=== PATIENT | male | born 1955 | race Caucasian/White ===

== ENCOUNTER 2017-10-13 21:08 | Inpatient (IN) ==
[2017-10-13] MEDS ORDERED: Naloxone 0.4 MG/ML INJ IVP PRN (22:40)
[2017-10-13] MEDS ORDERED: Acetaminophen 325 MG TABLET PO PRN (23:02)
[2017-10-13] MEDS ORDERED: Potassium Chloride Elixir 20 MEQ/15 ML UDC PO ONE (23:04)
--- NOTE | 2017-10-13 23:10 | Internal Med History&Physical ---
Date of Encounter: 10/13/17 Time of Encounter: 22:00 Internal Medicine - H&P: HPI Chief complaint: R toe pain History of present illness: Mr. Krueger is a 62 year old male with history of peripheral arterial disease status post left BKA in 2016 presented to the outside hospital ED with 3 day history of right toe duskiness. He states that he banged his toes against the door prior to that and continued to have increasing pain and redness on the dorsum of the foot. Associated with R 3rd and 5th toe duskiness and worsening pain. No fever/chills or discharges from the toes. Denies any claudication. No chest pain, shortness of breath, cough, sputum production, abdominal pain, dysuria, or nausea/vomiting. He was concerned about his toes turning black and wanted to be evaluated. Of note, he has not been compliant to his medications for at least 1 year. In the ED, he was afebrile and hemodynamically stable. Initial workup showed leukocytosis of 18.3, and potassium of 3.3. X-ray of the foot just showed mild circumferential soft tissue swelling without any soft tissue gas or radiographic evidence of osteomyelitis. He was given a dose of clindamycin and transferred to [facility] for further management. Past Med Surg Social Fam HX - Past Medical History Medical history: arthritis, COPD, GERD, hyperlipidemia, peripheral artery disease, other Additional medical history: patient is poor historian Psychiatric history: no psych history - Past Surgical History Surgical History: other Additional surgical history: left BKA - Social History Smoking Status: Current every day smoker Smokeless Tobacco Status: No Alcohol use: rarely Drug use: none - Family History Mother Adopted: No Family Member Ethnicity: Non- Living Status: Father Adopted: No Family Member Ethnicity: Non- Living Status: Hx Family Cardiac Disorders: Yes Hx Family Respiratory Disorders: Yes Hx Family Cancer: Yes Hx Family GI Disorders: No Hx Family Endocrine Disorder: No Hx Family Neuromuscular Disorders: No Hx Family Neurologic Disorders: No Hx Family HEENT Disorders: No Hx Family Autoimmune Disorders: No Internal Medicine - H&P: Meds Aspirin 81 mg PO DAILY tab.chew 12/10/15 [Rx] Clopidogrel Bisulfate [Plavix] 75 mg PO DAILY #30 tablet 12/10/15 [Rx] Amino Acids/Protein Hydrolys [Pro-Stat Awc Liquid] 887 ml PO BID 02/07/16 [ History] Oxycodone HCl 5 mg PO Q4H PRN #40 capsule 02/07/16 [Rx] Zinc Sulfate 220 mg PO BID 02/07/16 [History] Sulfamethoxazole/Trimeth DS [Bactrim DS] 1 each PO BID #20 tablet 03/03/16 [Rx] 3 Allergy/AdvReac Type Severity Reaction Status Date / Time No Known Allergies Allergy Verified 10/13/17 18:32 All Systems PM: A 10-system review of systems was performed and is negative for pertinent findings except as documented above in the HPI. - Other Additional findings: General: Alert and oriented HEENT:EOM, pupils equal, round, and reactive. Cardiovascular:Normal S1 & S2, no murmurs or gallops. No JVD. Pulse regular. Lungs:Normal breath sounds, no wheezes or crackles. Abdomen:Soft, non-tender, no rigidity. Extremities: R 3rd and 5th toe duskiness noted, extremely tender to touch. Overlying erythema of the dorsum of R foot also seen. No fluctuance or underlying mass felt. PT, DP poorly felt. Neurological:Normal cognition and motor skills. Skin:Normal color, no rash, no lesions. Pulses:Carotid and radial pulses normal +2. Rest of the physical exam is non-contributory - Assessment and plan (1) Gangrene of foot Current Visit: No Status: Acute Assessment and plan: History of peripheral arterial disease completed by noncompliance to medication Concerning findings for right toe gangrene. Previous DIONTE was normal on the right side in December 2015 We will repeat the arterial Doppler study. Given clindamycin in the outside hospital ED, will switch to IV Vanc once weight is entered into the system Vascular surgery consult (2) Cellulitis Current Visit: No Status: Acute Assessment and plan: IV vancomycin above check A1c tomorrow Qualifiers: Site of cellulitis: extremity Site of cellulitis of extremity: lower extremity Laterality: right Qualified Code(s): L03.115 - Cellulitis of right lower limb (3) Hypokalemia Current Visit: Yes Status: Acute Assessment and plan: repleted. (4) DVT prophylaxis Current Visit: No Status: Acute Assessment and plan: SQ heparin - Time Spent With Patient Total time spent is greater than 50% in coordination of care (as documented) at patient's floor/unit and/or counseling patient:
[2017-10-13] MEDS ORDERED: 0.9 % Sodium Chloride w KCl 40 MEQ/1,000 ML MLS IVC SCH (23:15)
[2017-10-14] MEDS: *HR* OxyCODONE Immed Rel 5 MG TABLET PO PRN (00:43)
[2017-10-14 04:02] LABS: Basophils # 0.1 K/mcL (0.0-0.2); Basophils % 0.4 %; Eosinophils # 0.2 K/mcL (0.0-0.6); Eosinophils % 1.4 %; Hematocrit 45.2 % (37.5-50.1); Hemoglobin 15.5 g/dL (12.9-16.9); Immature Granulocytes % 0.4 % (0-4); Lymphocytes # 3.8 K/mcL (0.6-4.6); Lymphocytes % 27.8 %; Mean Corpuscular HGB Conc 34.3 g/dL (31.6-35.5); Mean Corpuscular Hemoglobin 30.8 pg (28.0-33.3); Mean Corpuscular Volume 89.9 fL (83.0-100.0); Mean Platelet Volume 8.8 fL (9.4-12.4); Monocytes # 1.4 K/mcL (0.0-1.3); Monocytes % 10.3 %; Neutrophils # 8.1 K/mcL (1.6-8.9); Platelet Count 462 K/mcL (140-400); Red Blood Count 5.03 M/mcL (4.19-5.50); Red Cell Distribution Width 13.6 % (11.5-14.5); Segmented Neutrophils % 59.7 %
[2017-10-14 04:05] LABS: INR 1.1; Prothrombin Time 12.6 Seconds (9.4-12.1)
[2017-10-14 04:22] LABS: Alanine Aminotransferase 15 Units/L (7-52); Albumin 3.7 g/dL (3.5-5.7); Albumin/Globulin Ratio 1.3 (1.1-2.2); Alkaline Phosphatase 69 Units/L (34-104); Aspartate Amino Transferase 24 Units/L (13-39); BUN/Creatinine Ratio 18 (6-26); Bilirubin,Total 0.4 mg/dL (0.3-1.0); Blood Urea Nitrogen 10 mg/dL (8-23); Calcium 8.7 mg/dL (8.6-10.3); Carbon Dioxide 21 mEq/L (23-29); Chloride 109 mEq/L (98-107); Globulin 2.9 g/dL (2.4-3.5); Glucose 82 mg/dL (70-105); Osmolality,Calculated 276 (280-300); Potassium 5.1 mEq/L (3.5-5.1); Sodium 134 mEq/L (136-145); Total Protein 6.6 g/dL (6.4-8.9); eGFR For Non-African Americans > 60 (> 60)
[2017-10-14 06:45] LABS: Estimated Average Glucose 126 mg/dl
[2017-10-14] MEDS: *HR* Heparin 5,000 UNIT/ML VIAL SQ SCH ×2 (06:53→16:58)
[2017-10-14] MEDS: *HR* HYDROcodone/Acet 5/325 mg TABLET PO PRN ×2 (08:07→20:39)
[2017-10-14] MEDS: Aspirin Enteric Coated 81 MG Tablet PO SCH (08:07)
--- NOTE | 2017-10-14 13:36 | Internal Med Progress Note ---
Hospitalist Progress Note - Encounter Date of Encounter: 10/14/17 Time of Encounter: 09:50 - Subjective Interval History: Patient continues to have decreased sensation along with discoloration of his toes involving the right foot. No fever reported overnight. No nausea or vomiting. Awaiting vascular surgery evaluation. - Exam Vitals: Temp Pulse Resp BP Pulse Ox 98.1 F 73 16 143/84 94 10/14/17 11:45 10/14/17 11:45 10/14/17 11:45 10/14/17 11:45 10/14/17 11:45 Exam: General: Patient is alert, no acute distress, oriented x 3 Head: atraumatic, normocephalic, Eye: normal appearance, PERRL, no scleral icterus, no conjunctival injection ENT: mucous membranes moist, normal external ear exam Neck: normal inspection, trachea midline, full ROM, no carotid bruits Chest: normal inspection, symmetric chest rise Respiratory: Good respiratory effort. Normal breath sounds. No wheezing or crackles.. Cardiovascular: Regular rate and rhythm. s1 and s2 No clicks, rubs, gallops, or murmurs. No pedal edema Abdomen: Abdomen is soft, nontender. Bowel sounds are present Musculoskeletal: Status post left BKA. 4 pedal pulses in the right foot. Discolored toes - first, third and fifth. Erythema involving the dorsal half of the foot Skin: warm, dry- changes as described above Neuro: Alert oriented x 3 normal cranial nerves, no focal deficits - Assessment and Plan (1) Gangrene of foot Current Visit: Yes Status: Acute Assessment and Plan: Arterial imaging shows occlusion at mid thigh level with arterial flow in the distal of the right lower extremity. Consulted vascular surgery. They will evaluate patient today. Continue to keep nothing by mouth. No indication for heparin as this could be chronic occlusion. Continue IV antibiotics. Follow vascular surgery recommendations (2) Cellulitis Current Visit: Yes Status: Acute Assessment and Plan: IV antibiotics. Due to decreased blood flow and gangrene involving the toes of the right foot. (3) Hypokalemia Current Visit: Yes Status: Resolved (4) DVT prophylaxis Current Visit: No Status: Acute DVT Prophylaxis: On subcutaneous heparin - Time Spent with Patient Total time spent is greater than 50% in coordination of care (as documented) at patient's floor/unit and/or counseling patient: Plan of Care Discussed with: patient Internal Medicine: Result - Labs CBC & Chem 7: 10/14/17 03:41 10/14/17 03:41 Labs: Short CBC 10/14/17 Range/Units 03:41 WBC 13.6 H (4.3-11.1) K/mcL Hgb 15.5 (12.9-16.9) g/dL Hct 45.2 (37.5-50.1) % Plt Count 462 H (140-400) K/mcL Neutrophils # 8.1 (1.6-8.9) K/mcL BMP 10/14/17 03:41 Sodium 134 L Potassium 5.1 D Chloride 109 H Carbon Dioxide 21 L BUN 10 Creatinine 0.56 L Glucose 82 Calcium 8.7 Liver Function 10/14/17 Range/Units 03:41 Total Bilirubin 0.4 (0.3-1.0) mg/dL AST 24 (13-39) Units/L ALT 15 (7-52) Units/L Alkaline Phosphatase 69 (34-104) Units/L Albumin 3.7 (3.5-5.7) g/dL - ABG Interpretation ABG results: PT/INR, D-dimer PT 12.6 Seconds (9.4-12.1) H 10/14/17 03:41 Consult Discharge Plan - Plan Referrals: NONE,PCP [Primary Care Provider] - (2) Cellulitis Qualifiers: Site of cellulitis: extremity Site of cellulitis of extremity: lower extremity Laterality: right Qualified Code(s): L03.115 - Cellulitis of right lower limb
[2017-10-14] MEDS: Piperacillin/Tazobactam 3.375 GM in 0.9 % Sodium Chloride Mini Bag 100 ML IVPB SCH ×2 (13:42→22:35)
[2017-10-14] MEDS ORDERED: Isovue-370 500 ML INFUS..BTL IV ONE (14:51)
--- NOTE | 2017-10-14 16:31 | Vascular/Endovasc Consult Note ---
Date of Encounter: 10/14/17 Time of Encounter: 15:00 Assessment and Plan (1) Ischemic pain of right foot Current Visit: Yes Status: Acute Patient has at least a one-month history of right lower extremity ischemia. Patient has advanced ischemic changes involving the right toes and right forefoot. Vascular exam indicates the patient has proximal occlusive disease involving the iliofemoral segment. The patient may also have distal disease. Because of the severity of the ischemia I would recommend a CT aortogram with runoff today to better understand his vascular anatomy. This would help determine whether this right lower extremity is salvageable. If the anatomy is salvageable I would then recommend urgent surgery tomorrow for either a femoral- femoral bypass graft or right femoral-popliteal bypass graft. This was explained to the patient. He agrees to proceed. In the meantime the antibiotics which have been prescribed for the patient may continue though I believe the fundamental issue here is subacute to chronic ischemia of the right lower extremity and not infection. (2) COPD (chronic obstructive pulmonary disease) Current Visit: Yes Status: Chronic Patient has chronic COPD. Qualifiers: COPD type: unspecified COPD Qualified Code(s): J44.9 - Chronic obstructive pulmonary disease, unspecified (3) PAD (peripheral artery disease) Current Visit: Yes Status: Chronic Patient has known peripheral vascular occlusive disease. He has not been in the vascular surgery clinic for nearly 2 years. (4) Tobacco abuse Current Visit: Yes Status: Chronic Patient has chronic tobacco abuse and is the fundamental cause for his vascular disease. - History of Present Illness Consult date: 10/14/17 Consult reason: Right toe gangrene Chief complaint: Right leg pain History of present illness: Mr. Krueger is a 62 year old male Who was admitted last night apparently on transfer from [facility] for evaluation of right lower extremity ischemia. This gentleman states that for at least the past month he has been having pain involving the right calf particularly on the posterior aspect. He has had great difficulties walking. This pain has been progressive over time to the point that he now has pain 24 hours a day. It interferes with his lifestyle. He is unable to ambulate or bear weight on his right foot. He also was noted color changes involving his right toes over the past few days. It is unclear why the patient waited until now to seek medical attention. Noninvasive testing was performed of the right lower extremity early this morning which reveals an DIONTE of 0 at the right foot. Duplex scanning shows marked diminution of the ileal femoral waveforms and velocities suggesting proximal occlusion. Because of all of these issues vascular surgery was consulted today. The past medical history is significant. He had presented in December 2015 with severe left lower extremity ischemia. He went on to have a CT angiogram and then a left femoral to popliteal artery bypass graft by Dr. Haney. Subsequent to this the ischemia progressed and the patient required a left [id number] amputation. Following that he developed a wound infection and was seen and treated at [facility] where he underwent a left [id number] amputation. He has not been back in the vascular surgery clinic at [place] since January 2016. The patient is an active tobacco abuser and has known COPD. In addition he has elevated cholesterol. He is also suffering from degenerative joint disease as well as gastroesophageal reflux. Past Med Surg Social Fam HX - Past Medical History Medical history: arthritis, COPD, GERD, hyperlipidemia, peripheral artery disease, other Additional medical history: patient is poor historian Psychiatric history: no psych history - Past Surgical History Surgical History: vascular surgery (Left femoral-popliteal bypass graft), other Additional surgical history: left BKA. Left above-knee amputation at [place] - Social History Smoking Status: Current every day smoker Smokeless Tobacco Status: No Alcohol use: rarely Drug use: none - Family History Mother History Unknown: Yes Adopted: No Family Member Ethnicity: Non- Living Status: Father History Unknown: Yes Adopted: No Family Member Ethnicity: Non- Living Status: Hx Family Cardiac Disorders: Yes Hx Family Respiratory Disorders: Yes Hx Family Cancer: Yes Hx Family GI Disorders: No Hx Family Endocrine Disorder: No Hx Family Neuromuscular Disorders: No Hx Family Neurologic Disorders: No Hx Family HEENT Disorders: No Hx Family Autoimmune Disorders: No Medications and Allergies Albuterol Sulfate [Proair Hfa] 1 - 2 puff IH Q6H PRN 10/14/17 [History] Gabapentin [Neurontin] 100 mg PO TID 10/14/17 [History] Lovastatin [Mevacor] 20 mg PO QPM 10/14/17 [History] hydrOXYzine HCl [Hydroxyzine HCl] 50 mg PO HS 10/14/17 [History] 3 Allergy/AdvReac Type Severity Reaction Status Date / Time No Known Allergies Allergy Verified 10/13/17 18:32 All Systems Review: The remainder of the systems were reviewed and are negative Exam Vital Signs, Last 4 Hours Temp Pulse Resp BP Pulse Ox 10/14/17 15:20 98.6 F 81 18 128/78 93 General: Present: Conversant, No Apparent Distress, Other (The patient is a thin and cachectic appearing white male who looks older than his chronologic years.) HEENT: Present: Atraumatic, Trachea midline, Other (Muscle wasting of face and neck) Neck: Absent: JVD, Left Carotid bruit, Right Carotid bruit, Midline deformity, Tracheal deviation Cardiac: Present: Reg Rate and Rhythm, No Murmur Lungs: Present: Decreased breath sounds Neuro: Present: Alert and responsive, No focal deficits noted, Cranial nerves grossly intact Abdomen: Present: Soft, Non-tender. Absent: Masses Vascular: Present: Pulse, absent (Patient has no palpable right lower extremity pulses.), Pulse, normal (Patient has a palpable left femoral pulse), Edema, Color/Temperature (The right foot is cool to cold to touch. It is tender to manipulation. The patient has ruborous changes on the dorsal lateral aspect of the foot. There are cyanotic to gangrenous changes involving 4 of the 5 toes of the right foot. There are no ulcerations of the heel or calf. There is no signs of venous insufficiency.), Amputation(s) (Status post left above-knee amputation ) Consult Discharge Plan - Plan Referrals: NONE,PCP [Primary Care Provider] -
--- NOTE | 2017-10-14 22:26 | Anesthesia Evaluation PreOp ---
Date of Encounter: 10/14/17 Time of Encounter: 22:21 - Past History Planned Operation: R fem-pop bypass graft Cardiac History: Hyperlipidemia, Other (PAD) Pulmonary History: Smoker, COPD GRADER MARKER History: Denies Any Significant HX Other Medical History: GERD Anesthesia History: No Prior Anesthetic Complications, Past Anesthesia (L BKA) Alcohol Use: rarely Drug use: none Medications and Allergies Albuterol Sulfate [Proair Hfa] 1 - 2 puff IH Q6H PRN 10/14/17 [History] Gabapentin [Neurontin] 100 mg PO TID 10/14/17 [History] Lovastatin [Mevacor] 20 mg PO QPM 10/14/17 [History] hydrOXYzine HCl [Hydroxyzine HCl] 50 mg PO HS 10/14/17 [History] 3 Allergy/AdvReac Type Severity Reaction Status Date / Time No Known Allergies Allergy Verified 10/13/17 18:32 - Meds/Allergy Pre-op Review Medications Reviewed: Yes Allergies Reviewed: Yes Beta Blockers on Current Med List: No Anesthesia Results - Labs 10/14/17 03:41 10/14/17 03:41 Anesthesia Exam Vital Signs/O2 Sat, Most Current Temp Pulse Resp BP Pulse Ox 98.7 F 92 16 124/69 94 10/14/17 18:55 10/14/17 18:55 10/14/17 18:55 10/14/17 18:55 10/14/17 18:55 Weight: 46kg NPO (# of Hours): MN - HEENT Pupil (Motor): Pupils equal, EOMI Mallampati: III Teeth: Edentulous Oral Opening: Greater than 3 - GRADER MARKER LOC: Oriented GRADER MARKER Motor: Normal RUE, Normal LUE, Normal RLE, Normal Face, Deficit LLE (L BKA) GRADER MARKER Sensory: Normal: RUE, LUE, RLE, Face, Deficit: LLE (L BKA) - Cardiac Rhythm: Regular - Pulmonary Breath Sounds: bilateral Clear Respiratory Effort: Symmetrical Anesthesia Assess/Plan ASA Score: 3 Modified [place] Scale for Level of Consciousness: Cooperative, oriented, and tranquil Anesthetic Plan: General Monitoring Plan: Standard Monitors, A-Line Recovery Plan: PACU
[2017-10-15] MEDS: Piperacillin/Tazobactam 3.375 GM in 0.9 % Sodium Chloride Mini Bag 100 ML IVPB SCH ×2 (04:30→11:29)
[2017-10-15] MEDS: *HR* Heparin 5,000 UNIT/ML VIAL SQ SCH (05:08)
[2017-10-15] MEDS ORDERED: *HR* Dextrose 50 % in Water (Syg) 50 ML SYRINGE IVP PRN ×2 (06:00→22:50)
[2017-10-15] MEDS ORDERED: D5% in Water 1,000 ML IVC PRN ×2 (06:00→22:50)
[2017-10-15] MEDS ORDERED: Dextrose Gel 15 GM/37.5 ML TUBE PO PRN ×4 (06:00→22:50)
[2017-10-15] MEDS ORDERED: ceFAZolin 2,000 MG in 0.9 % Sodium Chloride 100 ML IVPB ONE (08:00)
[2017-10-15] MEDS ORDERED: CeFAZolin Syr 2,000MG/20 ML 2,000 MG/20 ML SYRINGE IVPB ONE (08:00)
[2017-10-15] MEDS: Aspirin Enteric Coated 81 MG Tablet PO SCH (08:07)
[2017-10-15] MEDS: *HR* OxyCODONE Immed Rel 5 MG TABLET PO PRN (09:21)
--- NOTE | 2017-10-15 10:17 | Internal Med Progress Note ---
Hospitalist Progress Note - Encounter Date of Encounter: 10/15/17 Time of Encounter: 09:00 - Subjective Interval History: Continues to have pain in right foot and leg. Awaiting surgery scheduled for later today. No fever or chills reported overnight. No other new complaints at this time. - Exam Vitals: Temp Pulse Resp BP Pulse Ox 98.8 F 77 15 127/82 98 10/15/17 06:33 10/15/17 06:33 10/15/17 06:33 10/15/17 06:33 10/15/17 06:33 Exam: General: Patient is alert, no acute distress, oriented x 3 Head: atraumatic, normocephalic, Eye: normal appearance, PERRL, no scleral icterus, no conjunctival injection Neck: normal inspection, trachea midline, full ROM, no carotid bruits Chest: normal inspection, symmetric chest rise Respiratory: Good respiratory effort. Normal breath sounds. No wheezing or crackles.. Cardiovascular: Regular rate and rhythm. s1 and s2 No clicks, rubs, gallops, or murmurs. No pedal edema Abdomen: Abdomen is soft, nontender. Bowel sounds are present Musculoskeletal: Status post left BKA. Erythema involving the right foot with discolored first third and fifth toes. Poor pedal pulses Psych: Patient's affect is normal - Assessment and Plan (1) Gangrene of foot Current Visit: Yes Status: Acute Assessment and Plan: Vascular surgery consult appreciated. Continue IV antibiotics. Plan for surgery with possible right femorofemoral/ fem- pop bypass today. (2) Cellulitis Current Visit: Yes Status: Acute Assessment and Plan: On IV antibiotics. (3) Hypokalemia Current Visit: Yes Status: Resolved (4) DVT prophylaxis Current Visit: No Status: Acute (5) Ischemic pain of right foot Current Visit: Yes Status: Acute Assessment and Plan: Due to ischemia. Plan for Right fem-fem/ fem-pop bypass today. DVT Prophylaxis: On SQ heparin - Time Spent with Patient Total time spent is greater than 50% in coordination of care (as documented) at patient's floor/unit and/or counseling patient: Plan of Care Discussed with: patient Internal Medicine: Result - Labs CBC & Chem 7: 10/14/17 03:41 10/14/17 03:41 - ABG Interpretation ABG results: PT/INR, D-dimer PT 12.6 Seconds (9.4-12.1) H 10/14/17 03:41 - Impressions Impressions Aorta w/Runoff CTA 10/14/17 14:51 IMPRESSION: 1. Moderate aortoiliac atherosclerotic disease. Occlusion of the right external iliac artery with collateral reconstitution at the right common femoral artery. Left external iliac artery disease with stenoses approaching 50%. 2. Long segment occlusion of the distal third of the right SFA extending over 9-10 cm. Two-vessel runoff with occlusion of the posterior tibial artery proximally. 3. Status post left AKA. Occlusion of the [place] left SFA and femoral graft proximally. 4. No acute findings within the abdomen or pelvis. 5. Hepatic steatosis. 6. Changes of chronic pancreatitis. D/ / 10/14/2017 16:59:20 Laurent Limon MD / margarito Interpreting Provider: Laurent Limon MD Consult Discharge Plan - Plan Referrals: NONE,PCP [Primary Care Provider] - Alexis Aguilar MD [Partnered Physician] - (2) Cellulitis Qualifiers: Site of cellulitis: extremity Site of cellulitis of extremity: lower extremity Laterality: right Qualified Code(s): L03.115 - Cellulitis of right lower limb
[2017-10-15] MEDS ORDERED: *HR* FentaNYL (PF) 100 MCG/2 ML VIAL ONE (14:58)
[2017-10-15] MEDS ORDERED: *HR* Propofol 200 MG/20 ML VIAL IVP ONE (14:58)
[2017-10-15] MEDS ORDERED: Lidocaine -MPF 2% 2 ML VIAL ONE ×2 (14:58→15:29)
[2017-10-15] MEDS ORDERED: Lidocaine -MPF 4% 5 ML AMPUL ONE (14:59)
[2017-10-15] MEDS ORDERED: Heparin 1,000 UNITS/500 mL 500 ML ONE ×3 (14:59→20:58)
[2017-10-15] MEDS ORDERED: Gabapentin 100 MG CAPSULE PO SCH (15:00)
[2017-10-15] MEDS ORDERED: Heparin 1,000 UNITS/500 mL 1,000 ML ONE ×2 (15:06→18:56)
[2017-10-15] MEDS ORDERED: *HR* Phenylephrine 10 MG/ML VIAL ONE (15:09)
[2017-10-15] MEDS ORDERED: *HR* Midazolam HCl 2 MG/2 ML VIAL ONE (15:12)
[2017-10-15] MEDS ORDERED: *HR* Labetalol 100 MG/20 ML MDV ONE (15:27)
[2017-10-15] MEDS ORDERED: NiCARdipine 2.5 MG/10 ML Syringe IVPB ONE (15:27)
[2017-10-15] MEDS ORDERED: Dexamethasone 4 MG/ML VIAL ONE (15:41)
[2017-10-15] MEDS ORDERED: Ondansetron 4 MG/2 ML VIAL ONE (15:41)
[2017-10-15] MEDS ORDERED: Isovue-300 150 ML INFUS..BTL IV ONE (16:05)
[2017-10-15] MEDS ORDERED: *HR* Remifentanil 1 MG VIAL IVP ONE ×2 (16:38→18:56)
[2017-10-15] MEDS ORDERED: EPHEDrine 50 MG/ML VIAL ONE (17:05)
[2017-10-15] MEDS ORDERED: *HR* Heparin 5,000 UNIT/ML VIAL ONE ×2 (17:11→18:02)
[2017-10-15] MEDS ORDERED: ceFAZolin 1,000 MG, Sodium Chloride IRRigation 1,000 ML IR ONE ×2 (17:30→22:50)
[2017-10-15] MEDS ORDERED: *HR* Promethazine 25 MG/ML VIAL IVP PRN ×2 (17:49→22:50)
[2017-10-15] MEDS ORDERED: *HR* OxyCODONE Immed Rel 5 MG TABLET PO PRN ×2 (17:49→22:50)
[2017-10-15] MEDS ORDERED: *HR* HYDROmorphone (PF) 1 MG/ML SYRINGE IVP PRN ×2 (17:49→22:50)
[2017-10-15] MEDS ORDERED: Ondansetron 4 MG/2 ML VIAL IVP ONE ×2 (17:49→22:50)
[2017-10-15] MEDS ORDERED: Neostigmine Methylsulfate 3 MG/3 ML SYRINGE ONE (20:57)
[2017-10-15] MEDS ORDERED: hydrOXYzine pamoate 25 MG CAPSULE PO SCH (21:00)
--- NOTE | 2017-10-15 22:01 | Operative Note ---
Date of procedure: 10/15/17 Pre-op diagnosis: limb threatening ischemia of right lower extremity Post-op diagnosis: same Procedure: right iliofemoral endarterectomy right iliofemoral bovine pericardial patch angioplasty aortogram left femoral endarterectomy left to right femoral-femoral bypass graft with 6 mm PTFE right leg angiogram balloon angioplasty of right SFA and Popliteal using 4 x 200 mm balloon Complications: none Anesthesia: GETA Surgeon: Alexis Aguilar Was there an assistant manager of operations present: No Estimated blood loss (cc): 250 Specimen: 0 Condition: stable Disposition: PACU Procedure in Detail: History Kyler Krueger is a 62-year-old white male who was admitted to the hospital a day before yesterday because of right foot pain in color changes to the toes. The patient states this is been ongoing for at least a month. He has gone on to develop ischemic rest pain and nocturnal rest pain. Faster surgery was asked to see the patient. His ankle-brachial index was 0. 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 This became infected and then he had an oosjj-zkr-ljok amputation. Due to the limb threatening nature of his ischemia he is recommended to undergo urgent bypass grafting in an attempt to try to save the right lower extremity. Procedure After informed consent was obtained the patient was taken to the operating room. General endotracheal anesthesia was established. The abdomen groin and right lower extremity were sterilely prepped and draped. A timeout protocol was observed. An incision was made in the right groin in a vertical orientation in order to provide for a long endarterectomy. Control was obtained of the femoral vessels as well as the distal aspect of the external iliac artery. The patient had marked lymphadenopathy in the right groin region. Heparin was administered after control was obtained of the femoral vessels. A longitudinal arteriotomy was then made. An extensive endarterectomy was then performed of the entire length of the common femoral artery as well as the proximal profunda and proximal superficial femoral artery. The endarterectomy was also carried proximally into the external iliac artery. 3 and 4 Kosovan Any catheters were passed proximally in an attempt to try to relieve the clot and to create an opening. A large amount of subacute to chronic thrombus was removed. There is only small amount of bleeding achieved. A bovine pericardial patch change plasty was then performed. This was sewn into position using 6-0 Prolene suture. Next an angiogram was obtained. An 18-gauge needle was used to puncture the right bovine pericardial patch on the femoral artery. This was then followed by a wire and then a 6 Kosovan sheath. Retrograde angiograms were then performed of the right iliac system and distal aorta. There appeared to be diffuse plaque formation in the proximal right external iliac artery. Attempts at passing the wire were unsuccessful and it appeared that there was a subintimal dissection plane. Then a needle was inserted in the left groin in a retrograde orientation. A 6 Kosovan sheath was then placed. Attempts at passing the guidewire retrograde into the aorta were also met with unsuccessful attempts. This appeared to be a subintimal dissection as well. The patient has known severe disease is of therefore it was opted not to proceed with further attempts at endovascular intervention for the iliac system but rather perform a femoral-femoral graft. Because of this it was opted that the plan to perform a stent angioplasty of the right iliac system to provide adequate inflow into the right lower extremity was not feasible. The left femoral artery was then dissected and controlled. The dissection was proximal to the previously placed anastomosis for the old femoral-popliteal bypass graft. A deep subcutaneous tunnel was then created. The patient was then re-heparinized. The sheath was removed and arteriotomy performed of the common femoral artery. This was a very diseased vessel and again there appeared to be a subintimal dissection. Therefore an endarterectomy is necessary. Then a formal endarterectomy was performed of the left common femoral artery. This was a very thickened dense plaque. This was removed. Excellent pulsatile flow was restored toward from the proximal iliac system. There is retrograde bleeding from the femoral system. The proximal anastomosis of the femoral-femoral bypass graft was then created to the left common femoral artery that was endarterectomized. This was sewn into position in an end-to-side fashion using 6 -0 Prolene suture. After appropriate backbleeding and flushing the graft itself was clamped and the [place] vessel clamps were removed. Attention was then directed to the right side again. The previously placed 6 Kosovan sheath was removed and then reoriented so that it would be placed an antegrade position. An angiogram was then obtained of the right lower extremity. There is showed occlusion of the superficial femoral artery with diffuse disease of the [id number]-jln-qtje popliteal section. Then using a Glidewire under fluoroscopic control the occlusion was able to be passed with the wire. Further heparin was given at that time. A 4 mm x 200 mm standard balloon was selected. This was then placed under fluoroscopic control. An angioplasty was performed of the mid to distal portion of the superficial femoral artery as well as the proximal and midportion of the popliteal artery. After these angioplasties were performed a completion angiogram demonstrated successful results with zoroastrian of a patent lumen and pulsatile flow. A wire was inserted and a Omni Flush catheter was placed into the distal grpwg-[id number]-[id number] popliteal artery. Angiogram was then obtained of the right tibial system. This demonstrated occlusion of the right posterior tibial artery with dominant runoff through the anterior tibial artery. The peroneal artery was a small vessel. Contrast injection did not reveal dye in the dorsalis pedis or any of the direct pedal or forefoot vessels. The catheter was then removed over a wire. Sheath was removed. The recipient anastomosis and for the femoral-femoral bypass graft was created. This was created onto the previously placed bovine pericardial patch angioplasty. This was sewn in end to side fashion with 6-0 Prolene. After appropriate backbleeding and flushing the graft was opened. Pulsatile flow was established into the right lower extremity. Doppler signals were identified over the distal anterior tibial artery and over the distal peroneal artery at the right ankle. No signals were identified in the operating room over the posterior tibial artery. The groin incisions were then irrigated and hemostasis achieved. The incisions were closed using absorbable suture. Half percent Marcaine was infiltrated into the wounds. Dry sterile dressings were applied. The patient was then reversed from anesthesia and extubated in the operating room. He was hemodynamically stable. He was then taken from the operating room to the recovery room in stable condition.
[2017-10-15] MEDS ORDERED: Ondansetron 4 MG/2 ML VIAL IVP PRN (22:50)
[2017-10-15] MEDS ORDERED: Acetaminophen 325 MG TABLET PO PRN (22:50)
[2017-10-15] MEDS ORDERED: *HR* Labetalol 20 MG/4 ML SYRINGE IVP PRN (22:50)
[2017-10-15] MEDS ORDERED: Naloxone 0.4 MG/ML INJ IVP PRN ×2 (22:50)
--- NOTE | 2017-10-15 23:11 | Anesthesia Evaluation Post Op ---
Date of Encounter: 10/15/17 Time of Encounter: 23:10 - Vital Signs Vital Signs: Vital Signs/O2 Sat, Most Current Temp Pulse Resp BP Pulse Ox 99.0 F 91 19 114/71 94 10/15/17 23:00 10/15/17 23:00 10/15/17 23:00 10/15/17 23:00 10/15/17 23:00 - Lungs Lungs: Clear Ascult./Percussion - Airway Airway: Non-obstructed - Cardiovascular Regular Rate - Mental Status Mental Status: Baseline Status - Pain Pain Scale: 0 Pain Scale used: Numeric (1 - 10) - Nausea Vomiting Nausea Vomiting: Not Present - Hydration Hydration: NPO, Min catheter - Discharge PostOp Status: Transfer Patient to floor Attestation: I have assessed this patient and find they meet discharge criteria.
[2017-10-16] MEDS: Piperacillin/Tazobactam 3.375 GM in 0.9 % Sodium Chloride Mini Bag 100 ML IVPB SCH ×3 (04:17→20:55)
[2017-10-16] MEDS: *HR* Heparin 5,000 UNIT/ML VIAL SQ SCH ×2 (06:19→16:49)
[2017-10-16] MEDS: *HR* HYDROcodone/Acet 5/325 mg TABLET PO PRN ×2 (06:31→14:05)
[2017-10-16] MEDS: Gabapentin 100 MG CAPSULE PO SCH ×3 (08:36→20:54)
[2017-10-16] MEDS: Aspirin Enteric Coated 81 MG Tablet PO SCH (08:36)
[2017-10-16] MEDS: *HR* OxyCODONE Immed Rel 5 MG TABLET PO PRN ×2 (09:40→20:54)
--- NOTE | 2017-10-16 12:24 | Vascular/Endovas Progress Note ---
Date of Encounter: 10/16/17 Time of Encounter: 11:30 - Assessment and plan (1) Ischemic pain of right foot Current Visit: Yes Status: Acute Ischemia is improved to the right foot following extensive and exhaustive revascularization performed last night. The patient was found on angiography in the OR last night to have minimal flow to the foot. However, Clinically the perfusion is improved today on postoperative day #1. Unfortunately, The patient does not have any further options for distal revascularization. I would recommend podiatry consult to evaluate right foot and gangrenous toes. (2) COPD (chronic obstructive pulmonary disease) Current Visit: Yes Status: Chronic Patient has chronic COPD. Qualifiers: COPD type: unspecified COPD Qualified Code(s): J44.9 - Chronic obstructive pulmonary disease, unspecified (3) PAD (peripheral artery disease) Current Visit: Yes Status: Chronic Patient has known peripheral vascular occlusive disease. He has not been in the vascular surgery clinic for nearly 2 years. (4) Tobacco abuse Current Visit: Yes Status: Chronic Patient has chronic tobacco abuse and is the fundamental cause for his vascular disease. - Subjective Interval history: Patient states the pain to the right foot is dramatically improved. Vital Signs, Last 4 Hours Temp Pulse Resp BP Pulse Ox 10/16/17 12:12 99.3 F 82 18 104/70 93 10/16/17 08:45 75 - Physical Examination General: Present: Conversant, No Apparent Distress Vascular: Present: Surgical incisions (Dry dressings are intact over the femoral incisions bilaterally. There is no hematoma.), Other (Patient has Doppler signals over the distal anterior tibial and peroneal artery. No Doppler signal over the posterior tibial artery at the ankle. Patient has gangrenous changes to the third and fifth toe of the right foot. The patient has persistent ruborous changes on the dorsal aspect of the forefoot particularly on the lateral aspect. The temperature of the right foot is significantly improved following surgery.) Abdomen: Present: Soft Results 10/14/17 03:41 10/14/17 03:41 Consult Discharge Plan - Plan Referrals: Trista Norris CNP [Advanced Practice Nurse] - 10/23/17 2:45 pm Alexis Aguilar MD [Partnered Physician] - 11/11/17 9:30 am ()
--- NOTE | 2017-10-16 13:00 | Internal Med Progress Note ---
Hospitalist Progress Note - Encounter Date of Encounter: 10/16/17 Time of Encounter: 11:30 - Subjective Interval History: Patient underwent surgery yesterday. Doing better postoperatively. His pain in his right foot appears to be somewhat better. No fever or chills. He - Exam Vitals: Temp Pulse Resp BP Pulse Ox 99.3 F 82 18 104/70 93 10/16/17 12:12 10/16/17 12:12 10/16/17 12:12 10/16/17 12:12 10/16/17 12:12 Exam: General: Patient is alert, no acute distress, oriented x 3 Head: atraumatic, normocephalic, Eye: normal appearance, PERRL, no scleral icterus, no conjunctival injection Neck: normal inspection, trachea midline, full ROM, no carotid bruits Chest: normal inspection, symmetric chest rise Respiratory: Good respiratory effort. Prolonged expiratory phase. No wheezing or crackles.. Cardiovascular: Regular rate and rhythm. s1 and s2 No clicks, rubs, gallops, or murmurs. No pedal edema Abdomen: Abdomen is soft, nontender. Bowel sounds are present Musculoskeletal: Status post left BKA. Right foot erythema on the dorsal of the foot with discolored third and fifth toes and partial dorsal great toe. Skin: warm, dry, intact. Neuro: Alert oriented x 3 normal cranial nerves, no focal deficits Psych: Patient's affect is normal - Assessment and Plan (1) Ischemic pain of right foot Current Visit: Yes Status: Acute Assessment and Plan: Status post extensive vascular surgery yesterday with left to right femorofemoral bypass graft, balloon angioplasty of right SFA and popliteal arteries. Postop day 1. Pain is improving. Continue supportive care. Continue aspirin and Plavix. Patient did have good Doppler flow post surgery in his pedal vessels. (2) Gangrene of foot Current Visit: Yes Status: Acute Assessment and Plan: Due to right lower extremity ischemia. Status post [id number] femorofemoral bypass graft and balloon angioplasty of right SFA and popliteal arteries. Patient is on aspirin and Plavix. Consulted podiatry for recommendations. Continue current IV antibiotics. (3) Cellulitis Current Visit: Yes Status: Acute Assessment and Plan: Being treated with IV antibiotics (4) Hypokalemia Current Visit: Yes Status: Resolved (5) DVT prophylaxis Current Visit: No Status: Acute Assessment and Plan: On subcutaneous heparin - Time Spent with Patient Total time spent is greater than 50% in coordination of care (as documented) at patient's floor/unit and/or counseling patient: Plan of Care Discussed with: patient Internal Medicine: Result - Labs CBC & Chem 7: 10/14/17 03:41 10/14/17 03:41 - ABG Interpretation ABG results: PT/INR, D-dimer PT 12.6 Seconds (9.4-12.1) H 10/14/17 03:41 - Impressions Impressions Femur X-Ray 10/15/17 18:10 IMPRESSION: Intraprocedural fluoroscopic images as above. See separate procedure report for more information. D/ / Jasen Low MD / Jasen Low MD Interpreting Provider: Jasen Low MD Fluoroscopy 10/15/17 18:10 IMPRESSION: Intraprocedural fluoroscopic images as above. See separate procedure report for more information. D/ / Jasen Low MD / Jasen Low MD Interpreting Provider: Jasen Low MD Pelvis X-Ray 10/15/17 18:10 IMPRESSION: Intraprocedural fluoroscopic images as above. See separate procedure report for more information. D/ / Jasen Low MD / Jasen Low MD Interpreting Provider: Jasen Low MD Tibia/Fibula X-Ray 10/15/17 18:10 IMPRESSION: Intraprocedural fluoroscopic images as above. See separate procedure report for more information. D/ / Jasen Low MD / Jasen Low MD Interpreting Provider: Jasen Low MD Consult Discharge Plan - Plan Referrals: Trista Norris CNP [Advanced Practice Nurse] - 10/23/17 2:45 pm Alexis Aguilar MD [Partnered Physician] - 11/11/17 9:30 am () (3) Cellulitis Qualifiers: Site of cellulitis: extremity Site of cellulitis of extremity: lower extremity Laterality: right Qualified Code(s): L03.115 - Cellulitis of right lower limb
--- NOTE | 2017-10-16 20:51 | Podiatry Consult Note ---
Date of Encounter: 10/18/17 Time of Encounter: 19:00 Assessment and Plan (1) Gangrene of foot Current visit: Yes Status: Acute reviewed with patient my findings and recommendations for treatment. we discussed his vascular disease. we discussed amputation for treatment of his gangrene. will monitor over the weekend, patient to likely require TMA which would be performed next week. History of Present Illness HPI: Mr. Krueger is a 62 year old male who is a smoker and has a history of peripheral arterial disease is s/p right LE revascularization with Dr. Aguilar. He has a leg amputation on the left. He says this all started about a month or more ago when his toes started to turn dark on the right side. [place] to doctors so he waited. he says it got worse so he came to the hospital. Past Med Surg Social Fam HX - Past Medical History Medical history: arthritis, COPD, GERD, hyperlipidemia, peripheral artery disease, other Additional medical history: patient is poor historian Psychiatric history: no psych history - Past Surgical History Surgical History: vascular surgery (Left femoral-popliteal bypass graft), other Additional surgical history: left BKA. Left above-knee amputation at [place] - Social History Smoking Status: Current every day smoker Smokeless Tobacco Status: No Alcohol use: rarely Drug use: none - Family History Mother History Unknown: Yes Adopted: No Family Member Ethnicity: Non- Living Status: Father History Unknown: Yes Adopted: No Family Member Ethnicity: Non- Living Status: Hx Family Cardiac Disorders: Yes Hx Family Respiratory Disorders: Yes Hx Family Cancer: Yes Hx Family GI Disorders: No Hx Family Endocrine Disorder: No Hx Family Neuromuscular Disorders: No Hx Family Neurologic Disorders: No Hx Family HEENT Disorders: No Hx Family Autoimmune Disorders: No Medications and Allergies Albuterol Sulfate [Proair Hfa] 1 - 2 puff IH Q6H PRN 10/14/17 [History] Gabapentin [Neurontin] 100 mg PO TID 10/14/17 [History] Lovastatin [Mevacor] 20 mg PO QPM 10/14/17 [History] hydrOXYzine HCl [Hydroxyzine HCl] 50 mg PO HS 10/14/17 [History] 3 Allergy/AdvReac Type Severity Reaction Status Date / Time No Known Allergies Allergy Verified 10/13/17 18:32 All Systems Reviewed: The remainder of the systems were reviewed and are negative - Constitutional Constitutional: no fever(s) - Cardiovascular Cardiovascular: no chest pain - Respiratory Respiratory: no dyspnea - Musculoskeletal Musculoskeletal: limited range of motion, numbness, other (left BKA) Physical Exam - Constitutional Vitals: Temp Pulse Resp BP Pulse Ox 99.1 F 89 18 103/51 96 10/16/17 19:38 10/16/17 19:38 10/16/17 19:38 10/16/17 19:38 10/16/17 19:38 General appearance: no acute distress Exam: well developed male in no acute distress Vasc: right foot is cool to touch. 3rd and 5th digits are necrotic. 1st digit is cool to touch with some palor, CFT of the hallux is sluggish and greater than 5 sec. Derm: left leg amputation. necrosis of 3rd and 5th digits of the right foot. no fluctuance. No purulence expressed. erythema dorsal foot not past line drawn. Musc:there is pain with palpation of necrotic digits Neuro: diminished protective sensation ABD: NT/ND Respirations: non-labored Results - Labs Result Diagrams: 10/18/17 01:01 10/18/17 01:01 Labs: Abnormal lab results WBC 13.6 K/mcL (4.3-11.1) H 10/14/17 03:41 Plt Count 462 K/mcL (140-400) H 10/14/17 03:41 MPV 8.8 fL (9.4-12.4) L 10/14/17 03:41 Monocytes # 1.4 K/mcL (0.0-1.3) H 10/14/17 03:41 PT 12.6 Seconds (9.4-12.1) H 10/14/17 03:41 Sodium 134 mEq/L (136-145) L 10/14/17 03:41 Chloride 109 mEq/L (98-107) H 10/14/17 03:41 Carbon Dioxide 21 mEq/L (23-29) L 10/14/17 03:41 Creatinine 0.56 mg/dL (0.70-1.30) L 10/14/17 03:41 Hemoglobin A1c 6.0 % (-5.6) H 10/14/17 03:41 Calculated Osmolality 276 (280-300) L 10/14/17 03:41 All other labs normal. Consult Discharge Plan - Plan Referrals: Trista Norris CNP [Advanced Practice Nurse] - 10/23/17 2:45 pm (Please take with you to your appointment the new patient that will arrive in the mail, if you don't receive it please show up 30 minutes early to fill out paperwork. Take with you your picture ID, Ins card, list of all medication including over the counter. This office does not prescribe narcotics. If you need to cancel please call 24 hours in advance to [phone].) Alexis Aguilar MD [Partnered Physician] - 11/11/17 9:30 am ()
[2017-10-16] MEDS: hydrOXYzine pamoate 25 MG CAPSULE PO SCH (20:54)
[2017-10-17] MEDS: *HR* OxyCODONE Immed Rel 5 MG TABLET PO PRN ×3 (03:01→15:17)
[2017-10-17 04:11] LABS: Basophils # 0.1 K/mcL (0.0-0.2); Basophils % 0.4 %; Eosinophils # 0.1 K/mcL (0.0-0.6); Eosinophils % 0.7 %; Immature Granulocytes % 0.5 % (0-4); Lymphocytes # 2.9 K/mcL (0.6-4.6); Mean Corpuscular HGB Conc 33.1 g/dL (31.6-35.5); Mean Corpuscular Hemoglobin 30.1 pg (28.0-33.3); Mean Corpuscular Volume 90.9 fL (83.0-100.0); Mean Platelet Volume 9.1 fL (9.4-12.4); Monocytes # 1.6 K/mcL (0.0-1.3); Monocytes % 8.6 %; Neutrophils # 13.6 K/mcL (1.6-8.9); Platelet Count 376 K/mcL (140-400); Red Blood Count 3.52 M/mcL (4.19-5.50); Red Cell Distribution Width 13.6 % (11.5-14.5); Segmented Neutrophils % 73.8 %
[2017-10-17 04:27] LABS: BUN/Creatinine Ratio 13 (6-26); Blood Urea Nitrogen 8 mg/dL (8-23); Calcium 7.9 mg/dL (8.6-10.3); Carbon Dioxide 25 mEq/L (23-29); Chloride 107 mEq/L (98-107); Glucose 113 mg/dL (70-105); Osmolality,Calculated 271 (280-300); Potassium 3.5 mEq/L (3.5-5.1); Sodium 131 mEq/L (136-145); eGFR For Non-African Americans > 60 (> 60)
[2017-10-17 04:30] LABS: Hemoglobin 10.6 g/dL (12.9-16.9)
[2017-10-17] MEDS: Piperacillin/Tazobactam 3.375 GM in 0.9 % Sodium Chloride Mini Bag 100 ML IVPB SCH ×3 (04:34→20:34)
[2017-10-17] MEDS: *HR* Heparin 5,000 UNIT/ML VIAL SQ SCH ×2 (06:02→17:33)
[2017-10-17] MEDS: Gabapentin 100 MG CAPSULE PO SCH ×3 (08:28→20:34)
[2017-10-17] MEDS: Aspirin Enteric Coated 81 MG Tablet PO SCH (08:28)
--- NOTE | 2017-10-17 12:52 | Internal Med Progress Note ---
Hospitalist Progress Note - Encounter Date of Encounter: 10/17/17 Time of Encounter: 12:00 - Subjective Interval History: Patient is sitting up in chair. He reports that he did some exercises this morning and has been having pain in his right foot. He has also noticed increased warmth in his foot. Denies any fever or chills. No shortness of breath. No chest pain or palpitations. - Exam Vitals: Temp Pulse Resp BP Pulse Ox 99.2 F 89 17 101/67 94 10/17/17 10:55 10/17/17 10:55 10/17/17 10:55 10/17/17 10:55 10/17/17 10:55 Exam: General: Patient is alert, no acute distress, oriented x 3 Neck: normal inspection, trachea midline, full ROM, no carotid bruits Chest: normal inspection, symmetric chest rise Respiratory: Good respiratory effort. Normal breath sounds. No wheezing or crackles. Cardiovascular: Regular rate and rhythm. s1 and s2 No clicks, rubs, gallops, or murmurs. No pedal edema Abdomen: Abdomen is soft, nontender. Bowel sounds are present Musculoskeletal: Status post left BKA. Right foot and lower leg bandaged at this time. Normal range of motion. Neuro: Alert oriented x 3 normal cranial nerves, no focal deficits Psych: Patient's affect is normal - Assessment and Plan (1) Ischemic pain of right foot Current Visit: Yes Status: Acute Assessment and Plan: Due to limb ischemia. Status post femorofemoral bypass. Patient reports improving feeling in his toes. Will continue current antibiotics. WBC count is elevated at 18.4. Could be reactionary. Patient is on vancomycin and Zosyn. We will follow WBC count. Moderate risk for complications. (2) Gangrene of foot Current Visit: Yes Status: Acute Assessment and Plan: Gangrene of right foot toes. Podiatry consultation. We will follow recommendations. They recommend waiting to see how his recirculation establishes prior to performing a transmetatarsal amputation. (3) Cellulitis Current Visit: Yes Status: Acute Assessment and Plan: On vancomycin and Zosyn. (4) Hypokalemia Current Visit: Yes Status: Resolved (5) DVT prophylaxis Current Visit: No Status: Acute Assessment and Plan: Subcutaneous heparin (6) Anemia Current Visit: Yes Status: Acute Assessment and Plan: Patient has anemia with hemoglobin of 10.6. Decreased from 15.5. Likely due to hemodilution and recent surgery. Will monitor her blood counts closely. Check folic acid and B12 and ferritin - Time Spent with Patient Total time spent is greater than 50% in coordination of care (as documented) at patient's floor/unit and/or counseling patient: Plan of Care Discussed with: patient Internal Medicine: Result - Labs CBC & Chem 7: 10/17/17 03:23 10/17/17 03:23 Labs: Short CBC 10/17/17 Range/Units 03:23 WBC 18.4 H (4.3-11.1) K/mcL Hgb 10.6 L D (12.9-16.9) g/dL Hct 32.0 L (37.5-50.1) % Plt Count 376 (140-400) K/mcL Neutrophils # 13.6 H (1.6-8.9) K/mcL BMP 10/17/17 03:23 Sodium 131 L Potassium 3.5 Chloride 107 Carbon Dioxide 25 BUN 8 Creatinine 0.62 L Glucose 113 H Calcium 7.9 L - ABG Interpretation ABG results: PT/INR, D-dimer PT 12.6 Seconds (9.4-12.1) H 10/14/17 03:41 Consult Discharge Plan - Plan Referrals: Trista Norris FINANCIAL SALES CONSULTANT [Advanced Practice Nurse] - 10/23/17 2:45 pm (Please take with you to your appointment the new patient that will arrive in the mail, if you don't receive it please show up 30 minutes early to fill out paperwork. Take with you your picture ID, Ins card, list of all medication including over the counter. This office does not prescribe narcotics. If you need to cancel please call 24 hours in advance to [phone].) Alexis Aguilar MD [Partnered Physician] - 11/11/17 9:30 am () (3) Cellulitis Qualifiers: Site of cellulitis: extremity Site of cellulitis of extremity: lower extremity Laterality: right Qualified Code(s): L03.115 - Cellulitis of right lower limb (6) Anemia Qualifiers: Anemia type: other cause Other causes of anemia: acute posthemorrhagic Qualified Code(s): D62 - Acute posthemorrhagic anemia
--- NOTE | 2017-10-17 16:09 | Vascular/[facility] Progress Note ---
Date of Encounter: 10/17/17 Time of Encounter: 14:40 - Assessment and plan (1) PAD (peripheral artery disease) Current Visit: Yes Status: Chronic The patient is undergone femoral endarterectomy as well as a femoral to femoral bypass and right lower extremity angioplasty. The patient reports significant improvement in his right lower surgery symptoms. His is gangrenous changes in the right toes. He has pedal signals present below the ankle in the right lower extremity. His right lower extremity is viable and he is healing well. The patient is doing well from a vascular surgery standpoint. Await podiatry input regarding further management of his gangrenous toes. - Subjective Interval history: The patient reports his right foot continues to feel better each day. He denies any acute changes overnight. He denies chest pain or shortness of breath. - Physical Examination General: Present: Conversant Cardiac: Present: Reg Rate and Rhythm Lungs: Present: Normal Breath Sounds Neuro: Present: Alert and responsive, No focal deficits noted Vascular: Present: Surgical incisions (No hematomas), Other (Pedal signals are present in the right lower extremity at the level of the ankle.) Abdomen: Present: Soft Skin: Present: Wound/ulcer(s) (Gangrene noted on the right toes, cyanosis present in the distal right lateral forefoot, right foot is warm) Results 10/17/17 03:23 10/17/17 03:23 Lab Results, Last 24 hours 10/17/17 10/17/17 03:23 03:23 WBC 18.4 H Hgb 10.6 L D Hct 32.0 L Plt Count 376 Sodium 131 L Potassium 3.5 Chloride 107 Carbon Dioxide 25 BUN 8 Creatinine 0.62 L Glucose 113 H Calcium 7.9 L Consult Discharge Plan - Plan Referrals: Trista Norris CNP [Advanced Practice Nurse] - 10/23/17 2:45 pm (Please take with you to your appointment the new patient that will arrive in the mail, if you don't receive it please show up 30 minutes early to fill out paperwork. Take with you your picture ID, Ins card, list of all medication including over the counter. This office does not prescribe narcotics. If you need to cancel please call 24 hours in advance to [phone].) Alexis Aguilar MD [Partnered Physician] - 11/11/17 9:30 am ()
[2017-10-17] MEDS: hydrOXYzine pamoate 25 MG CAPSULE PO SCH (20:34)
[2017-10-17] MEDS: *HR* HYDROcodone/Acet 5/325 mg TABLET PO PRN (23:45)
[2017-10-18 01:44] LABS: % Iron Saturation 19 % (20-55); BUN/Creatinine Ratio 52 (6-26); Blood Urea Nitrogen 28 mg/dL (8-23); Calcium 7.7 mg/dL (8.6-10.3); Carbon Dioxide 24 mEq/L (23-29); Chloride 103 mEq/L (98-107); Glucose 152 mg/dL (70-105); Iron 40 mcg/dL (65-175); Osmolality,Calculated 286 (280-300); Sodium 134 mEq/L (136-145); Transferrin 149 mg/dL (203-362); eGFR For Non-African Americans > 60 (> 60)
[2017-10-18 02:02] LABS: Ferritin 80 ng/mL (20-250)
[2017-10-18 02:08] LABS: Folate 10.2 ng/mL (3.0-16.0)
[2017-10-18 02:31] LABS: Basophils # 0.1 K/mcL (0.0-0.2); Basophils % 0.3 %; Eosinophils # 0.2 K/mcL (0.0-0.6); Eosinophils % 0.8 %; Hematocrit 28.5 % (37.5-50.1); Hemoglobin 9.3 g/dL (12.9-16.9); Immature Granulocytes % 0.4 % (0-4); Lymphocytes # 2.7 K/mcL (0.6-4.6); Lymphocytes % 14.8 %; Mean Corpuscular HGB Conc 32.6 g/dL (31.6-35.5); Mean Corpuscular Volume 91.9 fL (83.0-100.0); Mean Platelet Volume 9.2 fL (9.4-12.4); Monocytes # 1.7 K/mcL (0.0-1.3); Monocytes % 9.2 %; Neutrophils # 13.5 K/mcL (1.6-8.9); Platelet Count 344 K/mcL (140-400); Red Cell Distribution Width 13.7 % (11.5-14.5); Segmented Neutrophils % 74.5 %
[2017-10-18] MEDS: Piperacillin/Tazobactam 3.375 GM in 0.9 % Sodium Chloride Mini Bag 100 ML IVPB SCH ×3 (04:11→20:25)
[2017-10-18] MEDS: *HR* Heparin 5,000 UNIT/ML VIAL SQ SCH (05:51)
[2017-10-18] MEDS: *HR* OxyCODONE Immed Rel 5 MG TABLET PO PRN (05:55)
[2017-10-18] MEDS: Gabapentin 100 MG CAPSULE PO SCH ×3 (08:59→20:25)
[2017-10-18] MEDS: Lactobacillus 1 EACH CAP.SPRINK PO SCH ×2 (08:59→20:25)
[2017-10-18] MEDS: Aspirin Enteric Coated 81 MG Tablet PO SCH (08:59)
[2017-10-18] MEDS ORDERED: Ringers Solution, Lactated 1,000 ML IVC ONE (11:35)
[2017-10-18] MEDS ORDERED: Ringers Solution, Lactated 1,000 ML ONE (11:45)
[2017-10-18] MEDS: Pantoprazole 40 MG VIAL IVP SCH ×2 (11:56→17:35)
--- NOTE | 2017-10-18 13:39 | Internal Med Progress Note ---
Hospitalist Progress Note - Encounter Date of Encounter: 10/18/17 Time of Encounter: 11:00 - Subjective Interval History: Patient is awake and alert. Lying down in bed. Comfortable. He reports that he was feeling dizzy earlier this morning. Patient has also been having tarry stools. - Exam Vitals: Temp Pulse Resp BP Pulse Ox 99.3 F 98 19 101/62 96 10/18/17 11:17 10/18/17 13:07 10/18/17 11:17 10/18/17 13:07 10/18/17 11:17 Exam: General: Patient is alert, no acute distress, oriented x 3 Head: atraumatic, normocephalic, Eye: normal appearance, PERRL, no scleral icterus, no conjunctival injection Neck: normal inspection, trachea midline, full ROM, no carotid bruits Chest: normal inspection, symmetric chest rise Respiratory: Good respiratory effort. Normal breath sounds. No wheezing or crackles. Cardiovascular: Regular rate and rhythm. s1 and s2 No clicks, rubs, gallops, or murmurs. No pedal edema Abdomen: Abdomen is soft, nontender. Bowel sounds are present Musculoskeletal: Status post left BKA. Right lower extremity shows improving erythema over the dorsum of the foot. Continue gangrene of third and fifth toes Skin: Changes as described above Neuro: Alert oriented x 3 normal cranial nerves, no focal deficits Psych: Patient's affect is normal - Assessment and Plan (1) GI bleed Current Visit: Yes Status: Acute Assessment and Plan: Patient having melena. Hemoglobin also decreasing. Will start patient on IV PPI. GI consult tomorrow. On aspirin and Plavix. We will continue these medications as patient just had femorofemoral bypass surgery. Stop subcutaneous heparin. Monitor blood counts. High risk for complications. (2) Ischemic pain of right foot Current Visit: Yes Status: Acute Assessment and Plan: Status post angioplasty and femorofemoral bypass. Continue aspirin and Plavix. Vascular surgery following. (3) Anemia Current Visit: Yes Status: Acute Assessment and Plan: Hemoglobin 9.3 today. We will monitor closely. Especially as patient is having tarry stools. Unfortunately cannot stop aspirin and Plavix at this time due to recent bypass surgery. We will monitor blood counts and transfuse as needed. Consider GI consult tomorrow. (4) Gangrene of foot Current Visit: Yes Status: Acute Assessment and Plan: Podiatric consultation. Patient will most likely need amputation of his toes or TMA. (5) Cellulitis Current Visit: Yes Status: Acute Assessment and Plan: Improving. Continue IV antibiotics. (6) Hypokalemia Current Visit: Yes Status: Resolved (7) DVT prophylaxis Current Visit: No Status: Acute - Time Spent with Patient Total time spent is greater than 50% in coordination of care (as documented) at patient's floor/unit and/or counseling patient: Internal Medicine: Result - Labs CBC & Chem 7: 10/18/17 01:01 10/18/17 01:01 Labs: Short CBC 10/18/17 Range/Units 01:01 WBC 18.2 H (4.3-11.1) K/mcL Hgb 9.3 L (12.9-16.9) g/dL Hct 28.5 L (37.5-50.1) % Plt Count 344 (140-400) K/mcL Neutrophils # 13.5 H (1.6-8.9) K/mcL BMP 10/18/17 01:01 Sodium 134 L Potassium 4.0 Chloride 103 Carbon Dioxide 24 BUN 28 H Creatinine 0.54 L Glucose 152 H Calcium 7.7 L - ABG Interpretation ABG results: PT/INR, D-dimer PT 12.6 Seconds (9.4-12.1) H 10/14/17 03:41 Consult Discharge Plan - Plan Referrals: Trista Norris SECURITY MONITOR [Advanced Practice Nurse] - 10/23/17 2:45 pm (Please take with you to your appointment the new patient that will arrive in the mail, if you don't receive it please show up 30 minutes early to fill out paperwork. Take with you your picture ID, Ins card, list of all medication including over the counter. This office does not prescribe narcotics. If you need to cancel please call 24 hours in advance to [phone].) Alexis Aguilar MD [Partnered Physician] - 11/11/17 9:30 am () (1) GI bleed Qualifiers: GI bleed type/associated pathology: melena Qualified Code(s): K92.1 - Melena (3) Anemia Qualifiers: Anemia type: other cause Other causes of anemia: acute posthemorrhagic Qualified Code(s): D62 - Acute posthemorrhagic anemia (5) Cellulitis Qualifiers: Site of cellulitis: extremity Site of cellulitis of extremity: lower extremity Laterality: right Qualified Code(s): L03.115 - Cellulitis of right lower limb
[2017-10-18] MEDS: Cyanocobalamin (B-12) 1,000 MCG/ML VIAL SQ SCH (13:56)
[2017-10-18] MEDS: Ringers Solution, Lactated 1,000 ML IVC SCH (13:56)
--- NOTE | 2017-10-18 14:09 | Vascular/[facility] Progress Note ---
Date of Encounter: 10/18/17 Time of Encounter: 13:40 - Assessment and plan (1) PAD (peripheral artery disease) Current Visit: Yes Status: Chronic The patient is postoperative day #3 after femoral endarterectomy, a femoral to femoral bypass and a right lower extremity angioplasty. He has polyphasic signals in his right lower extremity. His toes. He has demarcated. Podiatry plans to take him for a transmetatarsal amputation tomorrow. - Subjective Interval history: The patient is resting comfortably. He reports his pain is well-controlled. He denies any pain in his foot. He denies chest pain or shortness of breath. Vital Signs, Last 4 Hours Temp Pulse Resp BP Pulse Ox 10/18/17 13:07 98 101/62 10/18/17 11:17 99.3 F 107 19 83/53 96 Results 10/18/17 01:01 10/18/17 01:01 Lab Results, Last 24 hours 10/18/17 10/18/17 01:01 01:01 WBC 18.2 H Hgb 9.3 L Hct 28.5 L Plt Count 344 Sodium 134 L Potassium 4.0 Chloride 103 Carbon Dioxide 24 BUN 28 H Creatinine 0.54 L Glucose 152 H Calcium 7.7 L Consult Discharge Plan - Plan Referrals: Trista Norris DATA ACQUISITION TECHNICIAN [Advanced Practice Nurse] - 10/23/17 2:45 pm (Please take with you to your appointment the new patient that will arrive in the mail, if you don't receive it please show up 30 minutes early to fill out paperwork. Take with you your picture ID, Ins card, list of all medication including over the counter. This office does not prescribe narcotics. If you need to cancel please call 24 hours in advance to [phone].) Alexis Aguilar MD [Partnered Physician] - 11/11/17 9:30 am ()
[2017-10-18 14:19] LABS: Hematocrit 22.2 % (37.5-50.1)
[2017-10-18 14:32] LABS: Hemoglobin 7.2 g/dL (12.9-16.9)
--- NOTE | 2017-10-18 14:38 | Podiatry Progress Note ---
Date of Encounter: 10/18/17 Time of Encounter: 13:15 - Assessment and Plan (1) Gangrene of foot Current Visit: Yes Status: Acute I had a thorough review with the patient regarding his condition, my findings, and treatment options for his gangrene/necrotic tissue of his right foot . Will plan for right partial foot/transmetatarsal amputation on thursday. Nature of the procedure, risks vs benefits potential complications and consequences of his condition and surgery discussed at length. No guarantees were made that his limb could be salvaged and it was explained that he could require multiple trips to the operating room and this could be a staged procedure. Discussed with patient that surgical site may be left open to drain if purulence/infected tissue is encountered at the resection margin. It was explained to them that although the blood flow has been improved, he is still at risk for limb loss and that he will still have to heal the surgical wound. All of his questions were answered and the informed consent was signed. Says he understands what is going on and that his toes will be taken off as well as some of the right foot. Encouraged smoking cessation and discussed the detrimental effects of smoking on wound healing and increase chances he has of losing his leg on the right side as he has on the left. NPO after 7.30am. Subjective Interval history: walked in patients room and nurse said he was refusing to wear a bandage and had just been cleaned up from pooping down his leg and it also went onto his foot. patient has no explanation when I asked him why he is refusing a bandage on the right foot other than he did not want it on there. Objective - Vital Signs Vital Signs: Vital Signs Temp Pulse Resp BP Pulse Ox 10/18/17 13:07 98 101/62 10/18/17 11:17 99.3 F 107 19 83/53 96 10/18/17 08:16 99 18 93/62 100 10/18/17 03:49 99.3 F 100 18 99/70 95 10/18/17 00:00 100.1 F H 105 16 101/65 92 10/17/17 21:34 93 10/17/17 20:20 99 10/17/17 20:02 100.5 F H 99 18 100/49 93 10/17/17 16:08 100.0 F H 86 16 107/66 91 Intake and Output 10/17/17 10/18/17 10/18/17 23:59 07:59 15:59 Intake Total 490 / 490 350 / 350 100 / 100 Output Total 1000 / 1000 1501 / 1501 Balance -510 / -510 -1151 / -1151 100 / 100 Intake: IV Fluids 250 / 250 350 / 350 100 / 100 Zosyn 3.375 GM In 0.9 % Sodium 100 / 100 100 / 100 Chloride (Mini-Bag +) 100 ML @ 25 mls/hr IVPB Q8H NIKKIE Rx#: [id number] Vancocin 1,250 MG In 0.9 % 250 / 250 250 / 250 Sodium Chloride 250 ML @ 166.67 mls/hr IVPB Q12H NIKKIE Rx#: [id number] Oral 240 / 240 0 / 0 Output: Stool 1 / 1 Urine/Stool Mix 1000 / 1000 1500 / 1500 Other: Meal Dinner Breakfast Percent of Meal Consumed 75% 0% Stool Size Copious Small Stool Consistency liquid loose liquid liquid Stool Color Brown Brown Black Black # Bowel Movements 1 Weight 52.6 kg Patient Weight 10/18/17 23:59 Weight 52.6 kg - Exam Exam: well developed and nourished male in no acute distress well developed male in no acute distress Vasc: right foot is cool to touch. 3rd and 5th digits are necrotic. 1st digit is cool to touch with some palor, CFT of the hallux is sluggish and approx 6 seconds. Derm: left leg amputation. necrosis of 3rd and 5th digits of the right foot. no fluctuance. No purulence expressed. erythema dorsal foot not past line drawn. Musc:there is pain with palpation of necrotic digits Neuro: diminished protective sensation ABD: NT/ND Respirations: non-labored - Lab Result Diagrams: 10/18/17 14:00 10/18/17 01:01 Labs: Abnormal lab results WBC 18.2 K/mcL (4.3-11.1) H 10/18/17 01:01 RBC 3.10 M/mcL (4.19-5.50) L 10/18/17 01:01 Hgb 7.2 g/dL (12.9-16.9) L D 10/18/17 14:00 Hct 22.2 % (37.5-50.1) L 10/18/17 14:00 MPV 9.2 fL (9.4-12.4) L 10/18/17 01:01 Neutrophils # 13.5 K/mcL (1.6-8.9) H 10/18/17 01:01 Monocytes # 1.7 K/mcL (0.0-1.3) H 10/18/17 01:01 PT 12.6 Seconds (9.4-12.1) H 10/14/17 03:41 Sodium 134 mEq/L (136-145) L 10/18/17 01:01 BUN 28 mg/dL (8-23) H 10/18/17 01:01 Creatinine 0.54 mg/dL (0.70-1.30) L 10/18/17 01:01 BUN/Creatinine Ratio 52 (6-26) H 10/18/17 01:01 Glucose 152 mg/dL (70-105) H 10/18/17 01:01 Hemoglobin A1c 6.0 % (-5.6) H 10/14/17 03:41 Calcium 7.7 mg/dL (8.6-10.3) L 10/18/17 01:01 Iron 40 mcg/dL (65-175) L 10/18/17 01:01 % Saturation 19 % (20-55) L 10/18/17 01:01 Transferrin 149 mg/dL (203-362) L 10/18/17 01:01 Vitamin B12 188 pg/mL (250-1100) L 10/18/17 01:01 Stool Occult Blood Positive (Negative) A 10/18/17 08:24 Consult Discharge Plan - Plan Referrals: Trista Norris BAR TURNER [Advanced Practice Nurse] - 10/23/17 2:45 pm (Please take with you to your appointment the new patient that will arrive in the mail, if you don't receive it please show up 30 minutes early to fill out paperwork. Take with you your picture ID, Ins card, list of all medication including over the counter. This office does not prescribe narcotics. If you need to cancel please call 24 hours in advance to [phone].) Alexis Aguilar MD [Partnered Physician] - 11/11/17 9:30 am ()
[2017-10-18] MEDS: Sucralfate 1 GM TABLET PO SCH ×2 (15:44→20:24)
[2017-10-18] MEDS ORDERED: 0.9 % Sodium Chloride 250 ML ONE ×2 (16:20→18:54)
--- NOTE | 2017-10-18 17:01 | General Surgery Consult Note ---
Date of Encounter: 10/18/17 Time of Encounter: 16:57 Assessment and Plan (1) Melena Current Visit: Yes Status: Acute Patient is having melena Hemoglobin on last admission on October 14 was 15.5, on October 17 it was 10.6, and today it is 7.2. Is on Protonix 40 mg every 12 hours Currently he is on aspirin and Plavix due to just having a femorofemoral bypass surgery, risk of continuation or stopping of these medications recommend discussion between hospitalist and vascular. Continue to monitor H&H Was told by his nurse, he was to receive 2 units of packed red blood cells today. Continue supportive care Infused as per primary When talking with the patient about the possibility of colonoscopy and EGD he became argumentative, stated he thought it was just from the coffee or water he drank, and that he had never had a scope and never wants one. Question patients willingness to proceed with an treatment at this time. History of Present Illness Reason for consult: other (melena) Requesting physician: Razia Edouard History of present illness: Patient states that he started having diarrhea that was dark black with no visible red blood this morning. He denies any cramping, abdominal pain, has not had a colonoscopy or EGD in the past. States he "does not want any either" . He believes this is all due to the coughing he has been drinking, or the water the ascending drinking. He denies any abdominal surgeries. States he still has his appendix and gallbladder. He does have a positive fecal occult blood test today. He has been seen by podiatry gangrenous toes on the right foot/transmetatarsal amputation on Thursday. He had a femoral endarterectomy, femoral-femoral bypass, and lower extremity angioplasty 3 days ago. He received a unit of packed red blood cells yesterday and one previously during this stay. All medicine as ordered another 2 units. Yesterday his hemoglobin was 10.6 today it is only 7.2. Past Med Surg Social Fam HX - Past Medical History Medical history: arthritis, COPD, GERD, hyperlipidemia, peripheral artery disease, other Additional medical history: patient is poor historian Psychiatric history: no psych history - Past Surgical History Surgical History: vascular surgery (Left femoral-popliteal bypass graft), other Additional surgical history: left BKA. Left above-knee amputation at [place] - Social History Smoking Status: Current every day smoker Smokeless Tobacco Status: No Alcohol use: rarely Drug use: none - Family History Mother History Unknown: Yes Adopted: No Family Member Ethnicity: Non- Living Status: Father History Unknown: Yes Adopted: No Family Member Ethnicity: Non- Living Status: Hx Family Cardiac Disorders: Yes Hx Family Respiratory Disorders: Yes Hx Family Cancer: Yes Hx Family GI Disorders: No Hx Family Endocrine Disorder: No Hx Family Neuromuscular Disorders: No Hx Family Neurologic Disorders: No Hx Family HEENT Disorders: No Hx Family Autoimmune Disorders: No Medications and Allergies Albuterol Sulfate [Proair Hfa] 1 - 2 puff IH Q6H PRN 10/14/17 [History] Gabapentin [Neurontin] 100 mg PO TID 10/14/17 [History] Lovastatin [Mevacor] 20 mg PO QPM 10/14/17 [History] hydrOXYzine HCl [Hydroxyzine HCl] 50 mg PO HS 10/14/17 [History] 3 Allergy/AdvReac Type Severity Reaction Status Date / Time No Known Allergies Allergy Verified 10/13/17 18:32 Review of Systems All systems PM: The remainder of the systems were reviewed and are negative - Constitutional fever(s) (States he had a fever overnight), no chills - Cardiovascular no chest pain, no diaphoresis, no irregular heart rhythm - Respiratory no cough, no dyspnea - Gastrointestinal nausea General Surgery Exam Initial Vital Signs Temp Pulse Resp BP Pulse Ox 98.4 F 91 16 113/64 90 10/13/17 23:03 10/13/17 23:03 10/13/17 23:03 10/13/17 23:03 10/13/17 23:03 - General physical appearance well developed, moderate distress, chronically ill - Respiratory normal expansion, normal respiratory effort, clear to auscultation - Cardiovascular Cardiovascular exam: Present: RRR, no murmurs/rubs/gallops - Abdomen Abdomen general surgery: Present: bowel sounds present, soft, non tender - Integumentary Integumentary general surgery: Present: other (Gangrenous toes 3rd and 5th on the right) - Musculoskeletal Present: other - Psychiatric Psychiatric general surgery: Present: oriented to person, oriented to place, oriented to time Exam Initial Vital Signs Temp Pulse Resp BP Pulse Ox 98.4 F 91 16 113/64 90 10/13/17 23:03 10/13/17 23:03 10/13/17 23:03 10/13/17 23:03 10/13/17 23:03 Results - Labs 10/18/17 14:00 10/18/17 01:01 Abnormal lab results WBC 18.2 K/mcL (4.3-11.1) H 10/18/17 01:01 RBC 3.10 M/mcL (4.19-5.50) L 10/18/17 01:01 Hgb 7.2 g/dL (12.9-16.9) L D 10/18/17 14:00 Hct 22.2 % (37.5-50.1) L 10/18/17 14:00 MPV 9.2 fL (9.4-12.4) L 10/18/17 01:01 Neutrophils # 13.5 K/mcL (1.6-8.9) H 10/18/17 01:01 Monocytes # 1.7 K/mcL (0.0-1.3) H 10/18/17 01:01 PT 12.6 Seconds (9.4-12.1) H 10/14/17 03:41 Sodium 134 mEq/L (136-145) L 10/18/17 01:01 BUN 28 mg/dL (8-23) H 10/18/17 01:01 Creatinine 0.54 mg/dL (0.70-1.30) L 10/18/17 01:01 BUN/Creatinine Ratio 52 (6-26) H 10/18/17 01:01 Glucose 152 mg/dL (70-105) H 10/18/17 01:01 Hemoglobin A1c 6.0 % (-5.6) H 10/14/17 03:41 Lactic Acid 3.2 mmol/L (0.5-2.2) H 10/18/17 15:39 Calcium 7.7 mg/dL (8.6-10.3) L 10/18/17 01:01 Iron 40 mcg/dL (65-175) L 10/18/17 01:01 % Saturation 19 % (20-55) L 10/18/17 01:01 Transferrin 149 mg/dL (203-362) L 10/18/17 01:01 Vitamin B12 188 pg/mL (250-1100) L 10/18/17 01:01 Stool Occult Blood Positive (Negative) A 10/18/17 08:24 Diabetes panel 10/18/17 Range/Units 01:01 Sodium 134 L (136-145) mEq/L Potassium 4.0 (3.5-5.1) mEq/L Chloride 103 (98-107) mEq/L Carbon Dioxide 24 (23-29) mEq/L BUN 28 H (8-23) mg/dL Creatinine 0.54 L (0.70-1.30) mg/dL Glucose 152 H (70-105) mg/dL Calcium 7.7 L (8.6-10.3) mg/dL Calcium panel 10/18/17 Range/Units 01:01 Calcium 7.7 L (8.6-10.3) mg/dL Pituitary panel 10/18/17 Range/Units 01:01 Sodium 134 L (136-145) mEq/L Potassium 4.0 (3.5-5.1) mEq/L Chloride 103 (98-107) mEq/L Carbon Dioxide 24 (23-29) mEq/L BUN 28 H (8-23) mg/dL Creatinine 0.54 L (0.70-1.30) mg/dL Glucose 152 H (70-105) mg/dL Calcium 7.7 L (8.6-10.3) mg/dL Adrenal panel 10/18/17 Range/Units 01:01 Sodium 134 L (136-145) mEq/L Potassium 4.0 (3.5-5.1) mEq/L Chloride 103 (98-107) mEq/L Carbon Dioxide 24 (23-29) mEq/L BUN 28 H (8-23) mg/dL Creatinine 0.54 L (0.70-1.30) mg/dL Glucose 152 H (70-105) mg/dL Calcium 7.7 L (8.6-10.3) mg/dL All other labs normal. Consult Discharge Plan - Plan Referrals: Trista Norris, SILVANA [Advanced Practice Nurse] - 10/23/17 2:45 pm (Please take with you to your appointment the new patient that will arrive in the mail, if you don't receive it please show up 30 minutes early to fill out paperwork. Take with you your picture ID, Ins card, list of all medication including over the counter. This office does not prescribe narcotics. If you need to cancel please call 24 hours in advance to [phone].) Alexis Aguilar MD [Partnered Physician] - 11/11/17 9:30 am ()
[2017-10-18] MEDS: hydrOXYzine pamoate 25 MG CAPSULE PO SCH (20:25)
[2017-10-19 00:36] LABS: Basophils # 0.1 K/mcL (0.0-0.2); Basophils % 0.3 %; Eosinophils % 0.1 %; Hematocrit 23.1 % (37.5-50.1); Hemoglobin 7.8 g/dL (12.9-16.9); Immature Granulocytes % 0.7 % (0-4); Lymphocytes # 3.2 K/mcL (0.6-4.6); Lymphocytes % 17.4 %; Mean Corpuscular HGB Conc 33.8 g/dL (31.6-35.5); Mean Corpuscular Hemoglobin 29.4 pg (28.0-33.3); Mean Corpuscular Volume 87.2 fL (83.0-100.0); Mean Platelet Volume 9.5 fL (9.4-12.4); Monocytes # 1.5 K/mcL (0.0-1.3); Monocytes % 8.5 %; Neutrophils # 13.3 K/mcL (1.6-8.9); Platelet Count 287 K/mcL (140-400); Red Blood Count 2.65 M/mcL (4.19-5.50); Red Cell Distribution Width 14.9 % (11.5-14.5)
[2017-10-19 00:57] LABS: BUN/Creatinine Ratio 53 (6-26); Blood Urea Nitrogen 25 mg/dL (8-23); Calcium 7.7 mg/dL (8.6-10.3); Carbon Dioxide 23 mEq/L (23-29); Chloride 112 mEq/L (98-107); Glucose 114 mg/dL (70-105); Osmolality,Calculated 297 (280-300); Potassium 3.4 mEq/L (3.5-5.1); Sodium 141 mEq/L (136-145); eGFR For Non-African Americans > 60 (> 60)
[2017-10-19] MEDS: Ringers Solution, Lactated 1,000 ML IVC SCH ×2 (04:00→22:49)
[2017-10-19] MEDS: Piperacillin/Tazobactam 3.375 GM in 0.9 % Sodium Chloride Mini Bag 100 ML IVPB SCH ×3 (04:13→22:44)
[2017-10-19] MEDS: *HR* HYDROcodone/Acet 5/325 mg TABLET PO PRN ×2 (04:18→11:20)
[2017-10-19] MEDS: Pantoprazole 40 MG VIAL IVP SCH (06:39)
[2017-10-19] MEDS: Sucralfate 1 GM TABLET PO SCH ×4 (07:36→22:44)
[2017-10-19] MEDS: Gabapentin 100 MG CAPSULE PO SCH ×3 (07:47→22:44)
[2017-10-19] MEDS: Lactobacillus 1 EACH CAP.SPRINK PO SCH ×2 (07:48→22:44)
[2017-10-19] MEDS: *HR* OxyCODONE Immed Rel 5 MG TABLET PO PRN ×2 (07:48→22:49)
[2017-10-19] MEDS: Cyanocobalamin (B-12) 1,000 MCG/ML VIAL SQ SCH (07:48)
--- NOTE | 2017-10-19 08:34 | Internal Med Progress Note ---
Hospitalist Progress Note - Encounter Date of Encounter: 10/19/17 Time of Encounter: 11:00 - Subjective Interval History: Patient hospitalized with acute limb ischemia involving the right lower extremity gangrene of the third and fifth toes and cellulitis of the foot. Vascular surgery was consulted. Patient was given IV antibiotics. Vascular surgery evaluated the patient and recommended angiogram with angioplasty and possible bypass. Patient underwent right iliofemoral endarterectomy, right iliofemoral bovine pericardial patch angioplasty, aortogram, left femoral endarterectomy, left to right femoral-femoral bypass graft with 6 mm PTFE, right leg angiogram, balloon angioplasty of right SFA and Popliteal using 4 x 200 mm balloon on 10/15. Since then patient has been recovering well. Podiatry was consulted to evaluate for the gangrenous toes. Plan was to take patient for DME sometime this week. However yesterday patient began to have melanotic stools. His hemoglobin dropped from 10 to 7.2 yesterday and so he was given 2 units PRBC and surgery consulted. His aspirin and Plavix have been held and he is being kept nothing by mouth. Patient complains of severe pain in his right foot. He has not had any further episodes of melanotic stools. Denies any dizziness or lightheadedness. No nausea or vomiting. He remains nothing by mouth - Exam Vitals: Temp Pulse Resp BP Pulse Ox 98.6 F 80 18 109/70 93 10/19/17 07:33 10/19/17 07:33 10/19/17 07:33 10/19/17 07:33 10/19/17 07:33 Exam: General: Patient is alert, no acute distress, oriented x 3 Head: atraumatic, normocephalic, Eye: normal appearance, PERRL, no scleral icterus, no conjunctival injection Neck: normal inspection, trachea midline, full ROM, no carotid bruits Chest: normal inspection, symmetric chest rise Respiratory: Good respiratory effort. Normal breath sounds. No wheezing or crackles. Cardiovascular: Regular rate and rhythm. s1 and s2 No clicks, rubs, gallops, or murmurs. No pedal edema Abdomen: Abdomen is soft, nontender. Bowel sounds are present Musculoskeletal: erythema involving right foot along with gangrenous third and fifth toes. Skin: Gangrene involving right third and fifth toes. Pallor Neuro: Alert oriented x 3 normal cranial nerves, no focal deficits Psych: Patient's affect is normal - Assessment and Plan (1) GI bleed Current Visit: Yes Status: Acute Assessment and Plan: Hemoglobin is stable since this morning. 7.7 today. Patient received 2 units of PRBC yesterday. He has not had further episodes of GI bleeding. Gastroenterology consulted. Plan to take patient for upper GI endoscopy today. Continue to hold aspirin and Plavix. (2) Ischemic pain of right foot Current Visit: Yes Status: Acute Assessment and Plan: Status post femorofemoral bypass. Vascular surgery following. Patient does have gangrenous third and fifth toes. Plan for TMA later today. (3) Anemia Current Visit: Yes Status: Acute Assessment and Plan: Acute blood loss anemia due to GI bleed. Hemoglobin 7.7 this morning. We will continue to monitor. Continue PPI. GI consult for upper GI endoscopy (4) Gangrene of foot Current Visit: Yes Status: Acute Assessment and Plan: Podiatry consulted. Continue IV antibiotics. Plan for TMA later today. (5) Cellulitis Current Visit: Yes Status: Acute Assessment and Plan: Continue IV antibiotics (6) Hypokalemia Current Visit: Yes Status: Resolved (7) DVT prophylaxis Current Visit: No Status: Acute Assessment and Plan: SCDs as tolerated - Time Spent with Patient Total time spent is greater than 50% in coordination of care (as documented) at patient's floor/unit and/or counseling patient: Plan of Care Discussed with: patient Internal Medicine: Result - Labs CBC & Chem 7: 10/19/17 09:46 10/19/17 00:05 Labs: Short CBC 10/18/17 10/19/17 Range/Units 14:00 00:05 WBC 18.2 H (4.3-11.1) K/mcL Hgb 7.2 L D 7.8 L (12.9-16.9) g/dL Hct 22.2 L 23.1 L (37.5-50.1) % Plt Count 287 (140-400) K/mcL Neutrophils # 13.3 H (1.6-8.9) K/mcL BMP 10/19/17 00:05 Sodium 141 Potassium 3.4 L Chloride 112 H Carbon Dioxide 23 BUN 25 H Creatinine 0.47 L Glucose 114 H Calcium 7.7 L - ABG Interpretation ABG results: PT/INR, D-dimer PT 12.6 Seconds (9.4-12.1) H 10/14/17 03:41 Consult Discharge Plan - Plan Referrals: Trista Norris, SILVANA [Advanced Practice Nurse] - 10/23/17 2:45 pm (Please take with you to your appointment the new patient that will arrive in the mail, if you don't receive it please show up 30 minutes early to fill out paperwork. Take with you your picture ID, Ins card, list of all medication including over the counter. This office does not prescribe narcotics. If you need to cancel please call 24 hours in advance to [phone].) Alexis Aguilar MD [Partnered Physician] - 11/11/17 9:30 am () Orlin Diaz MD [Partnered Physician] - (WEB REQUEST SENT ON 10-19-17 @ [phone]) (1) GI bleed Qualifiers: Qualified Code(s): K92.1 - Melena (3) Anemia Qualifiers: Qualified Code(s): D62 - Acute posthemorrhagic anemia (5) Cellulitis Qualifiers: Qualified Code(s): L03.115 - Cellulitis of right lower limb
[2017-10-19 10:10] LABS: Hematocrit 22.9 % (37.5-50.1); Hemoglobin 7.7 g/dL (12.9-16.9)
--- NOTE | 2017-10-19 10:18 | General Surgery Progress Note ---
Date of Encounter: 10/19/17 Time of Encounter: 10:16 - Assessment and Plan (1) Melena Current Visit: Yes Status: Acute Disclosed a large alcohol history today. He stated that for a long time, would not specify years, he drank up to 30 beers a day and some whiskey. Is now willing to proceed with any testing, including EGD and Colonoscopy, if needed. States he rather find out what is wrong. Hemoglobin on last admission on October 14 was 15.5, October 17 it was 10.6, yesterday 7.2, received 2 units of blood yesterday. His hemoglobin is now 7.8. He needs to have melena. Aspirin and Plavix were held as per primary. Continue to monitor H&H The supportive care GI consult for possible varices Surgery will continue to follow Subjective Patient reports: feels better, flatus, diarrhea, other (States his diarrhea has slowed down today, still believes it was the coffee he had the day before but willing to talk. Denies abdominal pain, n/v.) Objective Vital Signs - Last 8 Hours Temp Pulse Resp BP Pulse Ox 10/19/17 07:50 54 10/19/17 07:33 98.6 F 80 18 109/70 93 10/19/17 04:35 83 16 105/44 95 10/19/17 04:31 99.5 F 84 16 105/44 95 Intake and Output 10/18/17 10/19/17 10/19/17 23:59 07:59 15:59 Intake Total 800 / 800 1350 / 1350 0 / 0 Output Total 1050 / 1050 Balance 800 / 800 300 / 300 0 / 0 Intake: IV Fluids 100 / 100 1350 / 1350 Lactated Ringers 1,000 ML @ 75 1000 / 1000 mls/hr IVC .[id number] NIKKIE Rx#: [id number] Zosyn 3.375 GM In 0.9 % Sodium 100 / 100 100 / 100 Chloride (Mini-Bag +) 100 ML @ 25 mls/hr IVPB Q8H NIKKIE Rx#: [id number] Vancocin 1,250 MG In 0.9 % 250 / 250 Sodium Chloride 250 ML @ 166.67 mls/hr IVPB Q12H NIKKIE Rx#: [id number] Oral 0 / 0 Blood Product 700 / 700 Rbcs Leuko Poor As-1 Unit 350 / 350 [id number] Rbcs Leuko Poor As-3 2nd Unit 350 / 350 [id number] Output: Urine/Stool Mix 1050 / 1050 Other: Meal Breakfast Percent of Meal Consumed 0% Stool Consistency liquid Stool Color Black Weight 51.8 kg Patient Weight 10/19/17 23:59 Weight 51.8 kg - General physical appearance well developed, well nourished, moderate distress - Respiratory normal expansion, normal respiratory effort, clear to auscultation - Cardiovascular Cardiovascular exam: Present: RRR, no murmurs/rubs/gallops - Abdomen Abdomen: Present: bowel sounds present, soft, non tender - Incision Incision: Present: clean and dry, intact (fron nfemerofemoral bypass) - Integumentary other (Gangrenous third and fifth toes on the right foot.) - Musculoskeletal normal posture - Psychiatric oriented to time, oriented to person, oriented to place - Labs 10/19/17 09:46 10/19/17 00:05 Diabetes panel 10/19/17 Range/Units 00:05 Sodium 141 (136-145) mEq/L Potassium 3.4 L (3.5-5.1) mEq/L Chloride 112 H (98-107) mEq/L Carbon Dioxide 23 (23-29) mEq/L BUN 25 H (8-23) mg/dL Creatinine 0.47 L (0.70-1.30) mg/dL Glucose 114 H (70-105) mg/dL Calcium 7.7 L (8.6-10.3) mg/dL Calcium panel 10/19/17 Range/Units 00:05 Calcium 7.7 L (8.6-10.3) mg/dL Pituitary panel 10/19/17 Range/Units 00:05 Sodium 141 (136-145) mEq/L Potassium 3.4 L (3.5-5.1) mEq/L Chloride 112 H (98-107) mEq/L Carbon Dioxide 23 (23-29) mEq/L BUN 25 H (8-23) mg/dL Creatinine 0.47 L (0.70-1.30) mg/dL Glucose 114 H (70-105) mg/dL Calcium 7.7 L (8.6-10.3) mg/dL Adrenal panel 10/19/17 Range/Units 00:05 Sodium 141 (136-145) mEq/L Potassium 3.4 L (3.5-5.1) mEq/L Chloride 112 H (98-107) mEq/L Carbon Dioxide 23 (23-29) mEq/L BUN 25 H (8-23) mg/dL Creatinine 0.47 L (0.70-1.30) mg/dL Glucose 114 H (70-105) mg/dL Calcium 7.7 L (8.6-10.3) mg/dL Consult Discharge Plan - Plan Referrals: Trista Norris CNP [Advanced Practice Nurse] - 10/23/17 2:45 pm (Please take with you to your appointment the new patient that will arrive in the mail, if you don't receive it please show up 30 minutes early to fill out paperwork. Take with you your picture ID, Ins card, list of all medication including over the counter. This office does not prescribe narcotics. If you need to cancel please call 24 hours in advance to [phone].) Alexis Aguilar MD [Partnered Physician] - 11/11/17 9:30 am ()
[2017-10-19] MEDS ORDERED: Aminoglycoside Consult 1 EACH MC ONE (10:28)
--- NOTE | 2017-10-19 14:11 | Gastroenterology Consult Note ---
<Gigi Jones - Last Filed: 10/19/17 14:08> Date of Encounter: 10/19/17 Time of Encounter: 11:00 - Assessment and plan (1) Anemia Current Visit: Yes Status: Acute Assessment and plan: Hgb on admission was 15.5 and today Hgb 7.7 with MCV 87.2. Continue to monitor CBC and transfuse PRBC as needed. Plan for EGD today, keep patient NPO. Qualifiers: Anemia type: other cause Other causes of anemia: acute posthemorrhagic Qualified Code(s): D62 - Acute posthemorrhagic anemia (2) Melena Current Visit: Yes Status: Acute Assessment and plan: Pt with several episodes of melena. Plan for EGD today to r/o esophagitis, gastritis, duodenitis, PUD, MW tear, or AVM. (3) History of alcohol abuse Current Visit: Yes Status: Acute Assessment and plan: Pt reports drinking 12 beers daily and states he stopped 2 years ago. Hepatic panel within normal limits on admission. - Time Spent With Patient Total time spent is greater than 50% in coordination of care (as documented) at patient's floor/unit and/or counseling patient: GI History of Present Illness - Data of Consult Patient: new to practice Consult date: 10/19/17 Requesting Physician: Razia Edouard MD - Consult Narrative Reason for consult: Possible varices History of present illness: Mr. Krueger is a 62 year old male with PMHx of arthritis, COPD, GERD, peripheral artery disease s/p left AKA presented to the outside hospital ED with 3 day history of right toe duskiness of the 3rd and 5th toes. Vascular surgery and Podiatry are following. He began to have melena yesterday and fecal occult blood test was positive. We have been consulted to evaluate his melena and anemia. Hgb on admission was 15.5 and today Hgb 7.7 with MCV 87.2. Patient reports he was a heavy drinker and consumed 12 beers daily and stopped 2 years ago. Hepatic panel was WNL on admission. He has never had EGD or colonoscopy. Procedures: None NSAIDs: None Anticoagulation: None Past Med Surg Social Fam HX - Past Medical History Medical history: arthritis, COPD, GERD, hyperlipidemia, peripheral artery disease, other Additional medical history: patient is poor historian Psychiatric history: no psych history - Past Surgical History Surgical History: vascular surgery (Left femoral-popliteal bypass graft), other Additional surgical history: left BKA. Left above-knee amputation at [facility] - Social History Smoking Status: Current every day smoker Smokeless Tobacco Status: No Alcohol use: rarely Drug use: none - Family History Mother History Unknown: Yes Adopted: No Family Member Ethnicity: Non- Living Status: Father History Unknown: Yes Adopted: No Family Member Ethnicity: Non- Living Status: Hx Family Cardiac Disorders: Yes Hx Family Respiratory Disorders: Yes Hx Family Cancer: Yes Hx Family GI Disorders: No Hx Family Endocrine Disorder: No Hx Family Neuromuscular Disorders: No Hx Family Neurologic Disorders: No Hx Family HEENT Disorders: No Hx Family Autoimmune Disorders: No - Gastrointestinal Gastrointestinal: Present: as per HPI - Constitutional Constitutional: as per HPI - EENT Eyes: as per HPI Ears: Present: as per HPI Nose, mouth and throat: Present: as per HPI - Cardiovascular Cardiovascular ROS: Present: as per HPI - Respiratory Respiratory IM: Present: as per HPI - Genitourinary Genitourinary: Absent: change in color, Urinary frequency - Neurological ROS Neurological GI: Present: as per HPI - Hematologic/Lymphatic Hematologic/Lymphatic pediatric: Present: as per HPI - Musculoskeletal Musculoskeletal ROS GI: Present: as per HPI - Integumentary Integumentary GI: Present: as per HPI - Psychiatric ROS Psychiatric GI: Present: as per HPI - Endocrine Endocrine IM: Present: as per HPI - Constitutional Vitals: Temp Pulse Resp BP Pulse Ox 98.2 F 74 18 98/59 100 10/19/17 11:53 10/19/17 11:53 10/19/17 11:53 10/19/17 11:53 10/19/17 11:53 General appearance: Present: cooperative, A&O X 3, no acute distress, answers questions appropriately - Head Head exam: Present: atraumatic, normocephalic - Eye Eye exam: Present: normal appearance, sclera anicteric - ENT ENT exam: Present: mucous membranes dry - Neck Neck exam general surgery: Present: normal inspection, trachea midline - Respiratory Respiratory exam: Present: decreased breath sounds, CTAB. Absent: rales, rhonchi - Cardiovascular Cardiovascular exam: Present: RRR, +S1, +S2 - GI/Abdominal GI/Abdominal exam: Present: soft, no peritoneal signs. Absent: distended, firm , guarding, tenderness - Rectal Rectal exam: Present: deferred - Extremities Exam Additional comments: Left AKA. Gangrenous third and fifth toes on the right foot. - Neurological Exam Neurological exam: Present: no focal deficits - Psychiatric Psychiatric exam: Present: normal affect, normal mood - Skin Skin exam: Present: dry, intact, normal color, warm Results - Labs CBC & Chem 7: 10/19/17 09:46 10/19/17 00:05 Labs: Last Result Calcium 7.7 mg/dL (8.6-10.3) L 10/19/17 00:05 Iron 40 mcg/dL (65-175) L 10/18/17 01:01 % Saturation 19 % (20-55) L 10/18/17 01:01 Transferrin 149 mg/dL (203-362) L 10/18/17 01:01 Ferritin 80 ng/mL (20-250) 10/18/17 01:01 Vitamin B12 188 pg/mL (250-1100) L 10/18/17 01:01 Folate 10.2 ng/mL (3.0-16.0) 10/18/17 01:01 Stool Occult Blood Positive (Negative) A 10/18/17 08:24 Entire Visit Hgb 7.7 g/dL (12.9-16.9) L 10/19/17 09:46 Hct 22.9 % (37.5-50.1) L 10/19/17 09:46 PT 12.6 Seconds (9.4-12.1) H 10/14/17 03:41 Ferritin 80 ng/mL (20-250) 10/18/17 01:01 Total Bilirubin 0.4 mg/dL (0.3-1.0) 10/14/17 03:41 AST 24 Units/L (13-39) 10/14/17 03:41 ALT 15 Units/L (7-52) 10/14/17 03:41 Folate 10.2 ng/mL (3.0-16.0) 10/18/17 01:01 - ABG ABG results: PT/INR, D-dimer PT 12.6 Seconds (9.4-12.1) H 10/14/17 03:41 Consult Discharge Plan - Plan Referrals: Trista Norris, THERAPEUTIC ASSISTANT [Advanced Practice Nurse] - 10/23/17 2:45 pm (Please take with you to your appointment the new patient that will arrive in the mail, if you don't receive it please show up 30 minutes early to fill out paperwork. Take with you your picture ID, Ins card, list of all medication including over the counter. This office does not prescribe narcotics. If you need to cancel please call 24 hours in advance to [phone].) Alexis Aguilar MD [Partnered Physician] - 11/11/17 9:30 am () Orlin Diaz MD [Partnered Physician] - (WEB REQUEST SENT ON 10-19-17 @ [phone]) <Orlin Diaz - Last Filed: 10/19/17 17:36> Date of Encounter: 10/19/17 Time of Encounter: 14:00 - Time Spent With Patient Total time spent is greater than 50% in coordination of care (as documented) at patient's floor/unit and/or counseling patient: GI History of Present Illness - Data of Consult Requesting Physician: Razia Edouard MD - Consult Narrative History of present illness: Mr. Krueger is a 62 year old male - Constitutional Vitals: Temp Pulse Resp BP Pulse Ox 98.3 F 74 20 98/58 100 10/19/17 15:05 10/19/17 16:05 10/19/17 16:05 10/19/17 16:05 10/19/17 16:05 Results - Labs CBC & Chem 7: 10/19/17 15:32 10/19/17 00:05 Labs: Last Result Calcium 7.7 mg/dL (8.6-10.3) L 10/19/17 00:05 Iron 40 mcg/dL (65-175) L 10/18/17 01:01 % Saturation 19 % (20-55) L 10/18/17 01:01 Transferrin 149 mg/dL (203-362) L 10/18/17 01:01 Ferritin 80 ng/mL (20-250) 10/18/17 01:01 Vitamin B12 188 pg/mL (250-1100) L 10/18/17 01:01 Folate 10.2 ng/mL (3.0-16.0) 10/18/17 01:01 Stool Occult Blood Positive (Negative) A 10/18/17 08:24 Entire Visit Hgb 7.8 g/dL (12.9-16.9) L 10/19/17 15:32 Hct 23.1 % (37.5-50.1) L 10/19/17 15:32 PT 12.6 Seconds (9.4-12.1) H 10/14/17 03:41 Ferritin 80 ng/mL (20-250) 10/18/17 01:01 Total Bilirubin 0.4 mg/dL (0.3-1.0) 10/14/17 03:41 AST 24 Units/L (13-39) 10/14/17 03:41 ALT 15 Units/L (7-52) 10/14/17 03:41 Folate 10.2 ng/mL (3.0-16.0) 10/18/17 01:01 - ABG ABG results: PT/INR, D-dimer PT 12.6 Seconds (9.4-12.1) H 10/14/17 03:41 - Attending Attestation I have personally performed a face to face evaluation on this patient. I have reviewed and agree with the care plan. History and Exam by me shows: Patient seen patient 62-year-old male, was admitted with acute limb ischemia involving the right lower extremity gangrene of the third and fifth toes and cellulitis of the foot. Vascular surgery evaluated the patient and recommended angiogram with angioplasty and possible bypass. Patient underwent right iliofemoral endarterectomy, right iliofemoral bovine pericardial patch angioplasty, aortogram, left femoral endarterectomy, left to right femoral- femoral bypass graft with 6 mm PTFE, right leg angiogram, balloon angioplasty of right SFA and Popliteal using 4 x 200 mm balloon on 10/15. Podiatry to take patient for DME today. patient began to have melanotic stools. His hemoglobin dropped to 7.2 yesterday and so he was given 2 units PRBC. Patien last black stool was yesterday, denies any abdominal pain. On examination his abdomen is benign. Assessment: Patient melena with drop in hemoglobin rule out peptic ulcer disease Recommendation: EGD in the morning. Follow H&H. Continue PPI
[2017-10-19 15:49] LABS: Hematocrit 23.1 % (37.5-50.1); Hemoglobin 7.8 g/dL (12.9-16.9)
--- NOTE | 2017-10-19 16:03 | Anesthesia Evaluation PreOp ---
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 No evident psych history per H&P) Other Medical History: Denies Any Significant HX Anesthesia History: No Prior Anesthetic Complications, Past Anesthesia (L-BKA 2015, R-FemPop Bypass 10/14/2017) Alcohol Use: rarely Drug use: none Medications and Allergies Albuterol Sulfate [Proair Hfa] 1 - 2 puff IH Q6H PRN 10/14/17 [History] Gabapentin [Neurontin] 100 mg PO TID 10/14/17 [History] Lovastatin [Mevacor] 20 mg PO QPM 10/14/17 [History] hydrOXYzine HCl [Hydroxyzine HCl] 50 mg PO HS 10/14/17 [History] 3 Allergy/AdvReac Type Severity Reaction Status Date / Time No Known Allergies Allergy Verified 10/13/17 18:32 - Meds/Allergy Pre-op Review Medications Reviewed: Yes Allergies Reviewed: Yes Beta Blockers on Current Med List: No Anesthesia Results - Labs 10/19/17 15:32 10/19/17 00:05 Laboratory Results Impressions Aorta w/Runoff CTA 10/14/17 14:51 IMPRESSION: 1. Moderate aortoiliac atherosclerotic disease. Occlusion of the right external iliac artery with collateral reconstitution at the right common femoral artery. Left external iliac artery disease with stenoses approaching 50%. 2. Long segment occlusion of the distal third of the right SFA extending over 9-10 cm. Two-vessel runoff with occlusion of the posterior tibial artery proximally. 3. Status post left AKA. Occlusion of the belkofski left SFA and femoral graft proximally. 4. No acute findings within the abdomen or pelvis. 5. Hepatic steatosis. 6. Changes of chronic pancreatitis. D/ /14/2017 16:59:20 Laurent Limon MD / earmoy Interpreting Provider: Laurent Limon MD Laboratory Tests 10/14/17 10/14/17 10/18/17 03:41 03:41 08:24 WBC Hgb Hct Plt Count PT 12.6 H INR 1.1 Sodium Potassium Chloride BUN Creatinine Est GFR (Non-Af Amer) Glucose Est Mean Plasma Glucose 126 Hemoglobin A1c 6.0 H Lactic Acid Calcium Stool Occult Blood Positive A 10/18/17 10/19/17 10/19/17 15:39 00:05 00:05 WBC 18.2 H Hgb Hct Plt Count 287 PT INR Sodium 141 Potassium 3.4 L Chloride 112 H BUN 25 H Creatinine 0.47 L Est GFR (Non-Af Amer) > 60 Glucose 114 H Est Mean Plasma Glucose Hemoglobin A1c Lactic Acid 3.2 H Calcium 7.7 L Stool Occult Blood 10/19/17 15:32 WBC Hgb 7.8 L Hct 23.1 L Plt Count PT INR Sodium Potassium Chloride BUN Creatinine Est GFR (Non-Af Amer) Glucose Est Mean Plasma Glucose Hemoglobin A1c Lactic Acid Calcium Stool Occult Blood - Imaging EKG: image reviewed Anesthesia Exam Vital Signs Temp Pulse Resp BP Pulse Ox 10/19/17 15:05 98.3 F 75 17 100/60 100 10/19/17 11:53 98.2 F 74 18 98/59 100 10/19/17 11:25 76 10/19/17 07:50 54 10/19/17 07:33 98.6 F 80 18 109/70 93 10/19/17 04:35 83 16 105/44 95 10/19/17 04:31 99.5 F 84 16 105/44 95 10/19/17 00:30 99.2 F 83 16 106/76 100 10/18/17 22:54 99 16 106/76 100 10/18/17 22:40 99.2 F 92 18 101/74 100 10/18/17 19:18 98.4 F 99 16 106/76 10/18/17 19:03 99.3 F 98 16 86/54 10/18/17 18:35 99.1 F 96 15 95/56 10/18/17 16:43 98.8 F 104 15 92/66 100 10/18/17 16:28 97.8 F 102 15 94/62 100 10/18/17 16:24 97.8 F 102 15 94/62 100 Intake and Output 10/19/17 10/19/17 10/19/17 07:59 15:59 23:59 Intake Total 1350 / 1350 100 / 100 Output Total 1050 / 1050 Balance 300 / 300 100 / 100 Intake: IV Fluids 1350 / 1350 100 / 100 Lactated Ringers 1,000 ML @ 75 1000 / 1000 mls/hr IVC .[id number] NIKKIE Rx#: [id number] Zosyn 3.375 GM In 0.9 % Sodium 100 / 100 100 / 100 Chloride (Mini-Bag +) 100 ML @ 25 mls/hr IVPB Q8H NIKKIE Rx#: [id number] Vancocin 1,250 MG In 0.9 % 250 / 250 Sodium Chloride 250 ML @ 166.67 mls/hr IVPB Q12H NIKKIE Rx#: [id number] Oral 0 / 0 Output: Urine/Stool Mix 1050 / 1050 Other: Meal Breakfast Percent of Meal Consumed 0% Stool Consistency liquid Stool Color Black Weight 51.8 kg Blood Glucose* 91 Patient Weight 10/19/17 23:59 Weight 51.8 kg Height: 5'4" Weight: 114# BMI = 20 NPO (# of Hours): MNoc - HEENT Pupil (Motor): Pupils equal Mallampati: III Teeth: Edentulous Oral Opening: Greater than 3 - FINISHED YARN EXAMINER LOC: Oriented FINISHED YARN EXAMINER Motor: Normal RUE, Normal LUE, Normal RLE, Normal LLE, Normal Face FINISHED YARN EXAMINER Sensory: Normal: RUE, LUE, RLE, LLE, Face - Cardiac Rhythm: Regular Murmur: None - Pulmonary Breath Sounds: bilateral Clear (distant breath sounds) Respiratory Effort: Symmetrical Anesthesia Assess/Plan ASA Score: 3, 4 (PVDz, Chol, Smoker, COPD) Modified Kevin Scale for Level of Consciousness: Cooperative, oriented, and tranquil Anesthetic Plan: General Monitoring Plan: Standard Monitors Recovery Plan: PACU Anes Supervising Prov Stmt: Pt seen/evaluated, r&B Discussed, questions answered and consent obtained. Sakshi Fofana MD
[2017-10-19] MEDS ORDERED: *HR* FentaNYL (PF) 100 MCG/2 ML VIAL ONE ×2 (16:15→17:37)
[2017-10-19] MEDS ORDERED: *HR* Midazolam HCl 2 MG/2 ML VIAL ONE (16:15)
[2017-10-19] MEDS ORDERED: *HR* Propofol 200 MG/20 ML VIAL IVP ONE (16:16)
[2017-10-19] MEDS ORDERED: Lidocaine -MPF 2% 2 ML VIAL ONE ×2 (16:17→16:49)
[2017-10-19] MEDS ORDERED: Ondansetron 4 MG/2 ML VIAL ONE ×2 (16:18→16:19)
[2017-10-19] MEDS ORDERED: *HR* Succinylcholine 200 MG/10 ML VIAL IVP ONE (16:18)
[2017-10-19] MEDS ORDERED: Dexamethasone 4 MG/ML VIAL ONE (16:18)
[2017-10-19] MEDS ORDERED: Lidocaine -MPF 4% 5 ML AMPUL ONE (16:23)
--- NOTE | 2017-10-19 16:34 | Vascular/Endovas Progress Note ---
Date of Encounter: 10/19/17 Time of Encounter: 07:55 - Assessment and plan (1) PAD (peripheral artery disease) Current Visit: Yes Status: Chronic The patient is postoperative day #4 after femoral endarterectomy, a femoral to femoral bypass and a right lower extremity angioplasty. He is doing well from a vascular surgery standpoint. He is scheduled for transmetatarsal amputation today. Vascular surgery was sign off. He may follow-up with Dr. Aguilar after discharge. - Subjective Interval history: The patient is comfortable. He reports pain in his forefoot and toes. He reports his pain is well-controlled. He denies chest pain or shortness of breath Vital Signs, Last 4 Hours Temp Pulse Resp BP Pulse Ox 10/19/17 16:05 74 20 98/58 100 10/19/17 15:05 98.3 F 75 17 100/60 100 - Physical Examination General: Present: Conversant Cardiac: Present: Reg Rate and Rhythm Lungs: Present: Normal Breath Sounds Neuro: Present: Alert and responsive Vascular: Present: Pulse, normal (Pedal signals are polyphasic at the level of the ankle), Surgical incisions (Clean dry and intact without erythema or drainage). Absent: Cyanosis (At forefoot and toes.) Abdomen: Present: Soft Results 10/19/17 15:32 10/19/17 00:05 Lab Results, Last 24 hours 10/19/17 10/19/17 10/19/17 00:05 00:05 09:46 WBC 18.2 H Hgb 7.8 L 7.7 L Hct 23.1 L 22.9 L Plt Count 287 Sodium 141 Potassium 3.4 L Chloride 112 H Carbon Dioxide 23 BUN 25 H Creatinine 0.47 L Glucose 114 H Calcium 7.7 L 10/19/17 15:32 WBC Hgb 7.8 L Hct 23.1 L Plt Count Sodium Potassium Chloride Carbon Dioxide BUN Creatinine Glucose Calcium Consult Discharge Plan - Plan Referrals: Trista Norris, CABLE HOOKER [Advanced Practice Nurse] - 10/23/17 2:45 pm (Please take with you to your appointment the new patient that will arrive in the mail, if you don't receive it please show up 30 minutes early to fill out paperwork. Take with you your picture ID, Ins card, list of all medication including over the counter. This office does not prescribe narcotics. If you need to cancel please call 24 hours in advance to [phone].) Alexis Aguilar MD [Partnered Physician] - 11/11/17 9:30 am () Orlin Diaz MD [Partnered Physician] - (WEB REQUEST SENT ON 10-19-17 @ [id number])
[2017-10-19] MEDS ORDERED: *HR* PHENYLEPHRINE 1,000 MCG/10 ML SYRINGE IVP ONE (16:48)
[2017-10-19] MEDS ORDERED: Lidocaine 1% 20 ML MDV ONE ×2 (17:02→18:06)
[2017-10-19] MEDS ORDERED: Bupivacaine/EPI 1:200k 0.25%PF 10 ML VIAL INFILT ONE (17:02)
[2017-10-19] MEDS ORDERED: Ondansetron 4 MG/2 ML VIAL IVP ONE (18:09)
[2017-10-19] MEDS ORDERED: *HR* Promethazine 25 MG/ML VIAL IVP PRN ×3 (18:09→19:43)
[2017-10-19] MEDS ORDERED: *HR* OxyCODONE Immed Rel 5 MG TABLET PO PRN ×2 (18:09→19:43)
--- NOTE | 2017-10-19 18:21 | Operative Note ---
Date of procedure: 10/19/17 Pre-op diagnosis: right forefoot gangrene Post-op diagnosis: same Procedure: right transmetatarsal amputation application of PRP Implants: none Complications: none Anesthesia: GETA Local Anesthetics: 1% Lidocaine HCL SubQ (cc) Surgeon: Kobi Mosley Was there an assistant to the director present: No Estimated blood loss (cc): 5 Specimen: pathology-right forefoot, microbiology-right foot soft tissue Condition: stable Disposition: PACU Procedure in Detail: Indications: 62 year old male who is status post right lower extremity bypass surgery this past is undergoing right transmetatarsal amputation of the right forefoot for gangrene. The right foot was warm to touch at the time of the surgery. Patient was transfused a unit of blood prior to the surgical procedure. No guarantees were made as to the outcome and it was explained to the patient that he is high risk for limb loss. Encouraged smoking cessation and discussed it is imperative that he quit smoking. Patient was brought to the operating room placed on the operating room table in the supine position the left lower extremity was scrubbed prepped and draped in the usual sterile fashion using Betadine. No tourniquet was used during the entire procedure. 1 % lidocaine plain was injected into the patient's left foot. Blood had also been obtained from the patient preoperatively and was spun into PRP which was utilized at the surgical site during the procedure. Following timeout the following procedure began. Transmetatarsal amputation right foot. Attention was directed to the patient's right forefoot where gangrenous changes were present in the 3rd and 5th digits. The skin incision was made proximal to the gangrenous site full-thickness across the dorsum of the foot down to the level of the bone circumferentially around the foot in a fishmouth-type incision. The soft tissue attachments were freed from the metatarsal bones and the sagittal saw was used to transect metatarsals 1 through 5. Prominent bony edges were rasped smooth. The right forefoot after transecting the metatarsals was then freed from remaining soft tissue attachments and was sent to pathology. A portion of the dorsal aspect just proximal to the 3rd digit necrosis was cut and sent to microbiology. The tendons were tracked as far proximal in the incision as possible and cut. There was minimal bleeding present in the tissue and the surgical margin was made more proximal however there was still minimal bleeding. There was no purulent drainage or devitalized tissue remaining at the amputation site. The pulse lavage with vancomycin was used to irriagate the site on a low setting. Upon inspection there was no devitalized tissue present however there was also no bleeding tissue medially and a small amount of bleeding lateral which was under control. The site was deemed adequate for closure and a combination of 0- Prolene and 2-0 Prolene was used to reapproximate the skin. PRP was injected at the surgical site. Patient tolerated the anesthesia and the procedure well. The surgical site was closed and postoperative bandaging included Adaptic, 4 x 4 gauze, ABD pad and a loosely applied Kerlix. Patient to remain non-wb to the right LE. Patient to return to the floor.
[2017-10-19] MEDS: *HR* HYDROmorphone (PF) 1 MG/ML SYRINGE IVP PRN ×2 (18:35→18:48)
--- NOTE | 2017-10-19 19:10 | Anesthesia Evaluation Post Op ---
Date of Encounter: 10/19/17 Time of Encounter: 19:08 - Vital Signs Vital Signs: Vital Signs/O2 Sat, Most Current Temp Pulse Resp BP Pulse Ox 98.5 F 75 16 101/72 98 10/19/17 18:50 10/19/17 19:00 10/19/17 19:00 10/19/17 19:00 10/19/17 18:50 - Lungs Lungs: Clear Ascult./Percussion - Airway Airway: Non-obstructed - Cardiovascular Regular Rate - Mental Status Mental Status: Alert & Oriented, Answers Appropriately - Pain Pain Scale: 0 Pain Scale used: Numeric (1 - 10) - Nausea Vomiting Nausea Vomiting: Not Present - Hydration Hydration: NPO, Has not voided - Discharge PostOp Status: Transfer Patient to floor
[2017-10-19] MEDS ORDERED: Dextrose Gel 15 GM/37.5 ML TUBE PO PRN ×2 (19:43)
[2017-10-19] MEDS ORDERED: Ondansetron 4 MG/2 ML VIAL IVP PRN (19:43)
[2017-10-19] MEDS ORDERED: *HR* Dextrose 50 % in Water (Syg) 50 ML SYRINGE IVP PRN (19:43)
[2017-10-19] MEDS ORDERED: Naloxone 0.4 MG/ML INJ IVP PRN (19:43)
[2017-10-19] MEDS ORDERED: Acetaminophen 325 MG TABLET PO PRN (19:43)
[2017-10-19] MEDS ORDERED: D5% in Water 1,000 ML IVC PRN (19:43)
[2017-10-19] MEDS ORDERED: *HR* Labetalol 20 MG/4 ML SYRINGE IVP PRN (19:43)
[2017-10-19 22:01] LABS: Hematocrit 24.6 % (37.5-50.1); Hemoglobin 8.2 g/dL (12.9-16.9)
[2017-10-19] MEDS: hydrOXYzine pamoate 25 MG CAPSULE PO SCH (22:44)
[2017-10-20] MEDS: *HR* HYDROcodone/Acet 5/325 mg TABLET PO PRN ×3 (02:06→19:54)
[2017-10-20] MEDS: *HR* OxyCODONE Immed Rel 5 MG TABLET PO PRN ×3 (03:54→16:24)
[2017-10-20] MEDS: Piperacillin/Tazobactam 3.375 GM in 0.9 % Sodium Chloride Mini Bag 100 ML IVPB SCH ×3 (03:55→19:55)
[2017-10-20 04:13] LABS: Basophils % 0.1 %; Hematocrit 24.5 % (37.5-50.1); Hemoglobin 8.4 g/dL (12.9-16.9); Lymphocytes # 1.5 K/mcL (0.6-4.6); Lymphocytes % 8.5 %; Mean Corpuscular HGB Conc 34.3 g/dL (31.6-35.5); Mean Corpuscular Hemoglobin 30.3 pg (28.0-33.3); Mean Corpuscular Volume 88.4 fL (83.0-100.0); Mean Platelet Volume 9.4 fL (9.4-12.4); Monocytes # 1.3 K/mcL (0.0-1.3); Monocytes % 7.6 %; Neutrophils # 14.6 K/mcL (1.6-8.9); Platelet Count 337 K/mcL (140-400); Red Blood Count 2.77 M/mcL (4.19-5.50); Red Cell Distribution Width 15.6 % (11.5-14.5); Segmented Neutrophils % 82.8 %
[2017-10-20 04:31] LABS: BUN/Creatinine Ratio 22 (6-26); Blood Urea Nitrogen 12 mg/dL (8-23); Calcium 7.8 mg/dL (8.6-10.3); Carbon Dioxide 21 mEq/L (23-29); Chloride 111 mEq/L (98-107); Glucose 213 mg/dL (70-105); Osmolality,Calculated 292 (280-300); Sodium 138 mEq/L (136-145); eGFR For Non-African Americans > 60 (> 60)
[2017-10-20] MEDS: Cyanocobalamin (B-12) 1,000 MCG/ML VIAL SQ SCH (07:53)
[2017-10-20] MEDS: Pantoprazole 40 MG VIAL IVP SCH ×2 (07:53→16:26)
[2017-10-20] MEDS: Gabapentin 100 MG CAPSULE PO SCH ×3 (07:53→19:55)
[2017-10-20] MEDS: Sucralfate 1 GM TABLET PO SCH ×4 (07:53→19:54)
[2017-10-20] MEDS: Aspirin Enteric Coated 81 MG Tablet PO SCH (07:54)
[2017-10-20] MEDS: Lactobacillus 1 EACH CAP.SPRINK PO SCH ×2 (08:00→19:54)
[2017-10-20 09:29] LABS: Hematocrit 26.3 % (37.5-50.1); Hemoglobin 8.8 g/dL (12.9-16.9)
--- NOTE | 2017-10-20 11:36 | Anesthesia Evaluation PreOp ---
Date of Encounter: 10/20/17 Time of Encounter: 13:21 - Past History Planned Operation: EGD Cardiac History: Hyperlipidemia, Other (PVD) Pulmonary History: Smoker (40 years), COPD TENDER LABOR History: Denies Any Significant HX Other Medical History: Denies Any Significant HX Anesthesia History: Past Anesthesia (denies prior surgery) Alcohol Use: rarely Drug use: none Medications and Allergies Albuterol Sulfate [Proair Hfa] 1 - 2 puff IH Q6H PRN 10/14/17 [History] Gabapentin [Neurontin] 100 mg PO TID 10/14/17 [History] Lovastatin [Mevacor] 20 mg PO QPM 10/14/17 [History] hydrOXYzine HCl [Hydroxyzine HCl] 50 mg PO HS 10/14/17 [History] 3 Allergy/AdvReac Type Severity Reaction Status Date / Time No Known Allergies Allergy Verified 10/13/17 18:32 - Meds/Allergy Pre-op Review Medications Reviewed: Yes Allergies Reviewed: Yes Beta Blockers on Current Med List: No Anesthesia Results - Labs 10/20/17 09:14 10/20/17 03:36 - Imaging EKG: report reviewed (03/14/2014 sinus rhythm) Anesthesia Exam Vital Signs/O2 Sat/Glucose, Most Recent Temp Pulse Resp BP Pulse Ox 97.9 F 71 18 106/60 100 10/20/17 07:33 10/20/17 07:33 10/20/17 07:33 10/20/17 07:33 10/20/17 07:33 Blood Glucose* 91 Height: 5'4''/1.63m Weight: 114 lbs/51.8 kg NPO (# of Hours): 8 Pain Scale: 8 (right foot) Pain Scale Used: Numeric (1 - 10) - HEENT Pupil (Motor): EOMI Mallampati: III Teeth: Edentulous Oral Opening: Greater than 3 - TENDER LABOR LOC: Oriented TENDER LABOR Motor: Normal RUE, Normal LUE, Normal RLE, Normal LLE, Normal Face TENDER LABOR Sensory: Normal: RUE, LUE, RLE, LLE, Face - Cardiac Rhythm: Regular Murmur: None - Pulmonary Breath Sounds: bilateral Clear Respiratory Effort: Symmetrical Anesthesia Assess/Plan ASA Score: 3 Modified Kevin Scale for Level of Consciousness: Cooperative, oriented, and tranquil Anesthetic Plan: MAC Monitoring Plan: Standard Monitors
[2017-10-20] MEDS: Ringers Solution, Lactated 1,000 ML IVC SCH ×2 (12:18→23:20)
[2017-10-20] MEDS ORDERED: *HR* Propofol 200 MG/20 ML VIAL IVP ONE (12:50)
--- NOTE | 2017-10-20 14:55 | Podiatry Progress Note ---
Date of Encounter: 10/20/17 Time of Encounter: 12:00 - Assessment and Plan (1) Gangrene of foot Current Visit: Yes Status: Acute POD #1 TMA of right foot Dressing changed at bedside Appears to be healing without complication Wound margins well approximated and healthy Scant bleeding noted along surgical line Cleansed with saline, pat dry Applied adaptic 4x4 and kerlix Will change daily while inpatient Patient will be protective weight bearing to heel only for pivoting- minimal ambulation Patient will need protective post operative shoe to bedside States he will return to [place]- once discharged will leave dressing intact Will need scheduled to see next week in clinic Continue current treatment- will follow closely Subjective Interval history: Patient is POD #1 right transmetatarsal amputation application of PRP per Patient resting up to wheelchair on arrival, awaiting to be taken to EGD for decreased Hgb. Patient reports pain to surgical site 10/16. States he took his meds this morning which helped and he "has to go home with those" Patient dressing intact. Bloody strikethrough drainage noted to dressing. Patient sitting with foot down. Nurse states he has wanted to stay up to wheelchair most of the day. Denies any fevers, chills, n/v or flu like symptoms. Patient denies any calf pain or SOB. Objective - Vital Signs Vital Signs: Vital Signs Temp Pulse Resp BP Pulse Ox 10/20/17 13:14 97.7 F 74 20 106/63 100 10/20/17 12:07 98.0 F 74 18 118/74 100 10/20/17 07:33 97.9 F 71 18 106/60 100 10/20/17 04:45 97.9 F 77 19 112/73 96 10/20/17 00:14 98.9 F 80 18 83/54 96 10/19/17 19:46 98.4 F 96 19 101/64 97 10/19/17 19:45 98 F 84 18 96/61 97 10/19/17 19:35 98 F 77 18 101/64 98 10/19/17 19:30 77 16 94/68 99 10/19/17 19:20 98.3 F 76 16 90/60 99 10/19/17 19:10 73 16 100/68 97 10/19/17 19:00 75 16 101/72 97 10/19/17 18:50 98.5 F 73 16 100/58 98 10/19/17 18:40 78 16 104/64 97 10/19/17 18:30 82 14 104/61 99 10/19/17 18:20 98.4 F 80 12 116/65 99 10/19/17 16:05 74 20 98/58 100 10/19/17 15:05 98.3 F 75 17 100/60 100 Intake and Output 10/19/17 10/20/17 10/20/17 23:59 07:59 15:59 Intake Total 350 / 350 Output Total 400 / 400 700 / 700 Balance -400 / -400 -350 / -350 Intake: IV Fluids 350 / 350 Zosyn 3.375 GM In 0.9 % Sodium 100 / 100 Chloride (Mini-Bag +) 100 ML @ 25 mls/hr IVPB Q8H [facility] Rx#: [id number] Vancocin 1,250 MG In 0.9 % 250 / 250 Sodium Chloride 250 ML @ 166.67 mls/hr IVPB Q12H [facility] Rx#: [id number] Oral 0 / 0 Output: Urine 400 / 400 700 / 700 Other: Meal npo Percent of Meal Consumed 0% Stool Size Large Stool Consistency loose Stool Color Brown # Bowel Movements 1 - Exam Exam: Podiatry General Exam: General appearance: alert awake oriented X 3. Calm and pleasant, no acute distress.. Vascular: Pedal pulses signal DP/PT , No evidence of cyanosis, pallor or rubor , Edema graded at 1+/4, Skin Temperature warm, No calf pain with manual compression. Neurologic: Sensation intact with moderate touch Postop Exam: s/p right TMA Strikethrough bleeding noted to lateral aspect of incision line Scant ecchymosis noted along incision line Otherwise unremarkable Appears to be healing without complication No signs of dehiscence No clinical signs of infection Flap in good condition Foot warm with immediate cap refill. Pulses DP/PT to signal - Lab Result Diagrams: 10/21/17 09:33 10/21/17 09:33 Labs: Abnormal lab results WBC 17.6 K/mcL (4.3-11.1) H 10/20/17 03:36 RBC 2.77 M/mcL (4.19-5.50) L 10/20/17 03:36 Hgb 8.8 g/dL (12.9-16.9) L 10/20/17 09:14 Hct 26.3 % (37.5-50.1) L 10/20/17 09:14 RDW 15.6 % (11.5-14.5) H 10/20/17 03:36 Neutrophils # 14.6 K/mcL (1.6-8.9) H 10/20/17 03:36 PT 12.6 Seconds (9.4-12.1) H 10/14/17 03:41 Chloride 111 mEq/L (98-107) H 10/20/17 03:36 Carbon Dioxide 21 mEq/L (23-29) L 10/20/17 03:36 Creatinine 0.55 mg/dL (0.70-1.30) L 10/20/17 03:36 Glucose 213 mg/dL (70-105) H 10/20/17 03:36 Hemoglobin A1c 6.0 % (-5.6) H 10/14/17 03:41 Lactic Acid 3.2 mmol/L (0.5-2.2) H 10/18/17 15:39 Calcium 7.8 mg/dL (8.6-10.3) L 10/20/17 03:36 Iron 40 mcg/dL (65-175) L 10/18/17 01:01 % Saturation 19 % (20-55) L 10/18/17 01:01 Transferrin 149 mg/dL (203-362) L 10/18/17 01:01 Vitamin B12 188 pg/mL (250-1100) L 10/18/17 01:01 Stool Occult Blood Positive (Negative) A 10/18/17 08:24 Vancomycin Trough 13 mcg/mL (5-10) H 10/20/17 13:06 Microbiology, Last 48 Hours 10/19/17 18:25 Surgical Biopsy Culture - Preliminary Right Foot - VTE Documentation of Mechanical Device: Intermittent pneumatic compression device Consult Discharge Plan - Plan Referrals: Trista Norris REAMING MACHINE OPERATOR [Advanced Practice Nurse] - 10/23/17 2:45 pm (Please take with you to your appointment the new patient that will arrive in the mail, if you don't receive it please show up 30 minutes early to fill out paperwork. Take with you your picture ID, Ins card, list of all medication including over the counter. This office does not prescribe narcotics. If you need to cancel please call 24 hours in advance to [phone].) Alexis Aguilar MD [Partnered Physician] - 11/11/17 9:30 am () Orlin Diaz MD [Partnered Physician] - (WEB REQUEST SENT ON 10-19-17 @ [phone])
--- NOTE | 2017-10-20 17:57 | Internal Med Progress Note ---
Hospitalist Progress Note - Encounter Date of Encounter: 10/20/17 Time of Encounter: 11:00 - Subjective Interval History: Patient reports no further bloody bowel movements this morning Patient scheduled for EGD today - Exam Vitals: Temp Pulse Resp BP Pulse Ox 98.0 F 69 18 105/55 99 10/20/17 16:34 10/20/17 16:42 10/20/17 16:34 10/20/17 16:34 10/20/17 16:34 Exam: Gen.: Nonacute distress, alert and oriented 3 ENT: Mucosal membranes moist Respiratory: Lungs are clear to auscultation bilaterally without any wheezing rhonchi or rales Cardiovascular: Normal S1 and S2 regular rate rhythm no murmurs rubs or gallops Abdomen: Soft, nontender and nondistended with positive bowel sounds Extremities: No lower extremity edema Skin: Normal color - Assessment and Plan (1) GI bleed Current Visit: Yes Status: Acute Assessment and Plan: Hemoglobin is stable since this morning at 8.4 status post 3 units of PRBC yesterday. He has not had further episodes of GI bleeding. GI consult with recommendations for EGD which was done today which showed no acute bleeding. Will monitor overnight Continue to hold aspirin and Plavix. (2) Anemia Current Visit: Yes Status: Acute Assessment and Plan: Hemoglobin is stable since this morning at 8.4 status post 3 units of PRBC yesterday. (3) Ischemic pain of right foot Current Visit: Yes Status: Acute Assessment and Plan: POD#5 femorofemoral bypass. (4) Gangrene of foot Current Visit: Yes Status: Acute Assessment and Plan: Podiatry following status post TMA POD#1 Appreciate any further recommendations (5) Hypokalemia Current Visit: Yes Status: Resolved Assessment and Plan: Resolved; continue to monitor (6) DVT prophylaxis Current Visit: No Status: Acute Assessment and Plan: SCDs as tolerated - Time Spent with Patient Total time spent is greater than 50% in coordination of care (as documented) at patient's floor/unit and/or counseling patient: Internal Medicine: Result - Labs CBC & Chem 7: 10/20/17 09:14 10/20/17 03:36 Labs: Short CBC 10/19/17 10/20/17 10/20/17 Range/Units 21:17 03:36 09:14 WBC 17.6 H (4.3-11.1) K/mcL Hgb 8.2 L 8.4 L 8.8 L (12.9-16.9) g/dL Hct 24.6 L 24.5 L 26.3 L (37.5-50.1) % Plt Count 337 (140-400) K/mcL Neutrophils # 14.6 H (1.6-8.9) K/mcL BMP 10/20/17 03:36 Sodium 138 Potassium 4.0 Chloride 111 H Carbon Dioxide 21 L BUN 12 Creatinine 0.55 L Glucose 213 H Calcium 7.8 L - ABG Interpretation ABG results: PT/INR, D-dimer PT 12.6 Seconds (9.4-12.1) H 10/14/17 03:41 - Impressions Impressions Fluoroscopy 10/19/17 17:59 IMPRESSION: Intraprocedural fluoroscopic spot images as above. See separate procedure report for more information. D/ / Neri Mcghee MD / Neri Mcghee MD Interpreting Provider: Neri Mcghee MD Foot X-Ray 10/19/17 17:59 IMPRESSION: Intraprocedural fluoroscopic spot images as above. See separate procedure report for more information. D/ / Neri Mcghee MD / Neri cMghee MD Interpreting Provider: Neri Mcghee MD - VTE Documentation of Mechanical Device: Intermittent pneumatic compression device Consult Discharge Plan - Plan Referrals: Trista Norris CNP [Advanced Practice Nurse] - 10/23/17 2:45 pm (Please take with you to your appointment the new patient that will arrive in the mail, if you don't receive it please show up 30 minutes early to fill out paperwork. Take with you your picture ID, Ins card, list of all medication including over the counter. This office does not prescribe narcotics. If you need to cancel please call 24 hours in advance to [phone].) Alexis Aguilar MD [Partnered Physician] - 11/11/17 9:30 am () Orlin Diaz MD [Partnered Physician] - (WEB REQUEST SENT ON 10-19-17 @ 1711) (1) GI bleed Qualifiers: GI bleed type/associated pathology: melena Qualified Code(s): K92.1 - Melena (2) Anemia Qualifiers: Anemia type: other cause Other causes of anemia: acute posthemorrhagic Qualified Code(s): D62 - Acute posthemorrhagic anemia
[2017-10-20] MEDS: hydrOXYzine pamoate 25 MG CAPSULE PO SCH (19:54)
[2017-10-20 22:40] LABS: Hematocrit 24.3 % (37.5-50.1); Hemoglobin 8.1 g/dL (12.9-16.9)
--- NOTE | 2017-10-20 23:25 | Anesthesia Evaluation PreOp ---
Date of Encounter: 10/21/17 - Past History Planned Operation: Right Transmeatarsal Amp. 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 Any Significant HX Other Medical History: Denies Any Significant HX Anesthesia History: No Prior Anesthetic Complications, Past Anesthesia (EGD 10/20) Alcohol Use: rarely Drug use: none Medications and Allergies Albuterol Sulfate [Proair Hfa] 1 - 2 puff IH Q6H PRN 10/14/17 [History] Gabapentin [Neurontin] 100 mg PO TID 10/14/17 [History] Lovastatin [Mevacor] 20 mg PO QPM 10/14/17 [History] hydrOXYzine HCl [Hydroxyzine HCl] 50 mg PO HS 10/14/17 [History] 3 Allergy/AdvReac Type Severity Reaction Status Date / Time No Known Allergies Allergy Verified 10/13/17 18:32 - Meds/Allergy Pre-op Review Medications Reviewed: Yes Allergies Reviewed: Yes Beta Blockers on Current Med List: No Anesthesia Results - Labs 10/21/17 09:33 10/21/17 09:33 Anesthesia Exam Vital Signs/O2 Sat, Most Current Temp Pulse Resp BP Pulse Ox 100.1 F H 84 18 105/66 100 10/20/17 20:26 10/20/17 20:26 10/20/17 20:26 10/20/17 20:26 10/20/17 20:26 - HEENT Pupil (Motor): Pupils equal, EOMI Mallampati: III Teeth: Edentulous Oral Opening: Greater than 3 - BROKERAGE OFFICE MANAGER LOC: Oriented BROKERAGE OFFICE MANAGER Motor: Normal RUE, Normal LUE, Normal RLE, Normal LLE, Normal Face BROKERAGE OFFICE MANAGER Sensory: Normal: RUE, LUE, RLE, LLE, Face - Cardiac Rhythm: Regular Murmur: None JVD: No Carotid Bruit: No - Pulmonary Breath Sounds: bilateral Clear Respiratory Effort: Symmetrical Anesthesia Assess/Plan ASA Score: 3 Modified Kevin Scale for Level of Consciousness: Cooperative, oriented, and tranquil Anesthetic Plan: General Autologous Blood: Yes Monitoring Plan: Standard Monitors Recovery Plan: PACU
[2017-10-21] MEDS: *HR* OxyCODONE Immed Rel 5 MG TABLET PO PRN ×2 (00:17→09:11)
[2017-10-21] MEDS: Piperacillin/Tazobactam 3.375 GM in 0.9 % Sodium Chloride Mini Bag 100 ML IVPB SCH ×3 (02:54→20:05)
[2017-10-21] MEDS: *HR* HYDROcodone/Acet 5/325 mg TABLET PO PRN ×2 (05:49→17:09)
[2017-10-21] MEDS: Pantoprazole 40 MG VIAL IVP SCH ×2 (05:49→17:06)
[2017-10-21] MEDS: Cyanocobalamin (B-12) 1,000 MCG/ML VIAL SQ SCH (09:11)
[2017-10-21] MEDS: Lactobacillus 1 EACH CAP.SPRINK PO SCH ×2 (09:11→20:05)
[2017-10-21] MEDS: Aspirin Enteric Coated 81 MG Tablet PO SCH (09:11)
[2017-10-21] MEDS: Gabapentin 100 MG CAPSULE PO SCH ×3 (09:11→20:04)
[2017-10-21] MEDS: Sucralfate 1 GM TABLET PO SCH ×4 (09:11→20:04)
[2017-10-21 10:02] LABS: Basophils # 0.1 K/mcL (0.0-0.2); Basophils % 0.3 %; Eosinophils # 0.3 K/mcL (0.0-0.6); Eosinophils % 1.7 %; Hematocrit 25.1 % (37.5-50.1); Hemoglobin 8.5 g/dL (12.9-16.9); Immature Granulocytes % 0.8 % (0-4); Lymphocytes # 2.6 K/mcL (0.6-4.6); Lymphocytes % 16.9 %; Mean Corpuscular HGB Conc 33.9 g/dL (31.6-35.5); Mean Corpuscular Hemoglobin 30.7 pg (28.0-33.3); Mean Corpuscular Volume 90.6 fL (83.0-100.0); Mean Platelet Volume 9.2 fL (9.4-12.4); Monocytes # 1.6 K/mcL (0.0-1.3); Monocytes % 10.3 %; Neutrophils # 10.6 K/mcL (1.6-8.9); Platelet Count 420 K/mcL (140-400); Red Blood Count 2.77 M/mcL (4.19-5.50); Red Cell Distribution Width 15.6 % (11.5-14.5)
[2017-10-21 10:13] LABS: BUN/Creatinine Ratio 10 (6-26); Blood Urea Nitrogen 6 mg/dL (8-23); Calcium 8.1 mg/dL (8.6-10.3); Carbon Dioxide 23 mEq/L (23-29); Chloride 107 mEq/L (98-107); Glucose 204 mg/dL (70-105); Osmolality,Calculated 289 (280-300); Potassium 3.5 mEq/L (3.5-5.1); Sodium 138 mEq/L (136-145); eGFR For Non-African Americans > 60 (> 60)
[2017-10-21] MEDS ORDERED: *HR* Propofol 200 MG/20 ML VIAL IVP ONE (13:16)
[2017-10-21] MEDS ORDERED: *HR* FentaNYL (PF) 100 MCG/2 ML VIAL ONE (13:16)
[2017-10-21] MEDS ORDERED: *HR* Midazolam HCl 2 MG/2 ML VIAL ONE (13:16)
--- NOTE | 2017-10-21 18:21 | Internal Med Progress Note ---
Hospitalist Progress Note - Encounter Date of Encounter: 10/21/17 Time of Encounter: 11:00 - Subjective Interval History: Patient reports no further bloody bowel movements and hemoglobin stable [facility]waiting placement [facility] for [facility] - Exam Vitals: Temp Pulse Resp BP Pulse Ox 99.1 F 81 18 111/69 91 10/21/17 16:45 10/21/17 16:45 10/21/17 16:45 10/21/17 16:45 10/21/17 16:45 Exam: Gen.: Nonacute distress, alert and oriented 3 ENT: Mucosal membranes moist Respiratory: Lungs are clear to auscultation bilaterally without any wheezing rhonchi or rales Cardiovascular: Normal S1 and S2 regular rate rhythm no murmurs rubs or gallops Abdomen: Soft, nontender and nondistended with positive bowel sounds Extremities: No lower extremity edema Skin: Normal color - Assessment and Plan (1) GI bleed Current Visit: Yes Status: Acute Assessment and Plan: Hemoglobin is stable since this morning at 8.4 status post 3 units of PRBC yesterday. He has not had further episodes of GI bleeding. GI consult with recommendations for EGD which was done today which showed no acute bleeding. Will continue to monitor overnight as well as continue holding aspirin and Plavix. (2) Anemia Current Visit: Yes Status: Acute Assessment and Plan: Hemoglobin is stable since this morning at 8.5 status post 3 units of PRBC. Continue to monitor while holding aspirin/Plavix. (3) Ischemic pain of right foot Current Visit: Yes Status: Acute Assessment and Plan: POD#6 femorofemoral bypass. (4) Gangrene of foot Current Visit: Yes Status: Acute Assessment and Plan: Podiatry following status post TMA POD#2 Appreciate any further recommendations (5) Hypokalemia Current Visit: Yes Status: Resolved Assessment and Plan: Resolved; continue to monitor (6) DVT prophylaxis Current Visit: No Status: Acute Assessment and Plan: SCDs as tolerated (7) GERD (gastroesophageal reflux disease) Current Visit: Yes Status: Acute Assessment and Plan: Patient with EGD on 10/20/17 which showed LA grade B reflux esophagitis Recommendations for Protonix 40 mg twice daily in addition to Carafate 1 g 4 times daily for 2 months. - Time Spent with Patient Total time spent is greater than 50% in coordination of care (as documented) at patient's floor/unit and/or counseling patient: Internal Medicine: Result - Labs CBC & Chem 7: 10/21/17 09:33 10/21/17 09:33 Labs: Short CBC 10/20/17 10/21/17 Range/Units 21:52 09:33 WBC 15.2 H (4.3-11.1) K/mcL Hgb 8.1 L 8.5 L (12.9-16.9) g/dL Hct 24.3 L 25.1 L (37.5-50.1) % Plt Count 420 H (140-400) K/mcL Neutrophils # 10.6 H (1.6-8.9) K/mcL BMP 10/21/17 09:33 Sodium 138 Potassium 3.5 Chloride 107 Carbon Dioxide 23 BUN 6 L Creatinine 0.58 L Glucose 204 H Calcium 8.1 L - ABG Interpretation ABG results: PT/INR, D-dimer PT 12.6 Seconds (9.4-12.1) H 10/14/17 03:41 - VTE Documentation of Mechanical Device: Intermittent pneumatic compression device Consult Discharge Plan - Plan Referrals: Trista Norris AIRCRAFT POWERTRAIN REPAIRER [Advanced Practice Nurse] - 10/23/17 2:45 pm (Please take with you to your appointment the new patient that will arrive in the mail, if you don't receive it please show up 30 minutes early to fill out paperwork. Take with you your picture ID, Ins card, list of all medication including over the counter. This office does not prescribe narcotics. If you need to cancel please call 24 hours in advance to [phone].) Alexis Aguilar MD [Partnered Physician] - 11/11/17 9:30 am () Orlin Diaz MD [Partnered Physician] - (WEB REQUEST SENT ON 10-19-17 @ [phone]) (1) GI bleed Qualifiers: GI bleed type/associated pathology: melena Qualified Code(s): K92.1 - Melena (2) Anemia Qualifiers: Anemia type: other cause Other causes of anemia: acute posthemorrhagic Qualified Code(s): D62 - Acute posthemorrhagic anemia
[2017-10-21] MEDS: hydrOXYzine pamoate 25 MG CAPSULE PO SCH (20:04)
[2017-10-22] MEDS: Piperacillin/Tazobactam 3.375 GM in 0.9 % Sodium Chloride Mini Bag 100 ML IVPB SCH ×2 (04:33→11:15)
[2017-10-22] MEDS: *HR* OxyCODONE Immed Rel 5 MG TABLET PO PRN (04:33)
[2017-10-22] MEDS: Sucralfate 1 GM TABLET PO SCH ×2 (06:25→11:15)
[2017-10-22] MEDS: Pantoprazole 40 MG VIAL IVP SCH (06:25)
[2017-10-22] MEDS: Gabapentin 100 MG CAPSULE PO SCH (07:43)
[2017-10-22] MEDS: Aspirin Enteric Coated 81 MG Tablet PO SCH (07:43)
[2017-10-22] MEDS: Lactobacillus 1 EACH CAP.SPRINK PO SCH (07:43)
[2017-10-22] MEDS: *HR* HYDROcodone/Acet 5/325 mg TABLET PO PRN (07:43)
[2017-10-22] MEDS: Cyanocobalamin (B-12) 1,000 MCG/ML VIAL SQ SCH (07:44)
[2017-10-22 09:10] LABS: Basophils # 0.1 K/mcL (0.0-0.2); Basophils % 0.5 %; Eosinophils # 0.4 K/mcL (0.0-0.6); Eosinophils % 2.5 %; Hematocrit 27.5 % (37.5-50.1); Hemoglobin 9.2 g/dL (12.9-16.9); Immature Granulocytes % 0.7 % (0-4); Lymphocytes # 2.9 K/mcL (0.6-4.6); Lymphocytes % 17.7 %; Mean Corpuscular HGB Conc 33.5 g/dL (31.6-35.5); Mean Corpuscular Hemoglobin 30.5 pg (28.0-33.3); Mean Corpuscular Volume 91.1 fL (83.0-100.0); Mean Platelet Volume 9.1 fL (9.4-12.4); Monocytes # 1.7 K/mcL (0.0-1.3); Monocytes % 10.2 %; Neutrophils # 11.2 K/mcL (1.6-8.9); Platelet Count 563 K/mcL (140-400); Red Blood Count 3.02 M/mcL (4.19-5.50); Red Cell Distribution Width 15.9 % (11.5-14.5); Segmented Neutrophils % 68.4 %
[2017-10-22 09:28] LABS: BUN/Creatinine Ratio 12 (6-26); Blood Urea Nitrogen 7 mg/dL (8-23); Calcium 8.2 mg/dL (8.6-10.3); Carbon Dioxide 22 mEq/L (23-29); Chloride 104 mEq/L (98-107); Glucose 188 mg/dL (70-105); Osmolality,Calculated 279 (280-300); Potassium 3.6 mEq/L (3.5-5.1); Sodium 133 mEq/L (136-145); eGFR For Non-African Americans > 60 (> 60)
[2017-10-22 11:23] VITALS: BP 123/81
--- NOTE | 2017-10-22 13:42 | Discharge Summary ---
- NOTES TO OUTPATIENT PROVIDER Notes to Outpatient Provider: none Orders not resulted at time of discharge: Pending orders 10/19/17 18:25 Culture,Anaerobic [RM] Routine Culture,Tissue (Biopsy) [RM] Routine 10/23/17 13:00 Vancomycin,Trough Timed Date of Encounter: 10/22/17 Time of Encounter: 11:00 - Discharge Diagnosis (1) GI bleed Priority: Secondary Status: Acute Qualifiers: GI bleed type/associated pathology: melena Qualified Code(s): K92.1 - Melena (2) Anemia Priority: Secondary Status: Acute Qualifiers: Anemia type: other cause Other causes of anemia: acute posthemorrhagic Qualified Code(s): D62 - Acute posthemorrhagic anemia (3) Ischemic pain of right foot Priority: Primary Status: Acute (4) Gangrene of foot Priority: Primary Status: Acute (5) Hypokalemia Priority: Secondary Status: Resolved (6) GERD (gastroesophageal reflux disease) Priority: Secondary Status: Acute Qualifiers: Esophagitis presence: esophagitis presence not specified Qualified Code(s) : K21.9 - Gastro-esophageal reflux disease without esophagitis Hospital course: Patient is a 62-year-old male with past medical history significant for peripheral artery disease, hyperlipidemia, GERD and COPD who presents the ER on 10/16/17 due to right toe pain. Patient reports of a 3 day history of right toe duskiness of increasing pain and redness on the dorsal aspect of his foot. Patient also reported of associated right third and fifth toe duskiness with worsening pain as well. Patient was concerned and decided come to the ER for evaluation. During patients hospital stay vascular surgery was consulted and patient underwent vascular bypass surgery. In addition, podiatry was also consulted for TMA. Physical therapy was consulted with recommendations for senior care facility which patient refused so will be discharged home to follow-up with podiatry and vascular surgery. - Time Spent with Patient Total time spent providing and/or coordinating discharge services: Less than 30 minutes - Discharge Medications Prescriptions: HYDROcodone/Acet 5/325 mg [[place] 5-325 mg] 1 tab PO Q12HR PRN 5 Days #10 tablet PRN Reason: Moderate Pain Aspirin Enteric Coated [Aspirin EC] 81 mg PO DAILY #30 tablet. Clopidogrel [Plavix] 75 mg PO DAILY #30 tablet Ferrous Sulfate 325 mg PO BIDWM #60 tablet Sucralfate [Carafate] 1 gm PO QIDAC #120 tablet Home Medications: Albuterol Sulfate [Proair Hfa] 1 - 2 puff IH Q6H PRN 10/14/17 [History] Gabapentin [Neurontin] 100 mg PO TID 10/14/17 [History] Lovastatin [Mevacor] 20 mg PO QPM 10/14/17 [History] hydrOXYzine HCl [Hydroxyzine HCl] 50 mg PO HS 10/14/17 [History] Aspirin Enteric Coated [Aspirin EC] 81 mg PO DAILY #30 tablet. 10/22/17 [Rx] Clopidogrel [Plavix] 75 mg PO DAILY #30 tablet 10/22/17 [Rx] Ferrous Sulfate 325 mg PO BIDWM #60 tablet 10/22/17 [Rx] HYDROcodone/Acet 5/325 mg [[place] 5-325 mg] 1 tab PO Q12HR PRN 5 Days #10 tablet 10/22/17 [Rx] Sucralfate [Carafate] 1 gm PO QIDAC #120 tablet 10/22/17 [Rx] Allergies/Adverse Reactions: 3 Allergy/AdvReac Type Severity Reaction Status Date / Time No Known Allergies Allergy Verified 10/13/17 18:32 Date of admission: 10/16/17 07:38 Primary care physician: PCP NONE Consults: 10/16/17 09:06 Consult to Physical Therapy [CONS] Routine Comment: Evaluate, develop and implement POC Reason for Consult: discharge planning Does patient have active BEDREST order?: Yes Is patient medically & hemodynamically stable?: Yes Patient assessed for mobility or mobilized this visit?: Yes 10/16/17 09:07 Consult to Occupational Therapy [CONS] Routine Comment: Evaluate, develop and implement POC Reason for Consult: discharge planning Does patient have active BEDREST order?: Yes Is patient medically & hemodynamically stable?: Yes Patient assessed for mobility or mobilized this visit?: Yes 10/16/17 13:00 Consult to Podiatry [CONS] Routine Consulting Provider: [facility] Reason for Consult: RIght 3rd, 5th toes gangrene Time Notified: 13:01 Call Completed: Yes 10/18/17 14:36 Consult to Surgery [CONS] Routine Consulting Provider: [facility] Reason for Consult: Melena Time Notified: 14:36 Call Completed: Yes 10/19/17 10:26 Consult to Gastroenterology [CONS] Routine Consulting Provider: Gastroenterology [facility] Reason for Consult: risk for varicies Time Notified: 10:25 Call Completed: Yes 10/20/17 12:10 Consult to Debt And Budget Counselor [CONS] Routine Reason for SW Consult: d/c planning - Constitutional Vitals: Temp Pulse Resp BP Pulse Ox 99.2 F 79 18 123/81 95 10/22/17 11:22 10/22/17 11:22 10/22/17 11:22 10/22/17 11:22 10/22/17 11:22 General appearance: Present: A&O X 3 - Cardiovascular Cardiovascular exam: Present: RRR, +S1, +S2. Absent: diastolic murmur, gallop, rubs, systolic murmur - Patient Status Disposition: Home, Self-Care Condition: Fair - Discharge Instructions Instructions: Iron Supplements (By mouth), Sucralfate (By mouth), Hydrocodone/ Acetaminophen (By mouth), Aspirin (By mouth), Clopidogrel (By mouth) Follow Up With: Trista Norris FINISHING TUNNEL OPERATOR [Advanced Practice Nurse] - 10/30/17 9:45 am (Please take with you to your appointment the new patient that will arrive in the mail, if you don't receive it please show up 30 minutes early to fill out paperwork. Take with you your picture ID, Ins card, list of all medication including over the counter. This office does not prescribe narcotics. If you need to cancel please call 24 hours in advance to [phone].) Alexis Aguilar MD [Partnered Physician] - 11/11/17 9:30 am () Orlin Diaz MD [Partnered Physician] - (WEB REQUEST SENT ON 10-19-17 @ [id number]) - VTE Documentation of Mechanical Device: Intermittent pneumatic compression device
--- NOTE | 2017-10-22 14:25 | Physician Discharge Referral ---
Home Health/Hosp Referral Info Transfer to: Home Health - Diagnosis (1) GI bleed Status: Acute (2) Anemia Status: Acute (3) Ischemic pain of right foot Status: Acute (4) Gangrene of foot Status: Acute (5) Hypokalemia Status: Resolved (6) DVT prophylaxis Status: Acute (7) GERD (gastroesophageal reflux disease) Status: Acute - Respiratory Orders Smoking Cessation: Smoking cessation has been advised. For more information, call the [place] Tobacco Quit Line at 7-824-ULIX-NOW. - Services Needed Following services are medically necessary services: Physical Therapy, Occupational Therapy - Transfer Medications Prescriptions: HYDROcodone/Acet 5/325 mg [[place] 5-325 mg] 1 tab PO Q12HR PRN 5 Days #10 tablet PRN Reason: Moderate Pain Aspirin Enteric Coated [Aspirin EC] 81 mg PO DAILY #30 tablet. Clopidogrel [Plavix] 75 mg PO DAILY #30 tablet Ferrous Sulfate 325 mg PO BIDWM #60 tablet Sucralfate [Carafate] 1 gm PO QIDAC #120 tablet Home Medications: Albuterol Sulfate [Proair Hfa] 1 - 2 puff IH Q6H PRN 10/14/17 [History] Gabapentin [Neurontin] 100 mg PO TID 10/14/17 [History] Lovastatin [Mevacor] 20 mg PO QPM 10/14/17 [History] hydrOXYzine HCl [Hydroxyzine HCl] 50 mg PO HS 10/14/17 [History] Aspirin Enteric Coated [Aspirin EC] 81 mg PO DAILY #30 tablet. 10/22/17 [Rx] Clopidogrel [Plavix] 75 mg PO DAILY #30 tablet 10/22/17 [Rx] Ferrous Sulfate 325 mg PO BIDWM #60 tablet 10/22/17 [Rx] HYDROcodone/Acet 5/325 mg [[place] 5-325 mg] 1 tab PO Q12HR PRN 5 Days #10 tablet 10/22/17 [Rx] Sucralfate [Carafate] 1 gm PO QIDAC #120 tablet 10/22/17 [Rx] Allergies/Adverse Reactions: 3 Allergy/AdvReac Type Severity Reaction Status Date / Time No Known Allergies Allergy Verified 10/13/17 18:32 Certification: Further, I certify that my clinical findings support that this patient is homebound (i.e. absences from home require considerable and taxing effort and are for medical reasons or buddhist services or infrequently or short duration when for other reasons) because: Homebound Reason: Patient requires assistance of a person or device to safely leave home Attestation: My signature below is to certify that this patient is under my care and that I, or nurse practitioner, or a physician's chef assistant working with me, has a face-to -face encounter with this patient.
[2017-10-22] MEDS ORDERED: Aminoglycoside Consult 1 EACH MC ONE (18:37)
== END 2017-10-22 18:38 | disposition home or self-care (01) | DRG 169 ==
LOC: 3ANU → SUATTDRO 22:12 → 2NNU 10-15 17:42 → SUATTDRO 10-16 07:38
PROVIDERS: ADMIT Internal Medicine; ATTEND Hospitalist

== ENCOUNTER 2017-10-25 17:23 | Observation (INO) ==
[2017-10-25] MEDS ORDERED: Acetaminophen 325 MG TABLET PO PRN (20:11)
[2017-10-25] MEDS ORDERED: Potassium Chloride Elixir 20 MEQ/15 ML UDC PO ONE (20:17)
[2017-10-25] MEDS ORDERED: *HR* LORazepam 2 MG/ML VIAL IVP PRN (20:29)
--- NOTE | 2017-10-25 20:37 | Internal Med History&Physical ---
Date of Encounter: 10/25/17 Time of Encounter: 20:31 Internal Medicine - H&P: HPI Chief complaint: stump pain Admitted From: Home Plans for Post Hospital Care: Home History of present illness: Patient is a 62-year-old male with past medical history significant for peripheral artery disease s/p left AKA, hyperlipidemia, GERD and COPD who was discharged from here only 2 days ago after presenting with right toe pain and subsequently found to have ischemic gangrene. He underwent vascular bypass surgery and subsequently a TMA. Physical therapy was consulted with recommendations for nursing home facility which the patient refused so he was discharged home. He now presents on transfer from [place] complaining of increasing redness and pain around the stump. On my assessment he is not in acute distress and denies fever and chills. He also denies putting pressure on the limb. On lab work he was found to have leukocytosis however it appears to be a chronic trend. He has also been drinking alcohol daily, last used this afternoon. Past Med Surg Social Fam HX - Past Medical History Medical history: arthritis, COPD, GERD, hyperlipidemia, peripheral artery disease, other Additional medical history: patient is poor historian, PVD, CHRONIC NERVE ISSUES , USUALLY HAS BASE LINE BP 90/50'S Psychiatric history: no psych history - Past Surgical History Surgical History: vascular surgery, other Additional surgical history: LBKA - Social History Smoking Status: Current every day smoker Packs per day: 2 Smokeless Tobacco Status: No Alcohol use: occasionally Drug use: none - Family History Mother Adopted: No Family Member Ethnicity: Non- Living Status: Father Adopted: No Family Member Ethnicity: Non- Living Status: Hx Family Cardiac Disorders: Yes Hx Family Respiratory Disorders: Yes Hx Family Cancer: Yes Hx Family GI Disorders: No Hx Family Endocrine Disorder: No Hx Family Neuromuscular Disorders: No Hx Family Neurologic Disorders: No Hx Family HEENT Disorders: No Hx Family Autoimmune Disorders: No Internal Medicine - H&P: Meds Albuterol Sulfate [Proair Hfa] 1 - 2 puff IH Q6H PRN 10/14/17 [History] Gabapentin [Neurontin] 100 mg PO TID 10/14/17 [History] Lovastatin [Mevacor] 20 mg PO QPM 10/14/17 [History] hydrOXYzine HCl [Hydroxyzine HCl] 50 mg PO HS 10/14/17 [History] Aspirin Enteric Coated [Aspirin EC] 81 mg PO DAILY #30 tablet. 10/22/17 [Rx] Clopidogrel [Plavix] 75 mg PO DAILY #30 tablet 10/22/17 [Rx] Ferrous Sulfate 325 mg PO BIDWM #60 tablet 10/22/17 [Rx] HYDROcodone/Acet 5/325 mg [[place] 5-325 mg] 1 tab PO Q12HR PRN 5 Days #10 tablet 10/22/17 [Rx] Sucralfate [Carafate] 1 gm PO QIDAC #120 tablet 10/22/17 [Rx] 3 Allergy/AdvReac Type Severity Reaction Status Date / Time No Known Allergies Allergy Verified 10/25/17 15:46 All Systems PM: A 10-system review of systems was performed and is negative for pertinent findings except as documented above in the HPI. - Constitutional Vitals: Temp Pulse Resp BP Pulse Ox 98.3 F 84 16 97/60 98 10/25/17 18:49 10/25/17 18:49 10/25/17 18:49 10/25/17 18:49 10/25/17 18:49 Exam: Vitals: Reviewed General: Unkempt appearing, NAD Skin: Dirty. HEENT: Moist mucous membranes. Neck: No lymphadenopathy. No JVD. Chest: Normal thoracic expansion. Normal breath sounds. Clear to auscultation. Heart: Normal S1 & S2; rhythmic. Abdomen: Non-distended, soft and non-tender to palpation. Extremities: Right TMA stump with sutures intact and no suppuration but there is circumferential pinkness and bogginess that is moderately tender to palpation. Foot remains warm and perfused in spite of diminished pulses. Neurological: Awake, alert and oriented to person, place and time. No focal deficits. Psych: Affect appropriate. - Assessment and plan (1) Cellulitis of foot Current Visit: Yes Status: Acute Assessment and plan: He has mild inflammatory signs of the foot stump whih likely has to do with poor care for these 2 days while he was at home. The cultures from prior admission were reviewed; notably polymicrobial. He may benefit from a course of antimicrobials but the most important aspect of his care is adequate wound care and pressure off-loading which he does not seem to be doing. He also continues his alcohol habit and smoking which will not help his wound healing. Will obtain a set of blood cultures first. 1 dose of vancomycin 750mg then continue with pip-tazo 3.375grs q8hrs to cover the jose david identified on cultures. Podiatry consult requested for re-eval. fruit ii farmworker intervention needed to determine disposition. Limb elevation. (2) Leukocytosis Current Visit: Yes Status: Acute Assessment and plan: Appears to be a chronic issue and therefore difficult to delineate when an infectious process is contributing. Will assess if there is any change with fluids and antibiotics. Qualifiers: Leukocytosis type: unspecified Qualified Code(s): D72.829 - Elevated white blood cell count, unspecified (3) COPD (chronic obstructive pulmonary disease) Current Visit: Yes Status: Chronic Assessment and plan: Secondary to tobacco dependence. No signs of acute exacerbation. Will place on albuterol prn. Qualifiers: COPD type: emphysema Emphysema type: panlobular Qualified Code(s): J43.1 - Panlobular emphysema (4) PAD (peripheral artery disease) Current Visit: Yes Status: Chronic Assessment and plan: Continue ASA and statin. (5) Tobacco abuse Current Visit: Yes Status: Chronic Assessment and plan: Given extensive counseling and resources made available. (6) Hypokalemia Current Visit: Yes Status: Acute Assessment and plan: Likely related to alcohol use. Will supplement and recheck again. Check Mg also. (7) DVT prophylaxis Current Visit: Yes Status: Acute Assessment and plan: Subq heparin. - Time Spent With Patient Total time spent is greater than 50% in coordination of care (as documented) at patient's floor/unit and/or counseling patient: Greater than 35 minutes
[2017-10-25] MEDS: Ringers Solution, Lactated 1,000 ML IVC SCH (21:19)
[2017-10-25] MEDS: Gabapentin 100 MG CAPSULE PO SCH (21:20)
[2017-10-25] MEDS: *HR* Heparin 5,000 UNIT/ML VIAL SQ SCH (21:20)
[2017-10-25] MEDS: hydrOXYzine pamoate 25 MG CAPSULE PO SCH (21:20)
[2017-10-25] MEDS: Sucralfate 1 GM TABLET PO SCH (21:20)
[2017-10-25] MEDS: Piperacillin/Tazobactam 3.375 GM in 0.9 % Sodium Chloride Mini Bag 100 ML IVPB SCH (23:53)
[2017-10-26] MEDS: *HR* OxyCODONE Immed Rel 5 MG TABLET PO PRN ×4 (02:09→23:30)
[2017-10-26] MEDS: traMADol 50 MG TABLET PO PRN ×3 (03:46→20:46)
[2017-10-26 04:46] LABS: Basophils # 0.1 K/mcL (0.0-0.2); Basophils % 0.6 %; Eosinophils # 0.2 K/mcL (0.0-0.6); Eosinophils % 1.2 %; Hematocrit 31.7 % (37.5-50.1); Hemoglobin 10.4 g/dL (12.9-16.9); Immature Granulocytes % 1.1 % (0-4); Lymphocytes # 2.9 K/mcL (0.6-4.6); Mean Corpuscular HGB Conc 32.8 g/dL (31.6-35.5); Mean Corpuscular Hemoglobin 29.9 pg (28.0-33.3); Mean Corpuscular Volume 91.1 fL (83.0-100.0); Mean Platelet Volume 8.7 fL (9.4-12.4); Monocytes # 1.7 K/mcL (0.0-1.3); Monocytes % 10.1 %; Platelet Count 1297 K/mcL (140-400); Red Blood Count 3.48 M/mcL (4.19-5.50); Red Cell Distribution Width 15.5 % (11.5-14.5)
[2017-10-26 05:06] LABS: BUN/Creatinine Ratio 16 (6-26); Blood Urea Nitrogen 12 mg/dL (8-23); Calcium 8.8 mg/dL (8.6-10.3); Carbon Dioxide 20 mEq/L (23-29); Chloride 106 mEq/L (98-107); Glucose 84 mg/dL (70-105); Magnesium 2.1 mg/dL (1.6-2.6); Osmolality,Calculated 279 (280-300); Potassium 4.6 mEq/L (3.5-5.1); Sodium 135 mEq/L (136-145); eGFR For Non-African Americans > 60 (> 60)
[2017-10-26] MEDS: *HR* Heparin 5,000 UNIT/ML VIAL SQ SCH ×3 (06:33→21:26)
[2017-10-26] MEDS: Sucralfate 1 GM TABLET PO SCH ×4 (06:33→21:26)
[2017-10-26] MEDS: Folic Acid 1 MG TABLET PO SCH (08:23)
[2017-10-26] MEDS: Nicotine 21 MG PATCH.TD24 TD SCH (08:23)
[2017-10-26] MEDS: Piperacillin/Tazobactam 3.375 GM in 0.9 % Sodium Chloride Mini Bag 100 ML IVPB SCH ×3 (08:24→23:28)
[2017-10-26] MEDS: Vitamin B Complex/Vit C/Vit E 1 EACH TABLET PO SCH (08:24)
[2017-10-26] MEDS: Aspirin Enteric Coated 81 MG Tablet PO SCH (08:24)
[2017-10-26] MEDS: Thiamine (B-1) 100 MG TABLET PO SCH (08:24)
[2017-10-26] MEDS: Gabapentin 100 MG CAPSULE PO SCH ×3 (08:24→20:42)
--- NOTE | 2017-10-26 16:35 | Podiatry Consult Note ---
Date of Encounter: 10/27/17 Time of Encounter: 12:30 Assessment and Plan (1) PAD (peripheral artery disease) Current visit: Yes Status: Chronic (2) Tobacco abuse Current visit: Yes Status: Chronic (3) Arteriosclerotic gangrene Current visit: No Status: Acute S/p right tramsmetatarsal amputation, application of PRP by Dr. Mosley on for right forefoot gangrene. Incision line is well approximated, there are two small areas of duskiness to the center and lateral incision line. WBC: 17.1 Intraop cultures from 10/19/17 isolated Enterobacter cloacae complex, morganella simon, ssp morganii, and aeromonas hydrophila caviae S/p right iliofemoral endarterectomy right iliofemoral bovine pericardial patch angioplasty aortogram left femoral endarterectomy left to right femoral-femoral bypass graft with 6 mm PTFE right leg angiogram balloon angioplasty of right SFA and Popliteal using 4 x 200 mm balloon on . Plan: Wound care to include cleanse incision line daily with saline, pat dry, apply adaptic, 4x4 dry sterile gauze and kerlilx. Will continue to change daily while IP, once discharged dressing should be left dry and intact. Continue post op shoe gear. Weight to heel for touch down. Received one dose of Vancomycin and currently on IV Zosyn. insulation worker interior surface for discharge planning. PT/OT was consulted. Will continue to follow patient closely. Consulted with Dr. Mosley and agreeable to plan of care. History of Present Illness HPI: Mr. Krueger is a 62 year old male admitted to [facility] for concerns of redness to the incision line of his right foot. Patient is s/p right tramsmetatarsal amputation, application of PRP by Dr. Mosley on 10/19/17 for right forefoot gangrene. Patient has a medical history significant for PAD, arthritis, COPD, GERD, hyperlipidemia,and a LLE amputation. Patient was admitted to [facility] on 10/16 for gangrene of right foot. Patient underwent revascularization by Dr. Aguilar. Patient states a few days ago he noticed his foot was red and was concerned it was infected. Patient states he came to the ER to get evaluated. Patient states he has been applying weight to his foot but only on the heel. Patient states he continues to smoke 2 packs of cigarettes per day. Patient rates right foot pain at a 7 out 10. No c/o fever, chills or calf pain. Past Med Surg Social Fam HX - Past Medical History Medical history: arthritis, COPD, GERD, hyperlipidemia, peripheral artery disease, other Additional medical history: patient is poor historian, PVD, CHRONIC NERVE ISSUES , USUALLY HAS BASE LINE BP 90/50'S Psychiatric history: no psych history - Past Surgical History Surgical History: vascular surgery, other Additional surgical history: LBKA - Social History Smoking Status: Current every day smoker Packs per day: 2 Smokeless Tobacco Status: No Alcohol use: occasionally Drug use: none - Family History Mother Adopted: No Family Member Ethnicity: Non- Living Status: Father Adopted: No Family Member Ethnicity: Non- Living Status: Hx Family Cardiac Disorders: Yes Hx Family Respiratory Disorders: Yes Hx Family Cancer: Yes Hx Family GI Disorders: No Hx Family Endocrine Disorder: No Hx Family Neuromuscular Disorders: No Hx Family Neurologic Disorders: No Hx Family HEENT Disorders: No Hx Family Autoimmune Disorders: No Medications and Allergies Albuterol Sulfate [Proair Hfa] 1 - 2 puff IH Q6H PRN 10/14/17 [History] Lovastatin [Mevacor] 20 mg PO QPM 10/14/17 [History] Aspirin Enteric Coated [Aspirin EC] 81 mg PO DAILY #30 tablet. 10/22/17 [Rx] Clopidogrel [Plavix] 75 mg PO DAILY #30 tablet 10/22/17 [Rx] Ferrous Sulfate 325 mg PO BIDWM #60 tablet 10/22/17 [Rx] Sucralfate [Carafate] 1 gm PO QIDAC #120 tablet 10/22/17 [Rx] 3 Allergy/AdvReac Type Severity Reaction Status Date / Time No Known Allergies Allergy Verified 10/26/17 10:23 All Systems Reviewed: Fever: denies, chills: denies, Joint pain: admits. Physical Exam - Constitutional Vitals: Temp Pulse Resp BP Pulse Ox 98.5 F 88 16 104/70 95 10/26/17 15:31 10/26/17 15:31 10/26/17 15:31 10/26/17 15:31 10/26/17 15:31 Exam: General appearance: alert awake oriented X 3. Calm and pleasant, no acute distress.. Vascular: Right: No evidence of cyanosis, pallor or rubor, Edema graded at 1+/4 , Skin Temperature warm, No calf pain with manual compression. Neurologic: Sensation intact with moderate touch Postop Exam: s/p right TMA Incision line well approximated, small area of duskiness to the lateral aspect of the incision line and center of incision line proximal flap. No signs of dehiscence Light periwound erythema to the dorsal aspect, no streaking, no cellulitis. Foot warm with immediate cap refill. Results - Labs Result Diagrams: 10/27/17 06:01 10/27/17 06:01 Labs: Abnormal lab results WBC 17.1 K/mcL (4.3-11.1) H 10/26/17 04:02 RBC 3.48 M/mcL (4.19-5.50) L 10/26/17 04:02 Hgb 10.4 g/dL (12.9-16.9) L 10/26/17 04:02 Hct 31.7 % (37.5-50.1) L 10/26/17 04:02 RDW 15.5 % (11.5-14.5) H 10/26/17 04:02 Plt Count 1297 K/mcL (140-400) H 10/26/17 04:02 MPV 8.7 fL (9.4-12.4) L 10/26/17 04:02 Neutrophils # 12.0 K/mcL (1.6-8.9) H 10/26/17 04:02 Monocytes # 1.7 K/mcL (0.0-1.3) H 10/26/17 04:02 Sodium 135 mEq/L (136-145) L 10/26/17 04:02 Carbon Dioxide 20 mEq/L (23-29) L 10/26/17 04:02 Calculated Osmolality 279 (280-300) L 10/26/17 04:02 H & H 10/26/17 Range/Units 04:02 Hgb 10.4 L (12.9-16.9) g/dL Hct 31.7 L (37.5-50.1) % All other labs normal. Consult Discharge Plan - Plan Referrals: NONE,PCP [Primary Care Provider] -
--- NOTE | 2017-10-26 20:20 | Internal Med Progress Note ---
Hospitalist Progress Note - Encounter Date of Encounter: 10/26/17 Time of Encounter: 11:00 - Subjective Interval History: Patient was seen earlier today. He was lying across his bed with his foot hanging down. Advised patient to maintain foot elevated to help with swelling. We discussed how he was doing when he was home after discharge he felt he was doing fairly well and that he was surprised that his foot foot was red and swollen . We discussed possible discharge to [facility] for further treatment- he voiced concerns about his belongings and the may be robbed if he is gone for any extended amount of time - Exam Vitals: Temp Pulse Resp BP Pulse Ox 99.4 F 101 16 95/63 93 10/26/17 19:23 10/26/17 19:23 10/26/17 19:23 10/26/17 19:23 10/26/17 19:23 Exam: Vitals: Reviewed General: Unkempt appearing, NAD Skin: Dirty. HEENT: Moist mucous membranes. Neck: No lymphadenopathy. No JVD. Chest: Normal thoracic expansion. Normal breath sounds. Clear to auscultation. Heart: Normal S1 & S2; rhythmic. Abdomen: Non-distended, soft and non-tender to palpation. Extremities: Right TMA stump with sutures intact and no suppuration but there is circumferential pinkness and bogginess that is moderately tender to palpation. Foot remains warm and perfused in spite of diminished pulses. There is some seroussanguinous drainage Neurological: Awake, alert and oriented to person, place and time. No focal deficits. Psych: Affect appropriate. - Assessment and Plan (1) Cellulitis of foot Current Visit: Yes Status: Inactive Assessment and Plan: He has mild inflammation to the foot stump which likely has to do with poor care for the past 2 days while he was at home. The cultures from prior admission ; notably polymicrobial.: Enterobacter cloacae Morganella Aeromonas Continue with ATB - Zosyn - wound care per podiatry PT/OT cont post op shoe social welfare research worker for discharge planining elevate foot (2) Tobacco abuse Current Visit: Yes Status: Chronic Assessment and Plan: Given extensive counseling offered cessation aides options which he declined (3) COPD (chronic obstructive pulmonary disease) Current Visit: Yes Status: Chronic Assessment and Plan: Secondary to tobacco dependence. No signs of acute exacerbation. we will monitor Will place on albuterol prn. (4) Leukocytosis Current Visit: Yes Status: Acute Assessment and Plan: Appears to be a chronic issue and therefore difficult to delineate when an infectious process is contributing. Will assess if there is any change with fluids and antibiotics. will cont to monitor (5) PAD (peripheral artery disease) Current Visit: Yes Status: Chronic Assessment and Plan: Continue ASA and statin. (6) DVT prophylaxis Current Visit: Yes Status: Acute Assessment and Plan: Subq heparin. (7) Hypokalemia Current Visit: Yes Status: Acute Assessment and Plan: Likely related to alcohol use. Will supplement and monitor (8) EtOH dependence Current Visit: No Status: Chronic Assessment and Plan: 1 He has hx of ETOH use drinking approx a 6 pack daily for many years- he states his last drink was approx 2 days ago- he has been nauseated and unable to drink - denies any hx of seizure will monitor for withdrawal cont with CIWA - Time Spent with Patient Total time spent is greater than 50% in coordination of care (as documented) at patient's floor/unit and/or counseling patient: Internal Medicine: Result - Labs CBC & Chem 7: 10/26/17 04:02 10/26/17 04:02 Labs: Short CBC 10/26/17 Range/Units 04:02 WBC 17.1 H (4.3-11.1) K/mcL Hgb 10.4 L (12.9-16.9) g/dL Hct 31.7 L (37.5-50.1) % Plt Count 1297 H (140-400) K/mcL Neutrophils # 12.0 H (1.6-8.9) K/mcL BMP 10/26/17 04:02 Sodium 135 L Potassium 4.6 D Chloride 106 Carbon Dioxide 20 L BUN 12 Creatinine 0.74 Glucose 84 Calcium 8.8 Consult Discharge Plan - Plan Referrals: NONE,PCP [Primary Care Provider] - (3) COPD (chronic obstructive pulmonary disease) Qualifiers: COPD type: emphysema Emphysema type: panlobular Qualified Code(s): J43.1 - Panlobular emphysema (4) Leukocytosis Qualifiers: Leukocytosis type: unspecified Qualified Code(s): D72.829 - Elevated white blood cell count, unspecified (8) EtOH dependence Qualifiers: Substance use status: unspecified alcohol-induced disorder Qualified Code(s) : F10.29 - Alcohol dependence with unspecified alcohol-induced disorder
[2017-10-26] MEDS: hydrOXYzine pamoate 25 MG CAPSULE PO SCH (20:42)
[2017-10-27] MEDS ORDERED: Ringers Solution, Lactated 1,000 ML ONE (05:59)
[2017-10-27] MEDS: Sucralfate 1 GM TABLET PO SCH ×4 (06:02→21:25)
[2017-10-27] MEDS: *HR* Heparin 5,000 UNIT/ML VIAL SQ SCH ×3 (06:02→21:25)
[2017-10-27] MEDS: Ringers Solution, Lactated 1,000 ML IVC SCH (06:02)
[2017-10-27] MEDS: *HR* OxyCODONE Immed Rel 5 MG TABLET PO PRN ×2 (06:11→14:18)
[2017-10-27 06:15] LABS: Basophils # 0.1 K/mcL (0.0-0.2); Basophils % 0.6 %; Eosinophils # 0.6 K/mcL (0.0-0.6); Eosinophils % 3.9 %; Hematocrit 28.8 % (37.5-50.1); Hemoglobin 9.4 g/dL (12.9-16.9); Immature Granulocytes % 0.9 % (0-4); Lymphocytes # 2.3 K/mcL (0.6-4.6); Lymphocytes % 15.8 %; Mean Corpuscular HGB Conc 32.6 g/dL (31.6-35.5); Mean Corpuscular Hemoglobin 29.9 pg (28.0-33.3); Mean Corpuscular Volume 91.7 fL (83.0-100.0); Mean Platelet Volume 8.4 fL (9.4-12.4); Monocytes # 1.1 K/mcL (0.0-1.3); Monocytes % 7.5 %; Neutrophils # 10.6 K/mcL (1.6-8.9); Platelet Count 1132 K/mcL (140-400); Red Blood Count 3.14 M/mcL (4.19-5.50); Red Cell Distribution Width 15.4 % (11.5-14.5); Segmented Neutrophils % 71.3 %
[2017-10-27 06:35] LABS: BUN/Creatinine Ratio 13 (6-26); Blood Urea Nitrogen 10 mg/dL (8-23); Calcium 8.4 mg/dL (8.6-10.3); Carbon Dioxide 23 mEq/L (23-29); Chloride 105 mEq/L (98-107); Glucose 101 mg/dL (70-105); Osmolality,Calculated 277 (280-300); Sodium 134 mEq/L (136-145); eGFR For Non-African Americans > 60 (> 60)
[2017-10-27 06:36] LABS: Platelet Estimate Marked Increase (Normal)
[2017-10-27 06:37] LABS: Polychromasia 1+ (Not Present)
[2017-10-27] MEDS: Gabapentin 100 MG CAPSULE PO SCH ×3 (09:03→20:25)
[2017-10-27] MEDS: Piperacillin/Tazobactam 3.375 GM in 0.9 % Sodium Chloride Mini Bag 100 ML IVPB SCH ×3 (09:03→23:44)
[2017-10-27] MEDS: Thiamine (B-1) 100 MG TABLET PO SCH (09:03)
[2017-10-27] MEDS: Folic Acid 1 MG TABLET PO SCH (09:03)
[2017-10-27] MEDS: Aspirin Enteric Coated 81 MG Tablet PO SCH (09:03)
[2017-10-27] MEDS: Vitamin B Complex/Vit C/Vit E 1 EACH TABLET PO SCH (09:03)
[2017-10-27] MEDS: Nicotine 21 MG PATCH.TD24 TD SCH (09:04)
[2017-10-27] MEDS: traMADol 50 MG TABLET PO PRN ×2 (09:09→20:09)
--- NOTE | 2017-10-27 11:04 | Internal Med Progress Note ---
Hospitalist Progress Note - Encounter Date of Encounter: 10/27/17 Time of Encounter: 11:01 - Subjective Interval History: Patient with history of PAD with left AKA in the right toes amputation, GERD, COPD, alcohol abuse. Patient was discharged 2 days prior to coming back to the emergency room patient had right toe ischemic gangrene vascular surgery saw patient underwent amputation patient was discharged and he came back with increased redness of the stump of cellulitis patient was given 1 dose of vancomycin started on IV Zosyn is now receiving wound care also seen by podiatric please see consultation for detail patient today dressing is intact refuses to go to penitentiary home as recommended - Exam Vitals: Temp Pulse Resp BP Pulse Ox 98.2 F 77 15 110/69 97 10/27/17 10:35 10/27/17 10:35 10/27/17 10:35 10/27/17 10:35 10/27/17 10:35 Exam: Vitals: Reviewed General: Unkempt appearing, NAD Skin: Dirty. HEENT: Moist mucous membranes. Neck: No lymphadenopathy. No JVD. Chest: Normal thoracic expansion. Normal breath sounds. Clear to auscultation. Heart: Normal S1 & S2; rhythmic. Abdomen: Non-distended, soft and non-tender to palpation. Extremities: Right TMA stump with sutures intact and no suppuration but there is circumferential pinkness and bogginess that is moderately tender to palpation. Foot remains warm and perfused in spite of diminished pulses. There is some seroussanguinous drainage Neurological: Awake, alert and oriented to person, place and time. No focal deficits. Psych: Affect appropriate. - Assessment and Plan (1) Cellulitis of left foot Current Visit: No Status: Resolved Assessment and Plan: cellulitis of foot stump will continue antibiotics and wound care (2) Tobacco abuse Current Visit: Yes Status: Chronic (3) COPD (chronic obstructive pulmonary disease) Current Visit: Yes Status: Chronic Assessment and Plan: no active wheezing (4) Leukocytosis Current Visit: Yes Status: Acute Assessment and Plan: coming down (5) COPD (chronic obstructive pulmonary disease) Current Visit: No Status: Chronic Assessment and Plan: no active wheezing (6) PAD (peripheral artery disease) Current Visit: Yes Status: Chronic (7) EtOH dependence Current Visit: No Status: Chronic Assessment and Plan: on ciwa protocol - Time Spent with Patient Total time spent is greater than 50% in coordination of care (as documented) at patient's floor/unit and/or counseling patient: Internal Medicine: Result - Labs CBC & Chem 7: 10/27/17 06:01 10/27/17 06:01 Labs: Short CBC 10/27/17 Range/Units 06:01 WBC 14.8 H (4.3-11.1) K/mcL Hgb 9.4 L (12.9-16.9) g/dL Hct 28.8 L (37.5-50.1) % Plt Count 1132 H (140-400) K/mcL Neutrophils # 10.6 H (1.6-8.9) K/mcL BMP 10/27/17 06:01 Sodium 134 L Potassium 4.0 Chloride 105 Carbon Dioxide 23 BUN 10 Creatinine 0.76 Glucose 101 Calcium 8.4 L Consult Discharge Plan - Plan Referrals: Trista Norris [employer] [Advanced Practice Nurse] - 10/30/17 9:45 am (3) COPD (chronic obstructive pulmonary disease) Qualifiers: COPD type: emphysema Emphysema type: panlobular Qualified Code(s): J43.1 - Panlobular emphysema (4) Leukocytosis Qualifiers: Leukocytosis type: unspecified Qualified Code(s): D72.829 - Elevated white blood cell count, unspecified (5) COPD (chronic obstructive pulmonary disease) Qualifiers: COPD type: unspecified COPD Qualified Code(s): J44.9 - Chronic obstructive pulmonary disease, unspecified (7) EtOH dependence Qualifiers: Substance use status: unspecified alcohol-induced disorder Qualified Code(s) : F10.29 - Alcohol dependence with unspecified alcohol-induced disorder
[2017-10-27] MEDS: hydrOXYzine pamoate 25 MG CAPSULE PO SCH (20:25)
[2017-10-28] MEDS: *HR* OxyCODONE Immed Rel 5 MG TABLET PO PRN ×3 (03:20→22:34)
[2017-10-28 04:59] LABS: Hematocrit 30.5 % (37.5-50.1); Hemoglobin 9.8 g/dL (12.9-16.9); Mean Corpuscular HGB Conc 32.1 g/dL (31.6-35.5); Mean Corpuscular Hemoglobin 29.6 pg (28.0-33.3); Mean Corpuscular Volume 92.1 fL (83.0-100.0); Mean Platelet Volume 8.6 fL (9.4-12.4); Platelet Count 1273 K/mcL (140-400); Red Blood Count 3.31 M/mcL (4.19-5.50); Red Cell Distribution Width 15.3 % (11.5-14.5)
[2017-10-28] MEDS: *HR* Heparin 5,000 UNIT/ML VIAL SQ SCH ×3 (05:03→21:52)
[2017-10-28] MEDS: Piperacillin/Tazobactam 3.375 GM in 0.9 % Sodium Chloride Mini Bag 100 ML IVPB SCH ×2 (08:00→15:34)
[2017-10-28] MEDS: Nicotine 21 MG PATCH.TD24 TD SCH (08:01)
[2017-10-28] MEDS: Thiamine (B-1) 100 MG TABLET PO SCH (08:01)
[2017-10-28] MEDS: Vitamin B Complex/Vit C/Vit E 1 EACH TABLET PO SCH (08:01)
[2017-10-28] MEDS: Aspirin Enteric Coated 81 MG Tablet PO SCH (08:01)
[2017-10-28] MEDS: Folic Acid 1 MG TABLET PO SCH (08:01)
[2017-10-28] MEDS: Gabapentin 100 MG CAPSULE PO SCH ×3 (08:01→21:52)
[2017-10-28] MEDS: Sucralfate 1 GM TABLET PO SCH ×4 (08:01→21:52)
[2017-10-28] MEDS: traMADol 50 MG TABLET PO PRN ×2 (08:05→17:10)
--- NOTE | 2017-10-28 15:00 | Podiatry Progress Note ---
Date of Encounter: 10/28/17 Time of Encounter: 12:35 - Assessment and Plan (1) PAD (peripheral artery disease) Current Visit: Yes Status: Chronic (2) Tobacco abuse Current Visit: Yes Status: Chronic (3) Arteriosclerotic gangrene Current Visit: No Status: Acute S/p right tramsmetatarsal amputation, application of PRP by Dr. Mosley on for right forefoot gangrene. Incision line is well approximated, there are two small areas of duskiness to the center and lateral incision line. WBC: 13.5 Intraop cultures from 10/19/17 isolated Enterobacter cloacae complex, morganella simon, ssp morganii, and aeromonas hydrophila caviae S/p right iliofemoral endarterectomy right iliofemoral bovine pericardial patch angioplasty aortogram left femoral endarterectomy left to right femoral-femoral bypass graft with 6 mm PTFE right leg angiogram balloon angioplasty of right SFA and Popliteal using 4 x 200 mm balloon on . Plan: Wound care to include cleanse incision line daily with saline, pat dry, apply adaptic, 4x4 dry sterile gauze and kerlilx. Will continue to change daily while Inpatient, once discharged dressing should be left dry and intact. Continue post op shoe gear. Weight to heel for touch down. 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 Recommend oral Levaquin daily x 14 days post discharge. Consulted with Dr. Mosley and agreeable to plan of care. Subjective Interval history: Patient is sitting up in bed eating lunch. Patient states his right foot is painful. There is a dressing dry and intact. Patient denies fever, chills, cp, sob, or calf pain. Objective - Vital Signs Vital Signs: Vital Signs Temp Pulse Resp BP Pulse Ox 10/28/17 10:42 98.2 F 76 15 102/61 98 10/28/17 06:23 98.6 F 74 14 118/71 98 10/28/17 04:36 98.4 F 81 15 108/65 96 10/27/17 23:57 98.8 F 80 17 119/76 96 10/27/17 19:16 98.5 F 92 16 133/66 95 10/27/17 15:16 98.6 F 79 15 108/66 95 Intake and Output 10/27/17 10/28/17 10/28/17 23:59 07:59 15:59 Intake Total 100 / 100 580 / 580 600 / 600 Output Total 600 / 600 Balance 100 / 100 -20 / -20 600 / 600 Intake: IV Fluids 100 / 100 100 / 100 Zosyn 3.375 GM In 0.9 % Sodium 100 / 100 100 / 100 Chloride (Mini-Bag +) 100 ML @ 25 mls/hr IVPB Q8HR [facility] Rx#: [id number] Oral 480 / 480 600 / 600 Output: Urine 600 / 600 Other: Meal Lunch Percent of Meal Consumed 100% Stool Size Moderate Large Stool Consistency soft liquid Stool Color Brown Brown Black # Voids 8 # Bowel Movements 2 Weight 47.6 kg Patient Weight 10/28/17 23:59 Weight 47.6 kg - Exam Exam: General appearance: alert awake oriented X 3. Calm and pleasant, no acute distress.. Vascular: Right: No evidence of cyanosis, pallor or rubor, Edema graded at 1+/4 , Skin Temperature warm, No calf pain with manual compression. Neurologic: Sensation intact with moderate touch Postop Exam: s/p right TMA Incision line well approximated, small area of duskiness to the lateral aspect of the incision line and center of incision line proximal flap. No signs of dehiscence Light periwound erythema to the dorsal aspect, no streaking, no cellulitis. Foot warm with immediate cap refill. - Lab Result Diagrams: 10/28/17 04:22 10/27/17 06:01 Labs: Abnormal lab results WBC 13.5 K/mcL (4.3-11.1) H 10/28/17 04:22 RBC 3.31 M/mcL (4.19-5.50) L 10/28/17 04:22 Hgb 9.8 g/dL (12.9-16.9) L 10/28/17 04:22 Hct 30.5 % (37.5-50.1) L 10/28/17 04:22 RDW 15.3 % (11.5-14.5) H 10/28/17 04:22 Plt Count 1273 K/mcL (140-400) H 10/28/17 04:22 MPV 8.6 fL (9.4-12.4) L 10/28/17 04:22 Neutrophils # 10.6 K/mcL (1.6-8.9) H 10/27/17 06:01 Platelet Estimate Marked Increase (Normal) H 10/27/17 06:01 Polychromasia 1+ (Not Present) A 10/27/17 06:01 Sodium 134 mEq/L (136-145) L 10/27/17 06:01 Calculated Osmolality 277 (280-300) L 10/27/17 06:01 Calcium 8.4 mg/dL (8.6-10.3) L 10/27/17 06:01 Consult Discharge Plan - Plan Referrals: Trista Norris, [employer]GER [Advanced Practice Nurse] - 10/30/17 9:45 am
--- NOTE | 2017-10-28 16:28 | Internal Med Progress Note ---
Hospitalist Progress Note - Encounter Date of Encounter: 10/28/17 Time of Encounter: 16:24 - Subjective Interval History: Seen and examined at bedside. Patient is new to me, information obtained from chart review and patient report. Sitting up on edge of bed; says he feels okay. Has some pain to right foot pain - Exam Vitals: Temp Pulse Resp BP Pulse Ox 98.2 F 76 15 102/61 98 10/28/17 10:42 10/28/17 10:42 10/28/17 10:42 10/28/17 10:42 10/28/17 10:42 Exam: General appearance: Present: A&O X 3, pleasant, no acute distress - Head Head exam: Present: atraumatic, normocephalic - Eye Eye exam: Present: PERRL, conjuntiva pink, sclera anicteric Pupils: Present: PERRL - Neck Neck exam general surgery: Present: supple, trachea midline. Absent: lymphadenopathy - Respiratory Respiratory exam: Present: chest wall tenderness, CTAB. Absent: accessory muscle use, rales, rhonchi, wheezes - Cardiovascular Cardiovascular exam: Present: RRR, +S1, +S2. Absent: diastolic murmur, gallop, rubs, systolic murmur - GI/Abdominal GI/Abdominal exam: Present: normal bowel sounds, soft, no peritoneal signs. Absent: distended, tenderness - Extremities Exam Extremities exam: Left AKA. Right foot with partial amputation; sutures intact with surrounding erythema and tenderness. - Neurological Exam Neurological exam: Present: CN II-XII intact, oriented X3, no focal deficits. Absent: pronater drift, facial droop, speech deficit - Skin Skin exam: Right TMA stump with sutures intact and no suppuration but there is circumferential pinkness and bogginess that is moderately tender to palpation. Foot remains warm and perfused in spite of diminished pulses. There is some seroussanguinous drainage. Left AKA - Assessment and Plan (1) Cellulitis of foot Current Visit: Yes Status: Inactive Assessment and Plan: presented with right foot pain, erythema and elevated WBC. Recent right foot partial amputation on 10/19/[address] Mcintyre. Culture showed enterobacter cloacae complex, morganella simon, ssp morganii, and aeromonas hydrophila caviae. Reevaluated by podiatry on 10/28/17 who recommended Levaquin daily for 14 days. Evaluated by PT/OT who is recommending home health care however unable to find accepting home health care company at this time. 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 (2) PAD (peripheral artery disease) Current Visit: Yes Status: Chronic Assessment and Plan: S/p balloon angioplasty of right SFA and Popliteal using 4 x 200 mm balloon on . Continue ASA and statin. (3) COPD (chronic obstructive pulmonary disease) Current Visit: Yes Status: Chronic Assessment and Plan: Secondary to tobacco dependence. No signs of acute exacerbation. we will monitor. PRN nebs. (4) Leukocytosis Current Visit: Yes Status: Acute Assessment and Plan: WBC 17K on arrival. No hypotension or tachycardia. Suspect secondary to cellulitis however appears to have somewhat chronically elevated to WBC. The WBC trending down. Continue ATB (5) Hypokalemia Current Visit: Yes Status: Acute Assessment and Plan: monitor and replace PRN (6) EtOH dependence Current Visit: No Status: Chronic Assessment and Plan: daily drinker; night history of seizure or alcoholic withdrawal. Monitor with CIWA (7) Tobacco abuse Current Visit: Yes Status: Chronic Assessment and Plan: current smoker; cessation advised DVT Prophylaxis: heparin - Time Spent with Patient Total time spent is greater than 50% in coordination of care (as documented) at patient's floor/unit and/or counseling patient: Internal Medicine: Result - Labs CBC & Chem 7: 10/28/17 04:22 10/27/17 06:01 Labs: Short CBC 10/28/17 Range/Units 04:22 WBC 13.5 H (4.3-11.1) K/mcL Hgb 9.8 L (12.9-16.9) g/dL Hct 30.5 L (37.5-50.1) % Plt Count 1273 H (140-400) K/mcL - Impressions Impressions Foot X-Ray 10/28/17 11:46 IMPRESSION: 1. Postsurgical changes are noted from amputation of the 1st through 5th metatarsals. 2. Fractured 5th metatarsal stump. 3. There is reported history of cellulitis of the foot. No evidence of osteomyelitis. D/ / Jaime Kaufman MD / Jaime Kaufman MD Interpreting Provider: Jaime Kaufman MD Consult Discharge Plan - Plan Referrals: Trista Norris CNP [Advanced Practice Nurse] - 10/30/17 9:45 am (3) COPD (chronic obstructive pulmonary disease) Qualifiers: COPD type: emphysema Emphysema type: panlobular Qualified Code(s): J43.1 - Panlobular emphysema (4) Leukocytosis Qualifiers: Leukocytosis type: unspecified Qualified Code(s): D72.829 - Elevated white blood cell count, unspecified (6) EtOH dependence Qualifiers: Substance use status: unspecified alcohol-induced disorder Qualified Code(s) : F10.29 - Alcohol dependence with unspecified alcohol-induced disorder
[2017-10-28] MEDS: hydrOXYzine pamoate 25 MG CAPSULE PO SCH (21:52)
[2017-10-29] MEDS: traMADol 50 MG TABLET PO PRN (02:53)
[2017-10-29 04:20] LABS: Hemoglobin 10.1 g/dL (12.9-16.9); Mean Corpuscular HGB Conc 31.6 g/dL (31.6-35.5); Mean Corpuscular Hemoglobin 28.7 pg (28.0-33.3); Mean Corpuscular Volume 90.9 fL (83.0-100.0); Mean Platelet Volume 8.6 fL (9.4-12.4); Platelet Count 1320 K/mcL (140-400); Red Blood Count 3.52 M/mcL (4.19-5.50); Red Cell Distribution Width 15.1 % (11.5-14.5)
[2017-10-29 04:40] LABS: BUN/Creatinine Ratio 15 (6-26); Blood Urea Nitrogen 12 mg/dL (8-23); Calcium 9.2 mg/dL (8.6-10.3); Carbon Dioxide 23 mEq/L (23-29); Chloride 101 mEq/L (98-107); Glucose 94 mg/dL (70-105); Osmolality,Calculated 278 (280-300); Potassium 3.7 mEq/L (3.5-5.1); Sodium 134 mEq/L (136-145); eGFR For Non-African Americans > 60 (> 60)
[2017-10-29] MEDS: *HR* Heparin 5,000 UNIT/ML VIAL SQ SCH ×2 (06:25→14:03)
[2017-10-29 07:26] VITALS: BP 117/72
[2017-10-29] MEDS: Folic Acid 1 MG TABLET PO SCH (08:10)
[2017-10-29] MEDS: Sucralfate 1 GM TABLET PO SCH ×2 (08:10→10:18)
[2017-10-29] MEDS: Aspirin Enteric Coated 81 MG Tablet PO SCH (08:10)
[2017-10-29] MEDS: Thiamine (B-1) 100 MG TABLET PO SCH (08:10)
[2017-10-29] MEDS: Vitamin B Complex/Vit C/Vit E 1 EACH TABLET PO SCH (08:11)
[2017-10-29] MEDS: Gabapentin 100 MG CAPSULE PO SCH ×2 (08:11→14:03)
[2017-10-29] MEDS: Nicotine 21 MG PATCH.TD24 TD SCH (08:18)
[2017-10-29] MEDS ORDERED: Levofloxacin 750 MG/150 ML 750 MG/150 ML BAG IVPB SCH (09:00)
[2017-10-29] MEDS: *HR* OxyCODONE Immed Rel 5 MG TABLET PO PRN (10:18)
--- NOTE | 2017-10-29 11:54 | Discharge Summary ---
- NOTES TO OUTPATIENT PROVIDER Notes to Outpatient Provider: Recommend routine hospital follow-up Orders not resulted at time of discharge: Pending orders Date of Encounter: 10/29/17 Time of Encounter: 11:54 - Discharge Diagnosis (1) Cellulitis of foot Priority: Primary Status: Inactive (2) PAD (peripheral artery disease) Priority: Secondary Status: Chronic (3) COPD (chronic obstructive pulmonary disease) Priority: Secondary Status: Chronic Qualifiers: COPD type: emphysema Emphysema type: panlobular Qualified Code(s): J43.1 - Panlobular emphysema (4) Leukocytosis Priority: Secondary Status: Chronic Qualifiers: Leukocytosis type: unspecified Qualified Code(s): D72.829 - Elevated white blood cell count, unspecified (5) Hypokalemia Priority: Primary Status: Acute (6) EtOH dependence Priority: Secondary Status: Chronic Qualifiers: Substance use status: unspecified alcohol-induced disorder Qualified Code(s ): F10.29 - Alcohol dependence with unspecified alcohol-induced disorder (7) Tobacco abuse Priority: Secondary Status: Chronic Hospital course: Mr. Krueger is a 62 year old male with PMH PAD with left AKA and recent partial amputation of right foot, GERD, COPD, alcohol abuse resented to [facility] on 10/27/2017 is concerned for infection/cellulitis of recent right foot amputation. He was placed in observation status for further workup and treatment. Chart review indicated the patient underwent a right TMA per Dr. Mcintyre on 10/19/17 for right foot gangrene and also had recent revascularization of right lower extremity per Dr. Aguilar. His hospitalization patient had a right foot x-ray that did not show any concern for osteomyelitis. He was reevaluated by podiatry who recommended Levaquin for a total of 14 days , postop shoe, weightbearing with heel touch only and to leave dressing in place until he was evaluated by podiatry follow-up. PT/OT was consult who recommended discharging home with home health care however home health care was unable to be set up due to patient's insurance and multiple agencies were contacted on previous admissions with no ability to leak services with him due to remote location of home and no therapist available in the area. Also per chart review the patient was unable to obtain passport services due to an incident involving the neighbor's dog when assessment was attempted. Patient is aware of recommendation for home health care however he reported his niece will be able to do his dressing changes if needed. Smoking and alcohol cessation was again advised. He was discharged home in stable condition with outpatient follow-up. Discharge discussed with: patient - Time Spent with Patient Total time spent providing and/or coordinating discharge services: - Discharge Medications Prescriptions: Levofloxacin [Levaquin] 500 mg PO DAILY #13 tablet Home Medications: Albuterol Sulfate [Proair Hfa] 1 - 2 puff IH Q6H PRN 10/14/17 [History] Lovastatin [Mevacor] 20 mg PO QPM 10/14/17 [History] Aspirin Enteric Coated [Aspirin EC] 81 mg PO DAILY #30 tablet. 10/22/17 [Rx] Clopidogrel [Plavix] 75 mg PO DAILY #30 tablet 10/22/17 [Rx] Ferrous Sulfate 325 mg PO BIDWM #60 tablet 10/22/17 [Rx] Sucralfate [Carafate] 1 gm PO QIDAC #120 tablet 10/22/17 [Rx] Levofloxacin [Levaquin] 500 mg PO DAILY #13 tablet 10/29/17 [Rx] Allergies/Adverse Reactions: 3 Allergy/AdvReac Type Severity Reaction Status Date / Time No Known Allergies Allergy Verified 10/26/17 10:23 Date of admission: 10/25/17 18:26 Primary care physician: PCP NONE Consults: 10/25/17 20:16 Consult to Podiatry [CONS] Routine Consulting Provider: [facility] Reason for Consult: patient s/p TMA presenting with increasing redness and pain around the stump. Call Completed: No 10/25/17 20:29 Consult to Rate Examiner [CONS] Routine Reason for SW Consult: patient discharged only 2 days ago now readmitted with concern for cellulitis of amputation stump and may require placement 10/26/17 09:18 Consult to Physical Therapy [CONS] Routine Comment: Evaluate, develop and implement POC Reason for Consult: recent amputation. Possible placement at D/C. Does patient have active BEDREST order?: No Is patient medically & hemodynamically stable?: Yes 10/28/17 11:39 Consult to Podiatry [CONS] Routine Consulting Provider: [facility] Reason for Consult: right foot cellulitis Call Completed: Yes Discharging clinician: Becky Jacob Anticipated date of discharge: 10/29/17 - Constitutional Vitals: Temp Pulse Resp BP Pulse Ox 98.2 F 74 17 117/72 97 10/29/17 07:17 10/29/17 07:17 10/29/17 07:17 10/29/17 07:17 10/29/17 07:17 Exam: General appearance: Present: A&O X 3, pleasant, no acute distress - Head Head exam: Present: atraumatic, normocephalic - Eye Eye exam: Present: PERRL, conjuntiva pink, sclera anicteric Pupils: Present: PERRL - Neck Neck exam general surgery: Present: supple, trachea midline. Absent: lymphadenopathy - Respiratory Respiratory exam: Present: chest wall tenderness, CTAB. Absent: accessory muscle use, rales, rhonchi, wheezes - Cardiovascular Cardiovascular exam: Present: RRR, +S1, +S2. Absent: diastolic murmur, gallop, rubs, systolic murmur - GI/Abdominal GI/Abdominal exam: Present: normal bowel sounds, soft, no peritoneal signs. Absent: distended, tenderness - Extremities Exam Extremities exam: Left AKA. Right foot with partial amputation; sutures intact with surrounding erythema and tenderness. - Neurological Exam Neurological exam: Present: CN II-XII intact, oriented X3, no focal deficits. Absent: pronater drift, facial droop, speech deficit - Skin Skin exam: Right TMA stump with dressing C/D/I. Left AKA - Head Head exam: Present: atraumatic, normocephalic - Eye Eye exam: Present: PERRL, conjuntiva pink, sclera anicteric Pupils: Present: PERRL - Neck Neck exam general surgery: Present: supple, trachea midline. Absent: lymphadenopathy - Respiratory Respiratory exam: Present: CTAB. Absent: accessory muscle use, rales, rhonchi, wheezes - Cardiovascular Cardiovascular exam: Present: RRR, +S1, +S2. Absent: diastolic murmur, gallop, rubs, systolic murmur - GI/Abdominal GI/Abdominal exam: Present: normal bowel sounds, soft, no peritoneal signs. Absent: distended, tenderness - Extremities Exam Extremities exam: Present: warm, radial pulses palpable and symmetrical. Absent : calf tenderness, cyanotic, pedal edema - Neurological Exam Neurological exam: Present: CN II-XII intact, oriented X3, no focal deficits. Absent: pronater drift, facial droop, speech deficit - Skin Skin exam: Present: dry, intact - Patient Status Disposition: Home, Self-Care Condition: Fair Functional capacity at discharge: wheelchair bound Overall status at discharge: patient is progressing back to baseline - Discharge Instructions Instructions: Levofloxacin (By mouth), Cellulitis (DC), Transmetatarsal Amputation (DC), How to Stop Smoking (DC) Follow Up With: Trista Norris CNP [Advanced Practice Nurse] - 10/30/17 9:45 am Kobi Mosley DPM [Partnered Physician] - 11/03/17 9:00 am Additional Instructions: Leave dressing in place until follow-up appointment with Dr. Mosley Wear postop shoe at all times Weightbearing on right heel only - Diet and Activity Activity: increase activity as tolerated Diet: advance to your usual diet
== END 2017-10-29 14:29 | disposition home or self-care (01) ==
LOC: INTOOBSV 18:26 → 3BNU 18:26
PROVIDERS: ADMIT Internal Medicine; ATTEND Internal Medicine

== ENCOUNTER 2017-11-01 17:41 | Observation (INO) ==
[2017-11-01] MEDS ORDERED: Naloxone 0.4 MG/ML INJ IVP PRN (20:32)
[2017-11-01] MEDS ORDERED: Acetaminophen 325 MG TABLET PO PRN (20:32)
[2017-11-01] MEDS ORDERED: Ipratropium/Albuterol Neb 3 ML IH PRN (20:37)
--- NOTE | 2017-11-01 20:45 | Internal Med History&Physical ---
Date of Encounter: 11/01/17 Time of Encounter: 20:00 Internal Medicine - H&P: HPI Chief complaint: pain, swelling, redness in foot Admitted From: Emergency Dept Plans for Post Hospital Care: Home History of present illness: Mr. Krueger is a 62 year old male who presents in transfer from [facility] for concerns of postop infection of his right transmetatarsal amputation. He recently underwent surgery about 2 weeks ago and has been following with Dr. Mosley. He had been on antibiotics, but he states the pain and swelling and redness have intensified. He presented to [facility] today and was transferred here for ongoing care and possible surgical intervention. Upon arrival to our unit, I saw patient shortly after arriving. He complains of intense pain, worsening swelling, and redness, all of which started in the last 24 hours. He has had some questionable subjective fevers and chills but no night sweats. He denies any vomiting or diarrhea. He denies any trauma or injury to his foot. He still has sutures in place and he states the sutures have been getting more tense with the increased swelling. He denies any numbness. He states he has been taking antibiotics as prescribed by Dr. Mosley. Past Med Surg Social Fam HX - Past Medical History Attestation: Yes The following information was validated with the patient. Source: patient, old records reviewed, other ([facility] records) Medical history: arthritis, COPD, GERD, hyperlipidemia, peripheral artery disease, other Additional medical history: patient is poor historian, PVD, CHRONIC NERVE ISSUES , USUALLY HAS BASE LINE BP 90/50'S Psychiatric history: no psych history - Past Surgical History Surgical History: vascular surgery Additional surgical history: Transmetstrsal amputation right foot 10/24 - Social History Smoking Status: Current every day smoker Packs per day: 1 Smokeless Tobacco Status: No Alcohol use: occasionally Drug use: none Current living situation: Home - Independent Activity Level: Independent ambulation Recent Out of Country Travel Within the Last 8 Weeks: No - Family History Mother Adopted: No Family Member Ethnicity: Non- Living Status: Father Adopted: No Family Member Ethnicity: Non- Living Status: Hx Family Cardiac Disorders: Yes Hx Family Respiratory Disorders: Yes Hx Family Cancer: Yes Hx Family GI Disorders: No Hx Family Endocrine Disorder: No Hx Family Neuromuscular Disorders: No Hx Family Neurologic Disorders: No Hx Family HEENT Disorders: No Hx Family Autoimmune Disorders: No Internal Medicine - H&P: Meds Albuterol Sulfate [Proair Hfa] 1 - 2 puff IH Q6H PRN 10/14/17 [History] Lovastatin [Mevacor] 20 mg PO QPM 10/14/17 [History] Aspirin Enteric Coated [Aspirin EC] 81 mg PO DAILY #30 tablet.dr 10/22/17 [Rx] Clopidogrel [Plavix] 75 mg PO DAILY #30 tablet 10/22/17 [Rx] Ferrous Sulfate 325 mg PO BIDWM #60 tablet 10/22/17 [Rx] Sucralfate [Carafate] 1 gm PO QIDAC #120 tablet 10/22/17 [Rx] Levofloxacin [Levaquin] 500 mg PO DAILY #13 tablet 10/29/17 [Rx] 3 Allergy/AdvReac Type Severity Reaction Status Date / Time No Known Allergies Allergy Verified 10/26/17 10:23 - Constitutional Constitutional: chills, fever(s), no night sweats - EENT Eyes: no change in vision, no decreased night vision Ears: no ear pain, no tinnitus Nose, mouth and throat: no nasal congestion, no sinus pressure, no sore throat - Cardiovascular Cardiovascular ROS IM: no chest pain, no dyspnea, no lightheadedness - Respiratory Respiratory: no cough, no hemoptysis, no chest congestion, no excessive phlegm production - Gastrointestinal Gastrointestinal: nausea, no abdominal pain, no diarrhea, no vomiting - Genitourinary Genitourinary ROS male: no dysuria, no hematuria - Musculoskeletal Musculoskeletal ROS IM: arthralgias, no back pain - Integumentary Integumentary IM: no rash, no jaundice - Neurological Neurological ROS: no dizziness, no focal weakness, no frequent falls, no headache(s) - Psychiatric Psychiatric: no anxiety, no depression - Endocrine Endocrine IM: no polydipsia, no polyuria - Allergic/Immunologic Allergic/Immunologic: wheezing, no GI upset with certain foods - Constitutional General appearance: Present: cooperative, mild distress, A&O X 3, pleasant, answers questions appropriately Exam: see below - Head Head exam: Present: normal inspection - Eye Eye exam: Present: EOMI, PERRL. Absent: scleral icterus - ENT ENT exam: Present: mucous membranes dry, normal exam, normal oropharynx - Neck Neck exam general surgery: Present: full ROM, supple. Absent: tenderness, nuchal rigidity, thyromegaly - Respiratory Respiratory exam: Present: CTAB. Absent: chest wall tenderness, rales, respiratory distress, rhonchi, wheezes - Cardiovascular Cardiovascular exam: Present: RRR, +S1, +S2. Absent: diastolic murmur, systolic murmur - GI/Abdominal GI/Abdominal exam: Present: normal bowel sounds, soft. Absent: hepatomegaly, mass, splenomegaly, tenderness - Extremities Exam Extremities exam: Present: full ROM, tenderness (right TMA stump red, swollen, tender, no drainage appreciated, no fluctuance appreciated). Absent: calf tenderness, joint swelling, mottling, pedal edema - Back Exam Back exam: Absent: CVA tenderness (L), CVA tenderness (R) - Neurological Exam Neurological exam: Present: alert, CN II-XII intact, oriented X3, no focal deficits - Psychiatric Psychiatric exam: Present: normal affect, normal mood - Skin Skin exam: Present: dry, intact, warm Internal Med - H&P Results - Labs Labs: I reviewed the labs from [facility] and include the following: WBC 16.6 Hemoglobin 11.2 Hematocrit 34.7 Platelets 1247 Sodium 136 Potassium 3.7 Chloride 102 Carbon dioxide 21 BUN 17 Creatinine 0.73 Blood cultures were already obtained at [facility] 2 - Assessment and plan (1) Cellulitis of right foot without toes Current Visit: Yes Status: Acute Assessment and plan: 1. Blood cultures drawn at [facility]. 2. No drainable fluid of wound for culture. 3. Will order MRI foot as discussed with Dr. Mosley. 4. Will place on IV Vancomycin and Zosyn. 5. Pain and fever control as necessary. 6. Consult Podiatry -- Dr. Mosley notified. (2) PAD (peripheral artery disease) Current Visit: Yes Status: Chronic Assessment and plan: 1. Continue home meds as appropriate. 2. Consult vascular surgery if necessary. 3. Smoking cessation well advised. (3) Tobacco abuse Current Visit: Yes Status: Chronic Assessment and plan: 1. Will order Nicotine patch. (4) DVT prophylaxis Current Visit: Yes Status: Acute Assessment and plan: 1. Heparin SQ.
[2017-11-01] MEDS: 0.9 % Sodium Chloride w KCl 20 MEQ/1,000 ML MLS IVC SCH (21:14)
[2017-11-01] MEDS: *HR* Heparin 5,000 UNIT/ML VIAL SQ SCH (21:14)
[2017-11-01] MEDS: traMADol 50 MG TABLET PO PRN (22:24)
[2017-11-02] MEDS: Piperacillin/Tazobactam 3.375 GM in 0.9 % Sodium Chloride Mini Bag 100 ML IVPB SCH ×3 (00:18→15:54)
[2017-11-02] MEDS: *HR* OxyCODONE Immed Rel 5 MG TABLET PO PRN ×3 (00:45→18:21)
[2017-11-02] MEDS: traMADol 50 MG TABLET PO PRN ×3 (04:40→23:26)
[2017-11-02] MEDS: 0.9 % Sodium Chloride w KCl 20 MEQ/1,000 ML MLS IVC SCH (04:50)
[2017-11-02 04:56] LABS: Basophils # 0.1 K/mcL (0.0-0.2); Basophils % 0.7 %; Eosinophils # 0.2 K/mcL (0.0-0.6); Eosinophils % 1.8 %; Hematocrit 32.1 % (37.5-50.1); Hemoglobin 10.2 g/dL (12.9-16.9); Immature Granulocytes % 0.5 % (0-4); Lymphocytes # 3.2 K/mcL (0.6-4.6); Lymphocytes % 24.6 %; Mean Corpuscular HGB Conc 31.8 g/dL (31.6-35.5); Mean Corpuscular Hemoglobin 29.1 pg (28.0-33.3); Mean Corpuscular Volume 91.5 fL (83.0-100.0); Mean Platelet Volume 8.5 fL (9.4-12.4); Monocytes # 1.1 K/mcL (0.0-1.3); Monocytes % 8.3 %; Neutrophils # 8.4 K/mcL (1.6-8.9); Platelet Count 1042 K/mcL (140-400); Red Blood Count 3.51 M/mcL (4.19-5.50); Segmented Neutrophils % 64.1 %
[2017-11-02 05:04] LABS: Activated Partial Thrombo Time 28.3 Seconds (26.0-36.0)
[2017-11-02 05:18] LABS: Alanine Aminotransferase 9 Units/L (7-52); Albumin 3.2 g/dL (3.5-5.7); Albumin/Globulin Ratio 0.9 (1.1-2.2); Alkaline Phosphatase 57 Units/L (34-104); Aspartate Amino Transferase 13 Units/L (13-39); BUN/Creatinine Ratio 29 (6-26); Bilirubin,Total 0.3 mg/dL (0.3-1.0); Blood Urea Nitrogen 23 mg/dL (8-23); Calcium 8.4 mg/dL (8.6-10.3); Carbon Dioxide 22 mEq/L (23-29); Chloride 106 mEq/L (98-107); Globulin 3.4 g/dL (2.4-3.5); Glucose 97 mg/dL (70-105); Magnesium 1.9 mg/dL (1.6-2.6); Osmolality,Calculated 284 (280-300); Potassium 4.2 mEq/L (3.5-5.1); Sodium 135 mEq/L (136-145); Total Protein 6.6 g/dL (6.4-8.9); eGFR For Non-African Americans > 60 (> 60)
[2017-11-02] MEDS: *HR* Heparin 5,000 UNIT/ML VIAL SQ SCH ×2 (06:11→15:54)
[2017-11-02] MEDS: Aspirin Enteric Coated 81 MG Tablet PO SCH (09:17)
[2017-11-02] MEDS: Sucralfate 1 GM TABLET PO SCH ×2 (15:54→23:26)
--- NOTE | 2017-11-02 17:06 | Internal Med Progress Note ---
Hospitalist Progress Note - Encounter Date of Encounter: 11/02/17 Time of Encounter: 17:01 - Subjective Interval History: Patient evaluated at bedside, reports pain in right foot, denies nausea, vomiting, fever or chills. Denies drainage from the foot. - Exam Vitals: Temp Pulse Resp BP Pulse Ox 98.4 F 75 16 106/74 98 11/02/17 15:43 11/02/17 15:43 11/02/17 15:43 11/02/17 15:43 11/02/17 15:43 Exam: General: Patient is alert, oriented, no acute distress Head: atraumatic, normocephalic, Respiratory: Good respiratory effort. Clear breath sounds Bilateral, no wheezing, rales or crackles Cardiovascular: Normal s1 and s2 No clicks, rubs, gallops, or murmors. Abdomen: Bowel sounds present normoactive x-4 quadrants. Abdomen is soft, nondistended. No guarding or rebound. Musculoskeletal: Left [id number] amputation, transmetatarsal amputation of the right foot. No erythema, edema, or warmth Neuro: Alert and oriented x4. Cranial nerves 2-12 is intact. Psych: Patient's affect is normal - Assessment and Plan (1) Cellulitis of right foot without toes Current Visit: Yes Status: Acute Assessment and Plan: Status post a transmetatarsal amputation. Admitted for infection at the amputation site Plan: - Wound care consult - Continue antibiotic coverage - MRI of the right foot to rule out osteo - Oxycodone 10 mg by mouth every 6 hours when necessary Pain control and tramadol for breakthrough pain - Dr. Kobi Mosley has been consulted. (2) PAD (peripheral artery disease) Current Visit: Yes Status: Chronic Assessment and Plan: Plan: - Continue dual antiplatelet therapy (3) DVT prophylaxis Current Visit: Yes Status: Acute Assessment and Plan: Plan: - Chemical DVT prophylaxis with heparin 5000 units subcutaneous every 12hours (4) Gastritis Current Visit: Yes Status: Acute Assessment and Plan: Patient had an EGD done on 10/20/2017. Plan: - Recommended to be on Carafate 1 g by mouth daily for 2 months plus Protonix 40 mg twice a day for the same period of time and repeat EGD in 3 months - We will continue those medications (5) Thrombocytosis Current Visit: Yes Status: Acute Assessment and Plan: Plan platelet counts a million possible infection vs essential thrombocytosis - On aspirin - We will consider Hem&Onc consult - Time Spent with Patient Total time spent is greater than 50% in coordination of care (as documented) at patient's floor/unit and/or counseling patient: Greater than 35 minutes Plan of Care Discussed with: patient Internal Medicine: Result - Labs CBC & Chem 7: 11/02/17 04:12 11/02/17 04:12 Labs: Short CBC 11/02/17 Range/Units 04:12 WBC 13.1 H (4.3-11.1) K/mcL Hgb 10.2 L (12.9-16.9) g/dL Hct 32.1 L (37.5-50.1) % Plt Count 1042 H (140-400) K/mcL Neutrophils # 8.4 (1.6-8.9) K/mcL BMP 11/02/17 04:12 Sodium 135 L Potassium 4.2 Chloride 106 Carbon Dioxide 22 L BUN 23 Creatinine 0.79 Glucose 97 Calcium 8.4 L Liver Function 11/02/17 Range/Units 04:12 Total Bilirubin 0.3 (0.3-1.0) mg/dL AST 13 (13-39) Units/L ALT 9 (7-52) Units/L Alkaline Phosphatase 57 (34-104) Units/L Albumin 3.2 L (3.5-5.7) g/dL - ABG Interpretation ABG results: PT/INR, D-dimer PT 11.0 Seconds (9.4-12.1) 11/02/17 04:12 Consult Discharge Plan - Plan Referrals: NONE,PCP [Primary Care Provider] - (4) Gastritis Qualifiers: Gastritis type: unspecified gastritis Chronicity: unspecified Gastritis bleeding: without bleeding Qualified Code(s): K29.70 - Gastritis, unspecified, without bleeding
[2017-11-02] MEDS: Nicotine 21 MG PATCH.TD24 TD SCH (22:35)
[2017-11-03] MEDS: *HR* Heparin 5,000 UNIT/ML VIAL SQ SCH ×4 (01:08→21:30)
[2017-11-03] MEDS: Piperacillin/Tazobactam 3.375 GM in 0.9 % Sodium Chloride Mini Bag 100 ML IVPB SCH ×2 (01:39→08:15)
[2017-11-03] MEDS: *HR* OxyCODONE Immed Rel 5 MG TABLET PO PRN ×3 (03:50→18:06)
--- NOTE | 2017-11-03 07:03 | Podiatry Consult Note ---
Date of Encounter: 11/03/17 Time of Encounter: 06:10 Assessment and Plan (1) Chronic ulcer of right foot with fat layer exposed Current visit: Yes Status: Acute patient is s/p TMA. resection margins viable on previous pathology. MRI negative for abscess/osteo. aury is rather unimpresive for cellulitis at this time. lateral aspect of TMA has open ulceration into the subcutaneous tissue, no purulence expressed. some serous drainage. no necrosis at this time. patient says it likely happened at home on his wheelchair ramp when he banged his foot that the site on the outside of the foot opened up. Recommend ID for antibiotic recommendations (patient has had recurrent admissions for cellulitis of the foot) Recommend care home placement for recovery wound care daily with calcium alginate on the wound, 4x4 guaze and adaptic on remainder of the incision line no surgical intervention is needed non-wb on the right foot pain likely due to ischemia and some possibly from the foot wound f/u in wound care in AM the week following discharge History of Present Illness HPI: Mr. Krueger is a 62 year old male Past Med Surg Social Fam HX - Past Medical History Medical history: arthritis, COPD, GERD, hyperlipidemia, peripheral artery disease, other Additional medical history: patient is poor historian, PVD, CHRONIC NERVE ISSUES , USUALLY HAS BASE LINE BP 90/50'S Psychiatric history: no psych history - Past Surgical History Surgical History: vascular surgery Additional surgical history: Transmetstrsal amputation right foot 10/24 - Social History Smoking Status: Current every day smoker Packs per day: 1 Smokeless Tobacco Status: No Alcohol use: occasionally Drug use: none - Family History Mother Adopted: No Family Member Ethnicity: Non- Living Status: Father Adopted: No Family Member Ethnicity: Non- Living Status: Hx Family Cardiac Disorders: Yes Hx Family Respiratory Disorders: Yes Hx Family Cancer: Yes Hx Family GI Disorders: No Hx Family Endocrine Disorder: No Hx Family Neuromuscular Disorders: No Hx Family Neurologic Disorders: No Hx Family HEENT Disorders: No Hx Family Autoimmune Disorders: No Medications and Allergies Albuterol Sulfate [Proair Hfa] 1 - 2 puff IH Q6H PRN 10/14/17 [History] Lovastatin [Mevacor] 20 mg PO QPM 10/14/17 [History] Aspirin Enteric Coated [Aspirin EC] 81 mg PO DAILY #30 tablet. 10/22/17 [Rx] Clopidogrel [Plavix] 75 mg PO DAILY #30 tablet 10/22/17 [Rx] Ferrous Sulfate 325 mg PO BIDWM #60 tablet 10/22/17 [Rx] Sucralfate [Carafate] 1 gm PO QIDAC #120 tablet 10/22/17 [Rx] Pantoprazole Sodium [Protonix] 40 mg PO BID 11/02/17 [History] 3 Allergy/AdvReac Type Severity Reaction Status Date / Time No Known Allergies Allergy Verified 10/26/17 10:23 All Systems Reviewed: The remainder of the systems were reviewed and are negative Physical Exam - Constitutional Vitals: Temp Pulse Resp BP Pulse Ox 97.7 F 68 14 117/71 99 11/03/17 06:49 11/03/17 06:49 11/03/17 06:49 11/03/17 06:49 11/03/17 06:49 Results - Labs Result Diagrams: 11/02/17 04:12 11/02/17 04:12 Labs: Abnormal lab results WBC 13.1 K/mcL (4.3-11.1) H 11/02/17 04:12 RBC 3.51 M/mcL (4.19-5.50) L 11/02/17 04:12 Hgb 10.2 g/dL (12.9-16.9) L 11/02/17 04:12 Hct 32.1 % (37.5-50.1) L 11/02/17 04:12 RDW 15.0 % (11.5-14.5) H 11/02/17 04:12 Plt Count 1042 K/mcL (140-400) H 11/02/17 04:12 MPV 8.5 fL (9.4-12.4) L 11/02/17 04:12 Sodium 135 mEq/L (136-145) L 11/02/17 04:12 Carbon Dioxide 22 mEq/L (23-29) L 11/02/17 04:12 BUN/Creatinine Ratio 29 (6-26) H 11/02/17 04:12 Calcium 8.4 mg/dL (8.6-10.3) L 11/02/17 04:12 Albumin 3.2 g/dL (3.5-5.7) L 11/02/17 04:12 Albumin/Globulin Ratio 0.9 (1.1-2.2) L 11/02/17 04:12 All other labs normal. Consult Discharge Plan - Plan Referrals: NONE,PCP [Primary Care Provider] -
[2017-11-03 07:32] LABS: Basophils # 0.1 K/mcL (0.0-0.2); Basophils % 1.2 %; Eosinophils # 0.6 K/mcL (0.0-0.6); Eosinophils % 5.8 %; Hematocrit 31.2 % (37.5-50.1); Hemoglobin 9.7 g/dL (12.9-16.9); Immature Granulocytes % 0.6 % (0-4); Lymphocytes # 1.8 K/mcL (0.6-4.6); Lymphocytes % 16.8 %; Mean Corpuscular HGB Conc 31.1 g/dL (31.6-35.5); Mean Corpuscular Volume 93.4 fL (83.0-100.0); Mean Platelet Volume 8.6 fL (9.4-12.4); Monocytes # 0.8 K/mcL (0.0-1.3); Monocytes % 7.7 %; Neutrophils # 7.4 K/mcL (1.6-8.9); Platelet Count 949 K/mcL (140-400); Red Blood Count 3.34 M/mcL (4.19-5.50); Red Cell Distribution Width 15.3 % (11.5-14.5); Segmented Neutrophils % 67.9 %
[2017-11-03 07:51] LABS: BUN/Creatinine Ratio 12 (6-26); Blood Urea Nitrogen 9 mg/dL (8-23); Calcium 8.6 mg/dL (8.6-10.3); Carbon Dioxide 24 mEq/L (23-29); Chloride 107 mEq/L (98-107); Glucose 83 mg/dL (70-105); Magnesium 1.9 mg/dL (1.6-2.6); Osmolality,Calculated 282 (280-300); Potassium 3.9 mEq/L (3.5-5.1); Sodium 137 mEq/L (136-145); eGFR For Non-African Americans > 60 (> 60)
[2017-11-03] MEDS: Sucralfate 1 GM TABLET PO SCH ×4 (08:15→21:30)
[2017-11-03] MEDS: Aspirin Enteric Coated 81 MG Tablet PO SCH (08:16)
[2017-11-03] MEDS: traMADol 50 MG TABLET PO PRN ×3 (08:16→21:29)
--- NOTE | 2017-11-03 14:14 | Infectious Disease Consult ---
Date of Encounter: 11/03/17 Time of Encounter: 11:15 Assessment and Plan (1) Sepsis Status: Acute Assessment and plan: The patient had two SIRS criteria on admission and had a low-grade fever after admission. Likely secondary to right foot cellulitis. Improved. WBC has normalized. Tachycardia has improved. He has been afebrile. Blood cultures drawn 11/01/17 are NGTD x 2 sets. Qualifiers: Sepsis type: sepsis due to unspecified organism Qualified Code(s): A41.9 - Sepsis, unspecified organism (2) Cellulitis Status: Acute Assessment and plan: Location: Right foot. Causative organism: unclear. Previous wound cultures grew Aeromonas, Enterobacter, and Morganella. Previously took a course of PO Levaquin, but had recurrence of symptoms. Clinically, the foot is not impressive at this point, but he has been on antibiotics for 48 hours. MRI of the right foot limited due to patient moving and early termination of the exam, but no osteomyelitis noted. Podiatry consulted and following. Wound care and activity per Podiatry. Check ESR and CRP. Get MRSA nasal screen. Continue Vancomycin IV for now. Pharmacy to dose. Goal trough ~15. If MRSA screen is negative, can discontinue. Discontinue Zosyn. Start Cefepime 2 grams IV Q12H. Duration of treatment depends on the clinical picture. Monitor renal function and for drug toxicity and dose-adjust antibiotics. Qualifiers: Site of cellulitis: extremity Site of cellulitis of extremity: lower extremity Laterality: right Qualified Code(s): L03.115 - Cellulitis of right lower limb (3) Thrombocytosis Status: Acute Assessment and plan: Etiology unclear: sepsis vs. other. Improved. Continue trend. Consider Hem/Onc consult if does not continue to trend down. (4) PAD (peripheral artery disease) Status: Chronic Assessment and plan: Status post right iliofemoral endarterectomy, right iliofemoral bovine pericardial patch angioplasty, aortogram, left femoral endarterectomy, left to right femorofemoral bypass graft, right leg angiogram with balloon angioplasty of the right SFA and popliteal arteries 10/15/[address] Le. 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 Status post left BKA revision with left AKA in 2016. (5) COPD (chronic obstructive pulmonary disease) Status: Chronic Qualifiers: COPD type: emphysema Emphysema type: panlobular Qualified Code(s): J43.1 - Panlobular emphysema (6) GERD (gastroesophageal reflux disease) Status: Acute Qualifiers: Esophagitis presence: esophagitis presence not specified Qualified Code(s) : K21.9 - Gastro-esophageal reflux disease without esophagitis Infectious Disease HPI - Data of Consult Patient: new to practice Consult date: 11/03/17 Requesting Physician: Daniela Gomez MD Primary Care Provider: PCP NONE - Consult Narrative Reason for consult: Right foot cellulitis History of present illness: Mr. Krueger is a 62 year old male with a past medical history of arthritis, COPD, GERD, hyperlipidemia, peripheral arterial disease, status post right lower extremity vascular surgery in October 2017 and left AKA about a year and a half ago. The patient was admitted to the hospital November 01 for right foot cellulitis. We are consulted November 03 for further recommendations for right foot cellulitis. Briefly, the patient is a 62-year-old male with past medical history as stated above. The patient presented to the emergency department on the day of admission with complaints of increased pain at the site of his previous surgery. Upon arrival, he was afebrile, but was mildly tachycardic. He was otherwise hemodynamically stable. He did have a white blood cell count 16,000 with neutrophilic predominance. LFTs and renal function were normal. He was given a dose of IV antibiotics and blood cultures were obtained 2 sets. He was transferred here for further evaluation. Since admission, the patient has had a low-grade fever with a MAXIMUM TEMPERATURE of 100. His white blood cell count has normalized. The primary team ordered an MRI of the right foot. The first time they attempted the MRI, the patient was unable to tolerate and had to have the test stopped. They have re-medicated the patient and again attempted MRI, but was stopped prematurely again due to patient's pain. The study is limited due to motion artifact, but there is no osteomyelitis noted. Podiatry's been consulted and they are following. Currently, patient is on IV Vanco and Zosyn. We have been asked to evaluate and make further recommendations. During my exam today, the patient endorses a history as stated above. Review of the medical record reveals the patient was admitted to the hospital back on October 13 for necrosis of the toes on his right foot. He was evaluated by vascular surgery and underwent a right iliofemoral endarterectomy, right iliofemoral bovine pericardial patch angioplasty, aortogram, left femoral endarterectomy, left femoral to right femorofemoral bypass graft, right leg angiogram, and balloon angioplasty of the right SFA and popliteal by Dr. Le. He was then taken back to the operating room on October [address] Mcintyre and underwent a right foot TMA. Pathology showed gangrenous third and fifth toes with soft tissue necrosis, acute/chronic inflammation, and vascular congestion with viable margins and no evidence of osteomyelitis. Intraoperative cultures were positive for Enterobacter cloacae, M. morgannii, and Aeromonas. According to the discharge summary, he was not discharged on any antibiotics. He was readmitted to the hospital on October 25 for cellulitis of the right foot. He received IV antibiotics while admitted, and was discharged home to complete an additional 13 days of oral Levaquin. He was evaluated by podiatry at that time. His discharge on October 29 at states he did complete course of antibiotics as prescribed. He reported to the emergency department on October 30 with complaints of increased pain. He was advised to continue taking oral antibiotics and follow-up with his bond underwriter. He tells me that on the day of admission, he began to experience severe pain at the surgical site. He states the foot become red and swollen if he did not keep it elevated, but the symptoms would resolve if he elevated his foot. He also tells me that he bumped his foot on his wheelchair ramp a couple of days ago which resulted in opening of the wound. He denies any fevers or chills or rigors. He denies any headache or neck pain. He denies any chest pain, shortness of breath, or cough. He denies any nausea, vomiting, diarrhea, or constipation. He denies abdominal pain, urinary complaints, or appetite changes. He does complain of pain at the surgical site, but otherwise denies pain. He reports minimal drainage from the surgical site. He denies any oral thrush or other skin lesions. The patient was at home alone. He smokes about half pack cigarettes per day. He reports he drinks 4 beers on the weekends typically, but reports heavy alcohol use prior. He denies any illicit drug use. He denies any recent travel. He denies any chronic infectious diseases such as HIV, tuberculosis, or hepatitis. CC: Daniela Gomez MD Past Med Surg Social Fam HX - Past Medical History Attestation: Yes The following information was validated with the patient. Source: patient, old records reviewed, nursing notes reviewed Medical history: arthritis, COPD, GERD, hyperlipidemia, peripheral artery disease, other Additional medical history: patient is poor historian, PVD, CHRONIC NERVE ISSUES , USUALLY HAS BASE LINE BP 90/50'S Psychiatric history: no psych history - Past Surgical History Surgical History: vascular surgery Additional surgical history: Transmetstrsal amputation right foot 10/24 - Social History Smoking Status: Current every day smoker Packs per day: 1 Smokeless Tobacco Status: No Alcohol use: occasionally Drug use: none Occupational status: disabled Current living situation: Home, With Family Activity Level: Uses cane/walker Recent Out of Country Travel Within the Last 8 Weeks: No Exposure or Possible Exposure to Illness During Travel: No - Family History Mother Adopted: No Family Member Ethnicity: Non- Living Status: Father Adopted: No Family Member Ethnicity: Non- Living Status: Hx Family Cardiac Disorders: Yes Hx Family Respiratory Disorders: Yes Hx Family Cancer: Yes Hx Family GI Disorders: No Hx Family Endocrine Disorder: No Hx Family Neuromuscular Disorders: No Hx Family Neurologic Disorders: No Hx Family HEENT Disorders: No Hx Family Autoimmune Disorders: No Infectious Disease-CN:Meds Albuterol Sulfate [Proair Hfa] 1 - 2 puff IH Q6H PRN 10/14/17 [History] Lovastatin [Mevacor] 20 mg PO QPM 10/14/17 [History] Aspirin Enteric Coated [Aspirin EC] 81 mg PO DAILY #30 tablet. 10/22/17 [Rx] Clopidogrel [Plavix] 75 mg PO DAILY #30 tablet 10/22/17 [Rx] Ferrous Sulfate 325 mg PO BIDWM #60 tablet 10/22/17 [Rx] Sucralfate [Carafate] 1 gm PO QIDAC #120 tablet 10/22/17 [Rx] Pantoprazole Sodium [Protonix] 40 mg PO BID 11/02/17 [History] 3 Allergy/AdvReac Type Severity Reaction Status Date / Time No Known Allergies Allergy Verified 10/26/17 10:23 All systems: reviewed and no additional remarkable complaints except as stated Exam - Constitutional Vitals: Temp Pulse Resp BP Pulse Ox 97.7 F 76 14 98/63 98 11/03/17 10:49 11/03/17 10:49 11/03/17 10:49 11/03/17 10:49 11/03/17 10:49 General appearance: average body habitus, cooperative, no acute distress - Head Head exam: Present: atraumatic, normal inspection, normocephalic - Eye Eye exam: Present: EOMI, normal appearance, PERRL Pupils: Present: normal accommodation - ENT ENT exam: Present: mucous membranes moist - Neck Neck exam: Present: normal inspection - Respiratory Respiratory exam: Present: CTAB. Absent: rales, respiratory distress, rhonchi, wheezes - Cardiovascular Cardiovascular exam: Present: RRR, +S1, +S2 - GI/Abdominal GI/Abdominal exam: Present: normal bowel sounds, soft. Absent: distended, tenderness - Extremities Exam Extremities exam: Present: pedal edema (1+ RLE), tenderness (right foot). Absent: joint swelling Additional comments: Right foot surgical site with wound edges well-approximated with small area of wound dehiscence noted to the lateral aspect. Otherwise, sutures are intact. Small amount of serous drainage noted. No surrounding erythema or fluctuance noted. - Neurological Exam Neurological exam: Present: alert, oriented X3, no focal deficits - Psychiatric Psychiatric exam: Present: normal affect, normal mood - Skin Skin exam: Present: dry, intact, normal color, warm Infectious Disease CN: Results - Labs CBC & Chem 7: 11/04/17 05:05 11/04/17 05:05 Consult Discharge Plan - Plan Referrals: NONE,PCP [Primary Care Provider] - - Attending Attestation I examined this patient and my medical decision-making was reviewed with the Resident Physician. I agree with the documented findings, disposition and treatment plan as described except to the extent set forth below. This is an addendum to original report dictated by Kera Gibbons CNP. Please refer to Kera's note for full details. Patient is a 21-year-old gentleman with extensive past medical history mentioned below who presents to the emergency department for right foot cellulitis and foot stump. We are consulted to make antibiotics recommendations. Patient has had vascular issues and he is a vasculopath and had a previous left BKA with stump infection and requiring a AKA. Patient also had an infection of the right foot with multidrug resistant organisms including Enterobacter species, Morganella and Aeromonas hydrophilia. Patient had Metatarsal amputation and was discharged home with no antibiotics because they thought they get clean borders. Patient apparently was having symptoms and pain as an outpatient and was given levofloxacin. When we saw the patient on this admission the stump does not really look bad there is no erythema there is no bogginess it is no fluctuance is felt wound dehiscence with some serous drainage. Patient although came in with sepsis like picture lack had 3 SIRS criteria. Assessment and plan: Sepsis Cellulitis PAD COPD His GERD Recommendations Location: Right foot. Causative organism: unclear. Previous wound cultures grew Aeromonas, Enterobacter, and Morganella. Previously took a course of PO Levaquin, but had recurrence of symptoms. Clinically, the foot is not impressive at this point, but he has been on antibiotics for 48 hours. MRI of the right foot limited due to patient moving and early termination of the exam, but no osteomyelitis noted. Podiatry consulted and following. Wound care and activity per Podiatry. Check ESR and CRP. Get MRSA nasal screen. Continue Vancomycin IV for now. Pharmacy to dose. Goal trough ~15. If MRSA screen is negative, can discontinue. Discontinue Zosyn. Start Cefepime 2 grams IV Q12H. Duration of treatment depends on the clinical picture. Monitor renal function and for drug toxicity and dose-adjust antibiotics.
--- NOTE | 2017-11-03 15:10 | Internal Med Progress Note ---
Hospitalist Progress Note - Encounter Date of Encounter: 11/03/17 Time of Encounter: 09:45 - Subjective Interval History: no events overnight, pain is controlled with medications denies fever, chills, chest pain, SOb, N/v/D tolerating PO diet - Exam Vitals: Temp Pulse Resp BP Pulse Ox 98.3 F 80 14 112/57 97 11/03/17 14:46 11/03/17 14:46 11/03/17 14:46 11/03/17 14:46 11/03/17 14:46 Exam: General: Patient is alert, oriented, no acute distress, Head: atraumatic, normocephalic, Eye: normal appearance, PERRL, no scleral icterus, no conjunctival injection ENT: mucous membranes moist, normal external ear exam Neck: normal inspection, trachea midline, full ROM, no carotid bruits Chest: normal inspection, symmetric chest rise Respiratory: Good respiratory effort. Bilateral breath sounds are clear without wheezing, crackles, or rhonchi. Cardiovascular: Regular rate and rhythm. s1 and s2 No clicks, rubs, gallops, or murmors. Abdomen: Bowel sounds present normoactive x-4 quadrants. Abdomen is soft, nondistended. no Epigastric tenderness. No guarding or rebound. No organomegaly noted, obese musculoskeletal: left AKA and right TMA Skin: warm, dry, intact. Right foot surgical site with wound edges well-approximated with small area of wound dehiscence noted to the lateral aspect. Otherwise, sutures are intact. Small amount of serous drainage noted. No surrounding erythema or fluctuance noted. Neuro: Alert and oriented x4. Sensation light touch intact. Cranial nerves 2- 12 is intact. Not aphasic, gait is steady, rapid hand movements intact, finger- to-nose intact, Psych: Patient's affect is normal - Assessment and Plan (1) Cellulitis of right foot without toes Current Visit: Yes Status: Acute Assessment and Plan: S/p TMA MRI of the right foot limited due to patient moving and early termination of the exam, but no osteomyelitis noted. Podiatry consulted and following. Wound care and activity per Podiatry. ID consulted will follow ESR and CRP follow MRSA nasal screen. Continue Vancomycin IV for now. Pharmacy to dose. Goal trough ~15. If MRSA screen is negative, can discontinue. Started Cefepime 2 grams IV Q12H. will follow bcx (2) Sepsis Current Visit: No Status: Acute Assessment and Plan: secondary to above plan as above (3) PAD (peripheral artery disease) Current Visit: Yes Status: Chronic Assessment and Plan: Status post right iliofemoral endarterectomy, right iliofemoral bovine pericardial patch angioplasty, aortogram, left femoral endarterectomy, left to right femorofemoral bypass graft, right leg angiogram with balloon angioplasty of the right SFA and popliteal arteries 10/15/[address] Le. 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 Status post left BKA revision with left AKA in 2016. (4) Gastritis Current Visit: Yes Status: Acute Assessment and Plan: Patient had an EGD done on 10/20/2017. Recommended to be on Carafate 1 g by mouth daily for 2 months plus Protonix 40 mg twice a day for the same period of time and repeat EGD in 3 months We will continue those medications (5) Thrombocytosis Current Visit: Yes Status: Acute Assessment and Plan: Plan platelet counts a million but trended down possible infection vs essential thrombocytosis On aspirin Hem&Onc consult (6) DVT prophylaxis Current Visit: Yes Status: Acute Assessment and Plan: Plan: - Chemical DVT prophylaxis with heparin 5000 units subcutaneous every 12hours - Time Spent with Patient Total time spent is greater than 50% in coordination of care (as documented) at patient's floor/unit and/or counseling patient: Internal Medicine: Result - Labs CBC & Chem 7: 11/03/17 07:04 11/03/17 07:04 Labs: Short CBC 11/03/17 Range/Units 07:04 WBC 10.9 (4.3-11.1) K/mcL Hgb 9.7 L (12.9-16.9) g/dL Hct 31.2 L (37.5-50.1) % Plt Count 949 H (140-400) K/mcL Neutrophils # 7.4 (1.6-8.9) K/mcL BMP 11/03/17 07:04 Sodium 137 Potassium 3.9 Chloride 107 Carbon Dioxide 24 BUN 9 Creatinine 0.78 Glucose 83 Calcium 8.6 - ABG Interpretation ABG results: PT/INR, D-dimer PT 11.0 Seconds (9.4-12.1) 11/02/17 04:12 - Impressions Impressions Foot MRI 11/02/17 20:32 IMPRESSION: 1. Limited exam with axial and sagittal T1 weighted sequences only. No fluid sensitive sequence. The patient terminated the exam early. 2. Status post transmetatarsal amputation. 3. Nonvisualization of the 5th metatarsal base fracture described on the previous radiographs. 4. No convincing evidence of osteomyelitis or other acute osseous abnormality. 5. Suspected mild diffuse subcutaneous edema. D/ / Cresencio Stacy MD / Cresencio Stacy MD Interpreting Provider: Cresencio Stacy MD Consult Discharge Plan - Plan Referrals: NONE,PCP [Primary Care Provider] - (2) Sepsis Qualifiers: Sepsis type: sepsis due to unspecified organism Qualified Code(s): A41.9 - Sepsis, unspecified organism (4) Gastritis Qualifiers: Gastritis type: unspecified gastritis Chronicity: unspecified Gastritis bleeding: without bleeding Qualified Code(s): K29.70 - Gastritis, unspecified, without bleeding
[2017-11-03 15:32] LABS: C-Reactive Protein 18 mg/L (Less than 10)
[2017-11-03] MEDS: Cefepime HCl 2,000 MG in Water for inj. (sterile) 20 ML 20 ML IVP SCH (18:05)
[2017-11-03] MEDS ORDERED: NON-FORMULARY MEDICATION 1 EACH EACH (Pantoprazole Sodium [Protonix] 40 MG) PO SCH (21:00)
[2017-11-03] MEDS: Nicotine 21 MG PATCH.TD24 TD SCH (21:29)
[2017-11-04] MEDS: *HR* OxyCODONE Immed Rel 5 MG TABLET PO PRN ×3 (03:37→21:24)
[2017-11-04] MEDS: Cefepime HCl 2,000 MG in Water for inj. (sterile) 20 ML 20 ML IVP SCH ×2 (05:18→17:09)
[2017-11-04] MEDS: *HR* Heparin 5,000 UNIT/ML VIAL SQ SCH ×3 (05:19→21:26)
[2017-11-04 05:57] LABS: Hematocrit 30.1 % (37.5-50.1); Hemoglobin 9.6 g/dL (12.9-16.9); Mean Corpuscular HGB Conc 31.9 g/dL (31.6-35.5); Mean Corpuscular Hemoglobin 29.4 pg (28.0-33.3); Mean Platelet Volume 8.7 fL (9.4-12.4); Platelet Count 857 K/mcL (140-400); Red Blood Count 3.27 M/mcL (4.19-5.50); Red Cell Distribution Width 15.2 % (11.5-14.5)
[2017-11-04 06:19] LABS: BUN/Creatinine Ratio 12 (6-26); Blood Urea Nitrogen 8 mg/dL (8-23); Calcium 8.7 mg/dL (8.6-10.3); Carbon Dioxide 24 mEq/L (23-29); Chloride 107 mEq/L (98-107); Glucose 88 mg/dL (70-105); Osmolality,Calculated 282 (280-300); Potassium 3.7 mEq/L (3.5-5.1); Sodium 137 mEq/L (136-145); eGFR For Non-African Americans > 60 (> 60)
[2017-11-04] MEDS: Sucralfate 1 GM TABLET PO SCH ×4 (07:52→21:24)
[2017-11-04] MEDS: Aspirin Enteric Coated 81 MG Tablet PO SCH (07:52)
[2017-11-04] MEDS: traMADol 50 MG TABLET PO PRN ×2 (07:52→17:10)
--- NOTE | 2017-11-04 14:17 | Infectious Disease Progress No ---
Date of Encounter: 11/04/17 Time of Encounter: 11:00 - Assessment and Plan (1) Sepsis Current Visit: No Status: Acute The patient had two SIRS criteria on admission and had a low-grade fever after admission. Likely secondary to right foot cellulitis. Improved. WBC has normalized. Tachycardia has improved. He has been afebrile. Blood cultures drawn 11/01/17 are NGTD x 2 sets. Qualifiers: Sepsis type: sepsis due to unspecified organism Qualified Code(s): A41.9 - Sepsis, unspecified organism (2) Cellulitis Current Visit: No Status: Acute Location: Right foot. Causative organism: unclear. Previous wound cultures grew Aeromonas, Enterobacter, and Morganella. Previously took a course of PO Levaquin, but had recurrence of symptoms. MRI of the right foot limited due to patient moving and early termination of the exam, but no osteomyelitis noted. Podiatry consulted and following. Wound care and activity per Podiatry. Check ESR and CRP. --> 57, 18. Get MRSA nasal screen. --> Not collected. Discussed with nursing. Continue Vancomycin IV for now. Pharmacy to dose. Goal trough ~15. If MRSA screen is negative, can discontinue. Continue Cefepime 2 grams IV Q12H. Duration of treatment depends on the clinical picture, but can likely transition to PO antibiotics when ready for discharge. Monitor renal function and for drug toxicity and dose-adjust antibiotics. Qualifiers: Site of cellulitis: extremity Site of cellulitis of extremity: lower extremity Laterality: right Qualified Code(s): L03.115 - Cellulitis of right lower limb (3) Thrombocytosis Current Visit: Yes Status: Acute Etiology unclear: sepsis vs. other. Improved. Continue trend. Consider Hem/Onc consult if does not continue to trend down. (4) PAD (peripheral artery disease) Current Visit: Yes Status: Chronic Status post right iliofemoral endarterectomy, right iliofemoral bovine pericardial patch angioplasty, aortogram, left femoral endarterectomy, left to right femorofemoral bypass graft, right leg angiogram with balloon angioplasty of the right SFA and popliteal arteries 10/15/[address] Le. 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 Status post left BKA revision with left AKA in 2016. (5) COPD (chronic obstructive pulmonary disease) Current Visit: No Status: Chronic Qualifiers: COPD type: emphysema Emphysema type: panlobular Qualified Code(s): J43.1 - Panlobular emphysema (6) GERD (gastroesophageal reflux disease) Current Visit: No Status: Acute Qualifiers: Esophagitis presence: esophagitis presence not specified Qualified Code(s) : K21.9 - Gastro-esophageal reflux disease without esophagitis - Subjective Interval history: Patient seen and examined. No acute events noted overnight. Patient states foot is less painful. Denies fevers, chills, or rigors. Denies chest pain, shortness of breath, or cough. Denies nausea, vomiting, or diarrhea. Denies abdominal pain , urinary complaint, or appetite changes. Reports two soft stools today. Denies oral thrush or skin lesions. Infect Dis PN-Objective Data - Labs CBC & Chem 7: 11/04/17 05:05 11/04/17 05:05 Labs: Laboratory Results - last 24 hr 11/03/17 11/03/17 11/03/17 07:04 07:04 16:02 WBC RBC Hgb Hct MCV MCH MCHC RDW Plt Count MPV ESR 57 H Sodium 137 Potassium 3.9 Chloride 107 Carbon Dioxide 24 BUN 9 Creatinine 0.78 Est GFR ( Amer) > 60 Est GFR (Non-Af Amer) > 60 BUN/Creatinine Ratio 12 Glucose 83 Calculated Osmolality 282 Calcium 8.6 Magnesium 1.9 C-Reactive Protein 18 H Vancomycin Trough 15 H 11/04/17 11/04/17 05:05 05:05 WBC 11.0 RBC 3.27 L Hgb 9.6 L Hct 30.1 L MCV 92.0 MCH 29.4 MCHC 31.9 RDW 15.2 H Plt Count 857 H MPV 8.7 L ESR Sodium 137 Potassium 3.7 Chloride 107 Carbon Dioxide 24 BUN 8 Creatinine 0.67 L Est GFR ( Amer) > 60 Est GFR (Non-Af Amer) > 60 BUN/Creatinine Ratio 12 Glucose 88 Calculated Osmolality 282 Calcium 8.7 Magnesium C-Reactive Protein Vancomycin Trough Exam - Constitutional Vitals: Temp Pulse Resp BP Pulse Ox 98.3 F 70 14 105/67 97 11/04/17 12:21 11/04/17 12:21 11/04/17 12:21 11/04/17 12:11/04/17 12:21 General appearance: average body habitus, cooperative, no acute distress - Head Head exam: Present: atraumatic, normal inspection, normocephalic - Eye Eye exam: Present: EOMI, normal appearance, PERRL Pupils: Present: normal accommodation - ENT ENT exam: Present: mucous membranes moist - Neck Neck exam: Present: normal inspection - Respiratory Respiratory exam: Present: CTAB. Absent: rales, respiratory distress, rhonchi, wheezes - Cardiovascular Cardiovascular exam: Present: RRR, +S1, +S2 - GI/Abdominal GI/Abdominal exam: Present: normal bowel sounds, soft. Absent: distended, tenderness - Extremities Exam Extremities exam: Present: tenderness (Right foot). Absent: joint swelling, pedal edema Additional comments: Right foot surgical site with sutures intact and wound edges well-approximated. Small amount of serosanguinous drainage noted on the old dressing. No erythema, warmth, fluctuance noted. Tenderness noted with palpation. No redness or streaking up the leg. Left AKA stump well-healed without redness, warmth, or tenderness. - Neurological Exam Neurological exam: Present: alert, oriented X3, no focal deficits - Psychiatric Psychiatric exam: Present: normal affect, normal mood - Skin Skin exam: Present: dry, intact, normal color, warm Consult Discharge Plan - Plan Referrals: NONE,PCP [Primary Care Provider] - - Attending Attestation I examined this patient and my medical decision-making was reviewed with the Resident Physician. I agree with the documented findings, disposition and treatment plan as described except to the extent set forth below.
--- NOTE | 2017-11-04 17:00 | Internal Med Progress Note ---
Hospitalist Progress Note - Encounter Date of Encounter: 11/04/17 Time of Encounter: 09:00 - Subjective Interval History: no events overnight, pain is controlled with medications denies fever, chills, chest pain, SOb, N/v/D tolerating PO diet he is open to going to [facility] for physical therapy and IV Abx - Exam Vitals: Temp Pulse Resp BP Pulse Ox 98.2 F 68 14 123/76 98 11/04/17 15:56 11/04/17 15:56 11/04/17 15:56 11/04/17 15:56 11/04/17 15:56 Exam: General: Patient is alert, oriented, no acute distress, underweight Head: atraumatic, normocephalic, Eye: normal appearance, PERRL, no scleral icterus, no conjunctival injection ENT: mucous membranes moist, normal external ear exam Neck: normal inspection, trachea midline, full ROM, no carotid bruits Chest: normal inspection, symmetric chest rise Respiratory: Good respiratory effort. Bilateral breath sounds are clear without wheezing, crackles, or rhonchi. Cardiovascular: Regular rate and rhythm. s1 and s2 No clicks, rubs, gallops, or murmors. Abdomen: Bowel sounds present normoactive x-4 quadrants. Abdomen is soft, nondistended. no Epigastric tenderness. No guarding or rebound. No organomegaly noted, obese musculoskeletal: left AKA and right TMA Skin: warm, dry, intact. right foot is wrapped in clean dressing no signs of bleeding or discharge on dressing Neuro: Alert and oriented x4. Sensation light touch intact. Cranial nerves 2- 12 is intact. Not aphasic, gait is steady, rapid hand movements intact, finger- to-nose intact, Psych: Patient's affect is normal - Assessment and Plan (1) Cellulitis of right foot without toes Current Visit: Yes Status: Acute Assessment and Plan: S/p TMA MRI of the right foot limited due to patient moving and early termination of the exam, but no osteomyelitis noted. Podiatry consulted and following. Wound care and activity per Podiatry. ID consulted ESR and CRP. 57, 18 MRSA nasal screen is pending Continue Vancomycin IV for now. Pharmacy to dose. Goal trough ~15. If MRSA screen is negative, can discontinue. Cefepime 2 grams IV Q12H. Blood cultures drawn 11/01/17 are NGTD x 2 sets. (2) Sepsis Current Visit: No Status: Acute Assessment and Plan: secondary to above plan as above now resolved (3) PAD (peripheral artery disease) Current Visit: Yes Status: Chronic Assessment and Plan: Status post right iliofemoral endarterectomy, right iliofemoral bovine pericardial patch angioplasty, aortogram, left femoral endarterectomy, left to right femorofemoral bypass graft, right leg angiogram with balloon angioplasty of the right SFA and popliteal arteries 10/15/[address] Le. 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 Status post left BKA revision with left AKA in 2016. (4) Gastritis Current Visit: Yes Status: Acute Assessment and Plan: Patient had an EGD done on 10/20/2017. Recommended to be on Carafate 1 g by mouth daily for 2 months plus Protonix 40 mg twice a day for the same period of time and repeat EGD in 3 months We will continue those medications (5) Thrombocytosis Current Visit: Yes Status: Acute Assessment and Plan: Plan platelet counts a million but has trended down possible infection vs essential thrombocytosis On aspirin Hem&Onc consult in the AM as theyre still elevated (6) DVT prophylaxis Current Visit: Yes Status: Acute Assessment and Plan: Plan: Sc heparin - Time Spent with Patient Total time spent is greater than 50% in coordination of care (as documented) at patient's floor/unit and/or counseling patient: Internal Medicine: Result - Labs CBC & Chem 7: 11/04/17 05:05 11/04/17 05:05 Labs: Short CBC 11/04/17 Range/Units 05:05 WBC 11.0 (4.3-11.1) K/mcL Hgb 9.6 L (12.9-16.9) g/dL Hct 30.1 L (37.5-50.1) % Plt Count 857 H (140-400) K/mcL BMP 11/04/17 05:05 Sodium 137 Potassium 3.7 Chloride 107 Carbon Dioxide 24 BUN 8 Creatinine 0.67 L Glucose 88 Calcium 8.7 - ABG Interpretation ABG results: PT/INR, D-dimer PT 11.0 Seconds (9.4-12.1) 11/02/17 04:12 Consult Discharge Plan - Plan Referrals: NONE,PCP [Primary Care Provider] - (2) Sepsis Qualifiers: Sepsis type: sepsis due to unspecified organism Qualified Code(s): A41.9 - Sepsis, unspecified organism (4) Gastritis Qualifiers: Gastritis type: unspecified gastritis Chronicity: unspecified Gastritis bleeding: without bleeding Qualified Code(s): K29.70 - Gastritis, unspecified, without bleeding
[2017-11-04] MEDS: Nicotine 21 MG PATCH.TD24 TD SCH (21:24)
[2017-11-05] MEDS: *HR* OxyCODONE Immed Rel 5 MG TABLET PO PRN ×2 (04:45→11:49)
[2017-11-05 05:02] LABS: Hematocrit 31.5 % (37.5-50.1); Hemoglobin 10.1 g/dL (12.9-16.9); Mean Corpuscular HGB Conc 32.1 g/dL (31.6-35.5); Mean Corpuscular Hemoglobin 29.5 pg (28.0-33.3); Mean Corpuscular Volume 92.1 fL (83.0-100.0); Mean Platelet Volume 8.7 fL (9.4-12.4); Platelet Count 819 K/mcL (140-400); Red Blood Count 3.42 M/mcL (4.19-5.50); Red Cell Distribution Width 15.3 % (11.5-14.5)
[2017-11-05 05:20] LABS: BUN/Creatinine Ratio 12 (6-26); Blood Urea Nitrogen 8 mg/dL (8-23); Calcium 8.8 mg/dL (8.6-10.3); Carbon Dioxide 27 mEq/L (23-29); Chloride 104 mEq/L (98-107); Glucose 85 mg/dL (70-105); Osmolality,Calculated 282 (280-300); Potassium 3.9 mEq/L (3.5-5.1); Sodium 137 mEq/L (136-145); eGFR For Non-African Americans > 60 (> 60)
[2017-11-05] MEDS: *HR* Heparin 5,000 UNIT/ML VIAL SQ SCH ×3 (05:20→20:30)
[2017-11-05] MEDS: Cefepime HCl 2,000 MG in Water for inj. (sterile) 20 ML 20 ML IVP SCH ×2 (05:21→17:28)
[2017-11-05] MEDS: Aspirin Enteric Coated 81 MG Tablet PO SCH (07:36)
[2017-11-05] MEDS: traMADol 50 MG TABLET PO PRN ×2 (07:36→16:41)
[2017-11-05] MEDS: Sucralfate 1 GM TABLET PO SCH ×4 (07:36→20:30)
--- NOTE | 2017-11-05 13:54 | Infectious Disease Progress No ---
Date of Encounter: 11/05/17 Time of Encounter: 09:30 - Assessment and Plan (1) Sepsis Current Visit: No Status: Resolved The patient had two SIRS criteria on admission and had a low-grade fever after admission. Likely secondary to right foot cellulitis. Improved. WBC has normalized. Tachycardia has improved. He has been afebrile. Blood cultures drawn 11/01/17 are NGTD x 2 sets. Qualifiers: Sepsis type: sepsis due to unspecified organism Qualified Code(s): A41.9 - Sepsis, unspecified organism (2) Cellulitis Current Visit: No Status: Acute Location: Right foot. Causative organism: unclear. Previous wound cultures grew Aeromonas, Enterobacter, and Morganella. Previously took a course of PO Levaquin, but had recurrence of symptoms. MRI of the right foot limited due to patient moving and early termination of the exam, but no osteomyelitis noted. Podiatry consulted and following. Wound care and activity per Podiatry. Check ESR and CRP. --> 57, 18. Get MRSA nasal screen. --> Negative. Continue Vancomycin IV for now. Pharmacy to dose. Goal trough ~15. Continue Cefepime 2 grams IV Q12H. Duration of treatment depends on the clinical picture, but can likely transition to PO antibiotics when ready for discharge. Recommend Bactrim DS 1 tab PO BID and Cipro 500mg PO BID. Recommend a total of 14 days of treatment. Treat through 11/15/17. Monitor renal function and for drug toxicity and dose-adjust antibiotics. Qualifiers: Site of cellulitis: extremity Site of cellulitis of extremity: lower extremity Laterality: right Qualified Code(s): L03.115 - Cellulitis of right lower limb (3) Thrombocytosis Current Visit: Yes Status: Acute Etiology unclear: sepsis vs. other. Improved. Continue trend. (4) PAD (peripheral artery disease) Current Visit: Yes Status: Chronic Status post right iliofemoral endarterectomy, right iliofemoral bovine pericardial patch angioplasty, aortogram, left femoral endarterectomy, left to right femorofemoral bypass graft, right leg angiogram with balloon angioplasty of the right SFA and popliteal arteries 10/15/[address] Le. 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 Status post left BKA revision with left AKA in 2016. (5) COPD (chronic obstructive pulmonary disease) Current Visit: No Status: Chronic Qualifiers: COPD type: emphysema Emphysema type: panlobular Qualified Code(s): J43.1 - Panlobular emphysema (6) GERD (gastroesophageal reflux disease) Current Visit: No Status: Acute Qualifiers: Esophagitis presence: esophagitis presence not specified Qualified Code(s) : K21.9 - Gastro-esophageal reflux disease without esophagitis - Subjective Interval history: Patient seen and examined. No acute events noted overnight. Patient states foot is less painful, but still feels irritated by the dressing. Denies fevers, chills, or rigors. Denies chest pain, shortness of breath, or cough. Denies nausea, vomiting, or diarrhea. Denies abdominal pain, urinary complaint, or appetite changes. Reports two soft stools today. Denies oral thrush or skin lesions. Infect Dis PN-Objective Data - Labs CBC & Chem 7: 11/05/17 04:20 11/05/17 04:20 Labs: Laboratory Results - last 24 hr 11/04/17 11/05/17 11/05/17 14:20 04:20 04:20 WBC 10.7 RBC 3.42 L Hgb 10.1 L Hct 31.5 L MCV 92.1 MCH 29.5 MCHC 32.1 RDW 15.3 H Plt Count 819 H MPV 8.7 L Sodium 137 Potassium 3.9 Chloride 104 Carbon Dioxide 27 BUN 8 Creatinine 0.65 L Est GFR ( Amer) > 60 Est GFR (Non-Af Amer) > 60 BUN/Creatinine Ratio 12 Glucose 85 Calculated Osmolality 282 Calcium 8.8 Nasal Screen MRSA (PCR) Negative Cultures: Serology 11/04/17 Range/Units 14:20 Nasal Screen MRSA (PCR) Negative (Negative) Exam - Constitutional Vitals: Temp Pulse Resp BP Pulse Ox 97.4 F L 69 14 125/81 98 11/05/17 10:23 11/05/17 10:23 11/05/17 07:45 11/05/17 10:23 11/05/17 10:23 General appearance: average body habitus, cooperative, no acute distress - Head Head exam: Present: atraumatic, normal inspection, normocephalic - Eye Eye exam: Present: EOMI, normal appearance, PERRL Pupils: Present: normal accommodation - ENT ENT exam: Present: mucous membranes moist - Neck Neck exam: Present: normal inspection - Respiratory Respiratory exam: Present: CTAB. Absent: rales, respiratory distress, rhonchi, wheezes - Cardiovascular Cardiovascular exam: Present: RRR, +S1, +S2 - GI/Abdominal GI/Abdominal exam: Present: normal bowel sounds, soft. Absent: distended, tenderness - Extremities Exam Extremities exam: Present: tenderness (right foot). Absent: joint swelling, pedal edema Additional comments: Right foot dressing C/D/I. - Neurological Exam Neurological exam: Present: alert, oriented X3, no focal deficits - Psychiatric Psychiatric exam: Present: normal affect, normal mood - Skin Skin exam: Present: dry, intact, normal color, warm Consult Discharge Plan - Plan Referrals: NONE,PCP [Primary Care Provider] - - Attending Attestation I examined this patient and my medical decision-making was reviewed with the Resident Physician. I agree with the documented findings, disposition and treatment plan as described except to the extent set forth below.
--- NOTE | 2017-11-05 15:44 | Internal Med Progress Note ---
Hospitalist Progress Note - Encounter Date of Encounter: 11/05/17 Time of Encounter: 08:00 - Subjective Interval History: no events overnight, pain is controlled with medications denies fever, chills, chest pain, SOb, N/v/D tolerating PO diet he is open to going to [facility] for physical therapy although he is worried that his belongings will get stolen. - Exam Vitals: Temp Pulse Resp BP Pulse Ox 97.7 F 69 14 118/71 92 11/05/17 13:53 11/05/17 13:53 11/05/17 13:53 11/05/17 13:53 11/05/17 13:53 Exam: General: Patient is alert, oriented, no acute distress, underweight Head: atraumatic, normocephalic, Eye: normal appearance, PERRL, no scleral icterus, no conjunctival injection ENT: mucous membranes moist, normal external ear exam Neck: normal inspection, trachea midline, full ROM, no carotid bruits Chest: normal inspection, symmetric chest rise Respiratory: Good respiratory effort. Bilateral breath sounds are clear without wheezing, crackles, or rhonchi. Cardiovascular: Regular rate and rhythm. s1 and s2 No clicks, rubs, gallops, or murmors. Abdomen: Bowel sounds present normoactive x-4 quadrants. Abdomen is soft, nondistended. no Epigastric tenderness. No guarding or rebound. No organomegaly noted, obese musculoskeletal: left AKA and right TMA Skin: warm, dry, intact. right foot is wrapped in clean dressing no signs of bleeding or discharge on dressing Neuro: Alert and oriented x4. Sensation light touch intact. Cranial nerves 2- 12 is intact. Not aphasic, gait is steady, rapid hand movements intact, finger- to-nose intact, Psych: Patient's affect is normal - Assessment and Plan (1) Cellulitis of right foot without toes Current Visit: Yes Status: Acute Assessment and Plan: S/p TMA MRI of the right foot limited due to patient moving and early termination of the exam, but no osteomyelitis noted. Podiatry consulted and following. Wound care and activity per Podiatry. ID consulted ESR and CRP. 57, 18 MRSA nasal screen is negative Continue Vancomycin IV for now. Pharmacy to dose. Goal trough ~15. If MRSA screen is negative, can discontinue. Cefepime 2 grams IV Q12H. Blood cultures drawn 11/01/17 are NGTD x 2 sets. will switch to oral Abx as per ID recs once he is accepted to ECF- SW and CM are on board (2) Sepsis Current Visit: Yes Status: Resolved Assessment and Plan: secondary to above The patient had two SIRS criteria on admission and had a low-grade fever after admission. Likely secondary to right foot cellulitis. plan as above now resolved (3) PAD (peripheral artery disease) Current Visit: Yes Status: Chronic Assessment and Plan: Status post right iliofemoral endarterectomy, right iliofemoral bovine pericardial patch angioplasty, aortogram, left femoral endarterectomy, left to right femorofemoral bypass graft, right leg angiogram with balloon angioplasty of the right SFA and popliteal arteries 10/15/[address] Le. 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 Status post left BKA revision with left AKA in 2016. (4) Gastritis Current Visit: Yes Status: Acute Assessment and Plan: Patient had an EGD done on 10/20/2017. Recommended to be on Carafate 1 g by mouth daily for 2 months plus Protonix 40 mg twice a day for the same period of time and repeat EGD in 3 months We will continue those medications (5) Thrombocytosis Current Visit: Yes Status: Acute Assessment and Plan: Plan platelet counts a million but has trended down most likely secondary to infection vs essential thrombocytosis On aspirin will consider Heme onc if still elevated (6) DVT prophylaxis Current Visit: Yes Status: Acute Assessment and Plan: Sc heparin - Time Spent with Patient Total time spent is greater than 50% in coordination of care (as documented) at patient's floor/unit and/or counseling patient: Internal Medicine: Result - Labs CBC & Chem 7: 11/05/17 04:20 11/05/17 04:20 Labs: Short CBC 11/05/17 Range/Units 04:20 WBC 10.7 (4.3-11.1) K/mcL Hgb 10.1 L (12.9-16.9) g/dL Hct 31.5 L (37.5-50.1) % Plt Count 819 H (140-400) K/mcL BMP 11/05/17 04:20 Sodium 137 Potassium 3.9 Chloride 104 Carbon Dioxide 27 BUN 8 Creatinine 0.65 L Glucose 85 Calcium 8.8 - ABG Interpretation ABG results: PT/INR, D-dimer PT 11.0 Seconds (9.4-12.1) 11/02/17 04:12 Consult Discharge Plan - Plan Referrals: NONE,PCP [Primary Care Provider] - (2) Sepsis Qualifiers: Sepsis type: sepsis due to unspecified organism Qualified Code(s): A41.9 - Sepsis, unspecified organism (4) Gastritis Qualifiers: Gastritis type: unspecified gastritis Chronicity: unspecified Gastritis bleeding: without bleeding Qualified Code(s): K29.70 - Gastritis, unspecified, without bleeding
--- NOTE | 2017-11-05 15:48 | Physician Discharge Referral ---
ExtendedCare Referral Info Transfer To: [facility] Institutional Level of Care: Intermediate - Diagnosis (1) Cellulitis of right foot without toes Priority: Primary Status: Acute (2) Sepsis Status: Resolved (3) PAD (peripheral artery disease) Status: Chronic (4) Gastritis Status: Acute (5) Thrombocytosis Status: Acute (6) DVT prophylaxis Status: Acute - Transfer Medications Home Medications: Albuterol Sulfate [Proair Hfa] 1 - 2 puff IH Q6H PRN 10/14/17 [History] Lovastatin [Mevacor] 20 mg PO QPM 10/14/17 [History] Aspirin Enteric Coated [Aspirin EC] 81 mg PO DAILY #30 tablet. 10/22/17 [Rx] Clopidogrel [Plavix] 75 mg PO DAILY #30 tablet 10/22/17 [Rx] Ferrous Sulfate 325 mg PO BIDWM #60 tablet 10/22/17 [Rx] Sucralfate [Carafate] 1 gm PO QIDAC #120 tablet 10/22/17 [Rx] Pantoprazole Sodium [Protonix] 40 mg PO BID 11/02/17 [History] Allergies/Adverse Reactions: 3 Allergy/AdvReac Type Severity Reaction Status Date / Time No Known Allergies Allergy Verified 10/26/17 10:23 - Respiratory Orders Smoking Cessation: Smoking cessation has been advised. For more information, call the [employer] Quit Line at 4-719-XFNONOW. - Lab Orders Lab Orders: CBC - Advance Directives Code Status: Full Code - Mobility Orders Other (non-wb on the right foot) - Rehabiliation Orders Rehab Potential: Fair Other: wound care daily with calcium alginate on the wound, 4x4 guaze and adaptic on remainder of the incision line - Diet Orders Cardiac CERTIFICATION: I certify that the transfer of the above named patient to an Extended Care Facility is necessary for the continuing treatment of the diagnosis listed. The above information is true and accurate reflection of patient's current condition. Confidential - Redisclosure prohibited without a patient's written consent.
[2017-11-05] MEDS: Nicotine 21 MG PATCH.TD24 TD SCH (20:29)
[2017-11-06 05:25] LABS: Hematocrit 34.5 % (37.5-50.1); Hemoglobin 10.9 g/dL (12.9-16.9); Mean Corpuscular HGB Conc 31.6 g/dL (31.6-35.5); Mean Corpuscular Hemoglobin 29.6 pg (28.0-33.3); Mean Corpuscular Volume 93.8 fL (83.0-100.0); Mean Platelet Volume 8.7 fL (9.4-12.4); Platelet Count 762 K/mcL (140-400); Red Blood Count 3.68 M/mcL (4.19-5.50); Red Cell Distribution Width 15.3 % (11.5-14.5)
[2017-11-06] MEDS ORDERED: 0.9 % Sodium Chloride 250 ML ONE (05:45)
[2017-11-06 05:49] LABS: BUN/Creatinine Ratio 15 (6-26); Blood Urea Nitrogen 10 mg/dL (8-23); Calcium 8.9 mg/dL (8.6-10.3); Carbon Dioxide 23 mEq/L (23-29); Chloride 105 mEq/L (98-107); Glucose 109 mg/dL (70-105); Osmolality,Calculated 282 (280-300); Potassium 3.9 mEq/L (3.5-5.1); Sodium 136 mEq/L (136-145); eGFR For Non-African Americans > 60 (> 60)
[2017-11-06] MEDS: *HR* Heparin 5,000 UNIT/ML VIAL SQ SCH (06:08)
[2017-11-06] MEDS: Cefepime HCl 2,000 MG in Water for inj. (sterile) 20 ML 20 ML IVP SCH (08:51)
[2017-11-06] MEDS: Aspirin Enteric Coated 81 MG Tablet PO SCH (08:52)
[2017-11-06] MEDS: Sucralfate 1 GM TABLET PO SCH ×2 (08:52→12:17)
[2017-11-06] MEDS: *HR* OxyCODONE Immed Rel 5 MG TABLET PO PRN (08:56)
--- NOTE | 2017-11-06 09:15 | Discharge Summary ---
- NOTES TO OUTPATIENT PROVIDER Notes to Outpatient Provider: follow with podiatry. f/u in wound care in AM the week following discharge. follow with BMP for medication toxicity. follow cbc and plateletcounts. needs to follow up with hematology - oncology as OP for thrombocytosis Orders not resulted at time of discharge: Pending orders 11/06/17 16:00 Vancomycin,Trough Timed Date of Encounter: 11/06/17 Time of Encounter: 09:07 - Discharge Diagnosis (1) Cellulitis of right foot without toes Priority: Primary Status: Acute (2) Sepsis Priority: Secondary Status: Resolved Qualifiers: Sepsis type: sepsis due to unspecified organism Qualified Code(s): A41.9 - Sepsis, unspecified organism (3) PAD (peripheral artery disease) Priority: Secondary Status: Chronic (4) Gastritis Priority: Secondary Status: Acute Qualifiers: Gastritis type: unspecified gastritis Chronicity: unspecified Gastritis bleeding: without bleeding Qualified Code(s): K29.70 - Gastritis, unspecified , without bleeding (5) Thrombocytosis Priority: Secondary Status: Acute (6) DVT prophylaxis Priority: Secondary Status: Acute Hospital course: Mr. Krueger is a 62 year old male history of arthritis, COPD, GERD, hyperlipidemia, peripheral arterial disease, status post right lower extremity vascular surgery in October 2017 and left AKA about a year and a half ago presented to [facility] with complain of right foot pain. The patient was admitted to the hospital November 01 for right foot cellulitis. The patient had two SIRS criteria on admission and had a low-grade fever after admission he was treated with IV antibiotics with resolution of his fever and tachycardia. He podiatry was consulted and recommendations were followed. ID was consulted and antibiotic recommendations while in the hospital and for discharge were made. MRSA nasal screen was negative. While being admitted he was found to have thrombocytosis which was most likely related to infection and sepsis. He was on home dose aspirin and Plavix and remained asymptomatic. Platelet counts were followed and continued to trend down. He was told to follow-up with hematology and oncology as outpatient. SW and CM were consulted for ECf placement. wound care is needed on discharge wound care daily with calcium alginate on the wound, 4x4 guaze and adaptic on remainder of the incision line he is to remain non-wb on the right foot. he was counseled on smoking cessation extensively Discharge discussed with: patient, social work, case management Time spent discussing smoking cessation with patient: 3 to 10 minutes - Time Spent with Patient Total time spent providing and/or coordinating discharge services: Less than 30 minutes - Discharge Medications Prescriptions: OxyCODONE Immed Rel [Roxicodone 5 MG] 10 mg PO Q6HR PRN 2 Days #8 tablet PRN Reason: Severe Pain Ciprofloxacin [Cipro] 500 mg PO BID 10 Days #20 tablet Sulfamethoxazole/Trimeth DS [Bactrim Ds] 1 each PO BID 10 Days #20 tablet Home Medications: Albuterol Sulfate [Proair Hfa] 1 - 2 puff IH Q6H PRN 10/14/17 [History] Lovastatin [Mevacor] 20 mg PO QPM 10/14/17 [History] Aspirin Enteric Coated [Aspirin EC] 81 mg PO DAILY #30 tablet. 10/22/17 [Rx] Clopidogrel [Plavix] 75 mg PO DAILY #30 tablet 10/22/17 [Rx] Ferrous Sulfate 325 mg PO BIDWM #60 tablet 10/22/17 [Rx] Sucralfate [Carafate] 1 gm PO QIDAC #120 tablet 10/22/17 [Rx] Pantoprazole Sodium [Protonix] 40 mg PO BID 11/02/17 [History] Ciprofloxacin [Cipro] 500 mg PO BID 10 Days #20 tablet 11/06/17 [Rx] OxyCODONE Immed Rel [Roxicodone 5 MG] 10 mg PO Q6HR PRN 2 Days #8 tablet [Rx] Sulfamethoxazole/Trimeth DS [Bactrim Ds] 1 each PO BID 10 Days #20 tablet [Rx] Allergies/Adverse Reactions: 3 Allergy/AdvReac Type Severity Reaction Status Date / Time No Known Allergies Allergy Verified 10/26/17 10:23 Date of admission: 11/01/17 19:00 Primary care physician: PCP NONE Consults: 11/01/17 20:35 Consult to Physician [CONS] Routine Consulting Provider: Kobi Mosley Reason for Consult: post-op cellulitis of TMA Time Notified: 20:35 Call Completed: Yes 11/02/17 17:12 Consult to Podiatry [CONS] Routine Consulting Provider: [facility] Reason for Consult: Transmetatarsal amputation presenting with infection at the amputation site. Call Completed: No 11/02/17 17:17 Consult to Oncology Hematology [CONS] Routine Consulting Provider: George Funes Reason for Consult: Thrombocytosis. Platelets count > a million Call Completed: No 11/03/17 07:49 Consult to Infectious Diseases [CONS] Routine Consulting Provider: Infectious Disease [facility] Reason for Consult: diabetic foot infection multiple admissions and treatment failure podiatry on board Call Completed: No 11/03/17 10:45 Consult to Physical Therapy [CONS] Routine Comment: Evaluate, develop and implement POC Reason for Consult: dispostion Does patient have active BEDREST order?: No Is patient medically & hemodynamically stable?: Yes Patient assessed for mobility or mobilized this visit?: Yes - Constitutional Vitals: Temp Pulse Resp BP Pulse Ox 97.7 F 62 16 124/71 93 11/06/17 07:34 11/06/17 07:34 11/06/17 07:34 11/06/17 07:34 11/06/17 07:34 Exam: General: Patient is alert, oriented, no acute distress, underweight Head: atraumatic, normocephalic, Eye: normal appearance, PERRL, no scleral icterus, no conjunctival injection ENT: mucous membranes moist, normal external ear exam Neck: normal inspection, trachea midline, full ROM, no carotid bruits Chest: normal inspection, symmetric chest rise Respiratory: Good respiratory effort. Bilateral breath sounds are clear without wheezing, crackles, or rhonchi. Cardiovascular: Regular rate and rhythm. s1 and s2 No clicks, rubs, gallops, or murmors. Abdomen: Bowel sounds present normoactive x-4 quadrants. Abdomen is soft, nondistended. no Epigastric tenderness. No guarding or rebound. No organomegaly noted, obese musculoskeletal: left AKA and right TMA Skin: warm, dry, intact. right foot is wrapped in clean dressing no signs of bleeding or discharge on dressing Neuro: Alert and oriented x4. Sensation light touch intact. Cranial nerves 2- 12 is intact. no focal deficit , Psych: Patient's affect is normal - Patient Status Disposition: Transfer SNF Condition: Fair Overall status at discharge: patient is progressing back to baseline - Discharge Instructions Follow Up With: NONE,PCP [Primary Care Provider] - Mildred Bonilla, FINISHING AREA OPERATOR [Advanced Practice Nurse] - Johnny Hernandez MD [Partnered Physician] - - Diet and Activity Activity: as per physical therapy, increase activity as tolerated Diet: low salt diet
--- NOTE | 2017-11-06 10:22 | Infectious Disease Progress No ---
Date of Encounter: 11/06/17 Time of Encounter: 09:20 - Assessment and Plan (1) Sepsis Current Visit: Yes Status: Resolved The patient had two SIRS criteria on admission and had a low-grade fever after admission. Likely secondary to right foot cellulitis. Improved. WBC has normalized. Tachycardia has improved. He has been afebrile. Blood cultures drawn 11/01/17 are NGTD x 2 sets. Qualifiers: Sepsis type: sepsis due to unspecified organism Qualified Code(s): A41.9 - Sepsis, unspecified organism (2) Cellulitis Current Visit: No Status: Acute Location: Right foot. Causative organism: unclear. Previous wound cultures grew Aeromonas, Enterobacter, and Morganella. Previously took a course of PO Levaquin, but had recurrence of symptoms. MRI of the right foot limited due to patient moving and early termination of the exam, but no osteomyelitis noted. Podiatry consulted and following. Wound care and activity per Podiatry. Check ESR and CRP. --> 57, 18. Get MRSA nasal screen. --> Negative. Continue Vancomycin IV for now. Pharmacy to dose. Goal trough ~15. Continue Cefepime 2 grams IV Q12H. Duration of treatment depends on the clinical picture, but can likely transition to PO antibiotics when ready for discharge. Recommend Bactrim DS 1 tab PO BID and Cipro 500mg PO BID. Recommend a total of 14 days of treatment. Treat through 11/15/17. Monitor renal function and for drug toxicity and dose-adjust antibiotics. Qualifiers: Site of cellulitis: extremity Site of cellulitis of extremity: lower extremity Laterality: right Qualified Code(s): L03.115 - Cellulitis of right lower limb (3) Thrombocytosis Current Visit: Yes Status: Acute Etiology unclear: sepsis vs. other. Improved. Continue trend. (4) PAD (peripheral artery disease) Current Visit: Yes Status: Chronic Status post right iliofemoral endarterectomy, right iliofemoral bovine pericardial patch angioplasty, aortogram, left femoral endarterectomy, left to right femorofemoral bypass graft, right leg angiogram with balloon angioplasty of the right SFA and popliteal arteries 10/15/[address] Le. 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 Status post left BKA revision with left AKA in 2016. (5) COPD (chronic obstructive pulmonary disease) Current Visit: No Status: Chronic Qualifiers: COPD type: emphysema Emphysema type: panlobular Qualified Code(s): J43.1 - Panlobular emphysema (6) GERD (gastroesophageal reflux disease) Current Visit: No Status: Acute Qualifiers: Esophagitis presence: esophagitis presence not specified Qualified Code(s) : K21.9 - Gastro-esophageal reflux disease without esophagitis - Subjective Interval history: Patient seen and examined. No acute events noted overnight. Patient states foot is less painful, but still feels irritated by the dressing. His complaints sound more consistent with neuropathy pain. Denies fevers, chills, or rigors. Denies chest pain, shortness of breath, or cough. Denies nausea, vomiting, or diarrhea. Denies abdominal pain, urinary complaint, or appetite changes. Reports two soft stools yesterday. Denies oral thrush or skin lesions. Infect Dis PN-Objective Data - Labs CBC & Chem 7: 11/06/17 04:48 11/06/17 04:48 Labs: Laboratory Results - last 24 hr 11/06/17 11/06/17 04:48 04:48 WBC 11.1 RBC 3.68 L Hgb 10.9 L Hct 34.5 L MCV 93.8 MCH 29.6 MCHC 31.6 RDW 15.3 H Plt Count 762 H MPV 8.7 L Sodium 136 Potassium 3.9 Chloride 105 Carbon Dioxide 23 BUN 10 Creatinine 0.65 L Est GFR ( Amer) > 60 Est GFR (Non-Af Amer) > 60 BUN/Creatinine Ratio 15 Glucose 109 H Calculated Osmolality 282 Calcium 8.9 Cultures: Serology 11/04/17 Range/Units 14:20 Nasal Screen MRSA (PCR) Negative (Negative) Exam - Constitutional Vitals: Temp Pulse Resp BP Pulse Ox 97.9 F 78 14 123/67 100 11/06/17 10:00 11/06/17 10:00 11/06/17 10:00 11/06/17 10:00 11/06/17 10:00 General appearance: average body habitus, cooperative, no acute distress - Head Head exam: Present: atraumatic, normal inspection, normocephalic - Eye Eye exam: Present: EOMI, normal appearance, PERRL Pupils: Present: normal accommodation - ENT ENT exam: Present: mucous membranes moist - Neck Neck exam: Present: normal inspection - Respiratory Respiratory exam: Present: CTAB. Absent: rales, respiratory distress, rhonchi, wheezes - Cardiovascular Cardiovascular exam: Present: RRR, +S1, +S2 - GI/Abdominal GI/Abdominal exam: Present: normal bowel sounds, soft. Absent: distended, tenderness - Extremities Exam Extremities exam: Absent: joint swelling, pedal edema, tenderness Additional comments: Right foot dressing C/D/I. - Neurological Exam Neurological exam: Present: alert, oriented X3, no focal deficits - Psychiatric Psychiatric exam: Present: normal affect, normal mood - Skin Skin exam: Present: dry, intact, normal color, warm Consult Discharge Plan - Plan Referrals: Mildred Bonilla CNP [Advanced Practice Nurse] - Johnny Hernandez MD [Partnered Physician] - NONE,PCP [Primary Care Provider] - Prescriptions: OxyCODONE Immed Rel [Roxicodone 5 MG] 10 mg PO Q6HR PRN 2 Days #8 tablet PRN Reason: Severe Pain Ciprofloxacin [Cipro] 500 mg PO BID 10 Days #20 tablet Sulfamethoxazole/Trimeth DS [Bactrim Ds] 1 each PO BID 10 Days #20 tablet - Attending Attestation I examined this patient and my medical decision-making was reviewed with the Resident Physician. I agree with the documented findings, disposition and treatment plan as described except to the extent set forth below.
[2017-11-06 14:06] VITALS: BP 117/69
[2017-11-06] MEDS ORDERED: Aminoglycoside Consult 1 EACH MC ONE (18:47)
[2017-11-06] MEDS ORDERED: Sulfamethoxazole/Trimeth DS 1 EACH TABLET PO SCH (21:00)
== END 2017-11-06 18:48 ==
LOC: INTOOBSV 19:00 → SUATTDRO 19:00 → 3ANU 19:00
PROVIDERS: ADMIT Internal Medicine; ATTEND Internal Medicine

== ENCOUNTER 2017-11-23 01:45 | Inpatient (IN) ==
--- NOTE | 2017-11-23 05:02 | Internal Med History&Physical ---
Date of Encounter: 11/23/17 Time of Encounter: 04:53 Internal Medicine - H&P: HPI Chief complaint: foot pain Admitted From: Home Plans for Post Hospital Care: Home History of present illness: Mr. Krueger is a 62 year old male history of COPD, hyperlipidemia and peripheral vascular disease s/p left AKA almost 2 years ago and more recently a right foot TMA. He was discharged from here only recently to a retirement on oral antibiotics after being seen by both podiatry and ID for stump cellulitis. He is transferred here from [place] after signing out AMA of his nursing yesterday ; he reports due to poor care. He then went home then from there to [place] ER with the complaint of ongoing pain and redness of the right foot. There he was found afebrile but apparently some redness was seen on the dorsum; this coupled with the poor clinical appearance prompted an initiation of IV vancomycin and ceftriaxone prior to his transfer here. On arrival he is stable and in no acute distress. His chief complaint is pain around the stump. He denies having fever or chills. He does admit to putting pressure on the foot for ambulatory purposes. He continues to smoke. Past Med Surg Social Fam HX - Past Medical History Medical history: arthritis, COPD, GERD, hyperlipidemia, peripheral artery disease, other Additional medical history: patient is poor historian, PVD, CHRONIC NERVE ISSUES , USUALLY HAS BASE LINE BP 90/50'S Psychiatric history: no psych history - Past Surgical History Surgical History: vascular surgery Additional surgical history: Transmetstrsal amputation right foot 10/24, left aka , - Social History Smoking Status: Current every day smoker Smokeless Tobacco Status: No Alcohol use: occasionally Drug use: none - Family History Mother Adopted: No Family Member Ethnicity: Non- Living Status: Father Adopted: No Family Member Ethnicity: Non- Living Status: Hx Family Cardiac Disorders: Yes Hx Family Respiratory Disorders: Yes Hx Family Cancer: Yes Hx Family GI Disorders: No Hx Family Endocrine Disorder: No Hx Family Neuromuscular Disorders: No Hx Family Neurologic Disorders: No Hx Family HEENT Disorders: No Hx Family Autoimmune Disorders: No Internal Medicine - H&P: Meds Albuterol Sulfate [Proair Hfa] 1 - 2 puff IH Q6H PRN 10/14/17 [History] Lovastatin [Mevacor] 20 mg PO QPM 08/08/18 [History] Aspirin Enteric Coated [Aspirin EC] 81 mg PO DAILY #30 tablet. 10/22/17 [Rx] Clopidogrel [Plavix] 75 mg PO DAILY #30 tablet 10/22/17 [Rx] Ferrous Sulfate 325 mg PO BIDWM #60 tablet 10/22/17 [Rx] Sucralfate [Carafate] 1 gm PO QIDAC #120 tablet 10/22/17 [Rx] Pantoprazole Sodium [Protonix] 40 mg PO BID 11/02/17 [History] Ciprofloxacin [Cipro] 500 mg PO BID 10 Days #20 tablet 11/06/17 [Rx] OxyCODONE Immed Rel [Roxicodone 5 MG] 10 mg PO Q6HR PRN 2 Days #8 tablet [Rx] Sulfamethoxazole/Trimeth DS [Bactrim Ds] 1 each PO BID 10 Days #20 tablet [Rx] 3 Allergy/AdvReac Type Severity Reaction Status Date / Time No Known Allergies Allergy Verified 11/22/17 23:25 All Systems PM: A 10-system review of systems was performed and is negative for pertinent findings except as documented above in the HPI. - Constitutional Vitals: Temp Pulse Resp BP Pulse Ox 98.7 F 76 16 120/73 97 11/23/17 04:07 11/23/17 04:07 11/23/17 04:07 11/23/17 04:07 11/23/17 04:07 Exam: Vitals: Reviewed General: Cachectic, unkempt. Skin: Warm and supple. HEENT: Moist mucous membranes. No conjunctivae pallor. Neck: No lymphadenopathy. No JVD. No carotid bruits. No palpable thyroid. Chest: Normal thoracic expansion. Normal breath sounds. Clear to auscultation. Heart: Normal S1 & S2; rhythmic. No rubs or murmurs. Abdomen: Non-distended, soft and non-tender to palpation. No peritoneal reaction. Extremities: Left AKA stump clean and intact. Right foot stump dirty and necrotic appearing with some pinkness over the dorsum of the foot and mild boggy swelling that is tender to palpation. Neurological: Awake, alert and oriented to person, place and time. No focal deficits. Psych: Affect appropriate. - Assessment and plan (1) Cellulitis of right foot without toes Current Visit: Yes Status: Acute Assessment and plan: The patient has very mild signs of cellulitis with no systemic signs of illness. This is likely due to poor wound care and not off-loading pressure. His adherence is highly questionable. He received Iv vancomycin and ceftriaxone. At this time it does not seem that systemic antimicrobials are warranted. Will start oral agents with high bioavailability: doxycycline 100mg BID which provides Staph and Strep coverage + ciprofloxacin 500mg BID for gram negative activity. Will consult podiatry to assess the stump for need of debridement. Needs wound care. Will benefit from social sciences lecturer assistance with placement. (2) History of alcohol abuse Current Visit: Yes Status: Acute Assessment and plan: There is report he left AMA and went home to drink. Will obtain an alcohol level and place on [facility]. (3) COPD (chronic obstructive pulmonary disease) Current Visit: Yes Status: Chronic Assessment and plan: Stable with no signs of acute exacerbation. Will remain on albuterol prn. Qualifiers: COPD type: emphysema Emphysema type: panlobular Qualified Code(s): J43.1 - Panlobular emphysema (4) Malnutrition Current Visit: Yes Status: Acute Assessment and plan: Should have nutritonist consultation and protein supplementation. Qualifiers: Malnutrition type: protein-calorie malnutrition Protein-calorie malnutrition severity: mild Qualified Code(s): E44.1 - Mild protein-calorie malnutrition (5) Chronic disease anemia Current Visit: Yes Status: Chronic Assessment and plan: Stable. Continue FeSO4 supplementation. (6) PAD (peripheral artery disease) Current Visit: Yes Status: Chronic Assessment and plan: Will continue dual antiplatelet therapy and statins. Smoking cessation. (7) Severe tobacco use disorder Current Visit: Yes Status: Chronic Assessment and plan: Counseled extensively on the habit and resources made available. (8) DVT prophylaxis Current Visit: Yes Status: Acute Assessment and plan: SubQ heparin indicated. - Time Spent With Patient Total time spent is greater than 50% in coordination of care (as documented) at patient's floor/unit and/or counseling patient: Greater than 35 minutes
[2017-11-23] MEDS: traMADol 50 MG TABLET PO PRN (05:16)
[2017-11-23] MEDS: *HR* Heparin 5,000 UNIT/ML VIAL SQ SCH ×3 (05:17→21:20)
[2017-11-23 07:22] LABS: Basophils # 0.1 K/mcL (0.0-0.2); Basophils % 0.5 %; Eosinophils # 0.2 K/mcL (0.0-0.6); Hematocrit 38.6 % (37.5-50.1); Hemoglobin 12.5 g/dL (12.9-16.9); Immature Granulocytes % 0.7 % (0-4); Lymphocytes # 2.8 K/mcL (0.6-4.6); Lymphocytes % 17.3 %; Mean Corpuscular HGB Conc 32.4 g/dL (31.6-35.5); Mean Corpuscular Hemoglobin 28.4 pg (28.0-33.3); Mean Platelet Volume 8.2 fL (9.4-12.4); Monocytes % 6.2 %; Neutrophils # 11.8 K/mcL (1.6-8.9); Platelet Count 608 K/mcL (140-400); Red Cell Distribution Width 14.1 % (11.5-14.5); Segmented Neutrophils % 74.3 %
[2017-11-23 07:23] LABS: Mean Corpuscular Volume 87.7 fL (83.0-100.0)
[2017-11-23] MEDS: Sucralfate 1 GM TABLET PO SCH ×4 (07:42→21:20)
[2017-11-23] MEDS: *HR* OxyCODONE Immed Rel 5 MG TABLET PO PRN ×3 (07:42→22:43)
[2017-11-23] MEDS: Aspirin Enteric Coated 81 MG Tablet PO SCH (07:42)
[2017-11-23 07:47] LABS: Alanine Aminotransferase 12 Units/L (7-52); Albumin 3.8 g/dL (3.5-5.7); Albumin/Globulin Ratio 1.1 (1.1-2.2); Alkaline Phosphatase 78 Units/L (34-104); Aspartate Amino Transferase 14 Units/L (13-39); BUN/Creatinine Ratio 26 (6-26); Bilirubin,Total 0.2 mg/dL (0.3-1.0); Blood Urea Nitrogen 20 mg/dL (8-23); Calcium 9.1 mg/dL (8.6-10.3); Carbon Dioxide 24 mEq/L (23-29); Chloride 107 mEq/L (98-107); Ethanol < 10 mg/dL (Less than 10); Globulin 3.5 g/dL (2.4-3.5); Glucose 74 mg/dL (70-105); Osmolality,Calculated 287 (280-300); Potassium 4.2 mEq/L (3.5-5.1); Sodium 138 mEq/L (136-145); Total Protein 7.3 g/dL (6.4-8.9); eGFR For Non-African Americans > 60 (> 60)
[2017-11-23] MEDS: Doxycycline 100 MG CAPSULE PO SCH ×2 (12:12→22:43)
--- NOTE | 2017-11-23 13:11 | Podiatry Consult Note ---
Date of Encounter: 11/23/17 Time of Encounter: 12:00 Assessment and Plan (1) Cellulitis Current visit: No Status: Acute Continue current antibiotic therapy at this time There is odor and scant amount of purulent drainage underlying necrotic surgical line WBC 15.9 xray ordered Will likely order CT scan to rule out abscess formation pending results of DIONTE and xray imaging Cleansed wound with saline Applied adaptic 4x4 and kerlix for protection weight bearing to heel only for transfers. Elevate once DIONTE's and imagining have returned will determine plan Will likely need vascular consult based on DIONTE results BKA vs I&D of right TMA Daily dressing changes Qualifiers: Site of cellulitis: extremity Site of cellulitis of extremity: lower extremity Laterality: right Qualified Code(s): L03.115 - Cellulitis of right lower limb (2) PAD (peripheral artery disease) Current visit: Yes Status: Chronic Known Hx of PAD Due to appearance of necrosis to surgical line and reported pain of the TMA site right foot will order DIONTE Unable to find pulses per signal at bedside (3) Ischemic pain of right foot Current visit: No Status: Acute History of Present Illness HPI: Mr. Krueger is a 62 year old male history of COPD, hyperlipidemia and peripheral vascular disease s/p left AKA almost 2 years ago and more recently a right foot TMA on 10/19/17. Patient reports that he was having severe pain to RLE at the [facility] and no one was paying attention to him so he signed out AMA and went to the ED. Patient was admitted and started on IV antibiotics. he was started on ceftriaxone and vancomycin wbc 15.9. Patient reports severe pain 8 or 9 on scale of 1-10 to RLE. patient denies any injury. States that foot has been darker and darker and he wanted it looked at. Patient denies any known fevers, chills, n/v or fls. Patient denies any calf pain or sob. Past Med Surg Social Fam HX - Past Medical History Medical history: arthritis, COPD, GERD, hyperlipidemia, peripheral artery disease, other Additional medical history: patient is poor historian, PVD, CHRONIC NERVE ISSUES , USUALLY HAS BASE LINE BP 90/50'S Psychiatric history: no psych history - Past Surgical History Surgical History: vascular surgery Additional surgical history: Transmetstrsal amputation right foot 10/24, left aka , - Social History Smoking Status: Current every day smoker Smokeless Tobacco Status: No Alcohol use: occasionally Drug use: none - Family History Mother Adopted: No Family Member Ethnicity: Non- Living Status: Father Adopted: No Family Member Ethnicity: Non- Living Status: Hx Family Cardiac Disorders: Yes Hx Family Respiratory Disorders: Yes Hx Family Cancer: Yes Hx Family GI Disorders: No Hx Family Endocrine Disorder: No Hx Family Neuromuscular Disorders: No Hx Family Neurologic Disorders: No Hx Family HEENT Disorders: No Hx Family Autoimmune Disorders: No Medications and Allergies Albuterol Sulfate [Proair Hfa] 1 - 2 puff IH Q6H PRN 10/14/17 [History] Lovastatin [Mevacor] 20 mg PO QPM 10/14/17 [History] Aspirin Enteric Coated [Aspirin EC] 81 mg PO DAILY #30 tablet. 10/22/17 [Rx] Clopidogrel [Plavix] 75 mg PO DAILY #30 tablet 10/22/17 [Rx] Ferrous Sulfate 325 mg PO BIDWM #60 tablet 10/22/17 [Rx] Sucralfate [Carafate] 1 gm PO QIDAC #120 tablet 10/22/17 [Rx] Pantoprazole Sodium [Protonix] 40 mg PO BID 11/02/17 [History] 3 Allergy/AdvReac Type Severity Reaction Status Date / Time No Known Allergies Allergy Verified 11/22/17 23:25 All Systems Reviewed: as per HPI Physical Exam - Constitutional Vitals: Temp Pulse Resp BP Pulse Ox 98.0 F 73 15 116/77 97 11/23/17 11:20 11/23/17 11:20 11/23/17 11:20 11/23/17 11:20 11/23/17 11:20 Exam: Podiatry General Exam: General appearance: alert awake oriented X 3. Calm and pleasant, no acute distress.. Vascular: Pedal pulses non palpable and unable to obtain signal. , No evidence of cyanosis, pallor or rubor, Edema graded at 0/4, Skin Temperature slightly cool, No calf pain with manual compression. capillary refill time is 4-5 seconds . Neurologic: Sensation intact with light touch to foot. . Postop Exam: S/P TMA right foot Sutures are intact however there is necrosis noted along surgical line, most noted at the lateral border however there is necrosis extending 1cm along entire plantar aspect of surgical incision (flap) There is scant purulent drainage noted below necrotic skin tissue. Malodorous. Mild surrounding periwound edema and erythema. minimal warmth. Results - Labs Result Diagrams: 11/25/17 05:09 11/23/17 07:08 Labs: Abnormal lab results WBC 15.9 K/mcL (4.3-11.1) H 11/23/17 07:08 Hgb 12.5 g/dL (12.9-16.9) L 11/23/17 07:08 Plt Count 608 K/mcL (140-400) H 11/23/17 07:08 MPV 8.2 fL (9.4-12.4) L 11/23/17 07:08 Neutrophils # 11.8 K/mcL (1.6-8.9) H 11/23/17 07:08 Total Bilirubin 0.2 mg/dL (0.3-1.0) L 11/23/17 07:08 H & H 11/23/17 Range/Units 07:08 Hgb 12.5 L (12.9-16.9) g/dL Hct 38.6 (37.5-50.1) % All other labs normal. Consult Discharge Plan - Plan Referrals: NONE,PCP [Primary Care Provider] -
[2017-11-23 14:06] LABS: Amphetamine Screen,Urine Negative ng/mL (Cutoff=1000); Barbiturate Screen,Urine Negative ng/mL (Cutoff=200); Benzodiazepines Screen,Urine Negative ng/mL (Cutoff=200); Cannabinoid Screen,Urine Negative ng/mL (Cutoff = 50); Cocaine Screen,Urine Negative ng/mL (Cutoff= 300); Opiate Screen,Urine Negative ng/mL (Cutoff=300); Phencyclidine Screen,Urine Negative ng/mL (Cutoff=25)
--- NOTE | 2017-11-23 14:51 | Internal Med Progress Note ---
Hospitalist Progress Note - Encounter Date of Encounter: 11/23/17 Time of Encounter: 10:00 - Subjective Interval History: Pt was seen and assessed at bedside at 1000. Pt is alert and awake, good historian. Pt signed out from [facility] in [place] yesterday due to "they didn't keep track of things well." Pt with redness and pitting edema to RLE stump. He denies pain to leg or stump. He denies chest pain, SOB, nausea, vomiting, diarrhea, or abdominal pain. - Exam Vitals: Temp Pulse Resp BP Pulse Ox 98.0 F 73 15 116/77 97 11/23/17 11:20 11/23/17 11:20 11/23/17 11:20 11/23/17 11:20 11/23/17 11:20 Exam: General: Pt resting quietly on bed, no distress. Skin: pwd, no rashes, lesions, redness Neurological: Pt is alert and awake, oriented x 3, Speech is clear, PERRLA, EOMI , no nystagmus, no pronator drift. strength equal x 4 extremities HEENT: mucous mumbranes moist, no conjuctival pallor Neck: supple, no tracheal deviation, no lymphadenopathy, tenderness, no thyromegaly Heart: S1S2 heard without gallops, clicks, murmurs, no bradycardia or tachycardia, pt has no peripheral edema, pedal and radial pulses palpable bilaterally. Lungs: clear throughout without wheezing, rales, or ronchi, respirations are unlabored Abdomen: soft and non tender with bowel sound present, no hepatomegaly. Psych: Normal affect with good eye contact - Assessment and Plan (1) Severe tobacco use disorder Current Visit: Yes Status: Chronic Assessment and Plan: Counseled extensively on the habit and resources made available. 11/23- Pt continues to deny need for nicotine replacement therapy (2) COPD (chronic obstructive pulmonary disease) Current Visit: Yes Status: Chronic Assessment and Plan: No acute exacerbation. Lungs clear and diminished. 02 as needed to maintain sats > 92%. Will remain on albuterol prn. Pulse ox with vitals. (3) Malnutrition Current Visit: Yes Status: Acute Assessment and Plan: Nutrition consultation. Labs WNL. (4) Chronic disease anemia Current Visit: Yes Status: Chronic Assessment and Plan: Stable. Continue FeSO4 supplementation. (5) PAD (peripheral artery disease) Current Visit: Yes Status: Chronic Assessment and Plan: Will continue DAPT and statin Smoking cessation counseling completed. (6) History of alcohol abuse Current Visit: Yes Status: Acute Assessment and Plan: There is report he left AMA from the ECF and went home to drink. Alcohol level < 10. [facility] protocol in place. (7) Cellulitis of right foot without toes Current Visit: Yes Status: Acute Assessment and Plan: Pt with redness and minimal pitting edema to RLE, s/p ampuatation of toes. Mild leukocytosis, afebrile. Podiatry is following, I appreciate their recommendations. Ordered: xray, ABIs, likely will order CT to rule out abscess. Wound cleansed and dressed today Elevate May need vascular consut based on ABIs Continue IV antibiotics. (8) DVT prophylaxis Current Visit: Yes Status: Acute Assessment and Plan: Heparin SQ - Time Spent with Patient Total time spent is greater than 50% in coordination of care (as documented) at patient's floor/unit and/or counseling patient: less than 15 minutes Plan of Care Discussed with: patient Internal Medicine: Result - Labs CBC & Chem 7: 11/23/17 07:08 11/23/17 07:08 Labs: Short CBC 11/23/17 Range/Units 07:08 WBC 15.9 H (4.3-11.1) K/mcL Hgb 12.5 L (12.9-16.9) g/dL Hct 38.6 (37.5-50.1) % Plt Count 608 H (140-400) K/mcL Neutrophils # 11.8 H (1.6-8.9) K/mcL BMP 11/23/17 07:08 Sodium 138 Potassium 4.2 Chloride 107 Carbon Dioxide 24 BUN 20 Creatinine 0.77 Glucose 74 Calcium 9.1 Liver Function 11/23/17 Range/Units 07:08 Total Bilirubin 0.2 L (0.3-1.0) mg/dL AST 14 (13-39) Units/L ALT 12 (7-52) Units/L Alkaline Phosphatase 78 (34-104) Units/L Albumin 3.8 (3.5-5.7) g/dL Consult Discharge Plan - Plan Referrals: NONE,PCP [Primary Care Provider] - (2) COPD (chronic obstructive pulmonary disease) Qualifiers: Qualified Code(s): J43.1 - Panlobular emphysema (3) Malnutrition Qualifiers: Qualified Code(s): E44.1 - Mild protein-calorie malnutrition
[2017-11-23] MEDS ORDERED: *HR* LORazepam 2 MG/ML VIAL IVP PRN ×3 (15:01)
[2017-11-23] MEDS ORDERED: *HR* HYDROcodone/Acet 5/325 mg TABLET PO ONE (20:00)
[2017-11-24] MEDS ORDERED: *HR* HYDROmorphone 2 MG/ML SYRINGE IVP ONE (04:46)
[2017-11-24] MEDS: *HR* Heparin 5,000 UNIT/ML VIAL SQ SCH ×3 (05:00→21:35)
[2017-11-24] MEDS: Sucralfate 1 GM TABLET PO SCH ×4 (06:24→21:33)
[2017-11-24] MEDS: *HR* OxyCODONE Immed Rel 5 MG TABLET PO PRN ×2 (06:56→21:34)
[2017-11-24] MEDS: Folic Acid 1 MG TABLET PO SCH (09:01)
[2017-11-24] MEDS: Ibuprofen 600 MG TABLET PO PRN ×2 (09:01→23:33)
[2017-11-24] MEDS: Thiamine (B-1) 100 MG TABLET PO SCH (09:01)
[2017-11-24] MEDS: Vitamin B Complex/Vit C/Vit E 1 EACH TABLET PO SCH (09:01)
[2017-11-24] MEDS: Aspirin Enteric Coated 81 MG Tablet PO SCH (09:02)
[2017-11-24] MEDS: Doxycycline 100 MG CAPSULE PO SCH ×2 (11:10→22:29)
[2017-11-24] MEDS: traMADol 50 MG TABLET PO PRN (11:10)
--- NOTE | 2017-11-24 16:46 | Internal Med Progress Note ---
Hospitalist Progress Note - Encounter Date of Encounter: 11/24/17 Time of Encounter: 10:20 - Subjective Interval History: unchanged foot pain. cont to deny fevers, chills, nausea, emesis or fatigue. pain not alleviated by iv or po pain medicaitons. pt awaiting podiatry recs regarding intervention - Exam Vitals: Temp Pulse Resp BP Pulse Ox 98.1 F 79 18 123/71 98 11/24/17 15:39 11/24/17 15:39 11/24/17 15:39 11/24/17 15:39 11/24/17 11:27 Exam: General: awake, alert, appears stated age Cardiovascular:regular rate and rhythm, normal S1 & S2, no rubs, murmurs or gallops. no lower extremity edema, right pt pulse not palpable Lungs:Normal breath sounds, no wheezes, or crackles. Normal respiratory effort MSK: right foot with all toes amputated, right ankle rom painless and intact Neurological: AAOx3, sensation to light touch intact and equal in bl le Skin:right foot erythmea and edema, open healing right foot stump wound with dried yellow drainage - Assessment and Plan (1) Cellulitis of right foot without toes Current Visit: Yes Status: Acute Assessment and Plan: Pt with redness and minimal pitting edema to RLE, s/p ampuatation of toes. Mild leukocytosis, afebrile. Podiatry is following, I appreciate their recommendations. Ordered: xray-overall stable, no soft tissue gas, ABIs- right moderately occlusive disease Wound care May need vascular consult based on ABIs--fu podiatry recs podiatry considering CT foot pending re eval and arron review Continue IV antibiotic cipro (2) Severe tobacco use disorder Current Visit: Yes Status: Chronic Assessment and Plan: Counseled extensively on the habit and resources made available. 11/23- Pt continues to deny need for nicotine replacement therapy (3) COPD (chronic obstructive pulmonary disease) Current Visit: Yes Status: Chronic Assessment and Plan: No acute exacerbation. 02 as needed to maintain sats > 92%. Will remain on albuterol prn. Pulse ox with vitals. (4) Malnutrition Current Visit: Yes Status: Acute Assessment and Plan: Nutrition consultation. Labs WNL. (5) Chronic disease anemia Current Visit: Yes Status: Chronic Assessment and Plan: Stable. Continue FeSO4 supplementation. (6) PAD (peripheral artery disease) Current Visit: Yes Status: Chronic Assessment and Plan: Will continue DAPT and statin Smoking cessation counseling completed. (7) History of alcohol abuse Current Visit: Yes Status: Acute Assessment and Plan: There is report he left AMA from the [facility]CF and went home to drink. Alcohol level < 10. CIWA protocol in place. (8) DVT prophylaxis Current Visit: Yes Status: Acute Assessment and Plan: Heparin SQ - Time Spent with Patient Total time spent is greater than 50% in coordination of care (as documented) at patient's floor/unit and/or counseling patient: 25 - 35 minutes Plan of Care Discussed with: patient Internal Medicine: Result - Labs CBC & Chem 7: 11/23/17 07:08 11/23/17 07:08 - Impressions Impressions Foot X-Ray 11/23/17 12:25 IMPRESSION: Overall stable appearance of the right foot status post transmetatarsal amputation. Possible soft tissue defect involving the lateral aspect of the stump, but that could represent a surgical incision site. Small fracture line within the 5th metatarsal is again demonstrated. D/ / Abilio Montes MD / Abilio Montes MD Interpreting Provider: Abilio Montes MD Consult Discharge Plan - Plan Referrals: NONE,PCP [Primary Care Provider] - (3) COPD (chronic obstructive pulmonary disease) Qualifiers: COPD type: emphysema Emphysema type: panlobular Qualified Code(s): J43.1 - Panlobular emphysema (4) Malnutrition Qualifiers: Malnutrition type: protein-calorie malnutrition Protein-calorie malnutrition severity: mild Qualified Code(s): E44.1 - Mild protein-calorie malnutrition
--- NOTE | 2017-11-24 18:44 | Vascular/Endovasc Consult Note ---
Date of Encounter: 11/24/17 Time of Encounter: 18:00 Assessment and Plan (1) Tobacco abuse Current Visit: No Status: Chronic Patient has long history of tobacco abuse (2) PAD (peripheral artery disease) Current Visit: Yes Status: Chronic Patient has long history of bilateral lower extremity peripheral vascular disease. He is status post left gvonh-lrf-[id number] amputation. He is status post right transmetatarsal limitation. He is status post extensive revascularization for the right lower extremity one month ago. The patient has an ankle-brachial index of 0.7. Due to the patient's overall health and the question is whether the patient wishes to proceed with a protracted effort at wound care for the right foot or whether he would prefer to proceed with a right npkaw-[id number]-[id number] amputation. I discussed this in detail with the patient. I explained all potential risks and benefits as well as complications and alternatives. The patient is going to consider his options. He wishes to speak to podiatry tomorrow to obtain their view on the wound care process. (3) Cellulitis of right foot without toes Current Visit: Yes Status: Acute Patient has cellulitis of the right foot which is new from his outpatient visit 1 week ago. - History of Present Illness Consult date: 11/24/17 Chief complaint: Right foot pain and ulcer History of present illness: Mr. Krueger is a 62 year old male Who had checked himself out [facility] the [facility] and presented himself to the emergency room because of persistent right foot pain and partial separation of the TMA site. This patient has a long history of bilateral lower extremity PAD. He is status post a left lower extremity bypass graft and eventual below the knee and then qdrcw-[id number] amputation on the left side by Dr. Haney and 2016. He had a completion [id number] amputation in [place]. He presented in early October with severe right lower extremity ischemia and wounds of his toes. He underwent a major revascularization in a final attempt to try to salvage the right lower extremity. He underwent bilateral femoral endarterectomies, a femoral-femoral bypass graft, and aortogram, a right lower extremity angiogram, a right extremity angioplasty. He then went on to have a transmetatarsal amputation by Dr. Mosley. Subsequently was discharged from the hospital to the [facility]. The patient states that he has 24-hour day pain in the right foot. He has had noninvasive testing here which demonstrates an ankle-brachial index of 0.7 over the dorsalis pedis artery. There is no Doppler signal over the right posterior tibial artery at the ankle. Past Med Surg Social Fam HX - Past Medical History Medical history: arthritis, COPD, GERD, hyperlipidemia, peripheral artery disease, other Additional medical history: patient is poor historian, PVD, CHRONIC NERVE ISSUES , USUALLY HAS BASE LINE BP 90/50'S Psychiatric history: no psych history - Past Surgical History Surgical History: vascular surgery Additional surgical history: Transmetstrsal amputation right foot 10/24, left aka , - Social History Smoking Status: Current every day smoker Smokeless Tobacco Status: No Alcohol use: occasionally Drug use: none - Family History Mother Adopted: No Family Member Ethnicity: Non- Living Status: Father Adopted: No Family Member Ethnicity: Non- Living Status: Hx Family Cardiac Disorders: Yes Hx Family Respiratory Disorders: Yes Hx Family Cancer: Yes Hx Family GI Disorders: No Hx Family Endocrine Disorder: No Hx Family Neuromuscular Disorders: No Hx Family Neurologic Disorders: No Hx Family HEENT Disorders: No Hx Family Autoimmune Disorders: No Medications and Allergies Albuterol Sulfate [Proair Hfa] 1 - 2 puff IH Q6H PRN 10/14/17 [History] Lovastatin [Mevacor] 20 mg PO QPM 10/14/17 [History] Aspirin Enteric Coated [Aspirin EC] 81 mg PO DAILY #30 tablet. 10/22/17 [Rx] Clopidogrel [Plavix] 75 mg PO DAILY #30 tablet 10/22/17 [Rx] Ferrous Sulfate 325 mg PO BIDWM #60 tablet 10/22/17 [Rx] Sucralfate [Carafate] 1 gm PO QIDAC #120 tablet 10/22/17 [Rx] Pantoprazole Sodium [Protonix] 40 mg PO BID 11/02/17 [History] 3 Allergy/AdvReac Type Severity Reaction Status Date / Time No Known Allergies Allergy Verified 11/22/17 23:25 All Systems Review: The remainder of the systems were reviewed and are negative Exam Vital Signs, Last 4 Hours Temp Pulse Resp BP 11/24/17 15:39 98.1 F 79 18 123/71 General: Present: Conversant, Other (Cachectic and disheveled appearing white male who appears older than his stated age) HEENT: Present: Trachea midline, Other (Muscle wasting of the face and neck) Neck: Absent: JVD Vascular: Present: Pulse, absent (No palpable right popliteal or ankle pulses.) , Edema (Patient has edema of the right forefoot.), Surgical incisions (Patient has eschar and necrotic areas along the entire length of the right TMA. The patient also has erythema on the distal half of the right forefoot. This was not present when he was in the office to see me last week.) Skin: Present: No rashes noted on visualized skin Consult Discharge Plan - Plan Referrals: NONE,PCP [Primary Care Provider] -
[2017-11-25] MEDS: traMADol 50 MG TABLET PO PRN ×3 (00:43→20:28)
[2017-11-25] MEDS: *HR* OxyCODONE Immed Rel 5 MG TABLET PO PRN (03:42)
[2017-11-25 05:56] LABS: Basophils # 0.1 K/mcL (0.0-0.2); Basophils % 0.6 %; Eosinophils # 0.3 K/mcL (0.0-0.6); Eosinophils % 2.7 %; Hematocrit 36.7 % (37.5-50.1); Hemoglobin 11.6 g/dL (12.9-16.9); Immature Granulocytes % 0.2 % (0-4); Lymphocytes # 3.4 K/mcL (0.6-4.6); Lymphocytes % 33.7 %; Mean Corpuscular HGB Conc 31.6 g/dL (31.6-35.5); Mean Corpuscular Volume 88.6 fL (83.0-100.0); Mean Platelet Volume 8.6 fL (9.4-12.4); Monocytes # 0.9 K/mcL (0.0-1.3); Neutrophils # 5.5 K/mcL (1.6-8.9); Platelet Count 563 K/mcL (140-400); Red Blood Count 4.14 M/mcL (4.19-5.50); Segmented Neutrophils % 53.8 %
[2017-11-25] MEDS: *HR* Heparin 5,000 UNIT/ML VIAL SQ SCH ×3 (06:19→23:34)
[2017-11-25] MEDS: Sucralfate 1 GM TABLET PO SCH ×4 (06:26→23:34)
[2017-11-25] MEDS: Vitamin B Complex/Vit C/Vit E 1 EACH TABLET PO SCH (07:39)
[2017-11-25] MEDS: Ibuprofen 600 MG TABLET PO PRN ×2 (07:39→17:09)
[2017-11-25] MEDS: Aspirin Enteric Coated 81 MG Tablet PO SCH (07:39)
[2017-11-25] MEDS: Folic Acid 1 MG TABLET PO SCH (07:39)
[2017-11-25] MEDS: Thiamine (B-1) 100 MG TABLET PO SCH (07:44)
[2017-11-25] MEDS: Doxycycline 100 MG CAPSULE PO SCH ×2 (11:20→23:34)
--- NOTE | 2017-11-25 15:25 | Podiatry Consult Note ---
Date of Encounter: 11/25/17 Time of Encounter: 11:30 Assessment and Plan (1) Ischemic ulcer of right foot with fat layer exposed Current visit: Yes Status: Acute I had a thorough review with the patient regarding his condition, my findings, and his treatment options. We discussed the ability for him to heal a surgical wound with his blood flow. Discussed with patient I am not optimistic that he would be able to heal this surgery. Patient stated to me he has thought about it and cannot undergo an amputation of the leg at this time and wants to try to save his foot. I did explain to him and he says he understands that it may not be possible to save his foot. He is high risk for amputation of the limb and discussed with him that is highly probable that he does not up with an amputation of the leg. If the skin necrosis again or has a wound does not heal discussed she is at risk for infection and then subsequent limb loss. Discussed if he is going to undergo a surgical procedure it is imperative that he stop smoking which she has continued to do since his last surgery and also it is imperative that he comes to follow-up appointments with me as well as vascular surgery. Discussed course of recovery. The nature of the revision transmetatarsal amputation, risks versus benefits potential complications consequences of surgery and his condition discussed at length. No guarantees were made as to the outcome and he was made well aware that he is high risk for losing his leg and in my opinion this may very well happen despite trying to save his right foot. All of his questions were answered and informed consent was signed patient be taken to the operating room tomorrow. NPO after breakfast. History of Present Illness HPI: Mr. Krueger is a 62 year old male with known peripheral vascular disease having underwent intervention with Dr. Aguilar. Subsequently had a transmetatarsal amputation performed. Patient has necrosis at the amputation stump. Patient had conversation with Dr. Aguilar about a leg amputation. Patient says he thought about it overnight and he cannot cut off his leg at this time. He says he wants to try to save it but understands that it may not be able to be saved. He says that his foot is painful. Past Med Surg Social Fam HX - Past Medical History Medical history: arthritis, COPD, GERD, hyperlipidemia, peripheral artery disease, other Additional medical history: patient is poor historian, PVD, CHRONIC NERVE ISSUES , USUALLY HAS BASE LINE BP 90/50'S Psychiatric history: no psych history - Past Surgical History Surgical History: vascular surgery Additional surgical history: Transmetstrsal amputation right foot 10/24, left aka , - Social History Smoking Status: Current every day smoker Smokeless Tobacco Status: No Alcohol use: occasionally Drug use: none - Family History Mother Adopted: No Family Member Ethnicity: Non- Living Status: Father Adopted: No Family Member Ethnicity: Non- Living Status: Hx Family Cardiac Disorders: Yes Hx Family Respiratory Disorders: Yes Hx Family Cancer: Yes Hx Family GI Disorders: No Hx Family Endocrine Disorder: No Hx Family Neuromuscular Disorders: No Hx Family Neurologic Disorders: No Hx Family HEENT Disorders: No Hx Family Autoimmune Disorders: No Medications and Allergies Albuterol Sulfate [Proair Hfa] 1 - 2 puff IH Q6H PRN 10/14/17 [History] Lovastatin [Mevacor] 20 mg PO QPM 10/14/17 [History] Aspirin Enteric Coated [Aspirin EC] 81 mg PO DAILY #30 tablet. 10/22/17 [Rx] Clopidogrel [Plavix] 75 mg PO DAILY #30 tablet 10/22/17 [Rx] Ferrous Sulfate 325 mg PO BIDWM #60 tablet 10/22/17 [Rx] Sucralfate [Carafate] 1 gm PO QIDAC #120 tablet 10/22/17 [Rx] Pantoprazole Sodium [Protonix] 40 mg PO BID 11/02/17 [History] 3 Allergy/AdvReac Type Severity Reaction Status Date / Time No Known Allergies Allergy Verified 11/22/17 23:25 All Systems Reviewed: The remainder of the systems were reviewed and are negative - Constitutional Constitutional: no fever(s) - Cardiovascular Cardiovascular: no chest pain, no dyspnea - Respiratory Respiratory: no cough - Musculoskeletal Musculoskeletal: other (Transmetatarsal amputation right foot) Physical Exam - Constitutional Vitals: Temp Pulse Resp BP Pulse Ox 98.3 F 72 15 121/67 98 11/25/17 11:44 11/25/17 11:44 11/25/17 11:44 11/25/17 11:44 11/25/17 11:44 - Ankle & Foot Exam: Well-developed and nourished male in no acute distress Right foot on the bottom is slightly cool to touch dorsal aspect of the foot is warm to touch. DP is dopplerable however the PT is not audible. There is necrosis at the amputation stump. There is mild serous drainage. There is no purulence expressed. There is mild erythema of the distal foot. Diminished protective sensation. There is some pain with palpation at the end of the amputation stump. There is no fluctuance. Results - Labs Result Diagrams: 11/25/17 05:09 11/23/17 07:08 Labs: Abnormal lab results RBC 4.14 M/mcL (4.19-5.50) L 11/25/17 05:09 Hgb 11.6 g/dL (12.9-16.9) L 11/25/17 05:09 Hct 36.7 % (37.5-50.1) L 11/25/17 05:09 Plt Count 563 K/mcL (140-400) H 11/25/17 05:09 MPV 8.6 fL (9.4-12.4) L 11/25/17 05:09 POC Glucose 138 mg/dL (70-99) H 11/24/17 19:56 Total Bilirubin 0.2 mg/dL (0.3-1.0) L 11/23/17 07:08 H & H 11/25/17 Range/Units 05:09 Hgb 11.6 L (12.9-16.9) g/dL Hct 36.7 L (37.5-50.1) % All other labs normal. Consult Discharge Plan - Plan Referrals: NONE,PCP [Primary Care Provider] -
--- NOTE | 2017-11-25 17:09 | Internal Med Progress Note ---
Hospitalist Progress Note - Encounter Date of Encounter: 11/25/17 Time of Encounter: 11:00 - Subjective Interval History: cont pain in foot, no fevers, chills, nausea or emesis. no worsening of eyrythema or edema - Exam Vitals: Temp Pulse Resp BP Pulse Ox 98.3 F 74 15 103/67 97 11/25/17 15:25 11/25/17 15:25 11/25/17 15:25 11/25/17 15:25 11/25/17 15:25 Exam: General: awake, alert, appears stated age Cardiovascular:regular rate and rhythm, normal S1 & S2, no rubs, murmurs or gallops. no lower extremity edema, right pt/d[ pulses cannot be assessed due to dressing intact Lungs:Normal breath sounds, no wheezes, or crackles. Normal respiratory effort on ra MSK: right foot with all toes amputated, right ankle rom painless and intact Neurological: AAOx3, sensation to light touch intact and equal in bl le Skin:right foot dressing clean, dry, intact, wound not visualized - Assessment and Plan (1) Cellulitis of right foot without toes Current Visit: Yes Status: Acute Assessment and Plan: Non healing surgical wound with Cellulitis Pt with redness and minimal pitting edema to RLE, s/p ampuatation of toes. Mild leukocytosis, afebrile. Podiatry is following Ordered: xray-overall stable, no soft tissue gas, ABIs- right moderately occlusive disease Wound care vascular surgery has seen Continue IV antibiotic cipro podiatry to take to OR in AM for suspected debridement, rec was for OR for amputation of the foot which pt refused which is a discussion detailed in Dr Mosley note (2) Severe tobacco use disorder Current Visit: Yes Status: Chronic Assessment and Plan: Counseled extensively on the habit and resources made available. 11/23- Pt continues to deny need for nicotine replacement therapy (3) COPD (chronic obstructive pulmonary disease) Current Visit: Yes Status: Chronic Assessment and Plan: No acute exacerbation. 02 as needed to maintain sats > 92%. Will remain on albuterol prn. Pulse ox with vitals. (4) Malnutrition Current Visit: Yes Status: Acute Assessment and Plan: Nutrition consultation. Labs WNL. (5) Chronic disease anemia Current Visit: Yes Status: Chronic Assessment and Plan: Stable. Continue FeSO4 supplementation. (6) PAD (peripheral artery disease) Current Visit: Yes Status: Chronic Assessment and Plan: Will continue DAPT and statin vasular surgery is following-he is post extensive revascularization one month ago, arron is 0.7, he continues to smoke (7) History of alcohol abuse Current Visit: Yes Status: Acute Assessment and Plan: There is report he left AMA from the ECF and went home to drink. Alcohol level < 10. CIWA protocol in place. No s/s of withdrawal at this time (8) DVT prophylaxis Current Visit: Yes Status: Acute Assessment and Plan: Heparin SQ - Time Spent with Patient Total time spent is greater than 50% in coordination of care (as documented) at patient's floor/unit and/or counseling patient: 25 - 35 minutes Plan of Care Discussed with: patient Internal Medicine: Result - Labs CBC & Chem 7: 11/25/17 05:09 11/23/17 07:08 Labs: Short CBC 11/25/17 Range/Units 05:09 WBC 10.2 (4.3-11.1) K/mcL Hgb 11.6 L (12.9-16.9) g/dL Hct 36.7 L (37.5-50.1) % Plt Count 563 H (140-400) K/mcL Neutrophils # 5.5 (1.6-8.9) K/mcL Consult Discharge Plan - Plan Referrals: NONE,PCP [Primary Care Provider] - (3) COPD (chronic obstructive pulmonary disease) Qualifiers: COPD type: emphysema Emphysema type: panlobular Qualified Code(s): J43.1 - Panlobular emphysema (4) Malnutrition Qualifiers: Malnutrition type: protein-calorie malnutrition Protein-calorie malnutrition severity: mild Qualified Code(s): E44.1 - Mild protein-calorie malnutrition
--- NOTE | 2017-11-25 21:36 | Vascular/Endovas Progress Note ---
Date of Encounter: 11/25/17 Time of Encounter: 17:45 - Assessment and plan (1) Tobacco abuse Current Visit: No Status: Chronic Patient has long history of tobacco abuse (2) PAD (peripheral artery disease) Current Visit: Yes Status: Chronic Patient has significant vascular disease as described elsewhere. He has opted to proceed with a course of action to try to salvage the right lower extremity. This is reasonable in light of the ankle-brachial index. Therefore vascular surgery will sign off the case as there is nothing further for us to do at this time. Obviously should attempts at salvage of the right lower extremity be unsuccessful the patient will then require a right [id number] amputation. (3) Cellulitis of right foot without toes Current Visit: Yes Status: Acute Patient has cellulitis of the right foot which is new from his outpatient visit 1 week ago. - Subjective Interval history: I returned today to discuss again with the patient the future plans for the right lower extremity. The patient has been seen by podiatry Dr. Mosley earlier today. The patient has opted to proceed with attempt at salvage of the right lower extremity. He has no new complaints regarding the right lower extremity and right foot. Vital Signs, Last 4 Hours Temp Pulse Resp BP Pulse Ox 11/25/17 18:56 99.0 F 75 17 120/82 96 - Physical Examination General: Present: Conversant, No Apparent Distress Vascular: Present: Pulse, absent, Color/Temperature (Patient has mild erythema on the distal aspect of the right forefoot), Amputation(s) (Patient is status post right transmetatarsal dictation. He has dry necrotic areas with eschar across the incision.) Results 11/25/17 05:09 11/23/17 07:08 Lab Results, Last 24 hours 11/25/17 05:09 WBC 10.2 Hgb 11.6 L Hct 36.7 L Plt Count 563 H Consult Discharge Plan - Plan Referrals: NONE,PCP [Primary Care Provider] -
[2017-11-26] MEDS: *HR* OxyCODONE Immed Rel 5 MG TABLET PO PRN ×4 (03:58→23:34)
[2017-11-26] MEDS: *HR* Heparin 5,000 UNIT/ML VIAL SQ SCH ×3 (05:28→23:08)
[2017-11-26 07:02] LABS: Prothrombin Time 10.7 Seconds (9.4-12.1)
[2017-11-26 07:19] LABS: BUN/Creatinine Ratio 20 (6-26); Blood Urea Nitrogen 15 mg/dL (8-23); Carbon Dioxide 26 mEq/L (23-29); Chloride 103 mEq/L (98-107); Glucose 151 mg/dL (70-105); Magnesium 2.1 mg/dL (1.6-2.6); Osmolality,Calculated 288 (280-300); Potassium 4.5 mEq/L (3.5-5.1); Sodium 137 mEq/L (136-145); eGFR For Non-African Americans > 60 (> 60)
[2017-11-26 08:22] LABS: Calcium 9.5 mg/dL (8.6-10.3)
[2017-11-26] MEDS: Aspirin Enteric Coated 81 MG Tablet PO SCH (08:24)
[2017-11-26] MEDS: Sucralfate 1 GM TABLET PO SCH ×3 (08:24→23:08)
[2017-11-26] MEDS: Folic Acid 1 MG TABLET PO SCH (08:25)
[2017-11-26] MEDS: Vitamin B Complex/Vit C/Vit E 1 EACH TABLET PO SCH (08:25)
[2017-11-26] MEDS: Thiamine (B-1) 100 MG TABLET PO SCH (08:25)
[2017-11-26 08:26] LABS: Basophils # 0.1 K/mcL (0.0-0.2); Basophils % 0.7 %; Eosinophils # 0.3 K/mcL (0.0-0.6); Eosinophils % 2.6 %; Hematocrit 40.5 % (37.5-50.1); Hemoglobin 12.6 g/dL (12.9-16.9); Immature Granulocytes % 0.4 % (0-4); Lymphocytes # 2.7 K/mcL (0.6-4.6); Lymphocytes % 24.8 %; Mean Corpuscular HGB Conc 31.1 g/dL (31.6-35.5); Mean Corpuscular Hemoglobin 28.1 pg (28.0-33.3); Mean Corpuscular Volume 90.4 fL (83.0-100.0); Mean Platelet Volume 8.8 fL (9.4-12.4); Monocytes # 0.9 K/mcL (0.0-1.3); Monocytes % 7.9 %; Platelet Count 624 K/mcL (140-400); Red Blood Count 4.48 M/mcL (4.19-5.50); Red Cell Distribution Width 14.2 % (11.5-14.5); Segmented Neutrophils % 63.6 %
--- NOTE | 2017-11-26 10:03 | Internal Med Progress Note ---
Hospitalist Progress Note - Encounter Date of Encounter: 11/26/17 Time of Encounter: 09:10 - Subjective Interval History: pt asleep, awakes to name. currently pain is not an issue. npo awaiting or today. Denies fevers, chills, nausea, emesis. No change in foot edema and erythema. - Exam Vitals: Temp Pulse Resp BP Pulse Ox 97.9 F 78 15 128/77 98 11/26/17 06:59 11/26/17 06:59 11/26/17 06:59 11/26/17 06:59 11/26/17 06:59 Exam: General: awake, alert, appears stated age Cardiovascular:regular rate and rhythm, normal S1 & S2, no murmurs. + edema, non pitting right dorsum of foot to near ankle, no LLE edema, Lungs:Normal breath sounds, no wheezes, or crackles. Normal respiratory effort on ra MSK: right foot with all toes amputated, right ankle rom painless and intact Neurological: AAOx3 Skin:right foot dorsum with erythema, edema, no oozing from non healed wound visualized - Assessment and Plan (1) Cellulitis of right foot without toes Current Visit: Yes Status: Acute Assessment and Plan: Non healing Ischemic ulcer of the Right foot with surrounding Cellulitis Right foot Mild leukocytosis resolved, afebrile. xray-overall stable, no soft tissue gas, ABIs- right moderately occlusive disease Wound care podiatry following Dr Hurley vascular surgery following Dr Aguilar DIONTE right leg 0.7 with moderate stenosis rec was for OR for amputation of the foot as per work up and podiatry and vasc surg evals which pt refused which is a discussion detailed in Dr Mosley note Continue IV antibiotic cipro podiatry to take to OR 11/26 (2) Severe tobacco use disorder Current Visit: Yes Status: Chronic Assessment and Plan: Counseled extensively on the habit and resources made available. Pt continues to deny need for nicotine replacement therapy (3) COPD (chronic obstructive pulmonary disease) Current Visit: Yes Status: Chronic Assessment and Plan: No acute exacerbation. 02 as needed to maintain sats > 92%. Will remain on albuterol prn. Pulse ox with vitals. (4) Malnutrition Current Visit: Yes Status: Acute Assessment and Plan: Nutrition consulted (5) Chronic disease anemia Current Visit: Yes Status: Chronic Assessment and Plan: Stable. Continue FeSO4 supplementation. (6) PAD (peripheral artery disease) Current Visit: Yes Status: Chronic Assessment and Plan: Will continue DAPT and statin vasular surgery is following-he is post extensive revascularization one month ago, dionte is 0.7, he continues to smoke (7) History of alcohol abuse Current Visit: Yes Status: Acute Assessment and Plan: There is report he left AMA from the [facility] and went home to drink. Alcohol level < 10. CIWA protocol in place. No s/s of withdrawal at this time (8) DVT prophylaxis Current Visit: Yes Status: Acute Assessment and Plan: Heparin SQ - Time Spent with Patient Total time spent is greater than 50% in coordination of care (as documented) at patient's floor/unit and/or counseling patient: 25 - 35 minutes Plan of Care Discussed with: patient Internal Medicine: Result - Labs CBC & Chem 7: 11/26/17 06:12 11/26/17 06:12 Labs: Short CBC 11/26/17 Range/Units 06:12 WBC 11.0 (4.3-11.1) K/mcL Hgb 12.6 L (12.9-16.9) g/dL Hct 40.5 (37.5-50.1) % Plt Count 624 H (140-400) K/mcL Neutrophils # 7.0 (1.6-8.9) K/mcL BMP 11/26/17 06:12 Sodium 137 Potassium 4.5 Chloride 103 Carbon Dioxide 26 BUN 15 Creatinine 0.76 Glucose 151 H Calcium 9.5 - ABG Interpretation ABG results: PT/INR, D-dimer PT 10.7 Seconds (9.4-12.1) 11/26/17 06:12 Consult Discharge Plan - Plan Referrals: NONE,PCP [Primary Care Provider] - (3) COPD (chronic obstructive pulmonary disease) Qualifiers: COPD type: emphysema Emphysema type: panlobular Qualified Code(s): J43.1 - Panlobular emphysema (4) Malnutrition Qualifiers: Malnutrition type: protein-calorie malnutrition Protein-calorie malnutrition severity: mild Qualified Code(s): E44.1 - Mild protein-calorie malnutrition
[2017-11-26] MEDS: Doxycycline 100 MG CAPSULE PO SCH ×2 (13:33→23:08)
--- NOTE | 2017-11-26 14:28 | Anesthesia Evaluation PreOp ---
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 Pt Known to be non-compliant w/Meds and signed out AMA recent hospitalization) Anesthesia History: No Prior Anesthetic Complications, Past Anesthesia (TMA, AKA ) Alcohol Use: occasionally, heavy (CIWA protocol this hospitalization,) Drug use: none Medications and Allergies Albuterol Sulfate [Proair Hfa] 1 - 2 puff IH Q6H PRN 10/14/17 [History] Lovastatin [Mevacor] 20 mg PO QPM 10/14/17 [History] Aspirin Enteric Coated [Aspirin EC] 81 mg PO DAILY #30 tablet. 10/22/17 [Rx] Clopidogrel [Plavix] 75 mg PO DAILY #30 tablet 10/22/17 [Rx] Ferrous Sulfate 325 mg PO BIDWM #60 tablet 10/22/17 [Rx] Sucralfate [Carafate] 1 gm PO QIDAC #120 tablet 10/22/17 [Rx] Pantoprazole Sodium [Protonix] 40 mg PO BID 11/02/17 [History] 3 Allergy/AdvReac Type Severity Reaction Status Date / Time No Known Allergies Allergy Verified 11/22/17 23:25 - Meds/Allergy Pre-op Review Medications Reviewed: Yes Allergies Reviewed: Yes Beta Blockers on Current Med List: No Anesthesia Results - Labs 11/26/17 06:12 11/26/17 06:12 Laboratory Results Impressions Foot X-Ray 11/23/17 12:25 IMPRESSION: Overall stable appearance of the right foot status post transmetatarsal amputation. Possible soft tissue defect involving the lateral aspect of the stump, but that could represent a surgical incision site. Small fracture line within the 5th metatarsal is again demonstrated. D/ / Abilio Montes MD / Abilio Montes MD Interpreting Provider: Abilio Montes MD Laboratory Tests 10/14/17 11/26/17 03:41 06:12 Est GFR (Non-Af Amer) > 60 Est Mean Plasma Glucose 126 Hemoglobin A1c 6.0 H c - Imaging EKG: image reviewed Anesthesia Exam Vital Signs Temp Pulse Resp BP Pulse Ox 11/26/17 11:16 98.2 F 72 15 118/73 98 11/26/17 06:59 97.9 F 78 15 128/77 98 11/26/17 03:22 98.5 F 65 16 136/69 99 11/26/17 00:28 98.0 F 66 16 142/85 94 11/25/17 18:56 99.0 F 75 17 120/82 96 11/25/17 15:25 98.3 F 74 15 103/67 97 - HEENT Pupil (Motor): Pupils equal Mallampati: III Teeth: Edentulous Oral Opening: Greater than 3 - GUEST SERVICE TEAM LEADER LOC: Oriented GUEST SERVICE TEAM LEADER Motor: Normal RUE, Normal LUE, Normal RLE, Normal LLE, Normal Face GUEST SERVICE TEAM LEADER Sensory: Normal: RUE, LUE, RLE, LLE, Face - Cardiac Rhythm: Regular Murmur: None - Pulmonary Breath Sounds: bilateral Clear Respiratory Effort: Symmetrical Anesthesia Assess/Plan ASA Score: 3, 4 (PVDz, Smoker, COPD, HTN, Chol, Malnutrition, EtOHism) Modified [place] Scale for Level of Consciousness: Cooperative, oriented, and tranquil Anesthetic Plan: General Monitoring Plan: Standard Monitors Recovery Plan: PACU Anes Supervising Prov Stmt: PT seen/evaluated, R&B Discussed, questions answered and consent obtained. - MD Brigido <Jaden Fuentes - Last Filed: 11/26/17 15:45> Date of Encounter: 11/26/17 Anesthesia Results - Labs 11/26/17 06:12 11/26/17 06:12
[2017-11-26] MEDS ORDERED: Ondansetron 4 MG/2 ML VIAL ONE (15:34)
[2017-11-26] MEDS ORDERED: Dexamethasone 4 MG/ML VIAL ONE (15:34)
[2017-11-26] MEDS ORDERED: Lidocaine -MPF 4% 5 ML AMPUL ONE (15:34)
[2017-11-26] MEDS ORDERED: Lidocaine -MPF 2% 2 ML VIAL ONE (15:34)
[2017-11-26] MEDS ORDERED: *HR* Succinylcholine 200 MG/10 ML VIAL IVP ONE (15:34)
[2017-11-26] MEDS ORDERED: *HR* Propofol 200 MG/20 ML VIAL IVP ONE (15:34)
[2017-11-26] MEDS ORDERED: *HR* FentaNYL (PF) 100 MCG/2 ML VIAL ONE (15:35)
[2017-11-26] MEDS ORDERED: *HR* Midazolam HCl 2 MG/2 ML VIAL ONE (15:36)
[2017-11-26] MEDS ORDERED: KETAMINE HCL 50 MG/ML SYRINGE IV ONE (16:01)
[2017-11-26] MEDS ORDERED: Propofol 500 MG/50 ML INFUS..BTL ONE ×2 (16:04→16:46)
--- NOTE | 2017-11-26 17:01 | Operative Note ---
Date of procedure: 11/26/17 Pre-op diagnosis: non-healing TMA with necrosis and ulceration right foot Post-op diagnosis: same Procedure: right foot revision of TMA with debridement of metatarsal bones Implants: none Complications: none Anesthesia: MAC Local Anesthetics: 0.25% Sensorcaine HCL SubQ (cc) Surgeon: Kobi Mosley Was there an assistant front office manager present: No Estimated blood loss (cc): 15 Specimen: right foot bone-path, micro-soft tissue right foot Condition: stable Disposition: PACU Procedure in Detail: Indications: 62-year-old male who is a smoker with PVD who has had revascularization and has been made aware of his poor blood flow to the extremity and has a right nonhealing transmetatarsal amputation with necrosis and ulceration at the amputation stump and an AKA on the opposite side. Leg amputation was discussed with the patient and had been recommended however the patient says he cannot have an amputation at this time and wants to try to save his right foot. No guarantees were made as to the outcome and the patient understood the my point of view that he is high risk for a leg amputation and in my opinion will likely need an amputation of the right leg. Patient agreed to smoking cessation. Nature of the revision of his transmetatarsal amputation was discussed at length. All of his questions were answered and informed consent was signed. Patient was taken from the preoperative holding area and operating room placed on operating room table in the supine position. Preoperatively patient was noted to be more comfortable in the deep tendon position compared to with the leg elevated. The foot was warm to touch. The perfusion team obtained his blood and spun PRP which was later used in the surgical site amputation. After the patient was under anesthesia, the right foot was scrubbed prepped and draped in the usual sterile fashion. No tourniquet was utilized. The following procedure then began. Revision of right transmetatarsal amputation with debridement of metatarsal bones. Attention was directed to the distal aspect of the amputation stump which had necrosis and ulceration. A fishmouth type incision was made proximal on the dorsal and plantar surface of the nonhealing amputation stump was excising the wound and area of necrosis. This tissue was sent to microbiology. The metatarsal bones were identified and freed from their soft tissue attachments 1 through 5 and the sagittal saw was used to resect bone across metatarsals 1-5 in addition to the [place]. The bones were sent to pathology. The amputation was brought back to essentially the level of the lisfranc joints. The flexor and extensor tendons were traced proximally and cut. There was minimal bleeding noted intraoperatively especially plantarly. There was devitalized tissue distally which was excised. Proximally on the amputation stump there was not devitalized tissue. There was no purulence seen her expressed during the entire procedure. PRP was applied to the soft tissues of the amputation site. The plantar flap was secured to the proximal amputation site and 0 Prolene was used to reapproximate the skin. Postoperative bandaging included Adaptic, 4 x 4 gauze and Kerlix. Patient tolerated the anesthesia and the procedure well. Patient to return to the floor.
--- NOTE | 2017-11-26 17:12 | Anesthesia Evaluation Post Op ---
Date of Encounter: 11/26/17 Time of Encounter: 17:15 - Lungs Lungs: Clear Ascult./Percussion - Airway Airway: Non-obstructed - Cardiovascular Regular Rate - Mental Status Mental Status: Alert & Oriented, Answers Appropriately - Pain Pain Scale: 1 - Nausea Vomiting Nausea Vomiting: Not Present - Hydration Hydration: NPO - Discharge PostOp Status: Transfer Patient to floor
[2017-11-26] MEDS ORDERED: traMADol 50 MG TABLET PO PRN (17:41)
[2017-11-26] MEDS ORDERED: *HR* LORazepam 2 MG/ML VIAL IVP PRN ×3 (17:41)
[2017-11-26] MEDS ORDERED: Ibuprofen 600 MG TABLET PO PRN (17:41)
[2017-11-27] MEDS: *HR* Heparin 5,000 UNIT/ML VIAL SQ SCH ×2 (05:09→13:05)
[2017-11-27] MEDS: Sucralfate 1 GM TABLET PO SCH ×4 (07:08→16:29)
--- NOTE | 2017-11-27 07:44 | Internal Med Progress Note ---
Hospitalist Progress Note - Encounter Date of Encounter: 11/27/17 Time of Encounter: 11:00 - Subjective Interval History: right foot pain alleviated with OR intervention yesterday. no fevers, chills, n/ v. foot redness an swelling beginning to improve - Exam Vitals: Temp Pulse Resp BP Pulse Ox 98.7 F 70 15 115/60 97 11/27/17 06:49 11/27/17 06:49 11/27/17 06:49 11/27/17 06:49 11/27/17 06:49 Exam: General: awake, alert, appears stated age Cardiovascular:regular rate and rhythm, normal S1 & S2, no murmurs. + edema, non pitting right dorsum of foot to near ankle improved Lungs:Normal breath sounds, no wheezes, or crackles. Normal respiratory effort on ra MSK: right ankle rom painless and intact Neurological: AAOx3, sensation of BL LE intact and equal to light touch Skin:right foot dorsum with mild erythema, mild non pitting edema, wound dressed and intact with some dried blood on bandage - Assessment and Plan (1) Cellulitis of right foot without toes Current Visit: Yes Status: Acute Assessment and Plan: Non healing Ischemic ulcer of the Right foot with surrounding Cellulitis Right foot Cellulitis improving OR 11/26 right foot revision of TMA with debridement of metatarsal bones after pt agreeable to plan xray-overall stable, no soft tissue gas, ABIs- right moderately occlusive disease DIONTE right leg 0.7 with moderate stenosis Wound care podiatry following-Dr Hurley vascular surgery following- Dr Aguilar rec was for OR for amputation of the foot as per work up and podiatry and vasc surg evals which pt refused which is a discussion detailed in Dr Mosley note Continue IV antibiotic cipro -await OR bone and soft tissue cxs pending -fu podiatry recs (2) Severe tobacco use disorder Current Visit: Yes Status: Chronic Assessment and Plan: Counseled extensively on the habit and resources made available. Pt continues to deny need for nicotine replacement therapy (3) COPD (chronic obstructive pulmonary disease) Current Visit: Yes Status: Chronic Assessment and Plan: No acute exacerbation. 02 as needed to maintain sats > 92%. Will remain on albuterol prn. Pulse ox with vitals. (4) Malnutrition Current Visit: Yes Status: Acute Assessment and Plan: Nutrition consulted (5) Chronic disease anemia Current Visit: Yes Status: Chronic Assessment and Plan: Stable. Continue FeSO4 supplementation. (6) PAD (peripheral artery disease) Current Visit: Yes Status: Chronic Assessment and Plan: Will continue DAPT and statin vasular surgery is following-he is post extensive revascularization one month ago, dionte is 0.7, he continues to smoke (7) History of alcohol abuse Current Visit: Yes Status: Acute Assessment and Plan: There is report he left AMA from the ECF and went home to drink. Alcohol level < 10. CIWA protocol in place. No s/s of withdrawal at this time (8) DVT prophylaxis Current Visit: Yes Status: Acute Assessment and Plan: Heparin SQ - Time Spent with Patient Total time spent is greater than 50% in coordination of care (as documented) at patient's floor/unit and/or counseling patient: 25 - 35 minutes Plan of Care Discussed with: patient Internal Medicine: Result - Labs CBC & Chem 7: 11/26/17 06:12 11/26/17 06:12 Labs: Short CBC 11/26/17 Range/Units 06:12 WBC 11.0 (4.3-11.1) K/mcL Hgb 12.6 L (12.9-16.9) g/dL Hct 40.5 (37.5-50.1) % Plt Count 624 H (140-400) K/mcL Neutrophils # 7.0 (1.6-8.9) K/mcL BMP 11/26/17 06:12 Calcium 9.5 - ABG Interpretation ABG results: PT/INR, D-dimer PT 10.7 Seconds (9.4-12.1) 11/26/17 06:12 - Impressions Impressions Fluoroscopy 11/26/17 00:00 IMPRESSION: Intraprocedural fluoroscopic spot images as above. See separate procedure report for more information. D/ / Brandon Sheridan MD / Brandon Sheridan MD Interpreting Provider: Brandon Sheridan MD Foot X-Ray 11/26/17 00:00 IMPRESSION: Intraprocedural fluoroscopic spot images as above. See separate procedure report for more information. D/ / Brandon Sheridan MD / Brandon Sheridan MD Interpreting Provider: Brandon Sheridan MD Consult Discharge Plan - Plan Additional Instructions: SW working with pt regarding decision for placement at ECF vs return home with HHC Referrals: NONE,PCP [Primary Care Provider] - (3) COPD (chronic obstructive pulmonary disease) Qualifiers: COPD type: emphysema Emphysema type: panlobular Qualified Code(s): J43.1 - Panlobular emphysema (4) Malnutrition Qualifiers: Malnutrition type: protein-calorie malnutrition Protein-calorie malnutrition severity: mild Qualified Code(s): E44.1 - Mild protein-calorie malnutrition
[2017-11-27] MEDS ORDERED: Folic Acid 1 MG TABLET PO SCH (09:00)
[2017-11-27] MEDS ORDERED: Aspirin Enteric Coated 81 MG Tablet PO SCH (09:00)
[2017-11-27] MEDS ORDERED: Thiamine (B-1) 100 MG TABLET PO SCH (09:00)
[2017-11-27] MEDS ORDERED: Vitamin B Complex/Vit C/Vit E 1 EACH TABLET PO SCH (09:00)
[2017-11-27] MEDS: Doxycycline 100 MG CAPSULE PO SCH (11:13)
--- NOTE | 2017-11-27 15:09 | Discharge Summary ---
- NOTES TO OUTPATIENT PROVIDER Notes to Outpatient Provider: wound clinic follow up, twice weekly dressing changes there, 14d course of doxycycline on dc and pending OR cxs to be followed by podiatry Orders not resulted at time of discharge: Pending orders 11/26/17 17:23 Culture,Tissue (Biopsy) [RM] Routine 11/26/17 17:24 Surgical Pathology [PTH] Routine Date of Encounter: 11/27/17 Time of Encounter: 11:00 - Discharge Diagnosis (1) Cellulitis of right foot without toes Priority: Primary Status: Acute Assessment and Plan: Non healing Ischemic ulcer of the Right foot with surrounding Cellulitis Right foot Cellulitis improved OR 11/26 right foot revision of TMA with debridement of metatarsal bones after pt agreeable to plan xray-overall stable, no soft tissue gas, ABIs- right moderately occlusive disease ARRON right leg 0.7 with moderate stenosis Wound care podiatry following-Dr Hurley vascular surgery following- Dr Aguilar rec was for OR for amputation of the foot as per work up and podiatry and vasc surg evals which pt refused which is a discussion detailed in Dr Mosley note IV antibiotic cipro while inpt - OR bone and soft tissue cxs pending -11/27 per Podiatry may dc to home on doxy 100 mg bid 14d course and twice weekly dressing changes at the wound clinic, CM is scheduling appt prior to dc, he is non weight bearing RLE -pt adamantly refused ECF placement and no HHC needed due to dressing changes only being done 2x weekly at clinic (2) Severe tobacco use disorder Priority: Secondary Status: Chronic Assessment and Plan: Counseled extensively on the habit and resources made available. Pt continues to deny need for nicotine replacement therapy (3) COPD (chronic obstructive pulmonary disease) Priority: Secondary Status: Chronic Assessment and Plan: stable this admit Qualifiers: COPD type: emphysema Emphysema type: panlobular Qualified Code(s): J43.1 - Panlobular emphysema (4) Malnutrition Priority: Secondary Status: Acute Assessment and Plan: Nutrition followed Qualifiers: Malnutrition type: protein-calorie malnutrition Protein-calorie malnutrition severity: mild Qualified Code(s): E44.1 - Mild protein-calorie malnutrition (5) Chronic disease anemia Priority: Secondary Status: Chronic Assessment and Plan: Stable. Continue FeSO4 supplementation. (6) PAD (peripheral artery disease) Priority: Secondary Status: Chronic Assessment and Plan: Will continue DAPT and statin vasular surgery followed-he is post extensive revascularization one month ago, arron is 0.7, he continues to smoke f/u with Dr Aguilar as scheduled (7) History of alcohol abuse Priority: Secondary Status: Chronic Assessment and Plan: There is report he left AMA from the ECF and went home to drink. Alcohol level < 10. CIWA protocol in place. No s/s of withdrawal this admission (8) DVT prophylaxis Priority: Secondary Status: Acute Assessment and Plan: Heparin SQ Hospital course: Mr Krueger presented to ED with right foot cellulitis and non healing ischemic ulcer right foot. He was followed by his outpt podiatry and vasc surg physicians this admission. Received abx treatment and went to OR 11/26 for revision of TMA with debridement. Multani resolved withOR procedure and cellulitis improved. Full details of admission as noted above in a/p. He has been cleared for dc with oral doxycycline and podiatry, wound clinic follow up. SW worked extensively with pt regarding safest disposition given his recurrent admissions , non weight bearing status post procedure and he adamantly refused need for ECF at discharge and denied HHC needs given dressing changes will take place at wound clinic. dc to home in stable condition Discharge discussed with: patient - Time Spent with Patient Total time spent providing and/or coordinating discharge services: Less than 30 minutes - Discharge Medications Prescriptions: Doxycycline 100 mg PO BID 14 Days #28 capsule Home Medications: Albuterol Sulfate [Proair Hfa] 1 - 2 puff IH Q6H PRN 10/14/17 [History] Lovastatin [Mevacor] 20 mg PO QPM 10/14/17 [History] Aspirin Enteric Coated [Aspirin EC] 81 mg PO DAILY #30 tablet. 10/22/17 [Rx] Clopidogrel [Plavix] 75 mg PO DAILY #30 tablet 10/22/17 [Rx] Ferrous Sulfate 325 mg PO BIDWM #60 tablet 10/22/17 [Rx] Sucralfate [Carafate] 1 gm PO QIDAC #120 tablet 10/22/17 [Rx] Pantoprazole Sodium [Protonix] 40 mg PO BID 11/02/17 [History] Doxycycline 100 mg PO BID 14 Days #28 capsule 11/27/17 [Rx] Allergies/Adverse Reactions: 3 Allergy/AdvReac Type Severity Reaction Status Date / Time No Known Allergies Allergy Verified 11/22/17 23:25 Date of admission: 11/25/17 23:01 Primary care physician: PCP NONE Consults: 11/23/17 04:30 Consult to Podiatry [CONS] Routine Consulting Provider: [facility] Reason for Consult: Patient known to service s/p TMA presenting with complains of pain at stump after signing out AMA from [place] stating he didnt receive adequate care. Stump appears necrotic and needing wound care. Call Completed: No 11/23/17 05:19 Consult to Nutrition [CONS] Routine Comment: Consulting Provider: NUTRITION Reason for Dietary Consult: PO Supplementation Consult to Funeral Director [CONS] Routine Reason for SW Consult: patient re-admitted after discharge. Signed out from nursing facility. has bilateral amputations. non-adherent. 11/24/17 09:16 Consult to Vascular Surgery [CONS] Routine Consulting Provider: Vascular Surgery [facility] Reason for Consult: Severe diminished blood flow and necrosis of TMA Call Completed: Yes Discharging clinician: Ivonne Contreras - Constitutional Vitals: Temp Pulse Resp BP Pulse Ox 99.0 F 72 15 121/70 98 11/27/17 11:38 11/27/17 11:38 11/27/17 11:38 11/27/17 11:38 11/27/17 11:38 Exam: General: awake, alert, appears stated age Cardiovascular:regular rate and rhythm, normal S1 & S2, no murmurs. + edema, non pitting right dorsum of foot to near ankle improved Lungs:Normal breath sounds, no wheezes, or crackles. Normal respiratory effort on ra MSK: right ankle rom painless and intact Neurological: AAOx3, sensation of BL LE intact and equal to light touch Skin:right foot dorsum with mild erythema, mild non pitting edema, wound dressed and intact with some dried blood on bandage - Patient Status Disposition: Home, Self-Care Condition: Good Overall status at discharge: patient is progressing back to baseline - Discharge Instructions Follow Up With: Carly Tran MD [Partnered Physician] - (Your appointment has been requested. Our offices will call you with an appointment. ) Kobi Mosley DPM [Partnered Physician] - 12/03/17 8:30 am NONE,PCP [Primary Care Provider] - Alexis Aguilar MD [Partnered Physician] - Additional Instructions: Wound Clinic twice weekly for dressing changes as scheduled Call [facility] when you get home to have transfer board delivered. [phone] - Diet and Activity Activity: other (NON WEIGHT BEARING RIGHT LEG) Diet: low fat, low cholesterol
[2017-11-27 15:30] VITALS: BP 138/74
--- NOTE | 2017-11-27 16:57 | Podiatry Progress Note ---
Date of Encounter: 11/27/17 Time of Encounter: 12:40 - Assessment and Plan (1) Ischemic ulcer of right foot with fat layer exposed Current Visit: Yes Status: Acute s/p revision of TMA. patient sitting up in bed. Dependent position of foot feels better for patient. no necrosis of the TMA site. No erythema. No wound dehiscence. discussed surgical procedure and findings with patient. discussed with patient he should put no weight on his right foot if he has any chance to keep the leg and not cause wound healing problems. also advised if he does not quit smoking now he will be back and have an amputation of his leg sooner than later. discussed with patient going to an ECF which he refuses. Patient has been told it is in his best interest to go to the ECF to help him stay off his foot. In my opinion which he was made aware of and in others opinion if he goes home I think he will be back here in the coming weeks and need to have his leg cut off. discharge on doxycycline 100mg bid #28. follow up in wound care center in 1 week. I am not optimistic that he is going to keep his leg. Objective - Vital Signs Vital Signs: Vital Signs Temp Pulse Resp BP Pulse Ox 11/27/17 15:27 97.9 F 75 15 138/74 99 11/27/17 11:38 99.0 F 72 15 121/70 98 11/27/17 07:51 97 11/27/17 06:49 98.7 F 70 15 115/60 97 11/27/17 03:00 98.4 F 71 16 100/61 97 11/26/17 23:33 98.3 F 88 14 144/71 95 11/26/17 17:45 75 16 167/85 99 11/26/17 17:15 55 15 149/92 95 Intake and Output 11/27/17 11/27/17 11/27/17 07:59 15:59 23:59 Intake Total 600 / 600 Output Total 1999 Balance -1999 -1999 600 / 600 Intake: Oral 600 / 600 Output: Urine 1999 Other: Meal Lunch Percent of Meal Consumed 100% # Voids 2 Blood Glucose* 151 173 - Lab Result Diagrams: 11/26/17 06:12 11/26/17 06:12 Labs: Abnormal lab results Hgb 12.6 g/dL (12.9-16.9) L 11/26/17 06:12 MCHC 31.1 g/dL (31.6-35.5) L 11/26/17 06:12 Plt Count 624 K/mcL (140-400) H 11/26/17 06:12 MPV 8.8 fL (9.4-12.4) L 11/26/17 06:12 Glucose 151 mg/dL (70-105) H 11/26/17 06:12 Total Bilirubin 0.2 mg/dL (0.3-1.0) L 11/23/17 07:08 Microbiology, Last 48 Hours 11/26/17 17:23 Surgical Biopsy Culture - Preliminary Right Foot Consult Discharge Plan - Plan Additional Instructions: Wound Clinic twice weekly for dressing changes as scheduled Call [facility] when you get home to have transfer board delivered. [phone] Referrals: Carly Tran MD [Partnered Physician] - (Your appointment has been requested. Our offices will call you with an appointment. ) Kobi Mosley DPM [Partnered Physician] - 12/03/17 8:30 am NONE,PCP [Primary Care Provider] - Alexis Aguilar MD [Partnered Physician] - Prescriptions: Doxycycline 100 mg PO BID 14 Days #28 capsule
== END 2017-11-27 18:59 | disposition home or self-care (01) | DRG 314 ==
LOC: 3BNU → SUATTDRO 03:53
PROVIDERS: ADMIT Internal Medicine; ATTEND Internal Medicine

== ENCOUNTER 2017-12-01 21:35 | Observation (INO) ==
[2017-12-02] MEDS ORDERED: Aminoglycoside Consult 1 EACH MC ONE (00:10)
[2017-12-02] MEDS ORDERED: Acetaminophen 325 MG TABLET PO PRN (00:38)
[2017-12-02] MEDS ORDERED: Naloxone 0.4 MG/ML INJ IVP PRN (00:38)
[2017-12-02] MEDS: 0.9 % Sodium Chloride 1,000 ML IVC SCH ×2 (01:41→08:11)
--- NOTE | 2017-12-02 01:54 | Internal Med History&Physical ---
<Luis Mcnulty - Last Filed: 12/02/17 06:15> Date of Encounter: 12/02/17 Time of Encounter: 01:48 Internal Medicine - H&P: HPI Chief complaint: right foot swelling/pain Admitted From: Home Plans for Post Hospital Care: Transfer [facility] History of present illness: Mr. Krueger is a 62 year old male with a past medical history of arthritis, COPD, GERD, hyperlipidemia, peripheral artery disease, left [id number] amputation He presented today from [facility] secondary to worsening swelling, redness, pain in the postsurgical site of his right foot. On Thursday the patient underwent revision and debridement to TMA of his right foot. He states that over the weekend the surgical site was doing very well without swelling or redness, however over the last day he has noticed worsening swelling, redness, pain. He states that the pain is only in the foot and not in the leg, he denies fever or chills, or other systemic symptoms. He also denies chest pain or shortness of breath. Social history includes [id number] smoking history as well as occasional alcohol use, he denies recreational drugs. Past Med Surg Social Fam HX - Past Medical History Medical history: arthritis, COPD, GERD, hyperlipidemia, peripheral artery disease, other Additional medical history: patient is poor historian, PVD, CHRONIC NERVE ISSUES , USUALLY HAS BASE LINE BP 90/50'S Psychiatric history: no psych history - Past Surgical History Surgical History: vascular surgery Additional surgical history: Transmetstrsal amputation right foot 10/24, left aka , - Social History Smoking Status: Current every day smoker Smokeless Tobacco Status: No Alcohol use: occasionally, heavy Drug use: none, marijuana - Family History Mother Adopted: No Family Member Ethnicity: Non- Living Status: Father Adopted: No Family Member Ethnicity: Non- Living Status: Hx Family Cardiac Disorders: Yes Hx Family Respiratory Disorders: Yes Hx Family Cancer: Yes Hx Family GI Disorders: No Hx Family Endocrine Disorder: No Hx Family Neuromuscular Disorders: No Hx Family Neurologic Disorders: No Hx Family HEENT Disorders: No Hx Family Autoimmune Disorders: No Internal Medicine - H&P: Meds Albuterol Sulfate [Proair Hfa] 1 - 2 puff IH Q6H PRN 10/14/17 [History] Lovastatin [Mevacor] 20 mg PO QPM 10/14/17 [History] Aspirin Enteric Coated [Aspirin EC] 81 mg PO DAILY #30 tablet. 10/22/17 [Rx] Clopidogrel [Plavix] 75 mg PO DAILY #30 tablet 10/22/17 [Rx] Ferrous Sulfate 325 mg PO BIDWM #60 tablet 10/22/17 [Rx] Sucralfate [Carafate] 1 gm PO QIDAC #120 tablet 10/22/17 [Rx] Pantoprazole Sodium [Protonix] 40 mg PO BID 11/02/17 [History] Doxycycline 100 mg PO BID 14 Days #28 capsule 11/27/17 [Rx] 3 Allergy/AdvReac Type Severity Reaction Status Date / Time No Known Allergies Allergy Verified 12/01/17 21:32 All Systems PM: A 10-system review of systems was performed and is negative for pertinent findings except as documented above in the HPI. - Constitutional Constitutional: no chills, no fever(s), no malaise - Cardiovascular Cardiovascular ROS IM: no chest pain, no dyspnea - Respiratory Respiratory: no cough - Gastrointestinal Gastrointestinal: no abdominal pain, no vomiting - Musculoskeletal Musculoskeletal ROS IM: deformity, joint swelling - Integumentary Integumentary IM: erythema - Neurological Neurological ROS: no confusion, no weakness - Constitutional Vitals: Temp Pulse Resp BP Pulse Ox 98.6 F 93 15 114/67 97 12/02/17 00:38 12/02/17 00:38 12/02/17 00:38 12/02/17 00:38 12/02/17 00:38 Exam: Patient in no acute distress, alert and oriented 3 Heart in regular rate and rhythm without murmur or gallop Lung sounds diminished but otherwise clear to auscultation without wheeze or rhonchi Abdomen soft and nontender with normal bowel sounds Left lower extremity exhibiting [id number] amputation, stump without erythema or open wound Right lower extremity intact to the tarsometatarsal joint There is a very recent surgical wound at the TMT joint, wound is intact along the length except for a small approximately 3 cm x 1 cm dehiscence laterally Open area of surgical wound is clean with slight bloody drainage, no purulent drainage or evidence of abscess, no bone visible There is diffuse edema and erythema extending from the surgical wound to the hindfoot The foot is only mildly tender to palpation and not excessively warm There are markings on the right foot indicating where Doppler was performed, dorsal pedal and posterior tibial pulses are nonpalpable - Assessment and plan (1) PAD (peripheral artery disease) Current Visit: No Status: Chronic Assessment and plan: Patient was chronic peripheral arterial disease for which he has received multiple surgical interventions He also takes Plavix, held for now due to possibility of surgery (2) COPD (chronic obstructive pulmonary disease) Current Visit: No Status: Chronic Assessment and plan: Patient with chronic tobacco use history and history of COPD Currently not in any respiratory distress or complaining of cough Consider restarting home meds Qualifiers: COPD type: unspecified COPD Qualified Code(s): J44.9 - Chronic obstructive pulmonary disease, unspecified (3) Tobacco abuse Current Visit: No Status: Chronic Assessment and plan: Patient counseled on the importance of tobacco cessation He is aware that his tobacco use has contributed to his disease process and he states he wants to stop, he is trying to cut down gradually (4) Postoperative cellulitis of surgical wound Current Visit: No Status: Acute Assessment and plan: Patient with history of ischemic ulcer to the right foot secondary to peripheral artery disease He had a TMA to the right foot in October 2017, revision and debridement 11/27 secondary to infection Patient was advised to go to [facility] to avoid re-injuring the repair, he declined Patient was sent home on Doxycycline New onset Erythema and Edema and pain and white count x 2 days Patient met SIRS criteria for HR and white count however clinical disosition does not match, clinically stable Differentials include Cellulitis vs Normal Post Surgical Changes Plan, Empiric Antibiotics Vancomycin and Zosyn Consult to podiatry Blood and wound cultures Repeat CBC/BMP Qualifiers: Encounter type: initial encounter Qualified Code(s): T81.4XXA - Infection following a procedure, initial encounter - Time Spent With Patient Total time spent is greater than 50% in coordination of care (as documented) at patient's floor/unit and/or counseling patient: <Basilio Zhong - Last Filed: 12/02/17 08:15> Date of Encounter: 12/01/17 Time of Encounter: 23:30 Internal Medicine - H&P: HPI History of present illness: Mr. Krueger is a 62 year old male All Systems PM: A 10-system review of systems was performed and is negative for pertinent findings except as documented above in the HPI. - Constitutional Vitals: Temp Pulse Resp BP Pulse Ox 98.8 F 81 16 105/74 96 12/02/17 06:45 12/02/17 06:45 12/02/17 06:45 12/02/17 06:45 12/02/17 06:45 Internal Med - H&P Results - Labs CBC & Chem 7: 12/02/17 06:49 12/02/17 06:49 Labs: Short CBC 12/02/17 Range/Units 06:49 WBC 12.1 H (4.3-11.1) K/mcL Hgb 11.2 L D (12.9-16.9) g/dL Hct 35.5 L (37.5-50.1) % Plt Count 519 H (140-400) K/mcL Neutrophils # 9.7 H (1.6-8.9) K/mcL BMP 12/02/17 06:49 Sodium 142 Potassium 3.8 Chloride 113 H Carbon Dioxide 20 L BUN 14 Creatinine 0.64 L Glucose 109 H Calcium 8.7 - Assessment and plan (1) COPD (chronic obstructive pulmonary disease) Current Visit: No Status: Chronic Qualifiers: COPD type: unspecified COPD Qualified Code(s): J44.9 - Chronic obstructive pulmonary disease, unspecified (2) PAD (peripheral artery disease) Current Visit: No Status: Chronic (3) Tobacco abuse Current Visit: No Status: Chronic (4) Postoperative cellulitis of surgical wound Current Visit: No Status: Acute Qualifiers: Encounter type: initial encounter Qualified Code(s): T81.4XXA - Infection following a procedure, initial encounter - Time Spent With Patient Total time spent is greater than 50% in coordination of care (as documented) at patient's floor/unit and/or counseling patient: - Attending Attestation Patient seen and examined. Case discussed with resident. Agree with assessment and plan. We will continue antibiotics for now. Podiatry consult in the morning.
[2017-12-02] MEDS: *HR* OxyCODONE Immed Rel 5 MG TABLET PO PRN ×3 (03:58→22:03)
[2017-12-02] MEDS: *HR* HYDROcodone/Acet 5/325 mg TABLET PO PRN ×2 (06:52→14:32)
[2017-12-02 07:07] LABS: Basophils # 0.1 K/mcL (0.0-0.2); Basophils % 0.7 %; Eosinophils # 0.2 K/mcL (0.0-0.6); Eosinophils % 1.7 %; Hematocrit 35.5 % (37.5-50.1); Immature Granulocytes % 0.5 % (0-4); Lymphocytes # 1.4 K/mcL (0.6-4.6); Lymphocytes % 11.8 %; Mean Corpuscular HGB Conc 31.5 g/dL (31.6-35.5); Mean Corpuscular Hemoglobin 27.2 pg (28.0-33.3); Mean Corpuscular Volume 86.2 fL (83.0-100.0); Mean Platelet Volume 8.9 fL (9.4-12.4); Monocytes # 0.6 K/mcL (0.0-1.3); Neutrophils # 9.7 K/mcL (1.6-8.9); Platelet Count 519 K/mcL (140-400); Red Blood Count 4.12 M/mcL (4.19-5.50); Red Cell Distribution Width 14.4 % (11.5-14.5); Segmented Neutrophils % 80.3 %
[2017-12-02 07:08] LABS: Hemoglobin 11.2 g/dL (12.9-16.9)
[2017-12-02 07:28] LABS: BUN/Creatinine Ratio 22 (6-26); Blood Urea Nitrogen 14 mg/dL (8-23); Calcium 8.7 mg/dL (8.6-10.3); Carbon Dioxide 20 mEq/L (23-29); Chloride 113 mEq/L (98-107); Glucose 109 mg/dL (70-105); Osmolality,Calculated 295 (280-300); Potassium 3.8 mEq/L (3.5-5.1); Sodium 142 mEq/L (136-145); eGFR For Non-African Americans > 60 (> 60)
--- NOTE | 2017-12-02 07:42 | Podiatry Consult Note ---
Date of Encounter: 12/02/17 Time of Encounter: 06:15 Assessment and Plan (1) Ischemic ulcer of right foot with fat layer exposed Current visit: No Status: Acute says his bandage came off at home. says it has been off since coming to the hospital as well. he says the foot was looking good until yesterday. margins of the amputation stump do not have necrosis. he did develop a wound laterally on the amputation stump. no fluctuance. foot is cool to touch (same as previous). there is somet mild erythema Discussed previously with vascular and all intervention has been done. next he will require a leg amputation if this does not heal. I did discuss this again with the patient today. he should remain non- wb to the right LE. encouraged smoking cessation and discussed he will eventually lose the leg should he continue to smoke. wound care on the ulceration with silver alginate changed daily. get infectious disease consult. no podiatric surgical intervention. History of Present Illness HPI: Mr. Krueger is a 62 year old male Past Med Surg Social Fam HX - Past Medical History Medical history: arthritis, COPD, GERD, hyperlipidemia, peripheral artery disease, other Additional medical history: patient is poor historian, PVD, CHRONIC NERVE ISSUES , USUALLY HAS BASE LINE BP 90/50'S Psychiatric history: no psych history - Past Surgical History Surgical History: vascular surgery Additional surgical history: Transmetstrsal amputation right foot 10/24, left aka , - Social History Smoking Status: Current every day smoker Smokeless Tobacco Status: No Alcohol use: occasionally, heavy Drug use: none, marijuana - Family History Mother Adopted: No Family Member Ethnicity: Non- Living Status: Father Adopted: No Family Member Ethnicity: Non- Living Status: Hx Family Cardiac Disorders: Yes Hx Family Respiratory Disorders: Yes Hx Family Cancer: Yes Hx Family GI Disorders: No Hx Family Endocrine Disorder: No Hx Family Neuromuscular Disorders: No Hx Family Neurologic Disorders: No Hx Family HEENT Disorders: No Hx Family Autoimmune Disorders: No Medications and Allergies Albuterol Sulfate [Proair Hfa] 1 - 2 puff IH Q6H PRN 10/14/17 [History] Lovastatin [Mevacor] 20 mg PO QPM 10/14/17 [History] Aspirin Enteric Coated [Aspirin EC] 81 mg PO DAILY #30 tablet. 10/22/17 [Rx] Clopidogrel [Plavix] 75 mg PO DAILY #30 tablet 10/22/17 [Rx] Ferrous Sulfate 325 mg PO BIDWM #60 tablet 10/22/17 [Rx] Sucralfate [Carafate] 1 gm PO QIDAC #120 tablet 10/22/17 [Rx] Pantoprazole Sodium [Protonix] 40 mg PO BID 11/02/17 [History] Doxycycline 100 mg PO BID 14 Days #28 capsule 11/27/17 [Rx] 3 Allergy/AdvReac Type Severity Reaction Status Date / Time No Known Allergies Allergy Verified 12/01/17 21:32 All Systems Reviewed: The remainder of the systems were reviewed and are negative Physical Exam - Constitutional Vitals: Temp Pulse Resp BP Pulse Ox 98.8 F 81 16 105/74 96 12/02/17 06:45 12/02/17 06:45 12/02/17 06:45 12/02/17 06:45 12/02/17 06:45 Results - Labs Result Diagrams: 12/02/17 06:49 12/02/17 06:49 Labs: Abnormal lab results WBC 12.1 K/mcL (4.3-11.1) H 12/02/17 06:49 RBC 4.12 M/mcL (4.19-5.50) L 12/02/17 06:49 Hgb 11.2 g/dL (12.9-16.9) L D 12/02/17 06:49 Hct 35.5 % (37.5-50.1) L 12/02/17 06:49 MCH 27.2 pg (28.0-33.3) L 12/02/17 06:49 MCHC 31.5 g/dL (31.6-35.5) L 12/02/17 06:49 Plt Count 519 K/mcL (140-400) H 12/02/17 06:49 MPV 8.9 fL (9.4-12.4) L 12/02/17 06:49 Neutrophils # 9.7 K/mcL (1.6-8.9) H 12/02/17 06:49 Chloride 113 mEq/L (98-107) H 12/02/17 06:49 Carbon Dioxide 20 mEq/L (23-29) L 12/02/17 06:49 Creatinine 0.64 mg/dL (0.70-1.30) L 12/02/17 06:49 Glucose 109 mg/dL (70-105) H 12/02/17 06:49 H & H 12/02/17 Range/Units 06:49 Hgb 11.2 L D (12.9-16.9) g/dL Hct 35.5 L (37.5-50.1) % All other labs normal. Consult Discharge Plan - Plan Referrals: NONE,PCP [Primary Care Provider] -
[2017-12-02] MEDS ORDERED: Piperacillin/Tazobactam 3.375 GM in 0.9 % Sodium Chloride Mini Bag 100 ML IVPB SCH (08:00)
--- NOTE | 2017-12-02 08:50 | Internal Med Progress Note ---
Hospitalist Progress Note - Encounter Date of Encounter: 12/02/17 Time of Encounter: 08:55 - Subjective Interval History: No acute events. Patient currently has no complaints. States right foot pain stable. No fevers/chills, n/v. - Exam Vitals: Temp Pulse Resp BP Pulse Ox 98.8 F 81 16 105/74 96 12/02/17 06:45 12/02/17 06:45 12/02/17 06:45 12/02/17 06:45 12/02/17 06:45 Exam: Gen: NAD, AAO x3 CVS: RRR Lungs: CTAB Abd: soft, NT/ND Ext: Left leg AKA; stump has no edema, no erythema. Right foot has no edema, there is clean dressing over right foot without any discharge. Overall no extremity edema. Tibial pulses non palpable bilaterally and right foot cool to touch. - Assessment and Plan (1) Postoperative cellulitis of surgical wound Current Visit: No Status: Acute Assessment and Plan: Patient with history of ischemic ulcer to the right foot secondary to peripheral artery disease He had a TMA to the right foot in October 2017, revision and debridement 11/27 secondary to infection Patient was advised to go to [facility] to avoid re-injuring the repair, he declined Patient was sent home on Doxycycline New onset Erythema and Edema and pain and white count x 2 days Patient met SIRS criteria for HR and white count however may not be true sepsis Cellulitis vs normal post-surgical changes Podiatry evaluated patient this AM, no intervention planned. Continue Vanc Zosyn Differentials include Cellulitis vs Normal Post Surgical Changes ID consult Continue Vanc/Zosyn Blood and wound cultures (2) COPD (chronic obstructive pulmonary disease) Current Visit: No Status: Chronic Assessment and Plan: Patient with chronic tobacco use history and history of COPD Currently not in any respiratory distress or complaining of cough Albuterol prn (3) PAD (peripheral artery disease) Current Visit: No Status: Chronic Assessment and Plan: Patient was chronic peripheral arterial disease for which he has received multiple surgical interventions Resume Plavix since since no surgery will be done. (4) Tobacco abuse Current Visit: No Status: Chronic Assessment and Plan: Patient counseled on the importance of tobacco cessation He is aware that his tobacco use has contributed to his disease process and he states he wants to stop, he is trying to cut down gradually DVT Prophylaxis: Heparin - Time Spent with Patient Total time spent is greater than 50% in coordination of care (as documented) at patient's floor/unit and/or counseling patient: Internal Medicine: Result - Labs CBC & Chem 7: 12/02/17 06:49 12/02/17 06:49 Labs: Short CBC 12/02/17 Range/Units 06:49 WBC 12.1 H (4.3-11.1) K/mcL Hgb 11.2 L D (12.9-16.9) g/dL Hct 35.5 L (37.5-50.1) % Plt Count 519 H (140-400) K/mcL Neutrophils # 9.7 H (1.6-8.9) K/mcL BMP 12/02/17 06:49 Sodium 142 Potassium 3.8 Chloride 113 H Carbon Dioxide 20 L BUN 14 Creatinine 0.64 L Glucose 109 H Calcium 8.7 Consult Discharge Plan - Plan Referrals: NONE,PCP [Primary Care Provider] - (1) Postoperative cellulitis of surgical wound Qualifiers: Encounter type: initial encounter Qualified Code(s): T81.4XXA - Infection following a procedure, initial encounter (2) COPD (chronic obstructive pulmonary disease) Qualifiers: COPD type: unspecified COPD Qualified Code(s): J44.9 - Chronic obstructive pulmonary disease, unspecified
[2017-12-02] MEDS: Sucralfate 1 GM TABLET PO SCH ×3 (10:26→21:52)
[2017-12-02] MEDS: Aspirin Enteric Coated 81 MG Tablet PO SCH (10:26)
--- NOTE | 2017-12-02 11:19 | Infectious Disease Consult ---
Date of Encounter: 12/02/17 Time of Encounter: 11:11 Assessment and Plan (1) Sepsis Status: Resolved Assessment and plan: The patient had 2 sepsis criteria on admission. Likely secondary to right foot cellulitis. Improved. Tachycardia has resolved. White blood cell count is trending down. Blood cultures obtained 12/01/17 are pending 2 sets. Qualifiers: Sepsis type: sepsis due to unspecified organism Qualified Code(s): A41.9 - Sepsis, unspecified organism (2) Postoperative cellulitis of surgical wound Status: Acute Assessment and plan: Location: Right foot. Consult organism: Likely Morganella morgannii based on previous intraoperative cultures obtained 11/26/17. Likely secondary to right foot surgical site and patient noncompliance with dressing changes and nonweightbearing status. X-ray completed 12/01/17 showed postsurgical changes, but no other acute abnormality. Status post I&D 11/26/[address] Mcintyre. Pathology was negative for osteomyelitis. Cultures as above. Podiatry consult. Appreciate recommendations. Given that the patient had surgery about 6 days ago, additional imaging would likely be unyielding. Check ESR and CRP, although we expect these to be elevated as well given the patient's recent surgery. Discontinue vancomycin and Zosyn. Start Rocephin 2 g IV daily. Duration of treatment depends on the clinical picture. Monitor renal function and dose adjust antibiotics. Qualifiers: Encounter type: initial encounter Qualified Code(s): T81.4XXA - Infection following a procedure, initial encounter (3) Foot pain, right Status: Acute Assessment and plan: Likely secondary to postop status and right foot cellulitis. Pain management per the primary team. (4) Thrombocytosis Status: Acute Assessment and plan: Likely reactive from sepsis. Improved. Continue to trend. (5) PAD (peripheral artery disease) Status: Chronic Assessment and plan: Status post right iliofemoral endarterectomy, right iliofemoral bovine pericardial patch angioplasty, aortogram, left femoral endarterectomy, left to right femorofemoral bypass graft, right leg angiogram with balloon angioplasty of the right SFA and popliteal arteries 10/15/[address] Le. 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 Status post left BKA revision with left AKA in 2016. Right lower extremity DIONTE completed 11/23/17 showed moderately occlusive disease. Vascular surgery was consulted and did not recommend any further intervention. The patient refused a dictation. (6) History of alcohol abuse Status: Chronic (7) COPD (chronic obstructive pulmonary disease) Status: Chronic Qualifiers: COPD type: unspecified COPD Qualified Code(s): J44.9 - Chronic obstructive pulmonary disease, unspecified (8) Status post amputation of toe Status: Acute Assessment and plan: Status post right foot TMA October 2017 secondary to gangrene. Infectious Disease HPI - Data of Consult Patient: known to practice within the last 3 years Consult date: 12/02/17 Requesting Physician: Basilio Zhong MD Primary Care Provider: PCP NONE - Consult Narrative Reason for consult: Right foot infection History of present illness: Mr. Krueger is a 62 year old male with a past medical history of COPD, GERD, hyperlipidemia, PAD status post left AKA about a year and a half ago, and vascular surgery to the right lower extremity in October 2017, EtOH abuse, status post right foot TMA in October 2017. The patient was admitted to the hospital on 12/01/17 for right foot infection. We are consulted 12/02/17 for antibiotic recommendations for right foot infection. Briefly, the patient is a 62-year-old male with a past medical history as stated above. The patient is known to the ID services were consulted and his case when he was admitted to the hospital at the end of October. At that time, the patient had reported increased pain at the site of his previous right foot TMA and there was concern for cellulitis. He did undergo an MRI of the right foot that was limited due to the patient moving and was terminated early due to the patient's pain, but no osteomyelitis was noted. His ESR and CRP were 57 and 18 respectively. He was treated with IV antibiotics while admitted and transitioned to oral Bactrim and Cipro to complete a total of 14 days on discharge. On 11/22, the patient came back to the emergency room he was noted to have cellulitis at the surgical site. Podiatry was consulted and recommended possible amputation of the foot. Vascular surgery was consulted and recommended amputation, but the patient refused and opted to agressively try to save his foot. The patient was taken to the operating room on 11/26/17 performed I&D. Intraoperative cultures were obtained and came back positive for Morganella morgannii after the patient was 30 discharge. The patient was discharged on a 14 day course of oral doxycycline. He was again evaluated in the emergency department on 11/29/17. That time, he was noted to have a white blood cell count 16,000, but was discharged home with instructions to continue to follow-up with Dr. Mcintyre. He went back to the emergency department yesterday due to increased pain. Upon arrival, the patient was afebrile, but he was tachycardic. He had leukocytosis with a white count of 16,000 and thrombocytosis. Renal function was normal. Blood cultures were obtained 2 sets. He had a right foot x-ray that showed findings consistent with postsurgical changes. He was started on IV antibiotics and transferred here for further evaluation. Since admission, the patient's tachycardia has resolved. His white blood cell count is trending down. Podiatry's been consulted and they do not recommend any further surgical intervention at this time. Blood cultures obtained 12/01/17 2 sets in sets are pending. Currently, patient is on Vanco and Zosyn. We have been asked to evaluate and make further recommendations. CC: Basilio Zhong MD Past Med Surg Social Fam HX - Past Medical History Medical history: arthritis, COPD, GERD, hyperlipidemia, peripheral artery disease, other Additional medical history: patient is poor historian, PVD, CHRONIC NERVE ISSUES , USUALLY HAS BASE LINE BP 90/50'S Psychiatric history: no psych history - Past Surgical History Surgical History: vascular surgery Additional surgical history: Transmetstrsal amputation right foot 10/24, left aka , - Social History Smoking Status: Current every day smoker Smokeless Tobacco Status: No Alcohol use: occasionally, heavy Drug use: none, marijuana - Family History Mother Adopted: No Family Member Ethnicity: Non- Living Status: Father Adopted: No Family Member Ethnicity: Non- Living Status: Hx Family Cardiac Disorders: Yes Hx Family Respiratory Disorders: Yes Hx Family Cancer: Yes Hx Family GI Disorders: No Hx Family Endocrine Disorder: No Hx Family Neuromuscular Disorders: No Hx Family Neurologic Disorders: No Hx Family HEENT Disorders: No Hx Family Autoimmune Disorders: No Infectious Disease-CN:Meds Albuterol Sulfate [Proair Hfa] 1 - 2 puff IH Q6H PRN 10/14/17 [History] Lovastatin [Mevacor] 20 mg PO QPM 10/14/17 [History] Aspirin Enteric Coated [Aspirin EC] 81 mg PO DAILY #30 tablet. 10/22/17 [Rx] Clopidogrel [Plavix] 75 mg PO DAILY #30 tablet 10/22/17 [Rx] Ferrous Sulfate 325 mg PO BIDWM #60 tablet 10/22/17 [Rx] Sucralfate [Carafate] 1 gm PO QIDAC #120 tablet 10/22/17 [Rx] Pantoprazole Sodium [Protonix] 40 mg PO BID 11/02/17 [History] Doxycycline 100 mg PO BID 14 Days #28 capsule 11/27/17 [Rx] 3 Allergy/AdvReac Type Severity Reaction Status Date / Time No Known Allergies Allergy Verified 12/01/17 21:32 Exam - Constitutional Vitals: Temp Pulse Resp BP Pulse Ox 98.8 F 81 16 105/74 96 12/02/17 06:45 12/02/17 06:45 12/02/17 06:45 12/02/17 06:45 12/02/17 06:45 Infectious Disease CN: Results - Labs CBC & Chem 7: 12/03/17 00:46 12/03/17 00:46 Cultures: Cultures 12/02/17 06:43 Blood Culture - Preliminary Peripheral Venipuncture Culture is incubating and being continuously monitored for growth. Final report to follow. 12/02/17 06:47 Blood Culture - Preliminary Peripheral Venipuncture Culture is incubating and being continuously monitored for growth. Final report to follow. Consult Discharge Plan - Plan Referrals: NONE,PCP [Primary Care Provider] - - Attending Attestation I examined this patient and my medical decision-making was reviewed with the Resident Physician. I agree with the documented findings, disposition and treatment plan as described except to the extent set forth below. This is an addendum to initial consult note dictated by Kera Gibbons CNP. Please refer to Kera's note for full detail. Patient is a 62-year-old gentleman well-known to our service who was recently admitted for possible cellulitis of the right foot TMA that was done previously. At that time he had an MRI of the right foot but we could not finish the MRI because of the patient's pain. But no osteomyelitis was noted to have. Patient Intra-Op cultures were positive for mono's, Enterobacter and Morganella and was treated with by mouth Levaquin. Patient came back later where he had an I&D and revision of TMA with debridement of metatarsal bones on 11/26/2017. Intraoperative cultures grew Morganella. Patient comes back with pain and swelling and erythema. I saw the patient today and his stump really does not look that impressive. Podiatry also evaluated and there were not really impressed. Based on the most recent cultures and clinical findings I will start the patient on Rocephin. We always worry about treating Morganella with a beta-lactam because of the AmpC gene but we will give it a chance to see how he does. If I get a CT of his stump right now only showed a lot of inflammation and edema because he just had the surgery 6 days prior. I will discuss with podiatry to see if they have any more recommendations. Monitor labs and for drug toxicity.
[2017-12-02] MEDS: cefTRIAXone 2,000 MG in 0.9 % Sodium Chloride Mini Bag 100 ML IVPB SCH (12:09)
[2017-12-02 12:11] LABS: C-Reactive Protein 19 mg/L (Less than 10)
[2017-12-02] MEDS: *HR* Heparin 5,000 UNIT/ML VIAL SQ SCH ×2 (14:32→21:52)
[2017-12-03 01:14] LABS: Basophils # 0.1 K/mcL (0.0-0.2); Basophils % 0.8 %; Eosinophils # 0.6 K/mcL (0.0-0.6); Eosinophils % 5.7 %; Hematocrit 32.4 % (37.5-50.1); Immature Granulocytes % 0.5 % (0-4); Lymphocytes # 2.2 K/mcL (0.6-4.6); Lymphocytes % 22.1 %; Mean Corpuscular HGB Conc 30.9 g/dL (31.6-35.5); Mean Corpuscular Hemoglobin 27.2 pg (28.0-33.3); Mean Corpuscular Volume 88.3 fL (83.0-100.0); Mean Platelet Volume 8.9 fL (9.4-12.4); Monocytes # 0.8 K/mcL (0.0-1.3); Neutrophils # 6.1 K/mcL (1.6-8.9); Platelet Count 450 K/mcL (140-400); Red Blood Count 3.67 M/mcL (4.19-5.50); Red Cell Distribution Width 14.3 % (11.5-14.5); Segmented Neutrophils % 62.9 %
[2017-12-03 01:32] LABS: BUN/Creatinine Ratio 18 (6-26); Blood Urea Nitrogen 11 mg/dL (8-23); Calcium 8.2 mg/dL (8.6-10.3); Carbon Dioxide 23 mEq/L (23-29); Chloride 106 mEq/L (98-107); Glucose 114 mg/dL (70-105); Osmolality,Calculated 280 (280-300); Sodium 135 mEq/L (136-145); eGFR For Non-African Americans > 60 (> 60)
[2017-12-03] MEDS: *HR* Heparin 5,000 UNIT/ML VIAL SQ SCH ×3 (06:31→20:49)
[2017-12-03] MEDS: Sucralfate 1 GM TABLET PO SCH ×4 (07:49→20:49)
[2017-12-03] MEDS: *HR* OxyCODONE Immed Rel 5 MG TABLET PO PRN (07:49)
[2017-12-03] MEDS: Aspirin Enteric Coated 81 MG Tablet PO SCH (07:49)
[2017-12-03] MEDS: cefTRIAXone 2,000 MG in 0.9 % Sodium Chloride Mini Bag 100 ML IVPB SCH (07:49)
--- NOTE | 2017-12-03 10:14 | Internal Med Progress Note ---
Hospitalist Progress Note - Encounter Date of Encounter: 12/03/17 Time of Encounter: 10:12 - Subjective Interval History: No acute events. No complaints. No fevers/chills, n/v. - Exam Vitals: Temp Pulse Resp BP Pulse Ox 99.1 F 68 16 116/73 97 12/03/17 06:57 12/03/17 06:57 12/03/17 06:57 12/03/17 06:57 12/03/17 04:02 Exam: Gen: NAD, AAO x3 CVS: RRR Lungs: CTAB Abd: soft, NT/ND Ext: Left leg AKA; stump has no edema, no erythema. Right foot has no edema, lateral ulceration clean, no active bleed. Less edema at foot amputation sit. faint erythema. No drainage. Sutures clean and intact. - Assessment and Plan (1) Sepsis Current Visit: No Status: Resolved Assessment and Plan: 2 SIRS criteria on admission Source if right foot cellulitis at recent amputation site from non-compliance with dressing changes. ID following, currently on Rocephin. WBC improved now wnl Awaiting cultures. (2) Postoperative cellulitis of surgical wound Current Visit: No Status: Acute Assessment and Plan: Patient with history of ischemic ulcer to the right foot secondary to peripheral artery disease He had a TMA to the right foot in October 2017, revision and debridement 11/27 secondary to infection Patient was advised to go to [facility] to avoid re-injuring the repair, he declined Patient was sent home on Doxycycline New onset of Erythema and Edema Patient met SIRS criteria for HR and white count Cellulitis vs normal post-surgical changes Podiatry evaluated patient this AM, no intervention planned. Differentials include Cellulitis vs Normal Post Surgical Changes ID consulted, recommendations appreciated Rocephin IV daily. Blood and wound cultures (3) COPD (chronic obstructive pulmonary disease) Current Visit: No Status: Chronic Assessment and Plan: Patient with chronic tobacco use history and history of COPD Currently not in any respiratory distress or complaining of cough Albuterol prn (4) PAD (peripheral artery disease) Current Visit: No Status: Chronic Assessment and Plan: Patient was chronic peripheral arterial disease for which he has received multiple surgical interventions Continue aspirin and Plavix. (5) Tobacco abuse Current Visit: No Status: Chronic Assessment and Plan: Patient counseled on the importance of tobacco cessation He is aware that his tobacco use has contributed to his disease process and he states he wants to stop, he is trying to cut down gradually DVT Prophylaxis: Heparin - Time Spent with Patient Total time spent is greater than 50% in coordination of care (as documented) at patient's floor/unit and/or counseling patient: Internal Medicine: Result - Labs CBC & Chem 7: 12/03/17 00:46 12/03/17 00:46 Labs: Short CBC 12/03/17 Range/Units 00:46 WBC 9.7 (4.3-11.1) K/mcL Hgb 10.0 L (12.9-16.9) g/dL Hct 32.4 L (37.5-50.1) % Plt Count 450 H (140-400) K/mcL Neutrophils # 6.1 (1.6-8.9) K/mcL BMP 12/02/17 12/03/17 06:49 00:46 Sodium 142 135 L Potassium 3.8 4.0 Chloride 113 H 106 Carbon Dioxide 20 L 23 BUN 14 11 Creatinine 0.64 L 0.61 L Glucose 109 H 114 H Calcium 8.7 8.2 L Consult Discharge Plan - Plan Referrals: NONE,PCP [Primary Care Provider] - (1) Sepsis Qualifiers: Sepsis type: sepsis due to unspecified organism Qualified Code(s): A41.9 - Sepsis, unspecified organism (2) Postoperative cellulitis of surgical wound Qualifiers: (3) COPD (chronic obstructive pulmonary disease) Qualifiers: COPD type: unspecified COPD Qualified Code(s): J44.9 - Chronic obstructive pulmonary disease, unspecified
[2017-12-03] MEDS: *HR* HYDROcodone/Acet 5/325 mg TABLET PO PRN ×2 (11:46→20:49)
--- NOTE | 2017-12-03 14:29 | Infectious Disease Progress No ---
Date of Encounter: 12/03/17 Time of Encounter: 10:55 - Assessment and Plan (1) Sepsis Current Visit: No Status: Resolved The patient had 2 sepsis criteria on admission. Likely secondary to right foot cellulitis. Improved. Tachycardia has resolved. White blood cell count is trending down. Blood cultures obtained 12/01/17 are no growth to date 2 sets. Qualifiers: Sepsis type: sepsis due to unspecified organism Qualified Code(s): A41.9 - Sepsis, unspecified organism (2) Postoperative cellulitis of surgical wound Current Visit: No Status: Acute Location: Right foot. Consult organism: Likely Morganella morgannii based on previous intraoperative cultures obtained 11/26/17. Likely secondary to right foot surgical site and patient noncompliance with dressing changes and nonweightbearing status. X-ray completed 12/01/17 showed postsurgical changes, but no other acute abnormality. Status post I&D 11/26/[address] Mcintyre. Pathology was negative for osteomyelitis. Cultures as above. Podiatry consult. Appreciate recommendations. Given that the patient had surgery about 6 days ago, additional imaging would likely be unyielding. ESR mildly elevated at 53 with a CRP of 19. Continue Rocephin 2 g IV daily. Duration of treatment depends on the clinical picture. Likely, the foot does not appear that bad. We will likely be able to transition to oral antibiotics when ready for discharge. Monitor renal function and dose adjust antibiotics. Qualifiers: Encounter type: initial encounter Qualified Code(s): T81.4XXA - Infection following a procedure, initial encounter (3) Foot pain, right Current Visit: No Status: Acute Likely secondary to postop status and right foot cellulitis. Pain management per the primary team. (4) Thrombocytosis Current Visit: No Status: Acute Likely reactive from sepsis. Improved. Continue to trend. (5) PAD (peripheral artery disease) Current Visit: No Status: Chronic Status post right iliofemoral endarterectomy, right iliofemoral bovine pericardial patch angioplasty, aortogram, left femoral endarterectomy, left to right femorofemoral bypass graft, right leg angiogram with balloon angioplasty of the right SFA and popliteal arteries 10/15/[address] Le. 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 Status post left BKA revision with left AKA in 2016. Right lower extremity DIONTE completed 11/23/17 showed moderately occlusive disease. Vascular surgery was consulted and did not recommend any further intervention. The patient refused an amputation. (6) History of alcohol abuse Current Visit: No Status: Chronic (7) COPD (chronic obstructive pulmonary disease) Current Visit: No Status: Chronic Qualifiers: COPD type: unspecified COPD Qualified Code(s): J44.9 - Chronic obstructive pulmonary disease, unspecified (8) Status post amputation of toe Current Visit: Yes Status: Acute - Subjective Interval history: Patient seen and examined. No acute events noted overnight. Patient states overall his right foot feels better. He denies any fevers or chills or rigors. Denies chest pain, shortness of breath, or cough. Denies nausea, vomiting, diarrhea, or constipation. Denies abdominal pain, urinary complaints, or appetite changes. His only complaint is pain in the right foot. He denies any oral thrush or new skin lesions. Infect Dis PN-Objective Data - Labs CBC & Chem 7: 12/03/17 00:46 12/03/17 00:46 Labs: Laboratory Results - last 24 hr 12/03/17 12/03/17 00:46 00:46 WBC 9.7 RBC 3.67 L Hgb 10.0 L Hct 32.4 L MCV 88.3 MCH 27.2 L MCHC 30.9 L RDW 14.3 Plt Count 450 H MPV 8.9 L Immature Gran % 0.5 Seg Neutrophils % 62.9 Lymphocytes % 22.1 Monocytes % 8.0 Eosinophils % 5.7 Basophils % 0.8 Neutrophils # 6.1 Lymphocytes # 2.2 Monocytes # 0.8 Eosinophils # 0.6 Basophils # 0.1 Sodium 135 L Potassium 4.0 Chloride 106 Carbon Dioxide 23 BUN 11 Creatinine 0.61 L Est GFR ( Amer) > 60 Est GFR (Non-Af Amer) > 60 BUN/Creatinine Ratio 18 Glucose 114 H Calculated Osmolality 280 Calcium 8.2 L Cultures: Cultures 12/02/17 06:43 Blood Culture - Preliminary Peripheral Venipuncture Culture is incubating and being continuously monitored for growth. Final report to follow. 12/02/17 06:47 Blood Culture - Preliminary Peripheral Venipuncture Culture is incubating and being continuously monitored for growth. Final report to follow. Exam - Constitutional Vitals: Temp Pulse Resp BP Pulse Ox 98.6 F 66 16 104/60 97 12/03/17 11:25 12/03/17 11:25 12/03/17 11:25 12/03/17 11:25 12/03/17 11:25 General appearance: average body habitus, cooperative, no acute distress - Head Head exam: Present: atraumatic, normal inspection, normocephalic - Eye Eye exam: Present: EOMI, normal appearance, PERRL Pupils: Present: normal accommodation - ENT ENT exam: Present: mucous membranes moist - Neck Neck exam: Present: normal inspection - Respiratory Respiratory exam: Present: CTAB. Absent: rales, respiratory distress, rhonchi, wheezes - Cardiovascular Cardiovascular exam: Present: RRR, +S1, +S2 - GI/Abdominal GI/Abdominal exam: Present: normal bowel sounds, soft. Absent: distended, tenderness - Extremities Exam Extremities exam: Present: pedal edema (Right foot), tenderness (Right foot). Absent: normal inspection (Previous TMA surgical site with sutures intact. Small area of wound dehiscence noted to the lateral aspect with serosanguineous drainage noted. Mild surrounding erythema that appears improved today. No warmth or tenderness noted on exam. No fluctuance.) - Neurological Exam Neurological exam: Present: alert, oriented X3, no focal deficits - Psychiatric Psychiatric exam: Present: normal affect, normal mood - Skin Skin exam: Present: dry, intact, normal color, warm Consult Discharge Plan - Plan Referrals: NONE,PCP [Primary Care Provider] - - Attending Attestation I examined this patient and my medical decision-making was reviewed with the Resident Physician. I agree with the documented findings, disposition and treatment plan as described except to the extent set forth below.
--- NOTE | 2017-12-03 18:10 | Event Note ---
Date of Encounter: 12/03/17 Time of Encounter: 03:00 Discharge on oral antibiotics. Follow up in wound care center. Dressing changes daily while in hospital with calcium alginate and upon discharge 3x week- calcium alginate, 4x4 gauze, kerlix. F/U in wound care center next AM.
[2017-12-04 01:55] LABS: Basophils % 0.4 %; Eosinophils # 0.4 K/mcL (0.0-0.6); Eosinophils % 3.7 %; Hematocrit 35.1 % (37.5-50.1); Hemoglobin 10.9 g/dL (12.9-16.9); Immature Granulocytes % 0.5 % (0-4); Lymphocytes # 3.2 K/mcL (0.6-4.6); Mean Corpuscular HGB Conc 31.1 g/dL (31.6-35.5); Mean Corpuscular Hemoglobin 27.5 pg (28.0-33.3); Mean Corpuscular Volume 88.6 fL (83.0-100.0); Mean Platelet Volume 9.1 fL (9.4-12.4); Monocytes % 9.4 %; Platelet Count 515 K/mcL (140-400); Red Blood Count 3.96 M/mcL (4.19-5.50); Red Cell Distribution Width 14.4 % (11.5-14.5)
[2017-12-04 02:15] LABS: BUN/Creatinine Ratio 17 (6-26); Blood Urea Nitrogen 14 mg/dL (8-23); Calcium 8.9 mg/dL (8.6-10.3); Carbon Dioxide 28 mEq/L (23-29); Chloride 104 mEq/L (98-107); Glucose 127 mg/dL (70-105); Osmolality,Calculated 288 (280-300); Potassium 4.3 mEq/L (3.5-5.1); Sodium 138 mEq/L (136-145); eGFR For Non-African Americans > 60 (> 60)
[2017-12-04] MEDS: *HR* Heparin 5,000 UNIT/ML VIAL SQ SCH ×3 (05:18→22:24)
[2017-12-04] MEDS: *HR* OxyCODONE Immed Rel 5 MG TABLET PO PRN ×2 (05:18→19:25)
[2017-12-04] MEDS: Aspirin Enteric Coated 81 MG Tablet PO SCH (08:25)
[2017-12-04] MEDS: Sucralfate 1 GM TABLET PO SCH ×4 (08:25→22:24)
[2017-12-04] MEDS: cefTRIAXone 2,000 MG in 0.9 % Sodium Chloride Mini Bag 100 ML IVPB SCH (08:25)
[2017-12-04] MEDS: *HR* HYDROcodone/Acet 5/325 mg TABLET PO PRN ×2 (08:29→22:24)
--- NOTE | 2017-12-04 12:56 | Internal Med Progress Note ---
Hospitalist Progress Note - Encounter Date of Encounter: 12/04/17 Time of Encounter: 12:54 - Subjective Interval History: No acute events. No complaints. No fevers/chills, n/v. Pending home health set up since patient refuses ECF since previous admission and also will need help with dressing changes. - Exam Vitals: Temp Pulse Resp BP Pulse Ox 98.2 F 76 18 117/55 98 12/04/17 11:31 12/04/17 11:31 12/04/17 11:31 12/04/17 11:31 12/04/17 11:31 Exam: Gen: NAD, AAO x3 CVS: RRR Lungs: CTAB Abd: soft, NT/ND Ext: Left leg AKA; stump has no edema, no erythema. Right foot has no edema, lateral ulceration clean, no active bleed. Less edema at foot amputation sit. faint erythema. No drainage. Sutures clean and intact. - Assessment and Plan (1) Sepsis Current Visit: No Status: Resolved Assessment and Plan: 2 SIRS criteria on admission Source if right foot cellulitis at recent amputation site from non-compliance with dressing changes. ID following, currently on Rocephin. WBC improved now wnl Cultures no growth to date Resolved, transition to PO abx on discharge. Pending Home healthcare set up. (2) Postoperative cellulitis of surgical wound Current Visit: No Status: Acute Assessment and Plan: Patient with history of ischemic ulcer to the right foot secondary to peripheral artery disease He had a TMA to the right foot in October 2017, revision and debridement 11/27 secondary to infection Patient was advised to go to ECF to avoid re-injuring the repair, he declined Patient was sent home on Doxycycline New onset of Erythema and Edema Patient met SIRS criteria for HR and white count Cellulitis vs normal post-surgical changes Podiatry evaluated patient this AM, no intervention planned. Differentials include Cellulitis vs Normal Post Surgical Changes ID consulted, recommendations appreciated Rocephin IV daily. Blood and wound cultures (3) COPD (chronic obstructive pulmonary disease) Current Visit: No Status: Chronic Assessment and Plan: Patient with chronic tobacco use history and history of COPD Currently not in any respiratory distress or complaining of cough Albuterol prn (4) PAD (peripheral artery disease) Current Visit: No Status: Chronic Assessment and Plan: Patient was chronic peripheral arterial disease for which he has received multiple surgical interventions Continue aspirin and Plavix. (5) Tobacco abuse Current Visit: No Status: Chronic Assessment and Plan: Patient counseled on the importance of tobacco cessation He is aware that his tobacco use has contributed to his disease process and he states he wants to stop, he is trying to cut down gradually - Time Spent with Patient Total time spent is greater than 50% in coordination of care (as documented) at patient's floor/unit and/or counseling patient: Internal Medicine: Result - Labs CBC & Chem 7: 12/04/17 00:37 12/04/17 00:37 Labs: Short CBC 12/04/17 Range/Units 00:37 WBC 10.6 (4.3-11.1) K/mcL Hgb 10.9 L (12.9-16.9) g/dL Hct 35.1 L (37.5-50.1) % Plt Count 515 H (140-400) K/mcL Neutrophils # 6.0 (1.6-8.9) K/mcL BMP 12/04/17 00:37 Sodium 138 Potassium 4.3 Chloride 104 Carbon Dioxide 28 BUN 14 Creatinine 0.81 Glucose 127 H Calcium 8.9 Consult Discharge Plan - Plan Referrals: Kobi Mosley DPM [Partnered Physician] - 12/10/17 8:30 am (Follow up in Wound Care) NONE,PCP [Primary Care Provider] - (1) Sepsis Qualifiers: Sepsis type: sepsis due to unspecified organism Qualified Code(s): A41.9 - Sepsis, unspecified organism (2) Postoperative cellulitis of surgical wound Qualifiers: Encounter type: initial encounter Qualified Code(s): T81.4XXA - Infection following a procedure, initial encounter (3) COPD (chronic obstructive pulmonary disease) Qualifiers: COPD type: unspecified COPD Qualified Code(s): J44.9 - Chronic obstructive pulmonary disease, unspecified
[2017-12-04] MEDS: Cefdinir 300 MG CAPSULE PO SCH (19:24)
[2017-12-05 02:12] LABS: Basophils % 0.3 %; Eosinophils # 0.3 K/mcL (0.0-0.6); Eosinophils % 2.4 %; Hematocrit 36.3 % (37.5-50.1); Hemoglobin 11.2 g/dL (12.9-16.9); Immature Granulocytes % 0.4 % (0-4); Lymphocytes # 4.2 K/mcL (0.6-4.6); Lymphocytes % 35.6 %; Mean Corpuscular HGB Conc 30.9 g/dL (31.6-35.5); Mean Corpuscular Hemoglobin 27.1 pg (28.0-33.3); Mean Corpuscular Volume 87.9 fL (83.0-100.0); Mean Platelet Volume 9.2 fL (9.4-12.4); Monocytes % 8.7 %; Neutrophils # 6.2 K/mcL (1.6-8.9); Platelet Count 530 K/mcL (140-400); Red Blood Count 4.13 M/mcL (4.19-5.50); Red Cell Distribution Width 14.6 % (11.5-14.5); Segmented Neutrophils % 52.6 %
[2017-12-05 02:26] LABS: BUN/Creatinine Ratio 27 (6-26); Blood Urea Nitrogen 20 mg/dL (8-23); Carbon Dioxide 26 mEq/L (23-29); Chloride 101 mEq/L (98-107); Glucose 141 mg/dL (70-105); Osmolality,Calculated 283 (280-300); Potassium 4.4 mEq/L (3.5-5.1); Sodium 134 mEq/L (136-145); eGFR For Non-African Americans > 60 (> 60)
[2017-12-05] MEDS: *HR* Heparin 5,000 UNIT/ML VIAL SQ SCH ×3 (05:11→22:06)
[2017-12-05] MEDS: *HR* OxyCODONE Immed Rel 5 MG TABLET PO PRN ×3 (05:12→23:52)
[2017-12-05] MEDS: Cefdinir 300 MG CAPSULE PO SCH ×2 (09:16→20:52)
[2017-12-05] MEDS: Sucralfate 1 GM TABLET PO SCH ×4 (09:16→22:06)
[2017-12-05] MEDS: Aspirin Enteric Coated 81 MG Tablet PO SCH (09:17)
--- NOTE | 2017-12-05 12:44 | Internal Med Progress Note ---
Hospitalist Progress Note - Encounter Date of Encounter: 12/05/17 Time of Encounter: 12:40 - Subjective Interval History: No acute events. No complaints. No fevers/chills, n/v. Home health could not be set up. Pending home health set up since patient refuses ECF since previous admission and also will need help with dressing changes. - Exam Vitals: Temp Pulse Resp BP Pulse Ox 97.8 F 84 14 123/65 95 12/05/17 11:33 12/05/17 11:33 12/05/17 11:33 12/05/17 11:33 12/05/17 11:33 Exam: Gen: NAD, AAO x3 CVS: RRR Lungs: CTAB Abd: soft, NT/ND Ext: Left leg AKA; stump has no edema, no erythema. Right foot has no edema, lateral ulceration clean, no active bleed. Less edema at foot amputation sit. faint erythema. No drainage. Sutures clean and intact. - Assessment and Plan (1) Sepsis Current Visit: No Status: Resolved Assessment and Plan: 2 SIRS criteria on admission Source if right foot cellulitis at recent amputation site from non-compliance with dressing changes. ID following, currently on Rocephin. WBC improved now wnl Cultures no growth to date Transitioned to Omnicef Patient now willing to have PT/OT evaluate, and is also agreeable to ECF if PT/ OT recommends so. Awaiting PT/OT recs. (2) Postoperative cellulitis of surgical wound Current Visit: No Status: Acute Assessment and Plan: Patient with history of ischemic ulcer to the right foot secondary to peripheral artery disease He had a TMA to the right foot in October 2017, revision and debridement 11/27 secondary to infection Patient was advised to go to ECF to avoid re-injuring the repair, he declined Patient was sent home on Doxycycline New onset of Erythema and Edema Patient met SIRS criteria for HR and white count Cellulitis vs normal post-surgical changes Podiatry evaluated patient this AM, no intervention planned. Differentials include Cellulitis vs Normal Post Surgical Changes ID consulted, recommendations appreciated Rocephin IV daily. Blood and wound cultures (3) COPD (chronic obstructive pulmonary disease) Current Visit: No Status: Chronic Assessment and Plan: Patient with chronic tobacco use history and history of COPD Currently not in any respiratory distress or complaining of cough Albuterol prn (4) PAD (peripheral artery disease) Current Visit: No Status: Chronic Assessment and Plan: Patient was chronic peripheral arterial disease for which he has received multiple surgical interventions Continue aspirin and Plavix. (5) Tobacco abuse Current Visit: No Status: Chronic Assessment and Plan: Patient counseled on the importance of tobacco cessation He is aware that his tobacco use has contributed to his disease process and he states he wants to stop, he is trying to cut down gradually DVT Prophylaxis: Heparin - Time Spent with Patient Total time spent is greater than 50% in coordination of care (as documented) at patient's floor/unit and/or counseling patient: Internal Medicine: Result - Labs CBC & Chem 7: 12/05/17 01:33 12/05/17 01:33 Labs: Short CBC 12/05/17 Range/Units 01:33 WBC 11.8 H (4.3-11.1) K/mcL Hgb 11.2 L (12.9-16.9) g/dL Hct 36.3 L (37.5-50.1) % Plt Count 530 H (140-400) K/mcL Neutrophils # 6.2 (1.6-8.9) K/mcL BMP 12/05/17 01:33 Sodium 134 L Potassium 4.4 Chloride 101 Carbon Dioxide 26 BUN 20 Creatinine 0.75 Glucose 141 H Calcium 9.0 Consult Discharge Plan - Plan Additional Instructions: Please call [facility] for a ride to appointments @ [phone]. Call them at least 1 day before your appointment. (phone number provided by patient from [facility]) Referrals: Kobi Mosley DPM [Partnered Physician] - 12/10/17 8:30 am (Follow up in Wound Care) Tyree Abreu DO [Partnered Physician] - 12/09/17 4:00 pm (1) Sepsis Qualifiers: Sepsis type: sepsis due to unspecified organism Qualified Code(s): A41.9 - Sepsis, unspecified organism (2) Postoperative cellulitis of surgical wound Qualifiers: Encounter type: initial encounter Qualified Code(s): T81.4XXA - Infection following a procedure, initial encounter (3) COPD (chronic obstructive pulmonary disease) Qualifiers: COPD type: unspecified COPD Qualified Code(s): J44.9 - Chronic obstructive pulmonary disease, unspecified
[2017-12-05] MEDS: *HR* HYDROcodone/Acet 5/325 mg TABLET PO PRN ×2 (14:32→20:52)
[2017-12-06] MEDS: *HR* HYDROcodone/Acet 5/325 mg TABLET PO PRN ×3 (03:37→20:00)
[2017-12-06] MEDS: *HR* Heparin 5,000 UNIT/ML VIAL SQ SCH ×3 (05:52→22:44)
[2017-12-06] MEDS: Aspirin Enteric Coated 81 MG Tablet PO SCH (08:01)
[2017-12-06] MEDS: Cefdinir 300 MG CAPSULE PO SCH ×2 (08:01→20:00)
[2017-12-06] MEDS: Sucralfate 1 GM TABLET PO SCH ×4 (08:01→22:44)
--- NOTE | 2017-12-06 08:35 | Internal Med Progress Note ---
Hospitalist Progress Note - Encounter Date of Encounter: 12/06/17 Time of Encounter: 08:40 - Subjective Interval History: No acute events. No complaints. Eating breakfast, pleasant No fevers/chills, n/v. Patient now willing to go to ECF or receive home health. He has refused ECF in the past. Pending PT/OT evaluation for discharge planning. - Exam Vitals: Temp Pulse Resp BP Pulse Ox 98.0 F 74 16 102/62 97 12/06/17 07:04 12/06/17 07:04 12/06/17 07:04 12/06/17 07:04 12/06/17 07:04 Exam: Gen: NAD, AAO x3 CVS: RRR Lungs: CTAB Abd: soft, NT/ND Ext: Left leg AKA; stump has no edema, no erythema. Right lateral ulceration clean, no active bleed. Less edema at foot amputation sit. No drainage. Sutures clean and intact. - Assessment and Plan (1) Sepsis Current Visit: No Status: Resolved Assessment and Plan: 2 SIRS criteria on admission Source if right foot cellulitis at recent amputation site from non-compliance with dressing changes. ID following WBC improved now wnl Cultures no growth to date Transitioned to Omnicef and Rocephin DC'd Patient now willing to go to ECF or receive home health. He has refused ECF in the past. Pending PT/OT evaluation for discharge planning. He is high risk for further morbidity and mortality if he is discharged home. (2) Postoperative cellulitis of surgical wound Current Visit: No Status: Acute Assessment and Plan: Patient with history of ischemic ulcer to the right foot secondary to peripheral artery disease He had a TMA to the right foot in October 2017, revision and debridement 11/27 secondary to infection Patient was advised to go to ECF to avoid re-injuring the repair, he declined Patient was sent home on Doxycycline New onset of Erythema and Edema Patient met SIRS criteria for HR and white count Cellulitis vs normal post-surgical changes Podiatry evaluated patient Continue Omnicef, Rocephin was DC'd (3) COPD (chronic obstructive pulmonary disease) Current Visit: No Status: Chronic Assessment and Plan: Patient with chronic tobacco use history and history of COPD Currently not in any respiratory distress or complaining of cough Albuterol prn (4) PAD (peripheral artery disease) Current Visit: No Status: Chronic Assessment and Plan: Patient was chronic peripheral arterial disease for which he has received multiple surgical interventions Continue aspirin and Plavix. (5) Tobacco abuse Current Visit: No Status: Chronic Assessment and Plan: Patient counseled on the importance of tobacco cessation He is aware that his tobacco use has contributed to his disease process and he states he wants to stop, he is trying to cut down gradually DVT Prophylaxis: Heparin - Time Spent with Patient Total time spent is greater than 50% in coordination of care (as documented) at patient's floor/unit and/or counseling patient: Internal Medicine: Result - Labs CBC & Chem 7: 12/05/17 01:33 12/05/17 01:33 Consult Discharge Plan - Plan Additional Instructions: Please call [facility] for a ride to appointments @ [phone]. Call them at least 1 day before your appointment. (phone number provided by patient from [facility]) Referrals: Kobi Mosley DPM [Partnered Physician] - 12/10/17 8:30 am (Follow up in Wound Care) Tyree Abreu DO [Partnered Physician] - 12/09/17 4:00 pm (1) Sepsis Qualifiers: Sepsis type: sepsis due to unspecified organism Qualified Code(s): A41.9 - Sepsis, unspecified organism (2) Postoperative cellulitis of surgical wound Qualifiers: Encounter type: initial encounter Qualified Code(s): T81.4XXA - Infection following a procedure, initial encounter (3) COPD (chronic obstructive pulmonary disease) Qualifiers: COPD type: unspecified COPD Qualified Code(s): J44.9 - Chronic obstructive pulmonary disease, unspecified
[2017-12-06] MEDS: *HR* OxyCODONE Immed Rel 5 MG TABLET PO PRN ×2 (17:17→23:24)
[2017-12-07] MEDS: *HR* Heparin 5,000 UNIT/ML VIAL SQ SCH (05:19)
[2017-12-07] MEDS: Cefdinir 300 MG CAPSULE PO SCH (09:16)
[2017-12-07] MEDS: Sucralfate 1 GM TABLET PO SCH ×2 (09:16→11:53)
[2017-12-07] MEDS: Aspirin Enteric Coated 81 MG Tablet PO SCH (09:16)
[2017-12-07] MEDS: *HR* OxyCODONE Immed Rel 5 MG TABLET PO PRN (09:21)
[2017-12-07 11:19] VITALS: BP 116/75
--- NOTE | 2017-12-07 11:52 | Discharge Summary ---
Date of Encounter: 12/07/17 Time of Encounter: 11:49 - Discharge Diagnosis (1) Sepsis Priority: Primary Status: Resolved Qualifiers: Sepsis type: sepsis due to unspecified organism Qualified Code(s): A41.9 - Sepsis, unspecified organism (2) Postoperative cellulitis of surgical wound Priority: Secondary Status: Acute Qualifiers: Encounter type: initial encounter Qualified Code(s): T81.4XXA - Infection following a procedure, initial encounter (3) COPD (chronic obstructive pulmonary disease) Priority: Secondary Status: Chronic Qualifiers: COPD type: unspecified COPD Qualified Code(s): J44.9 - Chronic obstructive pulmonary disease, unspecified (4) PAD (peripheral artery disease) Priority: Secondary Status: Chronic (5) Tobacco abuse Priority: Secondary Status: Chronic Hospital course: Mr. Krueger is a 62 year old male with a past medical history of arthritis, COPD, GERD, hyperlipidemia, peripheral artery disease, left [id number] amputation He presented today from [place] secondary to worsening swelling, redness, pain in the postsurgical site of his right foot. On Thursday the patient underwent revision and debridement to TMA of his right foot. He states that over the weekend the surgical site was doing very well without swelling or redness, however over the last day he has noticed worsening swelling, redness, pain. He states that the pain is only in the foot and not in the leg, he denies fever or chills, or other systemic symptoms. He was admitted for postoperative cellulitis that was failed outpatient therapy. There may have been non-compliance with wound care while at home. Podiatry was consulted and no intervention is needed as of now. He was emperically started on Vanc/Zosyn during admission. He did not appear toxic or septic but he did meet sepsis criteria. ID was consulted and he was started on IV Rocephin and de escalated to Omnicef without issue. PT/OT evaluated and recommended home health with wound care services. - Time Spent with Patient Total time spent providing and/or coordinating discharge services: - Discharge Medications Prescriptions: Cefdinir [Omnicef] 300 mg PO BID #14 capsule Home Medications: Albuterol Sulfate [Proair Hfa] 1 - 2 puff IH Q6H PRN 10/14/17 [History] Lovastatin [Mevacor] 20 mg PO QPM 10/14/17 [History] Aspirin Enteric Coated [Aspirin EC] 81 mg PO DAILY #30 tablet. 10/22/17 [Rx] Clopidogrel [Plavix] 75 mg PO DAILY #30 tablet 10/22/17 [Rx] Ferrous Sulfate 325 mg PO BIDWM #60 tablet 10/22/17 [Rx] Sucralfate [Carafate] 1 gm PO QIDAC #120 tablet 10/22/17 [Rx] Pantoprazole Sodium [Protonix] 40 mg PO BID 11/02/17 [History] Cefdinir [Omnicef] 300 mg PO BID #14 capsule 12/07/17 [Rx] Allergies/Adverse Reactions: 3 Allergy/AdvReac Type Severity Reaction Status Date / Time No Known Allergies Allergy Verified 12/01/17 21:32 Date of admission: 12/02/17 00:09 Primary care physician: PCP NONE Consults: 12/02/17 06:22 Consult to Podiatry [CONS] Routine Consulting Provider: [facility] Reason for Consult: Post TMA revision suspected cellulitis Call Completed: No 12/02/17 08:56 Consult to Infectious Diseases [CONS] Routine Consulting Provider: Infectious Disease [facility] Reason for Consult: Possible right foot cellulitis Call Completed: Yes 12/05/17 12:45 Consult to Physical Therapy [CONS] Routine Comment: Evaluate, develop and implement POC Reason for Consult: eval and treat Does patient have active BEDREST order?: No Is patient medically & hemodynamically stable?: Yes Patient assessed for mobility or mobilized this visit?: No 12/05/17 18:37 Consult to Sofa Cover Inspector [CONS] Routine Reason for SW Consult: d/c planning - ecf placement Discharging clinician: Darling Beltran - Constitutional Vitals: Temp Pulse Resp BP Pulse Ox 97.9 F 86 16 116/75 97 12/07/17 11:18 12/07/17 11:18 12/07/17 11:18 12/07/17 11:18 12/07/17 11:18 Exam: Gen: NAD, AAO x3 CVS: RRR Lungs: CTAB Abd: soft, NT/ND Ext: Left leg AKA; stump has no edema, no erythema. Right lateral ulceration clean, no active bleed. Less edema at foot amputation sit. No drainage. Sutures clean and intact. - Patient Status Disposition: Home Health Service Condition: Undetermined Functional capacity at discharge: wheelchair bound Overall status at discharge: patient is progressing back to baseline - Discharge Instructions Follow Up With: Kobi Mosley DPM [Partnered Physician] - 12/10/17 8:30 am (Follow up in Wound Care) Tyree Abreu DO [Partnered Physician] - 12/09/17 4:00 pm Additional Instructions: Please call [facility] for a ride to appointments @ [phone]. Call them at least 1 day before your appointment. (phone number provided by patient from [facility]) - Diet and Activity Activity: as per physical therapy Diet: low fat, low cholesterol, low salt diet
--- NOTE | 2017-12-07 12:02 | Physician Discharge Referral ---
Home Health/Hosp Referral Info Transfer to: Home Health Provider in Charge Post Discharge: PCP - Diagnosis (1) Sepsis Priority: Primary Status: Resolved (2) Postoperative cellulitis of surgical wound Priority: Secondary Status: Acute (3) COPD (chronic obstructive pulmonary disease) Priority: Secondary Status: Chronic (4) PAD (peripheral artery disease) Priority: Secondary Status: Chronic (5) Tobacco abuse Priority: Secondary Status: Chronic - Respiratory Orders Smoking Cessation: Smoking cessation has been advised. For more information, call the [place] Tobacco Quit Line at 5-080-VEDB-NOW. - Diet/Nutrition Diet/Nutrition Orders: Cardiac - Activity Activity Orders: Up ad mike (as per PT/OT recs) - Services Needed Following services are medically necessary services: Nursing (Wound care), Home Health Aide (wound care) - Transfer Medications Prescriptions: Cefdinir [Omnicef] 300 mg PO BID #14 capsule Home Medications: Albuterol Sulfate [Proair Hfa] 1 - 2 puff IH Q6H PRN 10/14/17 [History] Lovastatin [Mevacor] 20 mg PO QPM 10/14/17 [History] Aspirin Enteric Coated [Aspirin EC] 81 mg PO DAILY #30 tablet. 10/22/17 [Rx] Clopidogrel [Plavix] 75 mg PO DAILY #30 tablet 10/22/17 [Rx] Ferrous Sulfate 325 mg PO BIDWM #60 tablet 10/22/17 [Rx] Sucralfate [Carafate] 1 gm PO QIDAC #120 tablet 10/22/17 [Rx] Pantoprazole Sodium [Protonix] 40 mg PO BID 11/02/17 [History] Cefdinir [Omnicef] 300 mg PO BID #14 capsule 12/07/17 [Rx] Allergies/Adverse Reactions: 3 Allergy/AdvReac Type Severity Reaction Status Date / Time No Known Allergies Allergy Verified 12/01/17 21:32 Certification: Further, I certify that my clinical findings support that this patient is homebound (i.e. absences from home require considerable and taxing effort and are for medical reasons or amish services or infrequently or short duration when for other reasons) because: Homebound Reason: Patient requires assistance of a person or device to safely leave home, Post-surgery restriction and or conditions limit ability to leave home Attestation: My signature below is to certify that this patient is under my care and that I, or nurse practitioner, or a physician's assistant passenger locomotive engineer working with me, has a face-to -face encounter with this patient.
--- NOTE | 2017-12-07 17:41 | Infectious Disease Progress No ---
Date of Encounter: 12/07/17 Time of Encounter: 11:45 - Assessment and Plan (1) Sepsis Status: Resolved The patient had 2 sepsis criteria on admission. Likely secondary to right foot cellulitis. Improved. Tachycardia has resolved. White blood cell count is trending down. Blood cultures obtained 12/01/17 are no growth to date 2 sets. Qualifiers: Sepsis type: sepsis due to unspecified organism Qualified Code(s): A41.9 - Sepsis, unspecified organism (2) Postoperative cellulitis of surgical wound Status: Acute Location: Right foot. Consult organism: Likely Morganella morgannii based on previous intraoperative cultures obtained 11/26/17. Likely secondary to right foot surgical site and patient noncompliance with dressing changes and nonweightbearing status. X-ray completed 12/01/17 showed postsurgical changes, but no other acute abnormality. Status post I&D 11/26/[address] Mcintyre. Pathology was negative for osteomyelitis. Cultures as above. Podiatry consult. Appreciate recommendations. Given that the patient had surgery about 6 days ago, additional imaging would likely be unyielding. ESR mildly elevated at 53 with a CRP of 19. Continue Rocephin 2 g IV daily. Duration of treatment depends on the clinical picture. Likely, the foot does not appear that bad. We will likely be able to transition to oral antibiotics when ready for discharge. Monitor renal function and dose adjust antibiotics. Qualifiers: Encounter type: initial encounter Qualified Code(s): T81.4XXA - Infection following a procedure, initial encounter (3) Foot pain, right Status: Inactive Likely secondary to postop status and right foot cellulitis. Pain management per the primary team. (4) Thrombocytosis Status: Acute Likely reactive from sepsis. Improved. Continue to trend. (5) PAD (peripheral artery disease) Status: Chronic Status post right iliofemoral endarterectomy, right iliofemoral bovine pericardial patch angioplasty, aortogram, left femoral endarterectomy, left to right femorofemoral bypass graft, right leg angiogram with balloon angioplasty of the right SFA and popliteal arteries 10/15/[address] Le. 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 Status post left BKA revision with left AKA in 2016. Right lower extremity DIONTE completed 11/23/17 showed moderately occlusive disease. Vascular surgery was consulted and did not recommend any further intervention. The patient refused an amputation. (6) History of alcohol abuse Status: Chronic (7) COPD (chronic obstructive pulmonary disease) Status: Chronic Qualifiers: COPD type: unspecified COPD Qualified Code(s): J44.9 - Chronic obstructive pulmonary disease, unspecified (8) Status post amputation of toe Status: Acute - Subjective Interval history: Patient seen and examined. No acute events noted overnight. Patient states overall his right foot feels better. He denies any fevers or chills or rigors. Denies chest pain, shortness of breath, or cough. Denies nausea, vomiting, diarrhea, or constipation. Denies abdominal pain, urinary complaints, or appetite changes. His only complaint is pain in the right foot. He denies any oral thrush or new skin lesions. Infect Dis PN-Objective Data - Labs CBC & Chem 7: 12/05/17 01:33 12/05/17 01:33 Cultures: Cultures 12/02/17 06:43 Blood Culture - Final Peripheral Venipuncture No growth. Final report. 12/02/17 06:47 Blood Culture - Final Peripheral Venipuncture No growth. Final report. Exam - Constitutional Vitals: Temp Pulse Resp BP Pulse Ox 97.9 F 86 16 116/75 97 12/07/17 11:18 12/07/17 11:18 12/07/17 11:18 12/07/17 11:18 12/07/17 11:18 Consult Discharge Plan - Plan Additional Instructions: Please call [facility] for a ride to appointments @ [phone]. Call them at least 1 day before your appointment. (phone number provided by patient from [facility]) Referrals: Kobi Mosley DPM [Partnered Physician] - 12/10/17 8:30 am (Follow up in Wound Care) Tyree Abreu DO [Partnered Physician] - 12/09/17 4:00 pm Prescriptions: Calcium Alginate [Uzair] 1 each TP 3XW #6 bandage Cefdinir [Omnicef] 300 mg PO BID #14 capsule Gauze Bandage [Woundgard Gauze] 1 each TP DAILY #1 pack Gauze Bandage [Kerlix] 1 each TP DAILY #1 pkg - Attending Attestation I examined this patient and my medical decision-making was reviewed with the Resident Physician. I agree with the documented findings, disposition and treatment plan as described except to the extent set forth below.
== END 2017-12-07 14:51 | disposition home health service (06) ==
LOC: 3NENU
PROVIDERS: ADMIT Internal Medicine; ATTEND Internal Medicine

== ENCOUNTER 2017-12-15 22:13 | Inpatient (IN) ==
[2017-12-16] MEDS ORDERED: Naloxone 0.4 MG/ML INJ IVP PRN (00:37)
[2017-12-16] MEDS ORDERED: Pantoprazole 40 MG VIAL IVP ONE (00:40)
--- NOTE | 2017-12-16 00:57 | Internal Med History&Physical ---
<McnultyLuis Beatris - Last Filed: 12/16/17 03:36> Date of Encounter: 12/16/17 Time of Encounter: 00:51 Internal Medicine - H&P: HPI Chief complaint: Right Foot Pain Admitted From: Hospital to Hospital Transfer Plans for Post Hospital Care: Transfer Shelter Facility History of present illness: Mr. Krueger is a 62 year old male with a past medical history of arthritis, COPD, GERD, hyperlipidemia, peripheral artery disease, left iiyco-vnj-[id number] amputation. He presented today for worsening swelling, redness, pain in the postsurgical site of his right foot. On 11/26/17 the patient underwent revision and debridement to TMA of his right foot. Since then the patient was admitted from 12/02-12/07 for sepsis secondary to cellulitis of the surgical wound and foot. He was recommended to have amputation of the foot but refused. He was treated with Rocephin with clinical improvement and discharged on Omnicef. He presents now with renewed pain and swelling in the surgical site and foot. He states that the pain is only in the foot and not in the leg, he denies fever or chills, or other systemic symptoms. He also denies chest pain or shortness of breath. Social history includes [id number] smoking history with continued 1ppd smoking as well as occasional alcohol use, he denies recreational drugs. Past Med Surg Social Fam HX - Past Medical History Medical history: arthritis, COPD, GERD, hyperlipidemia, peripheral artery disease, other Additional medical history: patient is poor historian, PVD, CHRONIC NERVE ISSUES , USUALLY HAS BASE LINE BP 90/50'S , NON COMPLIANT WITH POST OP CARE, DRUG SEEKING BEHAVIOR Psychiatric history: no psych history - Past Surgical History Surgical History: vascular surgery Additional surgical history: Transmetstrsal amputation right foot 10/24, left BKA - Social History Smoking Status: Current every day smoker Smokeless Tobacco Status: No Alcohol use: heavy Drug use: none, marijuana - Family History Mother Adopted: No Family Member Ethnicity: Non- Living Status: Father Adopted: No Family Member Ethnicity: Non- Living Status: Hx Family Cardiac Disorders: Yes Hx Family Respiratory Disorders: Yes Hx Family Cancer: Yes Hx Family GI Disorders: No Hx Family Endocrine Disorder: No Hx Family Neuromuscular Disorders: No Hx Family Neurologic Disorders: No Hx Family HEENT Disorders: No Hx Family Autoimmune Disorders: No Internal Medicine - H&P: Meds Albuterol Sulfate [Proair Hfa] 1 - 2 puff IH Q6H PRN 10/14/17 [History] Lovastatin [Mevacor] 20 mg PO QPM 10/14/17 [History] Aspirin Enteric Coated [Aspirin EC] 81 mg PO DAILY #30 tablet. 10/22/17 [Rx] Clopidogrel [Plavix] 75 mg PO DAILY #30 tablet 10/22/17 [Rx] Ferrous Sulfate 325 mg PO BIDWM #60 tablet 10/22/17 [Rx] Sucralfate [Carafate] 1 gm PO QIDAC #120 tablet 10/22/17 [Rx] Pantoprazole Sodium [Protonix] 40 mg PO BID 11/02/17 [History] Calcium Alginate [Uzair] 1 each TP 3XW #6 bandage 12/07/17 [Rx] Gauze Bandage [Kerlix] 1 each TP DAILY #1 pkg 12/07/17 [Rx] Gauze Bandage [Woundgard Gauze] 1 each TP DAILY #1 pack 12/07/17 [Rx] 3 Allergy/AdvReac Type Severity Reaction Status Date / Time No Known Allergies Allergy Verified 12/15/17 19:54 All Systems PM: A 10-system review of systems was performed and is negative for pertinent findings except as documented above in the HPI. - Constitutional Constitutional: no chills, no fever(s), no malaise - Cardiovascular Cardiovascular ROS IM: no chest pain, no dyspnea, no syncope - Respiratory Respiratory: no cough, no excessive phlegm production - Gastrointestinal Gastrointestinal: no abdominal pain, no nausea, no vomiting - Genitourinary Genitourinary ROS male: no urinary frequency, no urinary hesitancy, no urinary incontinence, no urinary urgency - Musculoskeletal Musculoskeletal ROS IM: deformity, joint swelling - Integumentary Integumentary IM: erythema, non-healing lesions - Neurological Neurological ROS: no abnormal speech, no focal weakness - Psychiatric Psychiatric: no behavioral changes, no confusion - Hematologic/Lymphatic Hematologic/Lymphatic: no easy bleeding, no easy bruising - Constitutional Vitals: Temp Pulse Resp BP Pulse Ox 98.4 F 83 17 143/68 94 12/16/17 00:36 12/16/17 00:36 12/16/17 00:36 12/16/17 00:36 12/16/17 00:36 Exam: Patient in no acute distress, alert and oriented 3 Cranial nerves II through XII intact Heart in regular rate and rhythm without murmur or gallop Lungs diffusely diminished with mild rhonchorous breath sounds in bilateral bases, no wheeze or rales Abdomen soft and nontender with normal bowel sounds present Clubbing of the fingers demonstrated in bilateral upper extremities Left lower extremity status post [id number] amputation without signs of sores or wounds Right lower extremity status post TMA and revision Surgical wound demonstrates sutures still in place, black eschar along surgical wound Lateral aspect of the surgical wound is dehisced and there is an open wound approximately 2 x 4 cm Dehisced area shows thin layer of yellow tissue over beefy-red, surrounded by necrotic eschar Skin over the remainder of the forefoot and hindfoot is edematous and erythematous however nontender and nonindurated 1+ dorsal pedal pulse auscultated on dorsum of right foot Internal Med - H&P Results - Labs CBC & Chem 7: 12/16/17 01:19 12/16/17 01:19 - Assessment and plan (1) PAD (peripheral artery disease) Current Visit: Yes Status: Chronic Assessment and plan: Patient with chronic history of peripheral artery disease likely secondary to cigarette smoking We will hold home anticoagulation until surgical recommendation is made Rest of plan as seen above (2) Tobacco abuse Current Visit: Yes Status: Chronic Assessment and plan: Patient is [id number] smoking history and continues to smoke 1 pack per day I informed the patient that most of his arterial disease and wound infections are secondary to tach tobacco abuse I encouraged him to quit Nicotine patch while admitted (3) COPD (chronic obstructive pulmonary disease) Current Visit: No Status: Chronic Assessment and plan: History of chronic pulmonary disease Patient does not take medications for this He is not currently in exacerbation We will continue to monitor Qualifiers: COPD type: emphysema Emphysema type: panlobular Qualified Code(s): J43.1 - Panlobular emphysema (4) Postoperative cellulitis of surgical wound Current Visit: Yes Status: Chronic Assessment and plan: Patient has excessive history of lower extremity wounds secondary to arterial disease tertiary to smoking Currently the right foot is status post TMA with recent revision and recent hospitalization for surgical and sepsis Patient presented again with increased pain, swelling, redness of the right foot wound Reinfection is likely related to patient's inability to provide wound care at home He was offered amputation during last hospitalization and refused, likely to be offered again On admission patient's white count is 14.8, labs otherwise within normal limits and vitals stable Patient does not meet sepsis criteria and is not clinically septic appearing He denies fever or chills or malaise, denies chest pain, shortness of breath, abdominal pain or nausea During last hospitalization infectious disease was consultation, recommended Rocephin IV based on previous surgical wound culture Plan Blood and Wound cultures Lactic Acid IV Rocephin 2g Daily MIVF 100ml/hr Podiatry consult MRI Right Foot NPO Diet Hold anticoagulation - Time Spent With Patient Total time spent is greater than 50% in coordination of care (as documented) at patient's floor/unit and/or counseling patient: <Basilio Zhong - Last Filed: 12/16/17 08:03> Date of Encounter: 12/16/17 Internal Medicine - H&P: HPI History of present illness: Mr. Krueger is a 62 year old male All Systems PM: A 10-system review of systems was performed and is negative for pertinent findings except as documented above in the HPI. - Constitutional Vitals: Temp Pulse Resp BP Pulse Ox 98.3 F 80 16 138/65 93 12/16/17 04:47 12/16/17 04:47 12/16/17 04:47 12/16/17 04:47 12/16/17 04:47 Internal Med - H&P Results - Labs CBC & Chem 7: 12/16/17 01:19 12/16/17 01:19 Labs: Short CBC 12/16/17 Range/Units 01:19 WBC 13.8 H (4.3-11.1) K/mcL Hgb 11.6 L (12.9-16.9) g/dL Hct 36.3 L (37.5-50.1) % Plt Count 503 H (140-400) K/mcL Neutrophils # 10.4 H (1.6-8.9) K/mcL BMP 12/16/17 01:19 Sodium 141 Potassium 3.2 L Chloride 107 Carbon Dioxide 24 BUN 20 Creatinine 0.85 Glucose 138 H Calcium 8.6 - Assessment and plan (1) Tobacco abuse Current Visit: Yes Status: Chronic (2) COPD (chronic obstructive pulmonary disease) Current Visit: No Status: Chronic Qualifiers: COPD type: emphysema Emphysema type: panlobular Qualified Code(s): J43.1 - Panlobular emphysema (3) PAD (peripheral artery disease) Current Visit: Yes Status: Chronic (4) Postoperative cellulitis of surgical wound Current Visit: Yes Status: Chronic - Time Spent With Patient Total time spent is greater than 50% in coordination of care (as documented) at patient's floor/unit and/or counseling patient: - Attending Attestation Patient seen and examined. Chart reviewed. Case discussed with resident. Agree with assessment and plan. Continue antibiotics for now follow-up blood culture. Podiatry consultation the morning.
[2017-12-16] MEDS ORDERED: cefTRIAXone 2,000 MG in Water for inj. (sterile) 20 ML 20 ML IVP SCH (01:00)
[2017-12-16] MEDS: Nicotine 21 MG PATCH.TD24 TD SCH ×2 (01:34→11:53)
[2017-12-16 01:35] LABS: Basophils # 0.1 K/mcL (0.0-0.2); Basophils % 0.6 %; Eosinophils # 0.1 K/mcL (0.0-0.6); Eosinophils % 0.7 %; Hematocrit 36.3 % (37.5-50.1); Hemoglobin 11.6 g/dL (12.9-16.9); Immature Granulocytes % 0.3 % (0-4); Lymphocytes # 2.3 K/mcL (0.6-4.6); Lymphocytes % 16.7 %; Mean Corpuscular Hemoglobin 27.4 pg (28.0-33.3); Mean Corpuscular Volume 85.8 fL (83.0-100.0); Mean Platelet Volume 8.6 fL (9.4-12.4); Monocytes # 0.8 K/mcL (0.0-1.3); Monocytes % 6.1 %; Neutrophils # 10.4 K/mcL (1.6-8.9); Platelet Count 503 K/mcL (140-400); Red Blood Count 4.23 M/mcL (4.19-5.50); Red Cell Distribution Width 15.5 % (11.5-14.5); Segmented Neutrophils % 75.6 %
[2017-12-16] MEDS: 0.9 % Sodium Chloride 1,000 ML IVC SCH ×2 (01:35→11:54)
[2017-12-16 01:41] LABS: Prothrombin Time 11.3 Seconds (9.4-12.1)
[2017-12-16 01:54] LABS: BUN/Creatinine Ratio 24 (6-26); Blood Urea Nitrogen 20 mg/dL (8-23); Calcium 8.6 mg/dL (8.6-10.3); Carbon Dioxide 24 mEq/L (23-29); Chloride 107 mEq/L (98-107); Glucose 138 mg/dL (70-105); Osmolality,Calculated 297 (280-300); Potassium 3.2 mEq/L (3.5-5.1); Sodium 141 mEq/L (136-145); eGFR For Non-African Americans > 60 (> 60)
--- NOTE | 2017-12-16 13:05 | Event Note ---
Date of Encounter: 12/16/17 Time of Encounter: 09:00 Pt was seen and examined bedside. Denies fever/pain/nausea/vomiting. Exam shows right foot wound with bleeding. Otherwise unremarkable. Plan: Cont rocephin, add vanco for cellulitis. MRI foot ordered, result pending to r/o osteomyelitis/abscess. Podiatry consult. NPO at this point in case podiatry procedure needed.
--- NOTE | 2017-12-16 15:30 | Podiatry Consult Note ---
Date of Encounter: 12/16/17 Time of Encounter: 12:00 Assessment and Plan (1) Non-healing surgical wound Current visit: Yes Status: Acute Non healingTMA of right foot Presents with complaints of pain to right foot and opening of surgical line of TMA site There is necrosis along lateral border of surgical incision There mild associated warmth and edema of foot Patient was recently admitted and recommended BKA per vascular- patient declined at that time Discussed possible amputation again with patient and consulted vascular Xray negative for osseous involvement MRI has been ordered- rule out abscess or osteomyelitis WBC 13.8 and temp 99.0 started on rocephin and vanc IV Continue to monitor at this time Localized wound care only at this time,cleansed with saline, apply adaptic, 4x4 and kerlix Change daily. Qualifiers: Encounter type: subsequent encounter Qualified Code(s): T81.89XD - Other complications of procedures, not elsewhere classified, subsequent encounter (2) PAD (peripheral artery disease) Current visit: Yes Status: Chronic (3) Postoperative cellulitis of surgical wound Current visit: Yes Status: Chronic History of Present Illness HPI: Mr. Krueger is a 62 year old male history of COPD, hyperlipidemia and peripheral vascular disease and tobacco use s/p left AKA almost 2 years ago and more recently a right foot TMA on 10/19/17. Patient reports that he was having severe pain to RLE Patient has been in and out of [place] multiple times since surgery. Patient was admitted and started on IV antibiotics. WBC 13.8 on admission. Patient states pain has been severe last 2-3 days. States he noted a wound start to open up and the pain started. Denies any trauma. States he has been home and is confined to a wheelchair. States that he has been smoking per usual. he was started on ceftriaxone and vancomycin. Patient denies any known fevers, chills, n/v or fls. Patient denies any calf pain or sob. Past Med Surg Social Fam HX - Past Medical History Medical history: arthritis, COPD, GERD, hyperlipidemia, peripheral artery disease, other Additional medical history: patient is poor historian, PVD, CHRONIC NERVE ISSUES , USUALLY HAS BASE LINE BP 90/50'S , NON COMPLIANT WITH POST OP CARE, DRUG SEEKING BEHAVIOR Psychiatric history: no psych history - Past Surgical History Surgical History: vascular surgery Additional surgical history: Transmetstrsal amputation right foot 10/24, left BKA - Social History Smoking Status: Current every day smoker Smokeless Tobacco Status: No Alcohol use: heavy Drug use: none, marijuana - Family History Mother Adopted: No Family Member Ethnicity: Non- Living Status: Father Adopted: No Family Member Ethnicity: Non- Living Status: Hx Family Cardiac Disorders: Yes Hx Family Respiratory Disorders: Yes Hx Family Cancer: Yes Hx Family GI Disorders: No Hx Family Endocrine Disorder: No Hx Family Neuromuscular Disorders: No Hx Family Neurologic Disorders: No Hx Family HEENT Disorders: No Hx Family Autoimmune Disorders: No Medications and Allergies Albuterol Sulfate [Proair Hfa] 1 - 2 puff IH Q6H PRN 10/14/17 [History] Lovastatin [Mevacor] 20 mg PO QPM 10/14/17 [History] Clopidogrel [Plavix] 75 mg PO DAILY #30 tablet 10/22/17 [Rx] Sucralfate [Carafate] 1 gm PO QIDAC #120 tablet 10/22/17 [Rx] Pantoprazole Sodium [Protonix] 40 mg PO BID 11/02/17 [History] Aspirin Enteric Coated [Aspirin EC] 81 mg PO DAILY 12/16/17 [History] Ferrous Sulfate 325 mg PO BID 12/16/17 [History] 3 Allergy/AdvReac Type Severity Reaction Status Date / Time No Known Allergies Allergy Verified 12/16/17 14:57 All Systems Reviewed: as per HPI Physical Exam - Constitutional Vitals: Temp Pulse Resp BP Pulse Ox 99.5 F 72 16 125/75 97 12/16/17 14:08 12/16/17 14:08 12/16/17 14:08 12/16/17 14:08 12/16/17 14:08 Exam: Podiatry General Exam: General appearance: alert awake oriented X 3. Calm and pleasant, no acute distress.. Vascular: Pedal pulses non palpable to RLE DP/PT , left BKA No evidence of cyanosis, pallor or rubor, Edema graded at 0+/4, Skin Temperature to foot warm, No calf pain with manual compression. capillary refill time 4-5 secondsdorsal aspect of foot Neurologic: Sensation intact with light touch to foot. . Ulcer: no open ulcerations or skin lesions. Postop Exam: S/P Sutures intact to incision line, There is dehiscence of lateral surgical wound with necrosis. Necrosis measuring [id number]. Area soft to exam, will image for any abscess formation or osteomyelitis. Remaining aspect of surgical line intact. Very mild associated edema and warmth or periwound area. No drainage. Results - Labs Result Diagrams: 12/17/17 08:09 12/17/17 08:09 Labs: Abnormal lab results WBC 13.8 K/mcL (4.3-11.1) H 12/16/17 01:19 Hgb 11.6 g/dL (12.9-16.9) L 12/16/17 01:19 Hct 36.3 % (37.5-50.1) L 12/16/17 01:19 MCH 27.4 pg (28.0-33.3) L 12/16/17 01:19 RDW 15.5 % (11.5-14.5) H 12/16/17 01:19 Plt Count 503 K/mcL (140-400) H 12/16/17 01:19 MPV 8.6 fL (9.4-12.4) L 12/16/17 01:19 Neutrophils # 10.4 K/mcL (1.6-8.9) H 12/16/17 01:19 Potassium 3.2 mEq/L (3.5-5.1) L 12/16/17 01:19 Glucose 138 mg/dL (70-105) H 12/16/17 01:19 H & H 12/16/17 Range/Units 01:19 Hgb 11.6 L (12.9-16.9) g/dL Hct 36.3 L (37.5-50.1) % All other labs normal. Consult Discharge Plan - Plan Referrals: NONE,PCP [Primary Care Provider] -
[2017-12-16] MEDS ORDERED: Acetaminophen 325 MG TABLET PO PRN (20:39)
[2017-12-16] MEDS: *HR* HYDROcodone/Acet 7.5/325 mg TABLET PO PRN (21:17)
[2017-12-16] MEDS: cefTRIAXone 2,000 MG in Water for inj. (sterile) 20 ML 20 ML IVP SCH (23:17)
[2017-12-17] MEDS: Nicotine 21 MG PATCH.TD24 TD SCH (07:49)
[2017-12-17] MEDS: *HR* HYDROcodone/Acet 7.5/325 mg TABLET PO PRN ×2 (07:49→16:15)
[2017-12-17 08:22] LABS: Basophils # 0.1 K/mcL (0.0-0.2); Basophils % 0.6 %; Eosinophils # 0.2 K/mcL (0.0-0.6); Eosinophils % 1.8 %; Hemoglobin 11.6 g/dL (12.9-16.9); Immature Granulocytes % 0.2 % (0-4); Lymphocytes # 2.3 K/mcL (0.6-4.6); Lymphocytes % 18.2 %; Mean Corpuscular HGB Conc 31.4 g/dL (31.6-35.5); Mean Corpuscular Hemoglobin 26.9 pg (28.0-33.3); Mean Corpuscular Volume 85.6 fL (83.0-100.0); Mean Platelet Volume 8.6 fL (9.4-12.4); Monocytes # 0.8 K/mcL (0.0-1.3); Neutrophils # 9.2 K/mcL (1.6-8.9); Platelet Count 478 K/mcL (140-400); Red Blood Count 4.32 M/mcL (4.19-5.50); Red Cell Distribution Width 15.6 % (11.5-14.5); Segmented Neutrophils % 73.2 %
[2017-12-17 09:18] LABS: BUN/Creatinine Ratio 15 (6-26); Blood Urea Nitrogen 8 mg/dL (8-23); Calcium 8.7 mg/dL (8.6-10.3); Carbon Dioxide 22 mEq/L (23-29); Chloride 109 mEq/L (98-107); Glucose 101 mg/dL (70-105); Osmolality,Calculated 284 (280-300); Potassium 4.1 mEq/L (3.5-5.1); Sodium 138 mEq/L (136-145); eGFR For Non-African Americans > 60 (> 60)
--- NOTE | 2017-12-17 11:52 | Internal Med Progress Note ---
Hospitalist Progress Note - Encounter Date of Encounter: 12/17/17 Time of Encounter: 13:00 - Subjective Interval History: Pt c/o leg pain, no fever, no SOB, no nausea/vomiting. - Exam Vitals: Temp Pulse Resp BP Pulse Ox 97.9 F 69 18 128/80 98 12/17/17 11:44 12/17/17 11:44 12/17/17 11:44 12/17/17 11:44 12/17/17 11:44 Exam: Patient in no acute distress, alert and oriented 3 Cranial nerves II through XII intact Heart in regular rate and rhythm without murmur or gallop Lungs diffusely diminished with mild rhonchorous breath sounds in bilateral bases, no wheeze or rales Abdomen soft and nontender with normal bowel sounds present Clubbing of the fingers demonstrated in bilateral upper extremities Left lower extremity status post pigki-tbg-amba amputation without signs of sores or wounds Right lower extremity status post TMA and revision Surgical wound demonstrates sutures still in place, black eschar along surgical wound Lateral aspect of the surgical wound is dehisced and there is an open wound approximately 2 x 4 cm Dehisced area shows thin layer of yellow tissue over beefy-red, surrounded by necrotic eschar Skin over the remainder of the forefoot and hindfoot is edematous and erythematous however nontender and nonindurated 1+ dorsal pedal pulse auscultated on dorsum of right foot - Assessment and Plan (1) Tobacco abuse Current Visit: Yes Status: Chronic Assessment and Plan: Patient is 38-[id number]-[id number] smoking history and continues to smoke 1 pack per day I informed the patient that most of his arterial disease and wound infections are secondary to tach tobacco abuse I encouraged him to quit Nicotine patch while admitted (2) COPD (chronic obstructive pulmonary disease) Current Visit: No Status: Chronic Assessment and Plan: History of chronic pulmonary disease Cont Albuterol PRN, no wheezing so far. (3) PAD (peripheral artery disease) Current Visit: Yes Status: Chronic Assessment and Plan: Cont Home meds ASA/plavix/statin. (4) Postoperative cellulitis of surgical wound Current Visit: Yes Status: Chronic Assessment and Plan: MRI shows fluid collection, cannot r/o abscess/osteomyelitis. - Cont abx - Vascular surgery consult appreciated, plan for AKA on Thursday. DVT Prophylaxis: Heparin SC - Time Spent with Patient Total time spent is greater than 50% in coordination of care (as documented) at patient's floor/unit and/or counseling patient: 40 min Greater than 35 minutes Plan of Care Discussed with: patient Internal Medicine: Result - Labs CBC & Chem 7: 12/17/17 08:09 12/17/17 08:09 Labs: Short CBC 12/17/17 Range/Units 08:09 WBC 12.5 H (4.3-11.1) K/mcL Hgb 11.6 L (12.9-16.9) g/dL Hct 37.0 L (37.5-50.1) % Plt Count 478 H (140-400) K/mcL Neutrophils # 9.2 H (1.6-8.9) K/mcL BMP 12/17/17 08:09 Sodium 138 Potassium 4.1 Chloride 109 H Carbon Dioxide 22 L BUN 8 Creatinine 0.52 L Glucose 101 Calcium 8.7 - ABG Interpretation ABG results: PT/INR, D-dimer PT 11.3 Seconds (9.4-12.1) 12/16/17 01:19 - Impressions Impressions Foot MRI 12/17/17 00:41 IMPRESSION: Large (approximately 7 x 3 x 4 cm) fluid collection at the amputation site. Considerations include abscess and seroma. Aspiration is suggested. New linear edema within the lateral cuneiform and cuboid, postsurgical in nature versus early osteomyelitis. Correlation with aspiration result is suggested. If positive for abscess, early osteomyelitis would be favored. D/ / 12/17/2017 09:46:06 Luis Joseph MD / ellen Interpreting Provider: Luis Joseph MD Consult Discharge Plan - Plan Referrals: NONE,PCP [Primary Care Provider] - (2) COPD (chronic obstructive pulmonary disease) Qualifiers: COPD type: emphysema Emphysema type: panlobular Qualified Code(s): J43.1 - Panlobular emphysema
--- NOTE | 2017-12-17 16:48 | Vascular/Endovasc Consult Note ---
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 His options for further revascularization. He is scheduled for a right above-knee amputation on 12/21/2017. The risks, benefits and alternatives were discussed and all questions were answered. He expressed understanding and wishes to proceed. (2) COPD (chronic obstructive pulmonary disease) Current Visit: No Status: Chronic Qualifiers: COPD type: emphysema Emphysema type: panlobular Qualified Code(s): J43.1 - Panlobular emphysema (3) Tobacco abuse Current Visit: No Status: Chronic The patient was counseled regarding smoking cessation. - History of Present Illness Consult date: 12/17/17 Requesting physician: Coretta Dozier Consult reason: Peripheral vascular disease with ulceration Chief complaint: Nonhealing right History of present illness: Mr. Krueger is a 62 year old male with a long history of peripheral vascular disease. The patient previously required a left above-knee amputation due to progressive gangrene. The patient presented with gangrenous changes to the right foot in October and underwent a right femoral to popliteal artery bypass by Dr. Aguilar. The patient subsequently required a transmetatarsal amputation by Dr. Mcintyre. His wound did not heal and he has required further debridement and local wound care. His disease is now progressed to the point where transmetatarsal amputation revision is not possible. It is not healing wound vascular surgery was counseled for further evaluation and recommendations. At the time of the examination denies any fevers or chills. He reports adequate pain control hospitalized but did not have adequate pain control while at home. He denies any chest pain or shortness of breath. Past Med Surg Social Fam HX - Past Medical History Medical history: arthritis, COPD, GERD, hyperlipidemia, peripheral artery disease, other Additional medical history: patient is poor historian, PVD, CHRONIC NERVE ISSUES , USUALLY HAS BASE LINE BP 90/50'S , NON COMPLIANT WITH POST OP CARE, DRUG SEEKING BEHAVIOR Psychiatric history: no psych history - Past Surgical History Surgical History: vascular surgery Additional surgical history: Transmetstrsal amputation right foot 10/24, left BKA - Social History Smoking Status: Current every day smoker Smokeless Tobacco Status: No Alcohol use: heavy Drug use: none, marijuana - Family History Mother Adopted: No Family Member Ethnicity: Non- Living Status: Father Adopted: No Family Member Ethnicity: Non- Living Status: Hx Family Cardiac Disorders: Yes Hx Family Respiratory Disorders: Yes Hx Family Cancer: Yes Hx Family GI Disorders: No Hx Family Endocrine Disorder: No Hx Family Neuromuscular Disorders: No Hx Family Neurologic Disorders: No Hx Family HEENT Disorders: No Hx Family Autoimmune Disorders: No Medications and Allergies Albuterol Sulfate [Proair Hfa] 1 - 2 puff IH Q6H PRN 10/14/17 [History] Lovastatin [Mevacor] 20 mg PO QPM 10/14/17 [History] Clopidogrel [Plavix] 75 mg PO DAILY #30 tablet 10/22/17 [Rx] Sucralfate [Carafate] 1 gm PO QIDAC #120 tablet 10/22/17 [Rx] Pantoprazole Sodium [Protonix] 40 mg PO BID 11/02/17 [History] Aspirin Enteric Coated [Aspirin EC] 81 mg PO DAILY 12/16/17 [History] Ferrous Sulfate 325 mg PO BID 12/16/17 [History] 3 Allergy/AdvReac Type Severity Reaction Status Date / Time No Known Allergies Allergy Verified 12/16/17 14:57 All Systems Review: The remainder of the systems were reviewed and are negative - Constitutional Constitutional: no chills, no fever(s) - Cardiovascular Cardiovascular: no chest pain at rest, no dyspnea at rest Exam Vital Signs, Last 4 Hours Temp Pulse Resp BP Pulse Ox 12/17/17 16:39 97.8 F 70 16 130/82 97 General: Present: Conversant, No Apparent Distress HEENT: Present: Pupils equal Neck: Present: Lymphadenopathy. Absent: JVD, Left Carotid bruit, Right Carotid bruit Cardiac: Present: Reg Rate and Rhythm, Normal S1 and S2 Lungs: Present: Normal Breath Sounds Neuro: Present: Alert and responsive, Motor nerves grossly intact, Sensory nerves grossly intact Abdomen: Present: Soft, Non-tender. Absent: Masses Vascular: Present: Pulse, absent Skin: Present: Wound/ulcer(s) (Ulceration with necrosis at the previous transmetatarsal amputation wound site the right foot) Consult Discharge Plan - Plan Referrals: NONE,PCP [Primary Care Provider] -
[2017-12-17] MEDS: *HR* Heparin 5,000 UNIT/ML VIAL SQ SCH (18:19)
[2017-12-17] MEDS: *HR* OxyCODONE/APAP 5/325 TABLET PO PRN (18:19)
[2017-12-17] MEDS: Sucralfate 1 GM TABLET PO SCH (21:35)
[2017-12-17] MEDS: cefTRIAXone 2,000 MG in Water for inj. (sterile) 20 ML 20 ML IVP SCH (21:35)
--- NOTE | 2017-12-18 00:58 | Podiatry Progress Note ---
Date of Encounter: 12/18/17 Time of Encounter: 00:20 - Assessment and Plan (1) Ischemic ulcer of right foot with fat layer exposed Current Visit: Yes Status: Acute Discussed condition of his right leg amputation site wound and blood flow. His last admission we had had a similar discussion and he did not want to proceed with a leg amputation at that time. Now he is in agreement to proceed with a leg amputation with vascular. Betadine to distal amputation stump wound dehiscence site. Will sign off. Subjective Interval history: 62-year-old male with previous lisfranc amputation has progressive wound healing problems at the amputation site is admitted with the non-healing amputation site on the right foot. He missed his appointment with me last week because he was unable to get transportation. he says his leg is in extreme pain and he has to sit with it hanging off the bed to make the pain tolerable. he says wound healing problems are not new to him as he had a problem a couple years ago with the left site when he had a BKA which ultimately went to an AKA. He says he wants to move forward with an amputation of the right leg to try to decrease his pain and says he get around better with the leg amputation. Objective - Vital Signs Vital Signs: Vital Signs Temp Pulse Resp BP Pulse Ox 12/17/17 21:10 97.6 F 65 18 115/64 97 12/17/17 16:39 97.8 F 70 16 130/82 97 12/17/17 11:44 97.9 F 69 18 128/80 98 12/17/17 08:10 98.7 F 76 15 145/80 95 12/17/17 08:06 96 12/17/17 05:23 98.6 F 67 17 126/73 96 Intake and Output 12/17/17 12/17/17 12/18/17 15:59 23:59 07:59 Intake Total 360 / 360 Output Total 550 / 550 450 / 450 Balance -190 / -190 -450 / -450 Intake: Oral 360 / 360 Output: Urine 550 / 550 450 / 450 Other: Meal Breakfast Percent of Meal Consumed 100% # Voids 2 - Exam Exam: Lateral midfoot amputation wound dehiscence. There is small the necrotic tissue. There is no purulence. There is erythema distal aspect of the lateral foot around the wound site. Pain with palpation of wound dehiscence site. Sensation intact to touch. Mild edema. - Lab Result Diagrams: 12/17/17 08:09 12/17/17 08:09 Labs: Abnormal lab results WBC 12.5 K/mcL (4.3-11.1) H 12/17/17 08:09 Hgb 11.6 g/dL (12.9-16.9) L 12/17/17 08:09 Hct 37.0 % (37.5-50.1) L 12/17/17 08:09 MCH 26.9 pg (28.0-33.3) L 12/17/17 08:09 MCHC 31.4 g/dL (31.6-35.5) L 12/17/17 08:09 RDW 15.6 % (11.5-14.5) H 12/17/17 08:09 Plt Count 478 K/mcL (140-400) H 12/17/17 08:09 MPV 8.6 fL (9.4-12.4) L 12/17/17 08:09 Neutrophils # 9.2 K/mcL (1.6-8.9) H 12/17/17 08:09 Chloride 109 mEq/L (98-107) H 12/17/17 08:09 Carbon Dioxide 22 mEq/L (23-29) L 12/17/17 08:09 Creatinine 0.52 mg/dL (0.70-1.30) L 12/17/17 08:09 Microbiology, Last 48 Hours 12/16/17 13:29 Wound Culture - Preliminary Right Foot Gram Negative Low 12/16/17 01:19 Blood Culture - Preliminary Peripheral Venipuncture Culture is incubating and being continuously monitored for growth. Final report to follow. 12/16/17 01:19 Blood Culture - Preliminary Peripheral Venipuncture Culture is incubating and being continuously monitored for growth. Final report to follow. Consult Discharge Plan - Plan Referrals: NONE,PCP [Primary Care Provider] -
[2017-12-18 02:00] LABS: Basophils # 0.1 K/mcL (0.0-0.2); Basophils % 0.6 %; Eosinophils # 0.3 K/mcL (0.0-0.6); Eosinophils % 2.9 %; Hematocrit 34.4 % (37.5-50.1); Hemoglobin 10.9 g/dL (12.9-16.9); Immature Granulocytes % 0.2 % (0-4); Lymphocytes # 3.2 K/mcL (0.6-4.6); Lymphocytes % 31.9 %; Mean Corpuscular HGB Conc 31.7 g/dL (31.6-35.5); Mean Corpuscular Hemoglobin 27.3 pg (28.0-33.3); Mean Platelet Volume 8.9 fL (9.4-12.4); Monocytes # 0.8 K/mcL (0.0-1.3); Neutrophils # 5.6 K/mcL (1.6-8.9); Platelet Count 451 K/mcL (140-400); Red Cell Distribution Width 15.5 % (11.5-14.5); Segmented Neutrophils % 56.4 %
[2017-12-18 02:17] LABS: BUN/Creatinine Ratio 19 (6-26); Blood Urea Nitrogen 10 mg/dL (8-23); Calcium 8.5 mg/dL (8.6-10.3); Carbon Dioxide 23 mEq/L (23-29); Chloride 108 mEq/L (98-107); Glucose 80 mg/dL (70-105); Osmolality,Calculated 282 (280-300); Potassium 4.1 mEq/L (3.5-5.1); Sodium 137 mEq/L (136-145); eGFR For Non-African Americans > 60 (> 60)
[2017-12-18] MEDS: *HR* Heparin 5,000 UNIT/ML VIAL SQ SCH ×2 (06:01→17:47)
[2017-12-18] MEDS: Aspirin Enteric Coated 81 MG Tablet PO SCH (07:12)
[2017-12-18] MEDS: Sucralfate 1 GM TABLET PO SCH ×4 (07:13→22:06)
[2017-12-18] MEDS: Nicotine 21 MG PATCH.TD24 TD SCH (07:13)
[2017-12-18] MEDS: *HR* OxyCODONE/APAP 5/325 TABLET PO PRN ×2 (07:19→16:11)
--- NOTE | 2017-12-18 12:46 | Internal Med Progress Note ---
Hospitalist Progress Note - Encounter Date of Encounter: 12/18/17 Time of Encounter: 09:00 - Subjective Interval History: Pt c/o right legfoot pain, controlled by pain meds. no fever, no SOB, no nausea/ vomiting. - Exam Vitals: Temp Pulse Resp BP Pulse Ox 97.6 F 68 16 112/73 97 12/18/17 11:23 12/18/17 11:23 12/18/17 11:23 12/18/17 11:23 12/18/17 11:23 Exam: Patient in no acute distress, alert and oriented 3 Cranial nerves II through XII intact Heart in regular rate and rhythm without murmur or gallop Lungs diffusely diminished with mild rhonchorous breath sounds in bilateral bases, no wheeze or rales Abdomen soft and nontender with normal bowel sounds present Clubbing of the fingers demonstrated in bilateral upper extremities Left lower extremity status post [id number] amputation without signs of sores or wounds Right lower extremity status post TMA and revision Surgical wound demonstrates sutures still in place, black eschar along surgical wound Lateral aspect of the surgical wound is dehisced and there is an open wound approximately 2 x 4 cm Dehisced area shows thin layer of yellow tissue over beefy-red, surrounded by necrotic eschar Skin over the remainder of the forefoot and hindfoot is edematous and erythematous however nontender and nonindurated 1+ dorsal pedal pulse auscultated on dorsum of right foot - Assessment and Plan (1) Tobacco abuse Current Visit: Yes Status: Chronic Assessment and Plan: Patient is [id number] smoking history and continues to smoke 1 pack per day I informed the patient that most of his arterial disease and wound infections are secondary to tach tobacco abuse I encouraged him to quit Nicotine patch while admitted (2) COPD (chronic obstructive pulmonary disease) Current Visit: No Status: Chronic Assessment and Plan: History of chronic pulmonary disease Cont Albuterol PRN, no wheezing so far. (3) PAD (peripheral artery disease) Current Visit: Yes Status: Chronic Assessment and Plan: Cont Home meds ASA/plavix/statin. (4) Postoperative cellulitis of surgical wound Current Visit: Yes Status: Chronic Assessment and Plan: MRI shows fluid collection, cannot r/o abscess/osteomyelitis. - Cont abx, WBC trend down. - Vascular surgery consult appreciated, plan for AKA on Thursday. DVT Prophylaxis: Heparin SC - Time Spent with Patient Total time spent is greater than 50% in coordination of care (as documented) at patient's floor/unit and/or counseling patient: 30 min 25 - 35 minutes Plan of Care Discussed with: patient Internal Medicine: Result - Labs CBC & Chem 7: 12/18/17 01:44 12/18/17 01:44 Labs: Short CBC 12/18/17 Range/Units 01:44 WBC 9.9 (4.3-11.1) K/mcL Hgb 10.9 L (12.9-16.9) g/dL Hct 34.4 L (37.5-50.1) % Plt Count 451 H (140-400) K/mcL Neutrophils # 5.6 (1.6-8.9) K/mcL BMP 12/18/17 01:44 Sodium 137 Potassium 4.1 Chloride 108 H Carbon Dioxide 23 BUN 10 Creatinine 0.54 L Glucose 80 Calcium 8.5 L - ABG Interpretation ABG results: PT/INR, D-dimer PT 11.3 Seconds (9.4-12.1) 12/16/17 01:19 - Impressions Impressions Foot MRI 12/17/17 00:41 IMPRESSION: Large (approximately 7 x 3 x 4 cm) fluid collection at the amputation site. Considerations include abscess and seroma. Aspiration is suggested. New linear edema within the lateral cuneiform and cuboid, postsurgical in nature versus early osteomyelitis. Correlation with aspiration result is suggested. If positive for abscess, early osteomyelitis would be favored. D/ / 12/17/2017 09:46:06 Luis Joseph MD / ellen Interpreting Provider: Luis Joseph MD Consult Discharge Plan - Plan Referrals: NONE,PCP [Primary Care Provider] - (2) COPD (chronic obstructive pulmonary disease) Qualifiers: COPD type: emphysema Emphysema type: panlobular Qualified Code(s): J43.1 - Panlobular emphysema
--- NOTE | 2017-12-18 16:22 | Vascular/[facility] Progress Note ---
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 His nonhealing transmetatarsal wound. The patient has been scheduled for a right above-knee amputation. The risks, benefits and alternatives were discussed and all questions were answered. He expressed understanding wishes to proceed. His been scheduled for 12/21/2017. In the interim continue with local wound care and adequate pain control. - Subjective Interval history: The patient is alert and comfortable. He reports adequate pain control. He denies any chest pain or shortness of breath. He denies any fevers or chills. - Physical Examination General: Present: Conversant, No Apparent Distress HEENT: Present: Pupils equal Cardiac: Present: Reg Rate and Rhythm Lungs: Present: Normal Breath Sounds Neuro: Present: Alert and responsive Vascular: Present: Pulse, absent, Amputation(s). Absent: Edema Abdomen: Present: Soft Skin: Present: Wound/ulcer(s) (Right foot ulceration with nonhealing transtarsal amputation site) Results 12/18/17 01:44 12/18/17 01:44 Lab Results, Last 24 hours 12/18/17 12/18/17 01:44 01:44 WBC 9.9 Hgb 10.9 L Hct 34.4 L Plt Count 451 H Sodium 137 Potassium 4.1 Chloride 108 H Carbon Dioxide 23 BUN 10 Creatinine 0.54 L Glucose 80 Calcium 8.5 L Consult Discharge Plan - Plan Referrals: NONE,PCP [Primary Care Provider] -
[2017-12-18] MEDS: cefTRIAXone 2,000 MG in Water for inj. (sterile) 20 ML 20 ML IVP SCH (22:06)
[2017-12-19] MEDS: *HR* Heparin 5,000 UNIT/ML VIAL SQ SCH ×2 (05:30→17:54)
[2017-12-19 06:07] LABS: Basophils # 0.1 K/mcL (0.0-0.2); Basophils % 0.7 %; Eosinophils # 0.2 K/mcL (0.0-0.6); Eosinophils % 2.3 %; Hematocrit 38.7 % (37.5-50.1); Hemoglobin 12.1 g/dL (12.9-16.9); Immature Granulocytes % 0.3 % (0-4); Lymphocytes # 2.3 K/mcL (0.6-4.6); Lymphocytes % 22.8 %; Mean Corpuscular HGB Conc 31.3 g/dL (31.6-35.5); Mean Corpuscular Hemoglobin 27.3 pg (28.0-33.3); Mean Corpuscular Volume 87.4 fL (83.0-100.0); Mean Platelet Volume 9.6 fL (9.4-12.4); Monocytes # 0.9 K/mcL (0.0-1.3); Monocytes % 8.7 %; Neutrophils # 6.5 K/mcL (1.6-8.9); Platelet Count 378 K/mcL (140-400); Red Blood Count 4.43 M/mcL (4.19-5.50); Red Cell Distribution Width 15.6 % (11.5-14.5); Segmented Neutrophils % 65.2 %
[2017-12-19] MEDS: *HR* OxyCODONE/APAP 5/325 TABLET PO PRN ×2 (06:13→12:51)
[2017-12-19 06:24] LABS: BUN/Creatinine Ratio 20 (6-26); Blood Urea Nitrogen 12 mg/dL (8-23); Calcium 8.8 mg/dL (8.6-10.3); Carbon Dioxide 24 mEq/L (23-29); Chloride 105 mEq/L (98-107); Glucose 112 mg/dL (70-105); Osmolality,Calculated 283 (280-300); Potassium 4.4 mEq/L (3.5-5.1); Sodium 136 mEq/L (136-145); eGFR For Non-African Americans > 60 (> 60)
[2017-12-19] MEDS: Sucralfate 1 GM TABLET PO SCH ×4 (07:52→22:21)
[2017-12-19] MEDS: Aspirin Enteric Coated 81 MG Tablet PO SCH (07:52)
[2017-12-19] MEDS: Nicotine 21 MG PATCH.TD24 TD SCH (07:53)
[2017-12-19] MEDS ORDERED: Aminoglycoside Consult 1 EACH MC ONE (09:10)
[2017-12-19] MEDS: *HR* HYDROcodone/Acet 7.5/325 mg TABLET PO PRN ×2 (10:35→18:07)
--- NOTE | 2017-12-19 13:10 | Internal Med Progress Note ---
Hospitalist Progress Note - Encounter Date of Encounter: 12/19/17 Time of Encounter: 09:00 - Subjective Interval History: Pt c/o right legfoot pain, pain meds dose increased. no fever, no SOB, no nausea /vomiting. - Exam Vitals: Temp Pulse Resp BP Pulse Ox 98.3 F 79 17 122/77 99 12/19/17 12:05 12/19/17 12:05 12/19/17 12:05 12/19/17 12:05 12/19/17 12:05 Exam: Patient in no acute distress, alert and oriented 3 Cranial nerves II through XII intact Heart in regular rate and rhythm without murmur or gallop Lungs diffusely diminished with mild rhonchorous breath sounds in bilateral bases, no wheeze or rales Abdomen soft and nontender with normal bowel sounds present Clubbing of the fingers demonstrated in bilateral upper extremities Left lower extremity status post [id number] amputation without signs of sores or wounds Right lower extremity status post TMA and revision Surgical wound demonstrates sutures still in place, black eschar along surgical wound Lateral aspect of the surgical wound is dehisced and there is an open wound approximately 2 x 4 cm Dehisced area shows thin layer of yellow tissue over beefy-red, surrounded by necrotic eschar Skin over the remainder of the forefoot and hindfoot is edematous and erythematous however nontender and nonindurated 1+ dorsal pedal pulse auscultated on dorsum of right foot - Assessment and Plan (1) Tobacco abuse Current Visit: Yes Status: Chronic Assessment and Plan: Patient is [id number] smoking history and continues to smoke 1 pack per day I informed the patient that most of his arterial disease and wound infections are secondary to tach tobacco abuse I encouraged him to quit Nicotine patch while admitted (2) COPD (chronic obstructive pulmonary disease) Current Visit: No Status: Chronic Assessment and Plan: History of COPD, no wheezing now. Cont Albuterol PRN. (3) PAD (peripheral artery disease) Current Visit: Yes Status: Chronic Assessment and Plan: Cont Home meds ASA/plavix/statin. (4) Postoperative cellulitis of surgical wound Current Visit: Yes Status: Chronic Assessment and Plan: MRI shows fluid collection, cannot r/o abscess/osteomyelitis. - Cont abx, WBC trend down. - Vascular surgery consult appreciated, plan for AKA on Thursday. DVT Prophylaxis: Heparin SC - Time Spent with Patient Total time spent is greater than 50% in coordination of care (as documented) at patient's floor/unit and/or counseling patient: Greater than 35 minutes Plan of Care Discussed with: patient Internal Medicine: Result - Labs CBC & Chem 7: 12/19/17 05:50 12/19/17 05:50 Labs: Short CBC 12/19/17 Range/Units 05:50 WBC 10.0 (4.3-11.1) K/mcL Hgb 12.1 L (12.9-16.9) g/dL Hct 38.7 (37.5-50.1) % Plt Count 378 (140-400) K/mcL Neutrophils # 6.5 (1.6-8.9) K/mcL BMP 12/19/17 05:50 Sodium 136 Potassium 4.4 Chloride 105 Carbon Dioxide 24 BUN 12 Creatinine 0.60 L Glucose 112 H Calcium 8.8 - ABG Interpretation ABG results: PT/INR, D-dimer PT 11.3 Seconds (9.4-12.1) 12/16/17 01:19 Consult Discharge Plan - Plan Referrals: NONE,PCP [Primary Care Provider] - (2) COPD (chronic obstructive pulmonary disease) Qualifiers: COPD type: emphysema Emphysema type: panlobular Qualified Code(s): J43.1 - Panlobular emphysema
--- NOTE | 2017-12-19 14:48 | Vascular/[facility] Progress Note ---
Date of Encounter: 12/19/17 Time of Encounter: 12:00 - Assessment and plan (1) Ischemic ulcer of right foot with fat layer exposed Current Visit: Yes Status: Acute No new issues. Plan for AKA Thursday. Patient verbalized understanding and consent. - Subjective Interval history: No new complaints. Pain under control. Vital Signs, Last 4 Hours Temp Pulse Resp BP Pulse Ox 12/19/17 12:05 98.3 F 79 17 122/77 99 - Physical Examination General: Present: Conversant, No Apparent Distress Cardiac: Present: Reg Rate and Rhythm Lungs: Present: Normal Breath Sounds Neuro: Present: Alert and responsive Vascular: Present: Other (Dressing on right foot clean and dry.) Abdomen: Present: Soft Skin: Present: No rashes noted on visualized skin Results 12/19/17 05:50 12/19/17 05:50 Lab Results, Last 24 hours 12/19/17 12/19/17 05:50 05:50 WBC 10.0 Hgb 12.1 L Hct 38.7 Plt Count 378 Sodium 136 Potassium 4.4 Chloride 105 Carbon Dioxide 24 BUN 12 Creatinine 0.60 L Glucose 112 H Calcium 8.8 Consult Discharge Plan - Plan Referrals: NONE,PCP [Primary Care Provider] -
[2017-12-19] MEDS: levoFLOXacin 750 MG TABLET PO SCH (16:08)
[2017-12-20] MEDS: *HR* HYDROcodone/Acet 7.5/325 mg TABLET PO PRN ×2 (05:39→21:25)
[2017-12-20] MEDS: *HR* Heparin 5,000 UNIT/ML VIAL SQ SCH ×2 (05:40→18:05)
[2017-12-20] MEDS: Nicotine 21 MG PATCH.TD24 TD SCH (07:35)
[2017-12-20] MEDS: Sucralfate 1 GM TABLET PO SCH ×4 (07:36→21:25)
[2017-12-20] MEDS: Lactobacillus 1 EACH CAP.SPRINK PO SCH (07:36)
[2017-12-20] MEDS: Aspirin Enteric Coated 81 MG Tablet PO SCH (07:36)
[2017-12-20] MEDS: levoFLOXacin 750 MG TABLET PO SCH (07:36)
--- NOTE | 2017-12-20 11:28 | Internal Med Progress Note ---
Hospitalist Progress Note - Encounter Date of Encounter: 12/20/17 Time of Encounter: 09:00 - Subjective Interval History: Pt c/o right legfoot pain, controlled by pain meds. no fever, no SOB, no nausea/ vomiting. - Exam Vitals: Temp Pulse Resp BP Pulse Ox 97.8 F 78 16 112/69 98 12/20/17 07:25 12/20/17 07:25 12/20/17 07:25 12/20/17 07:25 12/20/17 07:25 Exam: Patient in no acute distress, alert and oriented 3 Cranial nerves II through XII intact Heart in regular rate and rhythm without murmur or gallop Lungs diffusely diminished with mild rhonchorous breath sounds in bilateral bases, no wheeze or rales Abdomen soft and nontender with normal bowel sounds present Clubbing of the fingers demonstrated in bilateral upper extremities Left lower extremity status post lwykz-zhe-ruth amputation without signs of sores or wounds Right lower extremity status post TMA and revision Surgical wound demonstrates sutures still in place, black eschar along surgical wound Lateral aspect of the surgical wound is dehisced and there is an open wound approximately 2 x 4 cm Dehisced area shows thin layer of yellow tissue over beefy-red, surrounded by necrotic eschar Skin over the remainder of the forefoot and hindfoot is edematous and erythematous however nontender and nonindurated 1+ dorsal pedal pulse auscultated on dorsum of right foot - Assessment and Plan (1) Tobacco abuse Current Visit: Yes Status: Chronic Assessment and Plan: Smoking cessation education. Nicotine patch (2) COPD (chronic obstructive pulmonary disease) Current Visit: No Status: Chronic Assessment and Plan: History of COPD, no wheezing now. Cont Albuterol PRN. (3) PAD (peripheral artery disease) Current Visit: Yes Status: Chronic Assessment and Plan: Cont Home meds ASA/plavix/statin. (4) Postoperative cellulitis of surgical wound Current Visit: Yes Status: Chronic Assessment and Plan: MRI shows fluid collection, cannot r/o abscess/osteomyelitis. - Cont abx, WBC trend down. Abx changed per wound culture results. - Vascular surgery consult appreciated, plan for AKA on Thursday. DVT Prophylaxis: Heparin SC - Time Spent with Patient Total time spent is greater than 50% in coordination of care (as documented) at patient's floor/unit and/or counseling patient: 30 min 25 - 35 minutes Plan of Care Discussed with: patient Internal Medicine: Result - Labs CBC & Chem 7: 12/19/17 05:50 12/19/17 05:50 - ABG Interpretation ABG results: PT/INR, D-dimer PT 11.3 Seconds (9.4-12.1) 12/16/17 01:19 Consult Discharge Plan - Plan Referrals: NONE,PCP [Primary Care Provider] - (2) COPD (chronic obstructive pulmonary disease) Qualifiers: COPD type: emphysema Emphysema type: panlobular Qualified Code(s): J43.1 - Panlobular emphysema
--- NOTE | 2017-12-20 20:00 | Anesthesia Evaluation PreOp ---
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 COORDINATOR History: Other (polyneuropathy) Other Medical History: Hepatic (H/O EtOh abuse), GERD, Other (Pt Known to be non -compliant w/Meds) Anesthesia History: No Prior Anesthetic Complications, Past Anesthesia Alcohol Use: heavy Drug use: none, marijuana Medications and Allergies Albuterol Sulfate [Proair Hfa] 1 - 2 puff IH Q6H PRN 10/14/17 [History] Lovastatin [Mevacor] 20 mg PO QPM 10/14/17 [History] Clopidogrel [Plavix] 75 mg PO DAILY #30 tablet 10/22/17 [Rx] Sucralfate [Carafate] 1 gm PO QIDAC #120 tablet 10/22/17 [Rx] Pantoprazole Sodium [Protonix] 40 mg PO BID 11/02/17 [History] Aspirin Enteric Coated [Aspirin EC] 81 mg PO DAILY 12/16/17 [History] Ferrous Sulfate 325 mg PO BID 12/16/17 [History] 3 Allergy/AdvReac Type Severity Reaction Status Date / Time No Known Allergies Allergy Verified 12/16/17 14:57 - Meds/Allergy Pre-op Review Medications Reviewed: Yes Allergies Reviewed: Yes Beta Blockers on Current Med List: No Anesthesia Results - Labs 12/19/17 05:50 12/19/17 05:50 - Imaging EKG: report reviewed (03/14/2014 sinus rhythm) Anesthesia Exam Vital Signs/O2 Sat, Most Current Temp Pulse Resp BP Pulse Ox 98.0 F 71 16 120/79 98 12/20/17 16:53 12/20/17 16:53 12/20/17 16:53 12/20/17 16:53 12/20/17 16:53 Height: 5'5''/1.65m Weight: 114 lbs/51.9 kg - HEENT Pupil (Motor): EOMI Mallampati: III Teeth: Edentulous Oral Opening: Greater than 3 - IMPROVEMENT COORDINATOR LOC: Oriented IMPROVEMENT COORDINATOR Motor: Normal RUE, Normal LUE, Normal RLE, Normal LLE, Normal Face IMPROVEMENT COORDINATOR Sensory: Normal: RUE, LUE, LLE, Face, Deficit: RLE - Cardiac Rhythm: Regular Murmur: None - Pulmonary Breath Sounds: bilateral Rhonchi Respiratory Effort: Symmetrical Anesthesia Assess/Plan ASA Score: 3 Modified Kevin Scale for Level of Consciousness: Cooperative, oriented, and tranquil Anesthetic Plan: General Monitoring Plan: Standard Monitors Recovery Plan: PACU
[2017-12-21] MEDS: *HR* Heparin 5,000 UNIT/ML VIAL SQ SCH ×2 (02:15→17:12)
[2017-12-21] MEDS: *HR* OxyCODONE/APAP 5/325 TABLET PO PRN ×3 (02:20→23:53)
[2017-12-21 04:48] LABS: Basophils # 0.1 K/mcL (0.0-0.2); Basophils % 0.6 %; Eosinophils # 0.4 K/mcL (0.0-0.6); Eosinophils % 3.6 %; Hematocrit 39.6 % (37.5-50.1); Hemoglobin 12.2 g/dL (12.9-16.9); Immature Granulocytes % 0.3 % (0-4); Lymphocytes # 4.1 K/mcL (0.6-4.6); Lymphocytes % 37.4 %; Mean Corpuscular HGB Conc 30.8 g/dL (31.6-35.5); Mean Corpuscular Hemoglobin 26.9 pg (28.0-33.3); Mean Corpuscular Volume 87.2 fL (83.0-100.0); Mean Platelet Volume 9.5 fL (9.4-12.4); Monocytes % 9.1 %; Neutrophils # 5.4 K/mcL (1.6-8.9); Platelet Count 563 K/mcL (140-400); Red Blood Count 4.54 M/mcL (4.19-5.50); Red Cell Distribution Width 15.5 % (11.5-14.5)
[2017-12-21 04:53] LABS: Prothrombin Time 10.8 Seconds (9.4-12.1)
[2017-12-21 05:08] LABS: BUN/Creatinine Ratio 21 (6-26); Blood Urea Nitrogen 15 mg/dL (8-23); Calcium 9.3 mg/dL (8.6-10.3); Carbon Dioxide 28 mEq/L (23-29); Chloride 102 mEq/L (98-107); Glucose 114 mg/dL (70-105); Osmolality,Calculated 296 (280-300); Potassium 4.4 mEq/L (3.5-5.1); Sodium 142 mEq/L (136-145); eGFR For Non-African Americans > 60 (> 60)
[2017-12-21] MEDS: Nicotine 21 MG PATCH.TD24 TD SCH (10:01)
[2017-12-21] MEDS: Lactobacillus 1 EACH CAP.SPRINK PO SCH (10:01)
[2017-12-21] MEDS: Sucralfate 1 GM TABLET PO SCH ×3 (10:02→21:55)
[2017-12-21] MEDS: Aspirin Enteric Coated 81 MG Tablet PO SCH (10:02)
[2017-12-21] MEDS: levoFLOXacin 750 MG TABLET PO SCH (10:02)
[2017-12-21] MEDS: *HR* HYDROcodone/Acet 7.5/325 mg TABLET PO PRN ×2 (10:02→19:59)
[2017-12-21] MEDS ORDERED: *HR* Midazolam HCl 2 MG/2 ML VIAL ONE (13:13)
[2017-12-21] MEDS ORDERED: Lidocaine -MPF 2% 2 ML VIAL ONE (13:13)
[2017-12-21] MEDS ORDERED: Ondansetron 4 MG/2 ML VIAL ONE (13:13)
[2017-12-21] MEDS ORDERED: *HR* Propofol 200 MG/20 ML VIAL IVP ONE (13:13)
[2017-12-21] MEDS ORDERED: Dexamethasone 4 MG/ML VIAL ONE (13:13)
[2017-12-21] MEDS ORDERED: *HR* FentaNYL (PF) 100 MCG/2 ML VIAL ONE (13:13)
[2017-12-21] MEDS ORDERED: ceFAZolin 1,000 MG, Sodium Chloride IRRigation 1,000 ML IR ONE (13:30)
[2017-12-21] MEDS ORDERED: Ringers Solution, Lactated 1,000 ML IVC SCH (13:50)
[2017-12-21] MEDS ORDERED: *HR* HYDROmorphone 2 MG/ML SYRINGE ONE (13:56)
--- NOTE | 2017-12-21 14:23 | Internal Med Progress Note ---
Hospitalist Progress Note - Encounter Date of Encounter: 12/21/17 Time of Encounter: 09:00 - Subjective Interval History: Pt c/o right legfoot pain, controlled by pain meds. no fever, no SOB, no nausea/ vomiting. Wait for AKA in the afternoon. - Exam Vitals: Temp Pulse Resp BP Pulse Ox 97.7 F 86 16 110/72 100 12/21/17 11:08 12/21/17 11:08 12/21/17 11:08 12/21/17 11:08 12/21/17 11:08 Exam: Patient in no acute distress, alert and oriented 3 Cranial nerves II through XII intact Heart in regular rate and rhythm without murmur or gallop Lungs diffusely diminished with mild rhonchorous breath sounds in bilateral bases, no wheeze or rales Abdomen soft and nontender with normal bowel sounds present Clubbing of the fingers demonstrated in bilateral upper extremities Left lower extremity status post lszwc-yqo-wjzj amputation without signs of sores or wounds Right lower extremity status post TMA and revision Surgical wound demonstrates sutures still in place, black eschar along surgical wound Lateral aspect of the surgical wound is dehisced and there is an open wound approximately 2 x 4 cm Dehisced area shows thin layer of yellow tissue over beefy-red, surrounded by necrotic eschar Skin over the remainder of the forefoot and hindfoot is edematous and erythematous however nontender and nonindurated 1+ dorsal pedal pulse auscultated on dorsum of right foot - Assessment and Plan (1) Tobacco abuse Current Visit: Yes Status: Chronic Assessment and Plan: Smoking cessation education. Nicotine patch (2) COPD (chronic obstructive pulmonary disease) Current Visit: No Status: Chronic Assessment and Plan: History of COPD, no wheezing now. Cont Albuterol PRN. (3) PAD (peripheral artery disease) Current Visit: Yes Status: Chronic Assessment and Plan: Cont Home meds ASA/plavix/statin. (4) Postoperative cellulitis of surgical wound Current Visit: Yes Status: Chronic Assessment and Plan: MRI shows fluid collection, cannot r/o abscess/osteomyelitis. - Cont abx, WBC trend down. Abx changed per wound culture results. - Vascular surgery consult appreciated, plan for AKA on Thursday. DVT Prophylaxis: Heparin SC - Time Spent with Patient Total time spent is greater than 50% in coordination of care (as documented) at patient's floor/unit and/or counseling patient: 30 min 25 - 35 minutes Plan of Care Discussed with: patient Internal Medicine: Result - Labs CBC & Chem 7: 12/21/17 04:22 12/21/17 04:22 Labs: Short CBC 12/21/17 Range/Units 04:22 WBC 10.9 (4.3-11.1) K/mcL Hgb 12.2 L (12.9-16.9) g/dL Hct 39.6 (37.5-50.1) % Plt Count 563 H (140-400) K/mcL Neutrophils # 5.4 (1.6-8.9) K/mcL BMP 12/21/17 04:22 Sodium 142 Potassium 4.4 Chloride 102 Carbon Dioxide 28 BUN 15 Creatinine 0.73 Glucose 114 H Calcium 9.3 - ABG Interpretation ABG results: PT/INR, D-dimer PT 10.8 Seconds (9.4-12.1) 12/21/17 04:22 Consult Discharge Plan - Plan Referrals: NONE,PCP [Primary Care Provider] - (2) COPD (chronic obstructive pulmonary disease) Qualifiers: COPD type: emphysema Emphysema type: panlobular Qualified Code(s): J43.1 - Panlobular emphysema
[2017-12-21] MEDS ORDERED: *HR* HYDROmorphone (PF) 1 MG/ML SYRINGE IVP PRN ×2 (14:58→16:38)
[2017-12-21] MEDS ORDERED: *HR* Promethazine 25 MG/ML VIAL IVP PRN ×2 (14:58→16:38)
[2017-12-21] MEDS ORDERED: *HR* OxyCODONE Immed Rel 5 MG TABLET PO PRN ×2 (14:58→16:38)
--- NOTE | 2017-12-21 16:34 | Operative Note ---
Date of procedure: 12/21/17 Pre-op diagnosis: Chronic right lower extremity ischemia and nonhealing wound Post-op diagnosis: same Procedure: Right above-knee amputation Complications: None Anesthesia: GETA Surgeon: Alexis Aguilar Was there an assistant production manager present: No Estimated blood loss (cc): 25 Specimen: Right above-knee amputation Condition: stable Disposition: PACU Procedure in Detail: History Kyler Krueger is a 62-year-old white male with a long history of bilateral lower extremity vascular disease. He is undergone previous interventions in the left lower extremity which culminated in a left cwuej-gos-pphe amputation. The patient then re-presented here and had severe ischemia of the right lower extremity. Open procedure and endarterectomy and thrombectomy was performed. Patient then went on to have a right TMA. The wound was not healing and the patient had opted originally for conservative course of action with an attempt to try to heal the wound. Unfortunately this was unsuccessful the patient went on to develop ischemic rest pain. He now comes to the operating room for right hdffp-wrm-slph amputation. Procedure After informed consent was obtained the patient was taken to the operating room. General endotracheal anesthesia was established. The right lower extremity was sterilely prepped and draped. A timeout protocol was observed. A fishmouth type incision was made on the distal right thigh. Dissection was carried down to and through the fascia. The muscle groups were then individually divided using cautery. On the medial aspect the superficial femoral artery vein and nerve were individually identified and ligated and divided. Posteriorly the sciatic nerve was identified and ligated and divided. The periosteum was raised off the femur. A sagittal saw was then used and the femur was divided. The edges of the bone were then rasped smooth. The wound was copiously irrigated with antibiotic-containing solution. The fascia was then closed in interrupted fashion over the bone. Skin edges were closed with clarke. A bulky dry dressing was then applied to the right above-knee amputation secured with Mario wraps. The muscle was found to be viable during the procedure and there is no signs of thrombosis or infection in the right thigh. The patient was then reversed and anesthesia next made in the operating room. He was taken from the operating room to the recovery room in stable condition.
[2017-12-21] MEDS ORDERED: Acetaminophen 325 MG TABLET PO PRN (16:38)
[2017-12-21] MEDS ORDERED: Naloxone 0.4 MG/ML INJ IVP PRN (16:38)
--- NOTE | 2017-12-21 17:37 | Anesthesia Evaluation Post Op ---
Date of Encounter: 12/21/17 Time of Encounter: 16:25 - Discharge PostOp Status: Transfer Patient to floor (Patient's vital signs have been reviewed. Patient is stable postoperatively and has adequately recovered from anesthesia. Patient is determined to have stable airway patency and respiratory function including respiratory rate and oxygen saturation. Patient has a stable heart rate, blood pressure and adequate hydration. Patients mental status is acceptable. Patients temperature is appropriate. Pain and nausea are adequately controlled.)
[2017-12-21] MEDS: Linezolid 600 MG TABLET PO SCH (19:59)
[2017-12-21] MEDS ORDERED: Linezolid 600 MG TABLET PO SCH (21:00)
[2017-12-22] MEDS: *HR* Heparin 5,000 UNIT/ML VIAL SQ SCH ×2 (06:22→17:45)
--- NOTE | 2017-12-22 08:21 | Vascular/[facility]as Progress Note ---
Date of Encounter: 12/22/17 Time of Encounter: 08:20 - Assessment and plan (1) PAD (peripheral artery disease) Current Visit: Yes Status: Chronic severe PAD s/p right aka (2) Severe tobacco use disorder Current Visit: No Status: Chronic tobacco abuse - Subjective Interval history: POD #1 uneventful night--pain controlled--was up in wheelchair and apparently was smoking last night--right AKA dressing came dislodged Vital Signs, Last 4 Hours Temp Pulse Resp BP Pulse Ox 12/22/17 07:49 97.7 F 66 16 121/61 100 12/22/17 04:25 98.7 F 72 17 114/63 96 - Physical Examination General: Present: Conversant, No Apparent Distress HEENT: Present: Atraumatic Vascular: Present: Amputation(s) (right aka dressing reinforced with santa wrap) Results 12/21/17 04:22 12/21/17 04:22 Consult Discharge Plan - Plan Referrals: NONE,PCP [Primary Care Provider] - Alexis Aguilar MD [Partnered Physician] - (follow up in 6 weeks in [facility])
[2017-12-22] MEDS: *HR* OxyCODONE/APAP 5/325 TABLET PO PRN ×2 (08:59→17:45)
[2017-12-22] MEDS: Aspirin Enteric Coated 81 MG Tablet PO SCH (08:59)
[2017-12-22] MEDS: Linezolid 600 MG TABLET PO SCH (08:59)
[2017-12-22] MEDS: Sucralfate 1 GM TABLET PO SCH ×4 (08:59→21:48)
[2017-12-22] MEDS: Nicotine 21 MG PATCH.TD24 TD SCH (09:00)
[2017-12-22] MEDS: Lactobacillus 1 EACH CAP.SPRINK PO SCH (09:00)
[2017-12-22] MEDS ORDERED: levoFLOXacin 750 MG TABLET PO SCH (09:00)
[2017-12-22] MEDS: *HR* HYDROcodone/Acet 7.5/325 mg TABLET PO PRN (12:33)
--- NOTE | 2017-12-22 17:26 | Internal Med Progress Note ---
Hospitalist Progress Note - Encounter Date of Encounter: 12/22/17 Time of Encounter: 17:24 - Subjective Interval History: Pt states he's having some phantom pain but surgical pain in general is controlled on pain medication. He denies fever, chills, N/V or diarrhea. He denies CP or SOB. - Exam Vitals: Temp Pulse Resp BP Pulse Ox 98.8 F 64 15 125/72 96 12/22/17 16:26 12/22/17 16:26 12/22/17 16:26 12/22/17 16:26 12/22/17 16:26 Exam: Exam: Patient in no acute distress, alert and oriented 3 Cranial nerves II through XII intact Heart in regular rate and rhythm without murmur or gallop Lungs diffusely diminished with mild rhonchorous breath sounds in bilateral bases, no wheeze or rales Abdomen soft and non-tender with normal bowel sounds present Clubbing of the fingers demonstrated in bilateral upper extremities Left lower extremity status post jmxog-yqk-oafz amputation without signs of sores or wounds Right lower extremity status post TMA and revision Surgical wound demonstrates sutures still in place, black eschar along surgical wound Lateral aspect of the surgical wound is dehisced and there is an open wound approximately 2 x 4 cm Dehisced area shows thin layer of yellow tissue over beefy-red, surrounded by necrotic eschar Skin over the remainder of the forefoot and hindfoot is edematous and erythematous however non-tender and non-indurated 1+ dorsal pedal pulse auscultated on dorsum of right foot - Assessment and Plan (1) Postoperative cellulitis of surgical wound Current Visit: Yes Status: Chronic Assessment and Plan: Vascular surgery consulting and s/p R AKA. MRI showed fluid collection was initially on Linezolid and Cefazolin. but will DC antibiotics since pt is s/p ampuation/R AKA. WBC nml. (2) PAD (peripheral artery disease) Current Visit: Yes Status: Chronic Assessment and Plan: Continue home meds ASA/plavix/statin. (3) COPD (chronic obstructive pulmonary disease) Current Visit: No Status: Chronic Assessment and Plan: History of COPD, no wheezing now. Cont Albuterol PRN. (4) Tobacco abuse Current Visit: Yes Status: Chronic Assessment and Plan: Smoking cessation education. Nicotine patch DVT Prophylaxis: Heparin - Summary of Assessment and Plan Summary of Assessment and Plan: Mr. Krueger is a 62 year old male with a past medical history of arthritis, COPD, GERD, hyperlipidemia, peripheral artery disease, left oaksq-sxk-csfl amputation. He presented today for worsening swelling, redness, pain in the post surgical site of his right foot. On 11/26/17 the patient underwent revision and debridement to TMA of his right foot. Since then the patient was admitted from 12/02-12/07 for sepsis secondary to cellulitis of the surgical wound and foot. He was recommended to have amputation of the foot but refused. He was treated with Rocephin with clinical improvement and discharged on Omnicef. He presents now with renewed pain and swelling in the surgical site and foot. He states that the pain is only in the foot and not in the leg, he denies fever or chills, or other systemic symptoms. He also denies chest pain or shortness of breath. Social history includes 15-kstl-buka smoking history with continued 1ppd smoking as well as occasional alcohol use, he denies recreational drugs. - Time Spent with Patient Total time spent is greater than 50% in coordination of care (as documented) at patient's floor/unit and/or counseling patient: less than 15 minutes Plan of Care Discussed with: patient Internal Medicine: Result - Labs CBC & Chem 7: 12/21/17 04:22 12/21/17 04:22 - ABG Interpretation ABG results: PT/INR, D-dimer PT 10.8 Seconds (9.4-12.1) 12/21/17 04:22 Consult Discharge Plan - Plan Referrals: NONE,PCP [Primary Care Provider] - Alexis Aguilar MD [Partnered Physician] - (follow up in 6 weeks in [facility]) (3) COPD (chronic obstructive pulmonary disease) Qualifiers: COPD type: emphysema Emphysema type: panlobular Qualified Code(s): J43.1 - Panlobular emphysema
[2017-12-22] MEDS: Ringers Solution, Lactated 1,000 ML IVC SCH (18:09)
[2017-12-23] MEDS: *HR* HYDROcodone/Acet 7.5/325 mg TABLET PO PRN ×2 (04:33→21:14)
[2017-12-23] MEDS: *HR* Heparin 5,000 UNIT/ML VIAL SQ SCH ×2 (06:00→17:50)
[2017-12-23] MEDS: Lactobacillus 1 EACH CAP.SPRINK PO SCH (09:44)
[2017-12-23] MEDS: Aspirin Enteric Coated 81 MG Tablet PO SCH (09:44)
[2017-12-23] MEDS: Sucralfate 1 GM TABLET PO SCH ×4 (09:45→21:14)
[2017-12-23] MEDS: Nicotine 21 MG PATCH.TD24 TD SCH (09:45)
[2017-12-23] MEDS: *HR* OxyCODONE/APAP 5/325 TABLET PO PRN ×2 (12:16→18:56)
--- NOTE | 2017-12-23 13:55 | Internal Med Progress Note ---
Hospitalist Progress Note - Encounter Date of Encounter: 12/23/17 Time of Encounter: 14:00 - Subjective Interval History: Pt states he's having some phantom pain but surgical pain in general is controlled on pain medication. He denies fever, chills, N/V or diarrhea. He denies CP or SOB. - Exam Vitals: Temp Pulse Resp BP Pulse Ox 98.6 F 70 16 146/77 98 12/23/17 12:10 12/23/17 12:10 12/23/17 12:10 12/23/17 12:10 12/23/17 12:10 Exam: Exam: Patient in no acute distress, alert and oriented 3 Cranial nerves II through XII intact Heart in regular rate and rhythm without murmur or gallop Lungs diffusely diminished with mild rhonchorous breath sounds in bilateral bases, no wheeze or rales Abdomen soft and non-tender with normal bowel sounds present Clubbing of the fingers demonstrated in bilateral upper extremities Left lower extremity status post uwdfm-kiq-qxxu amputation without signs of sores or wounds Right lower extremity status post TMA and revision Surgical wound demonstrates sutures still in place, black eschar along surgical wound Lateral aspect of the surgical wound is dehisced and there is an open wound approximately 2 x 4 cm Dehisced area shows thin layer of yellow tissue over beefy-red, surrounded by necrotic eschar Skin over the remainder of the forefoot and hindfoot is edematous and erythematous however non-tender and non-indurated 1+ dorsal pedal pulse auscultated on dorsum of right foot - Assessment and Plan (1) Postoperative cellulitis of surgical wound Current Visit: Yes Status: Chronic Assessment and Plan: Vascular surgery consulting and s/p R AKA. MRI showed fluid collection was initially on Linezolid and Cefazolin. but will DC antibiotics since pt is s/p ampuation/R AKA. WBC nml. Pt awaiting placement. (2) PAD (peripheral artery disease) Current Visit: Yes Status: Chronic Assessment and Plan: Continue home meds ASA/plavix/statin. (3) COPD (chronic obstructive pulmonary disease) Current Visit: No Status: Chronic Assessment and Plan: History of COPD, no wheezing now. Cont Albuterol PRN. (4) Tobacco abuse Current Visit: Yes Status: Chronic Assessment and Plan: Smoking cessation education. Nicotine patch DVT Prophylaxis: Heparin - Summary of Assessment and Plan Summary of Assessment and Plan: Mr. Krueger is a 62 year old male with a past medical history of arthritis, COPD, GERD, hyperlipidemia, peripheral artery disease, left cnpbz-xzu-bdtt amputation. He presented today for worsening swelling, redness, pain in the post surgical site of his right foot. On 11/26/17 the patient underwent revision and debridement to TMA of his right foot. Since then the patient was admitted from 12/02-12/07 for sepsis secondary to cellulitis of the surgical wound and foot. He was recommended to have amputation of the foot but refused. He was treated with Rocephin with clinical improvement and discharged on Omnicef. He presents now with renewed pain and swelling in the surgical site and foot. He states that the pain is only in the foot and not in the leg, he denies fever or chills, or other systemic symptoms. He also denies chest pain or shortness of breath. Social history includes 99-voto-mksc smoking history with continued 1ppd smoking as well as occasional alcohol use, he denies recreational drugs. - Time Spent with Patient Total time spent is greater than 50% in coordination of care (as documented) at patient's floor/unit and/or counseling patient: less than 15 minutes Plan of Care Discussed with: patient Internal Medicine: Result - Labs CBC & Chem 7: 12/21/17 04:22 12/21/17 04:22 - ABG Interpretation ABG results: PT/INR, D-dimer PT 10.8 Seconds (9.4-12.1) 12/21/17 04:22 Consult Discharge Plan - Plan Referrals: NONE,PCP [Primary Care Provider] - Alexis Aguilar MD [Partnered Physician] - (follow up in 6 weeks in [facility]) (3) COPD (chronic obstructive pulmonary disease) Qualifiers: COPD type: emphysema Emphysema type: panlobular Qualified Code(s): J43.1 - Panlobular emphysema
--- NOTE | 2017-12-23 19:05 | Vascular/End[facility]as Progress Note ---
Date of Encounter: 12/23/17 Time of Encounter: 19:03 - Assessment and plan (1) PAD (peripheral artery disease) Current Visit: Yes Status: Chronic severe PAD s/p right aka wound is healing appropriately on postoperative day # 2. Patient may be transferred to [facility] when cleared medically. Patient will follow -up in the vascular surgery clinic in 6 weeks for staple removal. Patient is to have daily dressing changes to the right above-knee amputation. (2) Severe tobacco use disorder Current Visit: No Status: Chronic tobacco abuse - Subjective Interval history: POD #2 patient has no significant pain. Patient has been up in a wheelchair. Preparations are being made for the patient be transferred to an extended care facility. Vital Signs, Last 4 Hours Temp Pulse Resp BP Pulse Ox 12/23/17 18:48 98.6 F 70 16 142/89 98 12/23/17 17:18 98.5 F 76 16 105/65 99 - Physical Examination Vascular: Present: Amputation(s) (The right grbba-aib-mdcp amputation dressing was removed. The wound was inspected. Flaps are intact. They're warm and pink. No signs of infection or cellulitis.) Results 12/21/17 04:22 12/21/17 04:22 Consult Discharge Plan - Plan Additional Instructions: Daily dressing changes to right above-knee amputation with a dry to dry dressing. Keep staple line drive for 5 days following surgery then patient may bathe or shower as needed. Referrals: NONE,PCP [Primary Care Provider] - Alexis Aguilar MD [Partnered Physician] - (follow up in 6 weeks in [facility])
[2017-12-23 23:46] VITALS: BP 137/75
--- NOTE | 2017-12-24 11:53 | Discharge Summary ---
- NOTES TO OUTPATIENT PROVIDER Notes to Outpatient Provider: Patient with history of peripheral arterial disease was hospitalized here with cellulitis involving the surgical wound of right TMA. Vascular surgery was consulted and they recommended above-knee amputation. Patient underwent this procedure on 12/21. His not doing better. He will be discharged to skilled rehabilitation for further management. He will follow up with vascular surgery as outpatient. Orders not resulted at time of discharge: Pending orders 12/20/17 06:35 Red Blood Cells [BBK] Routine Type and Screen [BBK] AM 0400 12/21/17 15:57 Surgical Pathology [PTH] Routine Date of Encounter: 12/24/17 Time of Encounter: 11:50 - Discharge Diagnosis (1) Postoperative cellulitis of surgical wound Priority: Primary Status: Chronic (2) Tobacco abuse Priority: Secondary Status: Chronic (3) COPD (chronic obstructive pulmonary disease) Priority: Secondary Status: Chronic Qualifiers: COPD type: emphysema Emphysema type: panlobular Qualified Code(s): J43.1 - Panlobular emphysema (4) PAD (peripheral artery disease) Priority: Secondary Status: Chronic Hospital course: Mr. Krueger is a 62 year old male Discharge discussed with: patient, nurse - Time Spent with Patient Total time spent providing and/or coordinating discharge services: Greater than 30 minutes (35 min) - Discharge Medications Home Medications: Albuterol Sulfate [Proair Hfa] 1 - 2 puff IH Q6H PRN 10/14/17 [History] Lovastatin [Mevacor] 20 mg PO QPM 10/14/17 [History] Clopidogrel [Plavix] 75 mg PO DAILY #30 tablet 10/22/17 [Rx] Sucralfate [Carafate] 1 gm PO QIDAC #120 tablet 10/22/17 [Rx] Pantoprazole Sodium [Protonix] 40 mg PO BID 11/02/17 [History] Aspirin Enteric Coated [Aspirin EC] 81 mg PO DAILY 12/16/17 [History] Ferrous Sulfate 325 mg PO BID 12/16/17 [History] HYDROcodone/Acet 7.5/325 mg [[place] 7.5-325 mg] 1 tab PO Q6HR PRN 5 Days tablet 12/24/17 [Rx] Nicotine Patch [Nicoderm] 21 mg TD DAILY #0 patch.td24 12/24/17 [Rx] Allergies/Adverse Reactions: Allergy/AdvReac Type Severity Reaction Status Date / Time No Known Allergies Allergy Verified 12/16/17 14:57 Date of admission: 12/16/17 12:25 Primary care physician: PCP NONE Consults: 12/21/17 16:37 Consult to Health Lead [CONS] Routine Reason for SW Consult: post op amputation 12/21/17 16:38 Consult to Physical Therapy [CONS] Routine Comment: Evaluate, develop and implement POC Reason for Consult: Patient is status post right above-knee medication. Patient is status post left yiltz-umn-gxeu amputation at outside hospital. Does patient have active BEDREST order?: Yes Is patient medically & hemodynamically stable?: Yes Patient assessed for mobility or mobilized this visit?: No Discharging clinician: Razia Edouard Anticipated date of discharge: 12/24/17 - Constitutional Vitals: Temp Pulse Resp BP Pulse Ox 97.6 F 70 16 137/75 99 12/23/17 23:44 12/23/17 23:44 12/23/17 23:44 12/23/17 23:44 12/23/17 23:44 General appearance: Present: cooperative, A&O X 3, answers questions appropriately Exam: . - Respiratory Respiratory exam: Present: prolonged expiratory phase, wheezes. Absent: accessory muscle use, rales, rhonchi - Cardiovascular Cardiovascular exam: Present: RRR, +S1, +S2. Absent: diastolic murmur, gallop, rubs, systolic murmur - Extremities Exam Additional comments: Status post bilateral AKA. Right sided stump bandaged. - Patient Status Disposition: Transfer SNF Condition: Good Functional capacity at discharge: wheelchair bound Overall status at discharge: patient is progressing back to baseline - Discharge Instructions Follow Up With: NONE,PCP [Primary Care Provider] - Alexis Aguilar MD [Partnered Physician] - (follow up in 6 weeks in [facility]) Additional Instructions: Daily dressing changes to right above-knee amputation with a dry to dry dressing. Keep staple line drive for 5 days following surgery then patient may bathe or shower as needed. - Diet and Activity Activity: increase activity as tolerated Diet: low fat, low cholesterol, low salt diet
--- NOTE | 2017-12-24 11:59 | Physician Discharge Referral ---
ExtendedCare Referral Info Provider in Charge after Transfer: PCP Institutional Level of Care: Skilled - Diagnosis (1) Postoperative cellulitis of surgical wound Priority: Primary Status: Chronic (2) Tobacco abuse Priority: Secondary Status: Chronic (3) COPD (chronic obstructive pulmonary disease) Priority: Secondary Status: Chronic (4) PAD (peripheral artery disease) Priority: Secondary Status: Chronic (5) Above knee amputation of right lower extremity Priority: Secondary Status: Acute Prognosis: Fair Aware of Diagnosis: Patient Aware of Prognosis: Patient - Transfer Medications Home Medications: Albuterol Sulfate [Proair Hfa] 1 - 2 puff IH Q6H PRN 10/14/17 [History] Lovastatin [Mevacor] 20 mg PO QPM 10/14/17 [History] Clopidogrel [Plavix] 75 mg PO DAILY #30 tablet 10/22/17 [Rx] Sucralfate [Carafate] 1 gm PO QIDAC #120 tablet 10/22/17 [Rx] Pantoprazole Sodium [Protonix] 40 mg PO BID 11/02/17 [History] Aspirin Enteric Coated [Aspirin EC] 81 mg PO DAILY 12/16/17 [History] Ferrous Sulfate 325 mg PO BID 12/16/17 [History] HYDROcodone/Acet 7.5/325 mg [[place] 7.5-325 mg] 1 tab PO Q6HR PRN 5 Days tablet 12/24/17 [Rx] Nicotine Patch [Nicoderm] 21 mg TD DAILY #0 patch.td24 12/24/17 [Rx] Allergies/Adverse Reactions: Allergy/AdvReac Type Severity Reaction Status Date / Time No Known Allergies Allergy Verified 12/16/17 14:57 - Respiratory Orders Smoking Cessation: Smoking cessation has been advised. For more information, call the [place] Tobacco Quit Line at 9-992-HDAX-NOW. - Advance Directives Code Status: Full Code - Mobility Orders Other (per PT) - Rehabiliation Orders Rehab Potential: Fair Rehab Orders: Evaluation for Physical Therapy, Evaluation for Occupational Therapy - Treatments List/Other: Daily dressing changes to right above-knee amputation with a dry to dry dres sing. Keep staple line drive for 5 days following surgery then patient may bathe or shower as needed. - Diet Orders Cardiac CERTIFICATION: I certify that the transfer of the above named patient to an Extended Care Facility is necessary for the continuing treatment of the diagnosis listed. The above information is true and accurate reflection of patient's current condition. Confidential - Redisclosure prohibited without a patient's written consent.
[2017-12-24] MEDS: *HR* Heparin 5,000 UNIT/ML VIAL SQ SCH (12:04)
[2017-12-24] MEDS: Sucralfate 1 GM TABLET PO SCH (12:04)
[2017-12-24] MEDS: Aspirin Enteric Coated 81 MG Tablet PO SCH (12:05)
[2017-12-24] MEDS: Lactobacillus 1 EACH CAP.SPRINK PO SCH (12:05)
[2017-12-24] MEDS: Nicotine 21 MG PATCH.TD24 TD SCH (12:05)
[2017-12-24] MEDS ORDERED: Aspirin Enteric Coated 81 MG Tablet PO ONE (13:45)
[2017-12-24] MEDS ORDERED: *HR* Heparin 5,000 UNIT/ML VIAL IVP ONE ×2 (13:45)
[2017-12-24] MEDS ORDERED: Sucralfate 1 GM TABLET PO ONE (13:45)
[2017-12-24] MEDS ORDERED: *HR* OxyCODONE/APAP 5/325 TABLET PO ONE ×3 (13:45)
[2017-12-24] MEDS ORDERED: Lactobacillus 1 EACH CAP.SPRINK PO ONE (13:45)
== END 2017-12-24 13:46 | DRG 711 ==
LOC: 2ANU → SUATTDRO 12-16 12:25
PROVIDERS: ADMIT Internal Medicine; ATTEND Internal Medicine